=== PATIENT | female | born 2000 | race Caucasian/White ===

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

== ENCOUNTER 2020-11-05 09:18 | Day surgery (SDC) | payer OTHER ==
[2020-11-05] MEDS ORDERED: NA CHLORIDE 0.9% 1,000 ML ONE (09:57)
[2020-11-05] MEDS ORDERED: propofoL 200 MG/20 ML VIAL IV ONE ×2 (11:13→11:41)
[2020-11-05] MEDS ORDERED: FENTANYL CITR 100 MCG/2 ML ONE (11:13)
[2020-11-05] MEDS ORDERED: dexAMETHasone 10 MG/ML VIAL ONE (11:13)
[2020-11-05] MEDS ORDERED: MIDAZOLAM HCL 2 MG/2 ML INJ ONE (11:13)
[2020-11-05] MEDS ORDERED: LIDOCAINE 2% MPF 5 ML VIAL ONE (11:14)
--- NOTE | 2020-11-05 11:39 | P.OP ---
Preoperative diagnosis: End Stage Renal Disease - Peritoneal Dialysis Postoperative diagnosis: End Stage Renal Disease - Peritoneal Dialysis Primary procedure: Removal of LEFT IJ Tunnelled Hemodialysis Catheter Anesthesia: MAC + Local Estimated blood loss: <1cc Specimen: Catheter for ID Findings: well grown cuff Complications: None Transferred to: Recovery Room Condition: Good
--- NOTE | 2020-11-05 12:10 | OP ---
Date of Procedure: 11/05/2020 Surgeon: Sachin Cartwright MD, Preoperative Diagnosis: End-stage renal disease/peritoneal dialysis. Postoperative Diagnosis: End-stage renal disease/peritoneal dialysis. Procedure Performed: Removal of left internal jugular tunneled hemodialysis catheter. Anesthesia: MAC plus local with 0.25% Marcaine with epinephrine. Estimated Blood Loss: Less than 1 mL. Specimens: Catheter for ID. Findings: Left IJ catheter was well grown into the tissue. Complications: None. Disposition: The patient was transferred to the recovery room in good condition. Procedure In Detail: After informed consent was obtained, the patient was brought to the operating r oom, prepped and draped in the usual sterile fashion after adequate anesthesia was achieved. The pat ient was placed in steep Trendelenburg position. The catheter had no sutures in place as it was bein g held by its cuff. I then manipulated the cuff and anesthetized the tract with the 0.25% Marcaine w ith epinephrine. At this point, I was able to dilate up the insertion site with hemostats and expose d the cuff. The cuff was then brought out onto the field and I used a 15 blade to cut down to the ca theter itself using meticulous dissection and a combination of both sharp and blunt dissection. At t his point when the catheter was completely free from the surrounding tissues, I kept the patient in s teep Trendelenburg position and hold the pressure above the insertion site and the exit site of the c atheter, pulled it and placed on the back table. The pressure was held for 1 minute and the patient was positioned at this point in the sitting up position and pressure continued to be held at the inse rtion site and the exit site. At this point, pressure remained on the insertion site and at the exit site. I irrigated with minimal blood loss. Less than 1 mL was appreciated blood loss. I then plac ed 2 interrupted 3-0 nylon sutures and a sterile dressing was placed over top. The patient had press ure held for 5 minutes by the clock and tolerated the procedure well without evidence of complication . The patient was transferred to PACU in good condition. All counts were correct at the end of the case. TK/MODL Voice ID: [id number] Report ID: [id number]
[2020-11-05] MEDS ORDERED: LIDOCAINE 1% MPF 30 ML VIAL ONE (12:13)
[2020-11-05 12:23] VITALS: BP 123/90; TEMP 97; O2SAT 99
== END 2020-11-05 12:40 | disposition home or self-care (01) ==
LOC: OR 09:18
PROVIDERS: ATTEND Surgery
PROC: 05PY03Z Removal of Infusion Device from Upper Vein, Open Approach (ICD-10-PCS; principal; 2020-11-05 11:15)
DX: Z45.2 Encounter for adjustment and management of vascular access device (principal); N18.6 End stage renal disease; Z99.2 Dependence on renal dialysis
CPT/HCPCS: 81025; 88300; 36590; U0003; J2704 ×2; J2250; J7030; J1100; J3010

== ENCOUNTER 2021-01-29 03:18 | Inpatient (IN) | payer OTHER ==
[2021-01-29] MEDS ORDERED: ONDANSETRON 4 MG/2 ML VIAL ONE (04:11)
[2021-01-29] MEDS ORDERED: FENTANYL CITR 100 MCG/2 ML ONE (04:11)
[2021-01-29 04:25] LABS: Absolute Lymphocytes (CBC) 2.4 K/uL (0.7-4.9); Basophils % 0.2 % (0-1.3); Hematocrit 28.1 % (36.0-45.0); Lymphocytes % 26.1 % (15.3-44.8); MPV 8.7 fL (7.6-11.3); RBC Red Blood Cell Count 3.11 M/uL (3.86-4.86)
[2021-01-29 04:29] LABS: Protime INR 0.97
[2021-01-29] MEDS ORDERED: CEFTRIAXONE/SWI 1gm 1 GM/10 ML SYR ONE (04:42)
[2021-01-29 04:48] LABS: ALT/SGPT 14 U/L (12-78); AST/SGOT 7 U/L (15-37); Albumin 2.8 g/dL (3.4-5.0); Alkaline Phosphatase 147 U/L (45-117); BUN Blood Urea Nitrogen 54 mg/dL (7-18); Bicarbonate 23 mmol/L (21-32); Bilirubin Direct < 0.1 mg/dL (0-0.2); Bilirubin Total 0.3 mg/dL (0.2-1.0); Creatine Phosphokinase 99 U/L (26-192); Glucose Level 179 mg/dL (74-106); Lipase 225 U/L (73-393); Potassium 4.1 mmol/L (3.5-5.1); Protein, Total 7.1 g/dL (6.4-8.2); Sodium Level 140 mmol/L (136-145)
--- NOTE | 2021-01-29 05:37 | EDPHYS ---
Physician Documentation [facility] Name: Sully Renner Age: 20 yrs Sex: Female : 2000 Arrival Date: 01/29/2021 Time: 03:24 Bed 6 Private MD: ED Physician Aaron Perez HPI: 01/29 06:14 This 20 yrs old Female presents to ER via Wheelchair with complaints of tw4 Fever, Abdominal Pain. 06:14 The patient reports fever, not measured (subjective). Onset: The symptoms/episode tw4 began/occurred today. Modifying factors: there are no obvious modifying factors. Associated signs and symptoms: Pertinent positives: abdominal pain. Severity of symptoms: At their worst the symptoms were moderate in the emergency department the symptoms are unchanged. The patient has not experienced similar symptoms in the past. 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 - Social history:: Smoking status: Patient denies any tobacco usage or history of. ROS: 06:14 Eyes: Negative for injury, pain, redness, and discharge, Cardiovascular: Negative for tw4 chest pain, palpitations, and edema, Respiratory: Negative for shortness of breath, cough, wheezing, and pleuritic chest pain. 06:14 Back: Negative for injury and pain, MS/Extremity: Negative for injury and deformity, Skin: Negative for injury, rash, and discoloration, Neuro: Negative for headache, weakness, numbness, tingling, and seizure. 06:14 Constitutional: Positive for fever. 06:14 Abdomen/GI: Positive for abdominal pain, Negative for nausea and vomiting, nausea, vomiting, and diarrhea, nausea, constipation, abdominal cramps, abdominal distension, anorexia, dysphagia, hematemesis, black/tarry stool, rectal pain, bowel incontinence. Exam: 06:14 Constitutional: This is a well developed, well nourished patient who is awake, alert, tw4 and in no acute distress. Head/Face: Normocephalic, atraumatic. Eyes: Pupils equal round and reactive to light, extra-ocular motions intact. Lids and lashes normal. Conjunctiva and sclera are non-icteric and not injected. Cornea within normal limits. Periorbital areas with no swelling, redness, or edema. Chest/axilla: Normal chest wall appearance and motion. Nontender with no deformity. No lesions are appreciated. Cardiovascular: Regular rate and rhythm with a normal S1 and S2. No gallops, murmurs, or rubs. Normal PMI, no JVD. No pulse deficits. Respiratory: Lungs have equal breath sounds bilaterally, clear to auscultation and percussion. No rales, rhonchi or wheezes noted. No increased work of breathing, no retractions or nasal flaring. Abdomen/GI: Soft, non-tender, with normal bowel sounds. No distension or tympany. No guarding or rebound. No evidence of tenderness throughout. Back: No spinal tenderness. No costovertebral tenderness. Full range of motion. Skin: Warm, dry with normal turgor. Normal color with no rashes, no lesions, and no evidence of cellulitis. MS/ Extremity: Pulses equal, no cyanosis. Neurovascular intact. Full, normal range of motion. Neuro: Awake and alert, GCS 15, oriented to person, place, time, and situation. Cranial nerves II-XII grossly intact. Motor strength 5/5 in all extremities. Sensory grossly intact. Cerebellar exam normal. Normal gait. Vital Signs: 03:44 BP 119 / 81; Pulse 98; Resp 20 S; Temp 98.9(O); Pulse Ox 98% on R/A; Weight 77.11 kg bb (R); Height 5 ft. 3 in. (160.02 cm) (R); Pain 10/10; 05:04 BP 134 / 97; Pulse 122; Resp 16; Pulse Ox 98% on R/A; jm8 06:18 BP 118 / 88; Pulse 123; Resp 16; Pulse Ox 98% ; jm8 03:44 Body Mass Index 30.11 (77.11 kg, 160.02 cm) bb MDM: 05:35 Patient medically screened. tw4 06:14 Differential diagnosis: viral Infection, bacterial infection. Data reviewed: vital tw4 signs, nurses notes. Data interpreted: Pulse oximetry: Interpretation: normal. Counseling: I had a detailed discussion with the patient and/or guardian regarding: the historical points, exam findings, and any diagnostic results supporting the discharge/admit diagnosis. Physician consultation: Violeta Flowers MD regarding admission, to the medical/surgical unit. patient's condition, and will see patient in ED. 01/29 03:34 Order name: Basic Metabolic Panel; Complete Time: 06:11 01/29 06:12 Interpretation: Normal except: CRE 9.07; BUN 54; GLUC 179; CL 108; GFR 6. 01/29 03:34 Order name: CBC with Diff; Complete Time: 06:11 01/29 06:12 Interpretation: Normal except: RBC 3.11; HGB 9.6; HCT 28.1. 01/29 03:34 Order name: Hepatic Function; Complete Time: 06:11 01/29 06:12 Interpretation: Normal except: AST 7; ALK 147; ALB 2.8; GLOB 4.3; A/G 0.7. 01/29 03:34 Order name: Lipase; Complete Time: 06:11 01/29 06:12 Interpretation: Normal except: LIP 225. 01/29 03:44 Order name: Blood Culture Adult (2) 01/29 03:44 Order name: CPK 01/29 03:44 Order name: Lactate 01/29 03:44 Order name: Procalcitonin; Complete Time: 06:11 01/29 06:12 Interpretation: Abnormal: Procalcitonin 0.40. 01/29 03:44 Order name: Protime (+inr); Complete Time: 06:11 01/29 03:44 Order name: Ptt, Activated; Complete Time: 06:11 01/29 06:12 Interpretation: Abnormal: PTT 23.8. 01/29 03:44 Order name: Urine Microscopic Only; Complete Time: 06:11 01/29 06:13 Interpretation: Within normal limits. 01/29 03:45 Order name: Blood Culture EDCO 01/29 03:45 Order name: Lactate; Complete Time: 06:11 EDCO 01/29 06:13 Interpretation: Within normal limits: LAC 1.1. 01/29 04:11 Order name: Creatine Phosphokinase; Complete Time: 06:11 EDCO 01/29 06:13 Interpretation: Within normal limits: CPK 99. tw4 01/29 04:15 Order name: CT Abd/Pelvis - Without Contrast tw4 01/29 05:32 Order name: CONS Physician Consult EDCO 01/29 05:39 Order name: Urine Dipstick-Ancillary; Complete Time: 06:11 EDCO 01/29 06:12 Interpretation: Normal except: UBLD Trace-intact; UPH 8.0; UPROT 3+. tw4 01/29 06:27 Order name: Fluid Cell Count,Body tw4 01/29 06:28 Order name: Body Fluid Culture tw 01/29 06:43 Order name: SARS-COV-2 RT PCR EDCO 01/29 07:53 Order name: Body Fluid Cell Count EDCO 01/29 07:55 Order name: Body Fluid Culture EDCO 01/29 03:34 Order name: IV Saline Lock; Complete Time: 04:05 tw4 01/29 03:34 Order name: Labs collected and sent; Complete Time: 04:05 tw4 01/29 03:34 Order name: Urine Dipstick-Ancillary (obtain specimen); Complete Time: 05:49 tw4 01/29 03:34 Order name: Urine Test (obtain specimen); Complete Time: 05:49 tw4 Administered Medications: 04:04 Drug: fentaNYL (PF) 50 mcg Route: IVP; Site: left antecubital; jm8 06:17 Follow up: Response: No adverse reaction; Pain is decreased jm8 04:04 Drug: Zofran (Ondansetron) 4 mg Route: IVP; Site: left antecubital; jm8 06:17 Follow up: Response: No adverse reaction jm8 04:28 Drug: Rocephin (cefTRIAXone) 1 grams Route: IV; Rate: bolus; Site: left antecubital; jb4 04:30 Follow up: IV Status: Completed infusion jm8 06:47 Drug: vancoMYCIN 1 grams Route: IVPB; Infused Over: 2 hrs; Site: left upper arm; jm8 06:48 Drug: Cipro (ciprofloxacin) 500 mg Route: PO; jm8 06:48 Drug: NS 0.9% 250 ml Route: IV; Rate: bolus; Site: left antecubital; jm8 Disposition: 01/29/21 05:35 Hospitalization ordered by Violeta Flowers for Inpatient Admission. Preliminary diagnosis are Peritonitis, Hypertensive chronic kidney disease with stage 5 chronic kidney disease or end stage renal disease. - Bed requested for Telemetry/MedSurg (Inpatient). - Status is Inpatient Admission. ld1 - Condition is Stable. - Problem is new. - Symptoms are unchanged. Signatures: Dispatcher [employer] EDCO Korina Parrish, RN RN dw Amelia Ponce, RN RN Guilherme Smith, RN RN jb4 Aaron Perez MD MD tw4 Crys Good RN RN ld1 Clifford Blackmon RN RN jm8 Corrections: (The following items were deleted from the chart) 04:11 03:45 Creatine Phosphokinase ordered. EDCO EDMS 05:52 05:39 CORONAVIRUS+MR.LAB.BRZ ordered. [facility] EDMS 07:33 05:35 Hospitalization Ordered by Violeta Flowers MD for Inpatient Admission. Preliminary dw diagnosis is Peritonitis; Hypertensive chronic kidney disease with stage 5 chronic kidney disease or end stage renal disease. Bed requested for Telemetry/MedSurg (Inpatient). Status is Inpatient Admission. Condition is Stable. Problem is new. Symptoms are unchanged. tw4 08:48 07:33 01/29/2021 05:35 Hospitalization Ordered by Violeta Flowers MD for Inpatient ld1 Admission. Preliminary diagnosis is Peritonitis; Hypertensive chronic kidney disease with stage 5 chronic kidney disease or end stage renal disease. Bed requested for Telemetry/MedSurg (Inpatient). Status is Inpatient Admission. Condition is Stable. Problem is new. Symptoms are unchanged. dw
--- NOTE | 2021-01-29 05:37 | ER ---
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 Coronavirus screen: At this time, the client does not indicate any symptoms associated with coronavirus-19. Ebola Screen: No symptoms or risks identified at this time. Initial Sepsis Screen: Does the patient meet any 2 criteria? No. Patient's initial sepsis screen is negative. Does the patient have a suspected source of infection? Yes: Acute abdominal pain. Risk Assessment: Do you want to hurt yourself or someone else? Patient reports no desire to harm self or others. Onset of symptoms was January 29, 2021. 03:44 Method Of Arrival: Wheelchair bb 03:44 Acuity: CT 2 bb ANALOG IC DESIGN ARCHITECT: 03:47 LMP 01/10/2021 bb Historical: - Allergies: 03:47 Latex, Natural Rubber; bb - PMHx: 03:47 dialysis; bb - PSHx: 03:47 bladder augmentation; spina bifida repair; kidney transplant; bb - Immunization history:: Adult Immunizations up to date, Client reports receiving the 2nd dose of the Covid vaccine. - Social history:: Smoking status: Patient denies any tobacco usage or history of. Screenin:06 Abuse screen: Denies threats or abuse. Denies injuries from another. Nutritional jm8 screening: No deficits noted. Tuberculosis screening: No symptoms or risk factors identified. Fall Risk None identified. Assessment: 04:06 General: Appears in no apparent distress. uncomfortable, Behavior is calm, cooperative, jm8 appropriate for age. Pain: Complains of pain in abdomen Pain currently is 10 out of 10 on a pain scale. Quality of pain is described as stabbing, Pain began 2-3 days ago. Noted to be guarding, moaning. Neuro: No deficits noted. Level of Consciousness is awake, alert, obeys commands, Oriented to person, place, time. Cardiovascular: No deficits noted. Respiratory: No deficits noted. Airway is patent Trachea midline Respiratory effort is even, unlabored, Respiratory pattern is regular, symmetrical. GI: Bowel sounds present X 4 quads. Abd is soft Abdomen is tender to palpation Guarding noted Reports lower abdominal pain, upper abdominal pain. GI: Abdomen is round distended. : No deficits noted. No signs and/or symptoms were reported regarding the genitourinary system. EENT: No deficits noted. No signs and/or symptoms were reported regarding the EENT system. Derm: No deficits noted. No signs and/or symptoms reported regarding the dermatologic system. Musculoskeletal: No deficits noted. No signs and/or symptoms reported regarding the musculoskeletal system. Vital Signs: 03:44 BP 119 / 81; Pulse 98; Resp 20 S; Temp 98.9(O); Pulse Ox 98% on R/A; Weight 77.11 kg bb (R); Height 5 ft. 3 in. (160.02 cm) (R); Pain 10/10; 05:04 BP 134 / 97; Pulse 122; Resp 16; Pulse Ox 98% on R/A; jm8 06:18 BP 118 / 88; Pulse 123; Resp 16; Pulse Ox 98% ; jm8 03:44 Body Mass Index 30.11 (77.11 kg, 160.02 cm) bb ED Course: 03:24 Patient arrived in ED. am4 03:33 Aaron Perez MD is Attending Physician. tw4 03:46 Triage completed. bb 03:47 Arm band placed on Patient placed in an exam room, on a stretcher, on panel monitor, bb on pulse oximetry. Family accompanied patient. 04:05 Inserted saline lock: 18 gauge in right upper arm, using aseptic technique. jm8 04:06 Patient has correct armband on for positive identification. Bed in low position. Call jm8 light in reach. Side rails up X2. Adult w/ patient. 04:49 Notified ED physician of a critical lab result(s). creatinine of 9.07 Dr Chris hilliard notified. 05:35 Violeta Flowers MD is Hospitalizing Provider. tw4 06:11 CT Abd/Pelvis - Without Contrast In Process Unspecified. EDMS 08:42 No provider procedures requiring assistance completed. Patient admitted, IV remains in ld1 place. intact, bleeding controlled, No redness/swelling at site. Administered Medications: 04:04 Drug: fentaNYL (PF) 50 mcg Route: IVP; Site: left antecubital; 8 06:17 Follow up: Response: No adverse reaction; Pain is decreased 8 04:04 Drug: Zofran (Ondansetron) 4 mg Route: IVP; Site: left antecubital; 8 06:17 Follow up: Response: No adverse reaction 8 04:28 Drug: Rocephin (cefTRIAXone) 1 grams Route: IV; Rate: bolus; Site: left antecubital; 4 04:30 Follow up: IV Status: Completed infusion 8 06:47 Drug: vancoMYCIN 1 grams Route: IVPB; Infused Over: 2 hrs; Site: left upper arm; 8 06:48 Drug: Cipro (ciprofloxacin) 500 mg Route: PO; 8 06:48 Drug: NS 0.9% 250 ml Route: IV; Rate: bolus; Site: left antecubital; [facility] Outcome: 05:35 Decision to Hospitalize by Provider. 4 08:42 Admitted to Med/surg accompanied by tech, via stretcher, room 217, with chart, Report ld1 called to GAGAN Potter. 08:42 Condition: stable 08:48 Patient left the ED. ld1 Signatures: Dispatcher [employer] EDAmelia Hammonds RN RN bb Bryson, James RN GAGAN jb4 Aaron Perez MD MD 4 Nellie Merino Crys Dorantes RN RN 1 Clifford Blackmon RN RN jm8 Corrections: (The following items were deleted from the chart) 05:52 05:49 CORONAVIRUS+MR.LAB.JOSE E drawn and sent. [facility] EDMS
[2021-01-29 05:39] LABS: Urine Blood Trace-intact (Negative); Urine Glucose Negative (Negative); Urine Protein 3+ (Negative); Urine Specific Gravity 1.025 (1.005-1.030)
--- NOTE | 2021-01-29 05:44 | P.HP ---
Certification for Inpatient Patient admitted to: Inpatient With expected LOS: >2 Midnights Patient will require the following post-hospital care: None Practitioner: I am a practitioner with admitting privileges, knowledge of patient current condition, hospital course, and medical plan of care. Services: Services provided to patient in accordance with Admission requirements found in Title 42 Section 412.3 of the Code of Federal Regulations <JvJhonatan Tc - Last Filed: 01/29/21 05:37> Patient History Date of Service: 01/29/21 Reason for admission: SBP History of Present Illness: Ms. Renner is a 20 yo F on peritoneal dialysis here for 2 days of 10/10 epigastric abdominal pain. The pain worsened last night around 11pm when she started her dialysis. 40 minutes in, the pain became excruciating. Pain did not improve with stopping dialysis. Now after pain medication, pain is a 3/10. She reports fever, N/V, bloating. Noted blood and cloudy appearance in peritoneal fluid. She says blood usually appears near her period. - Past Medical/Surgical History -: resolved HTN and DM and recurrent UTIs (immunosuppression induced) -: spina bifida -: bladder reflux -: on peritoneal dialysis -: spina bifida repair -: bladder augmentation -: kidney transplant, then nephrectomy -: PD placement Psychosocial/ Personal History: adopted - Family History Family History: Reviewed- Non-Contributory - Social History Smoking Status: Never smoker Alcohol use: No CD- Drugs: No Caffeine use: No Place of Residence: Home <Jhonatan Carias - Last Filed: 01/29/21 05:37> Date of Service: 01/29/21 <Violeta Flowers - Last Filed: 01/30/21 10:26> Allergies latex Allergy (Verified 11/05/20 10:08) Hives/Rash morphine Allergy (Verified 11/05/20 10:08) Itching/Hives/Rash Home Medications: NK [No Home Meds] 11/01/20 Review of Systems 10-point ROS is otherwise unremarkable General: Fever, Sweats Gastrointestinal: Nausea, Vomiting, Abdominal Pain, Distention <Jhonatan Carias - Last Filed: 01/29/21 05:37> Physical Examination - Physical Exam General: Alert, In no apparent distress HEENT: Atraumatic, PERRLA, Mucous membr. moist/pink, EOMI, Sclerae nonicteric Neck: Supple, 2+ carotid pulse no bruit, No LAD, Without JVD or thyroid abnormality Respiratory: Clear to auscultation bilaterally, Normal air movement Cardiovascular: Regular rate/rhythm, Normal S1 S2 Gastrointestinal: Hypoactive, Soft and benign, No masses, No rebound, No guarding, Ascites Musculoskeletal: No tenderness Integumentary: No rashes Neurological: Normal speech, Normal strength at 5/5 x4 extr, Normal tone, Normal affect Lymphatics: No axilla or inguinal lymphadenopathy - Studies Laboratory Data (last 24 hrs) 01/29/21 04:00: PT 11.2, INR 0.97, APTT 23.8 L 01/29/21 04:00: WBC 9.20, Hgb 9.6 L, Hct 28.1 L, Plt Count 181 01/29/21 04:00: Sodium 140, Potassium 4.1, BUN 54 H, Creatinine 9.07 H*, Glucose 179 H, Total Bilirubin 0.3, AST 7 L, ALT 14, Alkaline Phosphatase 147 H, Lipase 225 <Jhonatan Carias S - Last Filed: 01/29/21 05:37> Assessment and Plan - Problems (Diagnosis) (1) History of nephrectomy Current Visit: Yes Status: Chronic (2) Anemia Current Visit: Yes Status: Chronic Qualifiers: Anemia type: unspecified type Qualified Code(s): D64.9 - Anemia, unspecified (3) ESRD (end stage renal disease) on dialysis Current Visit: Yes Status: Chronic - Plan nephrology consulted pain management as needed ceftriaxone 1g IV q12hr anemia stable, continue to monitor will continue PD schedule Discharge Plan: Home Plan to discharge in: 48 Hours - Advance Directives Does patient have a Living Will: No Does patient have a Durable POA for Healthcare: No - Code Status/Comfort Care Code Status Assessed: Yes (full code ) Critical Care: No Time Spent Managing Pts Care (In Minutes): 70 <Jhonatan Carias - Last Filed: 01/29/21 05:37> Date of Service: 01/29/21 Agree with plan of care as mentioned above. Spoke with Nephrology and at this time they want to continue with Fortaz at discharge. Awaiting for cultures to come back. Patient will continue with peritoneal dialysis at discharge. Patient will get intraperitoneal antibiotics per Nephrology. <Violeta Flowers - Last Filed: 01/30/21 10:26>
[2021-01-29 06:00] LABS: Urine Bacteria <20 /HPF (<20); Urine RBC <5 /HPF (NONE SEEN); Urine Urothelial Cells <5 /HPF (NONE SEEN)
[2021-01-29] MEDS ORDERED: CIPROFLOXACIN HCL 500 MG TAB ONE (06:56)
[2021-01-29] MEDS ORDERED: VANCOMYCIN 1 GM/VIAL ONE (06:57)
[2021-01-29] MEDS ORDERED: NA CHLORIDE 0.9% 500 ML ONE (06:57)
[2021-01-29 07:52] LABS: Appearance SLT. TURBID (CLEAR); Body Fluid Source PLEURAL; Body Fluid WBC 2169 /mm^3; Color of fluid Pink (COLORLESS)
[2021-01-29] MEDS ORDERED: ONDANSETRON 4 MG/2 ML VIAL IV PRN (09:04)
[2021-01-29 10:21] LABS: Albumin 2.8 g/dL (3.4-5.0); Bilirubin Total 0.3 mg/dL (0.2-1.0); Potassium 4.8 mmol/L (3.5-5.1); Protein, Total 6.7 g/dL (6.4-8.2)
[2021-01-29] MEDS ORDERED: FUROSEMIDE 40 MG/4 ML VIAL IV ONE (10:34)
[2021-01-29] MEDS: FENTANYL CITR 100 MCG/2 ML IV PRN ×2 (10:44→20:12)
--- NOTE | 2021-01-29 11:21 | RAD REPORT ---
EXAM DESCRIPTION: CT - Abdomen Pelvis Wo Contrast - 01/29/2021 6:53 am CLINICAL HISTORY: The patient is 20 years old and is Female; ABD PAIN TECHNIQUE: Axial computed tomography images of the abdomen and pelvis without intravenous contrast. Sagittal and coronal reformatted images were created and reviewed. This CT exam was performed usi ng one or more of the following dose reduction techniques: automated exposure control, adjustment o f the mA and/or kV according to patient size, and/or use of iterative reconstruction technique. COMPARISON: CT abdomen and pelvis without contrast September 05, 2020. FINDINGS: Lung bases: Unremarkable. No mass. No consolidation. ABDOMEN: Liver: Unremarkable. Gallbladder and bile ducts: Unremarkable. No calcified stones. No ductal dilation. Pancreas: Unremarkable. No ductal dilation. Spleen: Unremarkable. No splenomegaly. Adrenals: Unremarkable. No mass. Kidneys and ureters: Kidneys are atrophic bilaterally. No obstructing stones. Mild bilateral pelviectasis, similar to prior. Stomach and bowel: Unremarkable. No obstruction. No mucosal thickening. PELVIS: Appendix: No findings to suggest acute appendicitis. Bladder: Thickened irregular bladder wall, similar to prior. No stones. Reproductive: Unremarkable as visualized. ABDOMEN and PELVIS: Intraperitoneal space: Free fluid in the pelvis. Scattered areas of stranding along the right pa racolic gutter. No free air. Bones/joints: No acute fracture. No dislocation. Soft tissues: Scattered areas of subcutaneous fat stranding along the right lateral abdominal wa ll. Vasculature: Unremarkable. No abdominal aortic aneurysm. Lymph nodes: 1 cm lymph node in the left periaortic region. Tubes, lines and devices: Midline catheter coiled in the pelvis which may be related to peritone al dialysis. Other findings: IMPRESSION: 1. Free fluid in the pelvis. 2. Thickened irregular bladder wall, similar to prior. Correlate with any concern for cystitis, jessica rogenic bladder, or chronic bladder outlet obstruction. 3. Scattered areas of stranding along the right paracolic gutter. 4. Scattered areas of subcutaneous fat stranding along the right lateral abdominal wall. Correlat e with any history of trauma or subcutaneous injection. Electronically signed by: Tom Gage MD 01/29/2021 6:39 AM CDT Due to temporary technical issues with the PACS/Fluency reporting system, reports are being signed by the in house radiologist without review as a courtesy to ensure prompt reporting. The interpreting r adiologist is fully responsible for the content of the report.
[2021-01-29] MEDS: CEFEPIME/SWI 1gm 10 ML IVP SCH (12:35)
[2021-01-29 12:52] VITALS: BMI 30.1
--- NOTE | 2021-01-29 14:15 | CON ---
History Of Present Illness: The patient was seen in room 217 at [facility]. She is shannon rt, awake. Her parents are in the room. Her mother and father are both there. The patient is looki ng comfortable currently, but she does complain of some pain. She does have some mild pain. On abdo sabrina exam, she does not have any guarding or rebound, but the pain is improved; however, the pain is still present and bothersome to her. She is not having any nausea. She has had imaging of the garcia y done to rule out concerns for appendicitis and other GI pathology. The patient does have a formal report from the CT scan pending still. She was evaluated with peritoneal fluid that was sent down, d oes show significant WBCs about 60 range, but the cell count is over 2000. The patient does seem to be clinically presenting as if she is having peritonitis. She has gotten a dose of vancomycin in the emergency room. They have her on Rocephin 1 g IV twice a day currently, and cultures and the Gram s tain and further evaluation of the peritoneal fluid are pending. The patient looks comfortable curre ntly on my exam. She is alert, awake, able to answer some questions. She is having some discomfort. Says that she is not able to tolerate morphine in the past, but is able to take fentanyl. She has fentanyl ordered and dose is about to be given. The patient also is hoping that she would not need p eritoneal dialysis tonight as she has been having some discomfort today with this peritonitis and wan ts to see if she can hold off tonight while the peritonitis is improving with antibiotics. Her lab w ork does not reveal any significant issues with potassium, which is at 4.1 range. Her sodium is at 1 40. Her bicarb is at 23. Her breathing is pretty comfortable. Her lungs are clear and I think sinc e she makes urine with a dose of Lasix, she could hold off dialysis tonight. On evaluation of her co st medical history; she has history of end-stage renal disease, history of spina bifida, history with difficulty with diarrhea on occasion. She states that the pain started pretty much yesterday and th en progressed over the night. The patient presented to the hospital mainly for the abdominal pain. She is feeling a little bit significantly better currently, but still having the pain and not back to her baseline. She does not have any nausea. She does not have any vomiting. Currently, she is afe brile. Her blood pressures are in good range. She does not seem to have volume overload. She denie s any breathing difficulty. Allergies: TO LATEX WHICH HAS GIVEN HER HIVES AND RASH, MORPHINE WHICH HAS GIVEN HER ITCHING AND HIV ES. THE PATIENT STATES THAT SHE HAS HAD SOME ISSUES WITH ANTIBIOTICS IN THE PAST, MAINLY BECAUSE OF DIARRHEA AND GIVEN HER SPINA BIFIDA. Past Medical History: Significant for hypertension, diabetes, spina bifida, bladder reflux. The pat holger is on peritoneal dialysis, history of failed kidney transplant, and PD catheter placement. Social History: The patient has a very involved family. Mother and father in the room. She does no t smoke or does not use any alcohol or drugs. Physical Examination: The patient is alert, awake, able to talk in full sentences and seems comfortable. She does have maida e discomfort on abdominal exam with moderate palpation. Does not seem to have guarding or rebound. Her legs do not reveal any edema. Her neck does not show any JVP. Her lungs are clear to auscultati on bilaterally. Heart sounds are regular and rate is in normal range. Laboratory Data: Reviewed. Labs show WBC count 9.2, hemoglobin 9.6, hematocrit 28.1, platelet count of 181. Chemistry shows sodium 140, potassium 4.8, chloride 111, bicarb 20, BUN 58, creatinine 9.12 , glucose is at 151, calcium 7.7. AST and ALT at 8 and 13, albumin at 2.8. Assessment And Plan: The patient looks comfortable, likely with peritonitis in the setting of perito mireya dialysis. She is clinically improving. Has a dose of vancomycin. We would broaden her antibio tics to Fortaz/cefepime, discontinue Rocephin for now. We will order a dose of 1 g Fortaz now. She has already got a dose of vancomycin last night. She is already clinically improving. Her temperatu re is afebrile. Her WBC counts are normal limits. Anticipate significant improvement if this is jus t peritonitis by tomorrow. Cultures, cell counts are still pending. May need antibiotic adjustment once those are back; however, we will continue to empirically treat and monitor her with hopefully pl an to discharge tomorrow. Once the culture results are more clarified, may need antibiotics for anot her 21 days or so, which can be done outpatient and can be done IP that is intraperitoneal. I have d iscussed that with the family and we will also advise Dr. Chapman, who will be rounding tomorrow and overseeing the antibiotic once the patient is discharged. We can get that done hopefully through the peritoneal dialysis clinic and I will discuss that with the peritoneal dialysis nurse as well. /DELFINO Voice ID: [id number] Report ID: [id number]
[2021-01-29] MEDS ORDERED: CEFTRIAXONE/SWI 1gm 1 GM/10 ML SYR IV SCH (16:30)
[2021-01-29] MEDS ORDERED: CEFTRIAXONE 1 GM/NS 50 ML 1 GM/50 ML BAG IV SCH (16:30)
[2021-01-30 04:21] LABS: Absolute Lymphocytes (CBC) 2.2 K/uL (0.7-4.9); Basophils % 0.1 % (0-1.3); Hematocrit 25.7 % (36.0-45.0); Lymphocytes % 15.8 % (15.3-44.8); MPV 8.7 fL (7.6-11.3); RBC Red Blood Cell Count 2.85 M/uL (3.86-4.86)
[2021-01-30 04:38] LABS: Magnesium 1.7 mg/dL (1.8-2.4); Phosphorus 5.1 mg/dL (2.5-4.9)
[2021-01-30] MEDS ORDERED: MAGNESIUM SULFATE 1 gm IVPB 1 GM/100 ML BAG IV ONE ×2 (07:34→09:00)
[2021-01-30] MEDS ORDERED: CEFEPIME 1 GM/10 ML SYR IV SCH (09:00)
[2021-01-30] MEDS: CEFEPIME/SWI 1gm 10 ML IVP SCH (10:16)
[2021-01-30] MEDS: FENTANYL CITR 100 MCG/2 ML IV PRN ×3 (10:17→22:53)
--- NOTE | 2021-01-30 10:31 | P.PN ---
Date of Service: 01/30/21 Vital Signs Temp Pulse Resp BP Pulse Ox 97.9 F 100 H 18 112/76 97 01/30/21 04:00 01/30/21 04:00 01/30/21 10:17 01/30/21 04:00 01/30/21 10:17 Medications Acetaminophen (Acetaminophen 500 Mg Tab) 500 mg PO Q4HP PRN PRN Reason: Pain scale 2-4 (Mild) Fentanyl Citrate (Fentanyl Citr 100 Mcg/2 Ml) 25 mcg IV Q4H PRN PRN Reason: Pain scale 8-10 (Severe) Last Admin: 01/30/21 10:17 Dose: 25 mcg Documented by: Cefepime HCl (Maxipime 1 Gm/10 Ml Ivp) 10 mls @ 200 mls/hr IVP DAILY COUNTS INCLUDE 234 BEDS AT THE [facility] Last Admin: 01/30/21 10:16 Dose: 10 mls Documented by: Ondansetron HCl (Ondansetron 4 Mg/2 Ml Vial) 4 mg IV Q6HP PRN PRN Reason: NAUSEA / VOMITING Last Admin: 01/30/21 10:17 Dose: 4 mg Documented by: Sodium Chloride (Flush Normal Saline 10 Ml) 10 ml IV BID COUNTS INCLUDE 234 BEDS AT THE [facility] Last Admin: 01/30/21 10:18 Dose: 10 ml Documented by: Microbiology Results 01/29/21 04:15 Blood - Blood Aerobic Blood Culture - Preliminary No growth in 24 hours. 01/29/21 04:15 Blood - Blood Anaerobic Blood Culture - Preliminary No growth in 24 hours. 01/29/21 04:00 Blood - Blood Aerobic Blood Culture - Preliminary No growth in 24 hours. 01/29/21 04:00 Blood - Blood Anaerobic Blood Culture - Preliminary No growth in 24 hours. Assessment/ Plan: Nephrology Worsening abdominal pain today. CPS stable without CP or SOB. No acute events overnight. Vitals, medications, blood work and imaging reviewed in the chart. NAD. Neck supple. CTA. No edema. Tender abd. AAO. Normal speech. No rash. ESRD Proteinuria -PD as discussed Peritonitis -Advised rapid exchanges today if possible -Continue abx Hypomagnesemia -Start MagOx Moderate malnutrition -Start Nepro Anemia in CKD -Give Retacrit ANGELES/ Secondary HyperPTH Hypocalcemia HyperPO4 -Start Calcitriol and Cholecalciferol Case reviewed with Dr. Flowers
[2021-01-30] MEDS ORDERED: EPOETIN ALFA-EPBX 10,000 UNIT/ML VIAL SQ ONE (21:33)
[2021-01-30] MEDS: MAGNESIUM OXIDE 400 MG TAB PO SCH ×2 (21:35)
[2021-01-30] MEDS: NEPRO SHAKE 237 ML CAN PO SCH (22:00)
[2021-01-30] MEDS: ACETAMINOPHEN 500 MG TAB PO PRN (23:53)
[2021-01-31 00:10] LABS: Potassium 5.2 mmol/L (3.5-5.1)
[2021-01-31] MEDS ORDERED: EPOETIN ALFA-EPBX 10,000 UNIT/ML VIAL ONE (00:12)
[2021-01-31] MEDS ORDERED: VANCOMYCIN 1 GM in NA CHLORIDE 0.9% 250 ML IVPB ONE (00:19)
[2021-01-31] MEDS ORDERED: ACETAMINOPHEN 500 MG TAB PO ONE (00:42)
[2021-01-31] MEDS ORDERED: Levofloxacin 250mg IV 250 MG/50 ML BAG IV ONE ×2 (01:00→10:30)
[2021-01-31] MEDS ORDERED: Levofloxacin 250mg IV 250 MG/50 ML BAG IV SCH (01:00)
[2021-01-31] MEDS ORDERED: D5W 1,000 ML with NA BICARB 8.4% 150 MEQ IV SCH ×2 (01:00)
[2021-01-31] MEDS ORDERED: SODIUM BICARB 50 MEQ/50ML VIAL ONE ×3 (01:14→01:20)
[2021-01-31] MEDS ORDERED: D5W 1,000 ML IV ONE (01:15)
[2021-01-31] MEDS ORDERED: VANCOMYCIN/NS 1 gm 1 GM/250 ML BAG IVPB ONE (02:26)
[2021-01-31 02:31] LABS: Urine Appearance CLEAR (Clear); Urine Bilirubin NEGATIVE (Negative); Urine Blood 1+ (Negative); Urine Color YELLOW (Yellow); Urine Glucose TRACE (Negative); Urine Protein 3+ (Negative); Urine Urobilinogen 0.2 mg/dL (0.2-1.0); Urine pH 7.5 (5.0-7.0)
[2021-01-31 02:40] LABS: Urine Microscopic Reflex ORDER UMIC
[2021-01-31] MEDS: FENTANYL CITR 100 MCG/2 ML IV PRN ×4 (03:14→21:32)
[2021-01-31] MEDS ORDERED: VANCOMYCIN 1 GM/VIAL ONE (03:31)
[2021-01-31] MEDS ORDERED: NA CHLORIDE 0.9% 250 ML ONE (03:32)
[2021-01-31 04:03] LABS: Urine Bacteria <20 /HPF (<20); Urine RBC <5 /HPF (NONE SEEN)
[2021-01-31 04:16] LABS: Absolute Lymphocytes (CBC) 0.8 K/uL (0.7-4.9); Basophils % 0.1 % (0-1.3); Hematocrit 27.2 % (36.0-45.0); Lymphocytes % 5.7 % (15.3-44.8); MPV 8.8 fL (7.6-11.3); RBC Red Blood Cell Count 3.03 M/uL (3.86-4.86)
[2021-01-31 04:34] LABS: Potassium 4.4 mmol/L (3.5-5.1)
[2021-01-31 04:47] LABS: Blood Morphology Comment NOT SEEN (NOT SEEN); Platelet Estimate ADEQ
[2021-01-31] MEDS: CEFEPIME/SWI 1gm 10 ML IVP SCH (10:01)
[2021-01-31] MEDS: CALCITROL 0.25 MCG CAP PO SCH (10:02)
[2021-01-31] MEDS: VITAMIN D 5,000 UNIT CAP PO SCH (10:02)
[2021-01-31] MEDS: NEPRO SHAKE 237 ML CAN PO SCH ×3 (10:02→21:00)
[2021-01-31] MEDS ORDERED: NA CHLORIDE 0.9% 50 ML ONE (11:07)
[2021-01-31] MEDS ORDERED: TRAMADOL HCL 50 MG TAB PO ONE (11:26)
--- NOTE | 2021-01-31 12:20 | RAD REPORT ---
EXAM DESCRIPTION: CT - Abdomen Pelvis Wo Contrast - 01/31/2021 4:14 am CLINICAL HISTORY: The patient is 20 years old and is Female; peritonitis TECHNIQUE: Axial computed tomography images of the abdomen and pelvis without intravenous contrast. Sagittal and coronal reformatted images were created and reviewed. This CT exam was performed usi ng one or more of the following dose reduction techniques: automated exposure control, adjustment o f the mA and/or kV according to patient size, and/or use of iterative reconstruction technique. COMPARISON: CT abdomen and pelvis January 29, 2021. FINDINGS: Lung bases: Bibasilar consolidation or atelectasis, new compared to the prior exam. ABDOMEN: Liver: Unremarkable. Gallbladder and bile ducts: Unremarkable. No calcified stones. No ductal dilation. Pancreas: Unremarkable. No ductal dilation. Spleen: Unremarkable. No splenomegaly. Adrenals: Unremarkable. No mass. Kidneys and ureters: The kidneys are atrophic bilaterally. No obstructing stones. No hydronephrosis. Stomach and bowel: Stool in the rectum. No obstruction. No mucosal thickening. PELVIS: Appendix: No findings to suggest acute appendicitis. Bladder: Thickened irregular bladder wall, similar to prior. No stones. Reproductive: Unremarkable as visualized. ABDOMEN and PELVIS: Intraperitoneal space: There is a small amount of free fluid around the liver. There is scattere d mesenteric edema which has increased compared to the prior exam. There is fluid tracking along the paracolic gutters bilaterally. There is fluid in the dependent pelvis. Bones/joints: No acute fracture. No dislocation. Soft tissues: There is subcutaneous fat stranding along the right lateral abdominal wall, unchan ged. Vasculature: Unremarkable. No abdominal aortic aneurysm. Lymph nodes: Unremarkable. No enlarged lymph nodes. Tubes, lines and devices: There is a catheter coiled in the lower pelvis. There are a couple locules of gas adjacent to the drain which may represent a small amount o f free air. IMPRESSION: 1. Bibasilar consolidation or atelectasis, new compared to the prior exam. 2. There is a small amount of free fluid around the liver. There is scattered mesenteric edema whic h has increased compared to the prior exam. There is fluid tracking along the paracolic gutters bilat erally. There is fluid in the dependent pelvis. 3. There is a catheter coiled in the lower pelvis. 4. There are a couple locules of gas adjacent to the drain which may represent a small amount of fr ee air. Electronically signed by: Tom Gage MD 01/31/2021 4:07 AM CDT Due to temporary technical issues with the PACS/Fluency reporting system, reports are being signed by the in house radiologist without review as a courtesy to ensure prompt reporting. The interpreting r adiologist is fully responsible for the content of the report.
--- NOTE | 2021-01-31 14:36 | RAD REPORT ---
EXAM DESCRIPTION: RAD - Abdomen 1 View (KUB) - 01/31/2021 2:27 pm CLINICAL HISTORY: Abd pain. PD Cath placement. Pain COMPARISON: No comparisons FINDINGS: Nonspecific dilatation of large and small bowel loops are seen with moderate stool retaine d in the colon. The findings may indicate adynamic ileus. Dialysis catheter coils in the left lower q uadrant of the pelvis. Consider followup plain radiograph in 24-48 hours.
[2021-01-31] MEDS: MAGNESIUM OXIDE 400 MG TAB PO SCH (21:00)
--- NOTE | 2021-01-31 21:32 | P.PN ---
Date of Service: 01/31/21 Vital Signs Temp Pulse Resp BP Pulse Ox 98.5 F 128 H 17 111/73 94 01/31/21 20:00 01/31/21 20:00 01/31/21 20:00 01/31/21 20:00 01/31/21 20:00 Medications Acetaminophen (Acetaminophen 500 Mg Tab) 500 mg PO Q4HP PRN PRN Reason: Pain scale 2-4 (Mild) Last Admin: 01/30/21 23:53 Dose: 500 mg Documented by: Calcitriol (Calcitrol 0.25 Mcg Cap) 0.5 mcg PO DAILY [facility] Last Admin: 01/31/21 10:02 Dose: 0.5 mcg Documented by: Cholecalciferol (Vitamin D 5,000 Unit Cap) 5,000 unit PO DAILY [facility] Last Admin: 01/31/21 10:02 Dose: 5,000 unit Documented by: Enteral Nutritional Formula (Nepro Shake 237 Ml Can) 237 ml PO TID [facility] Last Admin: 01/31/21 17:07 Dose: 237 ml Documented by: Fentanyl Citrate (Fentanyl Citr 100 Mcg/2 Ml) 25 mcg IV Q4H PRN PRN Reason: Pain scale 8-10 (Severe) Last Admin: 01/31/21 17:07 Dose: 25 mcg Documented by: Cefepime HCl (Maxipime 1 Gm/10 Ml Ivp) 10 mls @ 200 mls/hr IVP DAILY [facility] Last Admin: 01/31/21 10:01 Dose: 10 mls Documented by: Levofloxacin (Levofloxacin 250 Mg Tab) 250 mg PO Q48H [facility]; Protocol Magnesium Oxide (Magnesium Oxide 400 Mg Tab) 400 mg PO BEDTIME [facility] Last Admin: 01/30/21 21:35 Dose: 400 mg Documented by: Ondansetron HCl (Ondansetron 4 Mg/2 Ml Vial) 4 mg IV Q6HP PRN PRN Reason: NAUSEA / VOMITING Last Admin: 01/30/21 10:17 Dose: 4 mg Documented by: Sodium Chloride (Flush Normal Saline 10 Ml) 10 ml IV BID [facility] Last Admin: 01/31/21 10:02 Dose: 10 ml Documented by: Tramadol HCl (Tramadol Hcl 50 Mg Tab) 50 mg PO Q4H PRN PRN Reason: Pain scale 2-4 (Mild) Microbiology Results 01/29/21 04:15 Blood - Blood Aerobic Blood Culture - Preliminary No growth in 24 hours. 01/29/21 04:15 Blood - Blood Anaerobic Blood Culture - Preliminary No growth in 24 hours. 01/29/21 04:00 Blood - Blood Aerobic Blood Culture - Preliminary No growth in 24 hours. 01/29/21 04:00 Blood - Blood Anaerobic Blood Culture - Preliminary No growth in 24 hours. Assessment/ Plan: Nephrology Persistent abdominal pain. CPS stable without CP or SOB. No acute events overnight. Vitals, medications, blood work and imaging reviewed in the chart. NAD. Neck supple. CTA. No edema. Tender abd. AAO. Normal speech. No rash. ESRD Proteinuria -PD as tolerated PSA Peritonitis -Rapid exchanges as tolerated -Continue Cefepime -Start Levaquin Hypomagnesemia -Continue MagOx qhs Moderate malnutrition -Continue Nepro Anemia in CKD -Continue Retacrit ANGELES/ Secondary HyperPTH Hypocalcemia HyperPO4 -Continue Calcitriol and Cholecalciferol Case reviewed with Dr. Flowers
[2021-01-31] MEDS: TRAMADOL HCL 50 MG TAB PO PRN (23:30)
[2021-02-01] MEDS: ACETAMINOPHEN 500 MG TAB PO PRN (01:11)
--- NOTE | 2021-02-01 02:38 | P.PN ---
Subjective Date of Service: 01/29/21 Patient clinically feeling a little bit better. Awaiting for intraperitoneal antibiotics at discharge. Spoke with Nephrology and they will arrange this at the time of discharge. Anticipate discharge over the next 24-48 hr. Review of Systems 10-point ROS is otherwise unremarkable Physical Examination - Vital Signs Temperature: 99.6 F Blood Pressure: 108/66 Pulse: 134 Respirations: 18 Pulse Ox (%): 93 - Physical Exam General: Alert, In no apparent distress, Oriented x3 Respiratory: Clear to auscultation bilaterally, Normal air movement Cardiovascular: Regular rate/rhythm, Normal S1 S2 Gastrointestinal: Normal bowel sounds, Soft and benign, Non-distended, No rebound, No guarding, Tenderness (Mild) Musculoskeletal: No clubbing, No swelling, No tenderness Neurological: Sensation intact, Cranial nerves 3-12 intact - Studies Medications List Reviewed: Yes Assessment & Plan - Problems (Diagnosis) (1) Peritoneal dialysis-associated peritonitis Current Visit: Yes Status: Acute (2) SBP (spontaneous bacterial peritonitis) Current Visit: Yes Status: Acute (3) Anemia Current Visit: Yes Status: Chronic Qualifiers: Anemia type: unspecified type Qualified Code(s): D64.9 - Anemia, unspecified (4) ESRD (end stage renal disease) on dialysis Current Visit: Yes Status: Chronic (5) History of nephrectomy Current Visit: Yes Status: Chronic - Plan 1. Continue with IV hydration 2. Continue with IV antibiotics 3. Continue with pain control 4. NPO 5. Nephrology consultation; patient may need PD catheter removed; await Nephrology recommendation 6. Serial H&H, and we will monitor CBC, BMP, LFTs and lipase along with electrolytes. Await culture results 7. GI and DVT prophylaxis Discharge Plan: Home Plan to discharge in: Greater than 2 days - Advance Directives Does patient have a Living Will: No Does patient have a Durable POA for Healthcare: No - Code Status/Comfort Care Code Status Assessed: Yes Code Status: Full Code Critical Care: No Time Spent Managing PTS Care (In Minutes): 35
--- NOTE | 2021-02-01 02:46 | P.PN ---
Date of Service: 01/30/21 Subjective Spoke to Nephrology and they want await toe after peritoneal dialysis for discharge. If patient tolerates dialysis then anticipate discharge home in the morning to get intraperitoneal dialysis Review of Systems 10-point ROS is otherwise unremarkable Physical Examination - Vital Signs Reviewed - Physical Exam General: Alert, In no apparent distress, Oriented x3 Respiratory: Clear to auscultation bilaterally, Normal air movement Cardiovascular: Regular rate/rhythm, Normal S1 S2 Gastrointestinal: Normal bowel sounds, Soft and benign, Non-distended, No rebound, No guarding, Tenderness (Mild) Musculoskeletal: No clubbing, No swelling, No tenderness Neurological: Sensation intact, Cranial nerves 3-12 intact Assessment & Plan - Problems (Diagnosis) (1) Peritoneal dialysis-associated peritonitis Current Visit: Yes Status: Acute (2) SBP (spontaneous bacterial peritonitis) Current Visit: Yes Status: Acute (3) Anemia Current Visit: Yes Status: Chronic Qualifiers: Anemia type: unspecified type Qualified Code(s): D64.9 - Anemia, unspecified (4) ESRD (end stage renal disease) on dialysis Current Visit: Yes Status: Chronic (5) History of nephrectomy Current Visit: Yes Status: Chronic - Plan Continue with plan of care as mentioned below: 1. Hep-Lock IV 2. Continue with IV antibiotics 3. Continue with pain control 4. Renal diet 5. Nephrology consultation appreciated; patient may need PD catheter removed; try to dialyze today. If patient does well possible discharge with outpatient follow-up 6. Monitor labs closely 7. GI and DVT prophylaxis Discharge Plan: Home Plan to discharge in: Greater than 2 days - Advance Directives Does patient have a Living Will: No Does patient have a Durable POA for Healthcare: No - Code Status/Comfort Care Code Status Assessed: Yes Code Status: Full Code Critical Care: No Time Spent Managing PTS Care (In Minutes): 35
--- NOTE | 2021-02-01 02:48 | P.PN ---
Date of Service: 01/31/21 Subjective Patient had a rough night last night. A lot of pain when peritoneal dialysis was started. When she placed the diasylate into the intraperitoneal space she started having significant pain. Unsure as to the etiology except for the amount of diasylate which caused significant pain. Peritoneal dialysis nurse to reassess today Review of Systems 10-point ROS is otherwise unremarkable Physical Examination - Vital Signs Reviewed - Physical Exam General: Alert, In no apparent distress, Oriented x3 Respiratory: Clear to auscultation bilaterally, Normal air movement Cardiovascular: Regular rate/rhythm, Normal S1 S2 Gastrointestinal: Normal bowel sounds, Soft and benign, Non-distended, No rebound, No guarding, Tenderness (Mild) Musculoskeletal: No clubbing, No swelling, No tenderness Neurological: Sensation intact, Cranial nerves 3-12 intact Assessment & Plan - Problems (Diagnosis) (1) Peritoneal dialysis-associated peritonitis Current Visit: Yes Status: Acute (2) SBP (spontaneous bacterial peritonitis) Current Visit: Yes Status: Acute (3) Anemia Current Visit: Yes Status: Chronic Qualifiers: Anemia type: unspecified type Qualified Code(s): D64.9 - Anemia, unspecified (4) ESRD (end stage renal disease) on dialysis Current Visit: Yes Status: Chronic (5) 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 Hep-Lock IV 2. Continue with IV antibiotics; cultures grew out Pseudomonas which is sensitive to Levaquin and cefepime. Dual coverage; Nephrology once intraperitoneal antibiotics. However, if patient is not able to tolerated then we may need to consider additional mechanism. 3. Continue with pain control 4. Renal diet 5. Appreciate Nephrology consultation. Peritoneal dialysis nurse to assess peritoneal catheter and if he is still possible for intraperitoneal dialysis 6. Monitor labs closely 7. GI and DVT prophylaxis Discharge Plan: Home Plan to discharge in: Greater than 2 days - Advance Directives Does patient have a Living Will: No Does patient have a Durable POA for Healthcare: No - Code Status/Comfort Care Code Status Assessed: Yes Code Status: Full Code Critical Care: No Time Spent Managing PTS Care (In Minutes): 30
[2021-02-01 06:58] LABS: Absolute Lymphocytes (CBC) 1.8 K/uL (0.7-4.9); Basophils % 0.3 % (0-1.3); Lymphocytes % 13.5 % (15.3-44.8); MPV 8.9 fL (7.6-11.3); RBC Red Blood Cell Count 2.87 M/uL (3.86-4.86)
[2021-02-01 07:25] LABS: Albumin 1.8 g/dL (3.4-5.0); Bilirubin Direct 0.1 mg/dL (0-0.2); Bilirubin Total 0.3 mg/dL (0.2-1.0); Magnesium 1.9 mg/dL (1.8-2.4); Phosphorus 5.5 mg/dL (2.5-4.9); Potassium 4.1 mmol/L (3.5-5.1); Protein, Total 6.2 g/dL (6.4-8.2); Uric Acid 8.9 mg/dL (2.6-6.0)
[2021-02-01] MEDS: VITAMIN D 5,000 UNIT CAP PO SCH (08:26)
[2021-02-01] MEDS: CEFEPIME/SWI 1gm 10 ML IVP SCH (08:26)
[2021-02-01] MEDS: CALCITROL 0.25 MCG CAP PO SCH (08:26)
[2021-02-01] MEDS: NEPRO SHAKE 237 ML CAN PO SCH ×3 (08:27→20:03)
[2021-02-01] MEDS ORDERED: NA CHLORIDE 0.9% 1,000 ML ONE (11:17)
[2021-02-01] MEDS ORDERED: ROCURONIUM 50 MG/5 ML VIAL IV ONE (11:42)
[2021-02-01] MEDS ORDERED: LIDOCAINE 1% MPF 5 ML VIAL ONE (11:42)
[2021-02-01] MEDS ORDERED: FENTANYL CITR 100 MCG/2 ML ONE ×2 (11:42→13:21)
[2021-02-01] MEDS ORDERED: propofoL 200 MG/20 ML VIAL IV ONE (11:42)
[2021-02-01] MEDS ORDERED: BUPIVACAINE 0.25% PF 30 ML VIAL ONE (11:47)
[2021-02-01] MEDS ORDERED: dexAMETHasone 10 MG/ML VIAL ONE (12:08)
[2021-02-01] MEDS ORDERED: ONDANSETRON 4 MG/2 ML VIAL ONE ×2 (12:10→13:12)
[2021-02-01] MEDS ORDERED: ESMOLOL HCL 10 ML IV ONE (12:18)
[2021-02-01] MEDS ORDERED: NEOSTIGMINE 1 MG/ML -5 ML ONE (12:19)
[2021-02-01] MEDS ORDERED: GLYCOPYRROLATE 0.2 MG/ML SYR ONE (12:19)
--- NOTE | 2021-02-01 12:37 | P.OP ---
Preoperative diagnosis: Sponatneous Bacterial Peritonitis Postoperative diagnosis: Sponatneous Bacterial Peritonitis Primary procedure: Removal of Tunnelled Peritoneal Dialysis Catheter Secondary procedure: Laparoscopic washout Other procedure(s): Laparoscopic adhesiolysis Anesthesia: GETA + Local Estimated blood loss: <2cc Specimen: Peritoneal Fluid, catheter tip for culture Findings: purulent fluid in abdomen Complications: None Transferred to: Recovery Room Condition: Good
[2021-02-01] MEDS: HYDROMORPHONE HCL 1 MG/ML INJ ONE ×3 (12:55→13:20)
[2021-02-01] MEDS ORDERED: SUCCINYLCHOLINE 20 MG/ML (10 ML) IV ONE (13:48)
--- NOTE | 2021-02-01 13:48 | CON ---
Date of Consultation: 02/01/2021 Hpi: The patient is a 20-year-old female, on peritoneal dialysis. She had a laparoscopic, double cuffed peritoneal dialysis catheter placed several months ago. it had been working normally up until approximately on Thursday when she developed abdominal pain after peritoneal dialysis session. She had been having worsening peritonitis and as such came to the hospital with the above-stated complaints. She had a diagnosis of Pseudomonas peritonitis, SBP, spontaneous bacterial peritonitis. As such, the patient is now requesting removal of the catheter as they have been having difficulty getting the infection eradicated. She has had no other issues with the tube at this point and as such, she would like the tube removed and return to hemodialysis. As such, I am consulted for the above-stated issue. Past Medical History: Significant for urinary tract infections, hypertension, diabetes, spina bifida, bladder reflux, peritoneal dialysis. 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 Past Surgical History: Includes laparoscopic peritoneal dialysis catheter placement, spina bifida repair, bladder augmentation, kidney transplant, then a nephrectomy. Family History: Reviewed, noncontributory. Social History: She denies smoking, alcohol, recreational drug use. Review of Systems: A 10-point review of systems other than HPI, she denies. Physical Examination: Vital Signs: At the time examination, her BMI is 30.3. Her vital signs were; blood pressure 110/73, heart rate was 121, respiratory rate 18, temperature 98.8. General: She is awake, alert, oriented. Psychiatric: She is appropriate, conversive. HEENT: She is normocephalic. Sclerae anicteric. Mucous membranes moist. Oropharynx clear. Neck: Supple without JVD. Chest: Equal expansion and excursion. Cardiovascular: Regular rate and rhythm. Pulmonary: Clear to auscultation bilaterally. Abdomen: She has gross peritonitis and tenderness globally. There is no obvious discoloration of the catheter. The effluent appears clear. Extremities: No clubbing, cyanosis, edema. Skin: Warm and dry. Laboratory Data: Revealed a white blood cell count of 13.7, hemoglobin is 8.5, hematocrit 26.0, platelet count is 190, neutrophils 78%. Sodium is 137, potassium 4.1, chloride 103, carbon dioxide 26, BUN 61, creatinine 10. Glucose was 116. Her lactic acid was 0.81 yesterday on 01/31. Procalcitonin is 29.7. UA was negative essentially. She had imaging performed, which included a CT of the abdomen and pelvis, officially read as bibasilar consolidation and atelectasis, new compared to prior exam. Small amount of free fluid around the liver. Scattered mesenteric edema which has been increased compared to prior exam. There is fluid tracking along the pericolic gutters bilaterally. This fluid is in the dependent pelvis. There is a catheter coiled in the lower pelvis. There is a couple of locules of gas adjacent to the drain, which may represent a small amount of free air. She had a KUB performed as well, which was officially read as nonspecific dilatation of large and small bowel loops associated with moderate amount of stool retained in the colon. Findings may indicate an ileus. Dialysis catheter coiled in the left lower quadrant of the pelvis. Consider follow up plain radiograph in 24 to 48 hours. Assessment And Plan: This is a 20-year-old female, who comes in: 1. Spontaneous bacterial peritonitis. 2. Continue medical management. 3. Antibiotic coverage. 4. I have explained risks, benefits, and alternatives of removal of the laparoscopically placed peritoneal dialysis catheter via laparoscopic and open methods. 5. Replacement of hemodialysis catheter in the OR following a line holiday of approximately 24 hours. I have explained risks, benefits, and alternatives including, but not limited to bleeding, infection, damage to surrounding tissues, injury to vital structures including blood vessels, need for further operation and procedures, pneumothorax. The patient agrees to proceed as indicated. Thank you for this interesting consult. ABHI/DELFINO Voice ID: [id number] Report ID: [id number] MARSHAL
[2021-02-01] MEDS: EPOETIN 4,000 UNIT/ML VIAL SQ SCH (16:51)
[2021-02-01] MEDS ORDERED: MANNITOL 25% 12.5 GM/50 ML VIAL IV PRN (20:00)
[2021-02-01] MEDS ORDERED: NA CHLORIDE 0.9% 1,000 ML IV PRN (20:00)
[2021-02-01] MEDS ORDERED: ALBUMIN HUMAN 25% 50 ML IV SCH (20:00)
[2021-02-01] MEDS: MAGNESIUM OXIDE 400 MG TAB PO SCH (20:03)
[2021-02-01] MEDS: TRAMADOL HCL 50 MG TAB PO PRN (20:04)
--- NOTE | 2021-02-01 20:06 | P.PN ---
Date of Service: 02/01/21 Vital Signs Temp Pulse Resp BP Pulse Ox 97.7 F 104 H 15 129/83 94 02/01/21 16:00 02/01/21 16:00 02/01/21 16:00 02/01/21 16:00 02/01/21 16:00 Medications Acetaminophen (Acetaminophen 500 Mg Tab) 500 mg PO Q4HP PRN PRN Reason: Pain scale 2-4 (Mild) Last Admin: 02/01/21 01:11 Dose: 500 mg Documented by: Calcitriol (Calcitrol 0.25 Mcg Cap) 0.5 mcg PO DAILY [facility] Last Admin: 02/01/21 08:26 Dose: Not Given Documented by: Cholecalciferol (Vitamin D 5,000 Unit Cap) 5,000 unit PO DAILY [facility] Last Admin: 02/01/21 08:26 Dose: Not Given Documented by: Enteral Nutritional Formula (Nepro Shake 237 Ml Can) 237 ml PO TID [facility] Last Admin: 02/01/21 13:57 Dose: Not Given Documented by: Epoetin Shola (Epoetin 4,000 Unit/Ml Vial) 4,000 unit SQ M,W,F [facility] Last Admin: 02/01/21 16:51 Dose: 4,000 unit Documented by: Fentanyl Citrate (Fentanyl Citr 100 Mcg/2 Ml) 25 mcg IV Q4H PRN PRN Reason: Pain scale 8-10 (Severe) Last Admin: 01/31/21 21:32 Dose: 25 mcg Documented by: Cefepime HCl (Maxipime 1 Gm/10 Ml Ivp) 10 mls @ 200 mls/hr IVP DAILY [facility] Last Admin: 02/01/21 08:26 Dose: 10 mls Documented by: Levofloxacin (Levofloxacin 250 Mg Tab) 250 mg PO Q48H [facility]; Protocol Magnesium Oxide (Magnesium Oxide 400 Mg Tab) 400 mg PO BEDTIME [facility] Last Admin: 01/31/21 21:00 Dose: Not Given Documented by: Ondansetron HCl (Ondansetron 4 Mg/2 Ml Vial) 4 mg IV Q6HP PRN PRN Reason: NAUSEA / VOMITING Last Admin: 01/30/21 10:17 Dose: 4 mg Documented by: Sodium Chloride (Flush Normal Saline 10 Ml) 10 ml IV BID [facility] Last Admin: 02/01/21 08:26 Dose: 10 ml Documented by: Tramadol HCl (Tramadol Hcl 50 Mg Tab) 50 mg PO Q4H PRN PRN Reason: Pain scale 2-4 (Mild) Last Admin: 01/31/21 23:30 Dose: 50 mg Documented by: Microbiology Results 01/29/21 04:15 Blood - Blood Aerobic Blood Culture - Preliminary No growth in 24 hours. 01/29/21 04:15 Blood - Blood Anaerobic Blood Culture - Preliminary No growth in 24 hours. 01/29/21 04:00 Blood - Blood Aerobic Blood Culture - Preliminary No growth in 24 hours. 01/29/21 04:00 Blood - Blood Anaerobic Blood Culture - Preliminary No growth in 24 hours. Assessment/ Plan: Nephrology Persistent abdominal pain. CPS stable without CP or SOB. Family and the patient have decided to discontinue PD and restart HD. No acute events overnight. Vitals, medications, blood work and imaging reviewed in the chart. NAD. Neck supple. CTA. No edema. Tender abd. AAO. Normal speech. No rash. ESRD Proteinuria -Remove PD catheter and place HD CVC -Consult Dr. Cartwright PSA Peritonitis -Continue Cefepime -Continue Levaquin -Remove PD catheter Hypomagnesemia -Continue MagOx qhs Moderate malnutrition -Continue Nepro Anemia in CKD -Continue Retacrit ANGELES/ Secondary HyperPTH Hypocalcemia HyperPO4 -Continue Calcitriol and Cholecalciferol Case reviewed with Dr. Flowers
--- NOTE | 2021-02-01 23:11 | OP ---
Date of Procedure: 02/01/2021 Surgeon: Sachin Cartwright MD, Preoperative Diagnosis: Spontaneous bacterial peritonitis. Postoperative Diagnosis: Spontaneous bacterial peritonitis. Procedure Performed: 1.Removal of tunneled peritoneal dialysis catheter. 2.Laparoscopic washout. 3.Laparoscopic adhesiolysis less than 1 hour. Anesthesia: General endotracheal plus local with 0.25% Marcaine. Estimated Blood Loss: Less than 2 mL. Specimen: 1.Peritoneal fluid. 2.Catheter tip for culture. Findings: Apparent fluid in the abdomen, particularly in the perihepatic and perisplenic spaces as w ell as some in the pelvis with significant intraabdominal adhesions, particularly in the pelvis, not involving the peritoneal dialysis catheter. Complications: None. Disposition: The patient transferred to recovery room in good condition. Procedure In Detail: After informed was obtained, the patient was brought to the operating room, pre pped and draped in the usual sterile fashion. After adequate anesthesia was achieved, a left upper qu adrant incision was made with a 15 blade down to subcutaneous tissues. A 5 mm 0 degree optical troca r was placed in the abdomen without complication. Insufflation was obtained to 15 mmHg at this time. There was no injury to vital structures upon entry of the abdomen. Inspection at this point was pe rformed and showed that there was significant purulent fluid in the patient's abdomen particular in p erihepatic, perisplenic spaces as well as some in the pelvis. At this point, I opted to place an add itional trocar in the right upper quadrant. This was similarly anesthetized and sharply incised. A 5 mm trocar was placed under direct visualization without evidence of complication. I then performed adhesiolysis of the omentum, which was partially blocking access to the pelvis. The omentum was ne en off the anterior abdominal wall without evidence of complication using blunt dissection. After th is was performed, I placed the in-line trap and suctioned out some of this purulent-appearing effluen t from the perihepatic space. Once this was performed, I then performed a copious irrigation of the patient's entire abdomen and washout with approximately 2.5 L of saline and suctioned out the effluen t until completely clear. At this point, I turned my attention to removal of the peritoneal dialysis catheter leaving the laparoscope in place. I dissected circumferentially around the insertion site to bring the cuff into view. At this point, electrocautery was used to dissect the cuff off the surr ounding attachment soft tissue. I then made a counter incision over the insertion site for the secon d cuff over the previous incision. I dissected down to the previous cuff, grasped the tube, ligated the tube at the insertion site and placed this on the back table with the first cuff in place. At th is point, I dissected the second cuff off using electrocautery and removed this peritoneal dialysis c atheter and its completion at this point, both cuffs and sent the distal aspect of the tip for cultur e at this point. At this juncture, I then opted to irrigate the incisions copiously and suctioned th em until completely dry. I then reinforced and closed the anterior rectus sheath with a Abelardo blake suture passer with 0 Vicryl in interrupted fashion. Good approximation of tissues. There was no escape of pneumoperitoneum at this point. I then irrigated the incision once again and closed the 2 incisions at the tube insertion sites with an interrupted 2-0 nylon suture with good apposition of t he tissues. At this point, the abdomen was completely desufflated under direct visualization without incident or complication. Both remaining trocars removed. Skin incisions were copiously irrigated and closed with 4-0 Monocryl in a running fashion. Dermabond was placed over top. The patient wan ated the procedure without evidence of complication transferred to PACU in good condition. All counts were correct at the end of the case. ABHI/DELFINO Voice ID: [id number] Report ID: [id number]
[2021-02-02 05:53] LABS: Absolute Lymphocytes (CBC) 1.1 K/uL (0.7-4.9); Basophils % 0.1 % (0-1.3); Hematocrit 24.3 % (36.0-45.0); Lymphocytes % 5.8 % (15.3-44.8); MPV 9.2 fL (7.6-11.3); RBC Red Blood Cell Count 2.72 M/uL (3.86-4.86)
[2021-02-02] MEDS ORDERED: VANCOMYCIN 1 GM in NA CHLORIDE 0.9% 250 ML IVPB SCH (06:00)
[2021-02-02 06:16] LABS: Potassium 5.2 mmol/L (3.5-5.1)
[2021-02-02 06:41] LABS: Blood Morphology Comment NOT SEEN (NOT SEEN); Platelet Estimate ADEQ; White Blood Cell Scan OK (OK)
[2021-02-02] MEDS: CEFEPIME/SWI 1gm 10 ML IVP SCH (08:58)
[2021-02-02] MEDS: levoFLOXacin 250 MG TAB PO SCH (08:59)
[2021-02-02] MEDS: CALCITROL 0.25 MCG CAP PO SCH (08:59)
[2021-02-02] MEDS: NEPRO SHAKE 237 ML CAN PO SCH ×3 (08:59→21:10)
[2021-02-02] MEDS: VITAMIN D 5,000 UNIT CAP PO SCH (09:00)
[2021-02-02] MEDS ORDERED: NA CHLORIDE 0.9% 50 ML ONE (09:10)
[2021-02-02] MEDS ORDERED: NA CHLORIDE 0.9% 1,000 ML ONE (09:37)
[2021-02-02] MEDS ORDERED: propofoL 200 MG/20 ML VIAL IV ONE (09:44)
[2021-02-02] MEDS ORDERED: LIDOCAINE 1% MPF 2 ML AMPULE ONE (09:44)
[2021-02-02] MEDS ORDERED: LIDOCAINE 1% MPF 5 ML VIAL ONE (09:44)
[2021-02-02] MEDS ORDERED: FENTANYL CITR 100 MCG/2 ML ONE (09:45)
[2021-02-02] MEDS: BUPIVACAINE 0.25% PF 30 ML VIAL ONE ×2 (09:50→10:02)
[2021-02-02] MEDS: HEPARIN 5000 UNIT/ML 1 ML VIAL ONE ×2 (10:02→10:28)
[2021-02-02] MEDS ORDERED: dexAMETHasone 10 MG/ML VIAL ONE (10:12)
--- NOTE | 2021-02-02 10:25 | P.OP ---
Preoperative diagnosis: End Stage Renal Disease Postoperative diagnosis: End Stage Renal Disease Primary procedure: Placement of Tunnelled Hemodialysis Catheter Secondary procedure: Ultrasound and flouroscopy used Anesthesia: MAC + Local Estimated blood loss: <10cc Specimen: none Findings: flouroscopy and ultrasound confirmed position Complications: None Implants: Hemosplit 24cm catheter Transferred to: Recovery Room Condition: Good
[2021-02-02] MEDS: FENTANYL CITR 100 MCG/2 ML ONE ×2 (10:46→11:02)
--- NOTE | 2021-02-02 10:52 | RAD REPORT ---
EXAM DESCRIPTION: Nitish Single View02/02/2021 10:43 am CLINICAL HISTORY: Device placement/central venous catheter placement IMPRESSION: Central venous catheter has 1 tip 6 centimeters into the right atrium. No pneumothorax
--- NOTE | 2021-02-02 10:53 | RAD REPORT ---
EXAM DESCRIPTION: RAD - Fluoroscopy <1 Hour - 02/02/2021 10:42 am CLINICAL HISTORY: Device placement central venous catheter placement FINDINGS: A central venous catheter was placed into the right atrium. Seventeen fluoroscopic spot im ages are submitted. Fluoroscopy time 0.7 minutes. The examination was performed by Dr. Cartwright
[2021-02-02] MEDS ORDERED: ONDANSETRON 4 MG/2 ML VIAL ONE (11:08)
[2021-02-02] MEDS ORDERED: ALBUMIN HUMAN 25% 100 ML IV SCH (13:00)
--- NOTE | 2021-02-02 15:49 | OP ---
Date of Procedure: 02/02/2021 Surgeon: Sachin Cartwright MD, Preoperative Diagnosis: End-stage renal disease. Postoperative Diagnosis: End-stage renal disease. Procedure Performed: Placement of a tunneled hemodialysis catheter using ultrasound fluoroscopy with interpretation as well as microintroducer set. Anesthesia: MAC plus local with 0.25% Marcaine. Estimated Blood Loss: Less than 10 mL. Specimen: None. Findings: Fluoroscopy and ultrasound confirmed position. The patient has a somewhat small venous an atomy as such. The catheter tip appears to be at the atrial SVC junction and at position, but functi ons quite well. Complications: None. Implants: HemoSplit 24 cm catheter. Disposition: The patient was transferred to recovery room in good condition. Procedure In Detail: After informed consent was obtained, the patient was brought to the operating r oom, prepped and draped in the usual sterile fashion after adequate anesthesia achieved. The patient was sedated, placed in steep Trendelenburg position. Ultrasound guidance investigated the left inte rnal jugular vein where a previous catheter had been placed; however, this appeared somewhat smaller and diminutive. I interrogated the right side, which was found to be widely patent and of a much lar nate caliber. As such, I opted to place the catheter in the right internal jugular vein. At this poi nt, I anesthetized the skin overlying the right internal jugular vein and under ultrasound guidance c annulated the right internal jugular vein on first attempt with a microintroducer set. Microwire was advanced, position confirmed into the atria with the fluoroscopy. At this point, dark red nonpulsat ile blood returned throughout the procedure. At this point, introducer sheath was placed after makin dena a chika incision with 11 blade at the introduction site. The introducer sheath was placed and the m icrowire was removed and a standard wire was advanced at this point. Once again, the fluoroscopy con firmed position of the catheter at this point. At this point, I made an incision approximately 4-5 c m on the chest wall inferior from the insertion site and using a curved HemoSplit 24 cm catheter whic h is our smallest catheter, I tunneled it through the insertion site. At this point, I performed seq uential dilatation using Seldinger technique over the wire after removing the microintroducer sheath and dilated up the tract. The introducer sheath was then placed. The standard wire was removed at t his point, and I advanced the catheter into the atria. At this point, I retracted the catheter into the confluence of the SVC and atria and removed the introducer sheath. At this point, the catheter w as then tested and flushed and withdrew quite easily. Position appeared to be right at the SVC atria l confluence. At this point, the catheter was flushed once again with sterile saline and packed with heparinized super flush 2 mL per port. At this point, I placed the patient out of Trendelenburg in a slight head-down position and placed a single interrupted 2-0 nylon suture at the insertion site an d secured the catheter with the same said 2-0 nylon at the exit site. Sterile dressing was then plac ed over top. The patient tolerated the procedure well without evidence of complication and transferr ed to PACU in good condition. All counts were correct at the end of the case. A stat chest x-ray wi ll be performed in the recovery room. ABHI/DELFINO Voice ID: [id number] Report ID: [id number]
--- NOTE | 2021-02-02 16:34 | PN ---
Date of Progress Note: 02/02/2021 Subjective: The patient is seen at the bedside. The patient did have her PD catheter removed yester day and had her HD catheter placed today. She is awaiting dialysis treatment. Seen at the bedside w ith her father. She has no acute complaints at this time. Objective: Vital Signs: Blood pressure 122/81, pulse 90, temp 96.8. General: No acute distress. Heart: Regular rate and rhythm. No murmurs or gallops. Lungs: Grossly clear. Abdomen: Soft, nontender, nondistended. Surgical site appears clean. Extremities: No significant edema. Laboratory Data: WBC 18.5, hemoglobin 8.3, hematocrit 24.3, platelet count 233. Serum chemistry; so dium 136, potassium 5.2, chloride 103, CO2 20, BUN 70, creatinine 11, glucose 139, calcium 8.2. Current Medications: Reviewed. Continues on cefepime, calcitriol, Levaquin, Nepro shakes as well as tramadol. Remainder medications were noted. Impression: 1.Peritoneal dialysis peritonitis. 2.Sepsis. 3.Electrolyte imbalance. 4.Metabolic acidosis in the setting of renal insufficiency. 5.End-stage renal disease. Plan: The patient will receive next dialysis access today. Orders had been previously placed. The patient does have anemia and she will continue on Epogen 4000 units 3 times weekly with up titration as needed. The patient will continue on renal diet. Continue monitor daily labs and we will continue to follow. /MODL Voice ID: [id number] Report ID: [id number]
[2021-02-02] MEDS: TRAMADOL HCL 50 MG TAB PO PRN (20:51)
[2021-02-02] MEDS: MAGNESIUM OXIDE 400 MG TAB PO SCH (21:00)
[2021-02-03 05:41] LABS: Absolute Lymphocytes (CBC) 1.2 K/uL (0.7-4.9); Basophils % 0.1 % (0-1.3); Hematocrit 23.3 % (36.0-45.0); Lymphocytes % 8.2 % (15.3-44.8); MPV 8.8 fL (7.6-11.3)
[2021-02-03 06:41] LABS: Magnesium 2.1 mg/dL (1.8-2.4); Phosphorus 6.3 mg/dL (2.5-4.9); Potassium 4.4 mmol/L (3.5-5.1)
[2021-02-03] MEDS: NEPRO SHAKE 237 ML CAN PO SCH ×3 (09:00→20:17)
[2021-02-03] MEDS: CEFEPIME/SWI 1gm 10 ML IVP SCH (09:50)
[2021-02-03] MEDS: VITAMIN D 5,000 UNIT CAP PO SCH (09:50)
[2021-02-03] MEDS: CALCITROL 0.25 MCG CAP PO SCH (09:50)
[2021-02-03 12:35] LABS: Blood Morphology Comment NOT SEEN (NOT SEEN); Platelet Estimate ADEQ
[2021-02-03] MEDS: MAGNESIUM OXIDE 400 MG TAB PO SCH (20:16)
--- NOTE | 2021-02-04 01:43 | P.PN ---
Date of Service: 02/01/21 Subjective Patient has decided she wants to do hemodialysis. Requesting to get peritoneal dialysis catheter removed. Consulted general surgery for assistance. Nephrology is aware. Review of Systems 10-point ROS is otherwise unremarkable Physical Examination - Vital Signs Reviewed - Physical Exam General: Alert, In no apparent distress, Oriented x3 Respiratory: Clear to auscultation bilaterally, Normal air movement Cardiovascular: Regular rate/rhythm, Normal S1 S2 Gastrointestinal: Normal bowel sounds, Soft and benign, Non-distended, No rebound, No guarding, Tenderness (Mild) Musculoskeletal: No clubbing, No swelling, No tenderness Neurological: Sensation intact, Cranial nerves 3-12 intact Assessment & Plan - Problems (Diagnosis) (1) Peritoneal dialysis-associated peritonitis Current Visit: Yes Status: Acute (2) SBP (spontaneous bacterial peritonitis) Current Visit: Yes Status: Acute (3) Anemia Current Visit: Yes Status: Chronic Qualifiers: Anemia type: unspecified type Qualified Code(s): D64.9 - Anemia, unspecified (4) ESRD (end stage renal disease) on dialysis Current Visit: Yes Status: Chronic (5) 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 Hep-Lock IV 2. Continue with IV antibiotics; arrange for outpatient IV antibiotic therapy. Antibiotics will need to cover Pseudomonas which is sensitive to Levaquin and cefepime. Dual coverage; Nephrology wanted intraperitoneal antibiotics; patient is wanting to stop intraperitoneal dialysis because of the severity of pain. Requested peritoneal dialysis catheter to be removed. Consulted general surgery and notified nephrology 3. Continue with pain control 4. Renal diet 5. Appreciate Nephrology consultation. Plan is to remove peritoneal dialysis access catheter. Hemodialysis access catheter to be placed in a.m.. 6. Monitor labs closely 7. GI and DVT prophylaxis Discharge Plan: Home Plan to discharge in: Greater than 2 days - Advance Directives Does patient have a Living Will: No Does patient have a Durable POA for Healthcare: No - Code Status/Comfort Care Code Status Assessed: Yes Code Status: Full Code Critical Care: No Time Spent Managing PTS Care (In Minutes): 30
--- NOTE | 2021-02-04 01:48 | P.PN ---
Date of Service: 02/02/21 Subjective Hemodialysis access catheter has been placed. Hepatitis panel pending. Plan is to hemodialyzed and arrange for chair time. Patient will get dialyzed tomorrow and Thursday and hopefully we can work on discharge planning. Continue w/ IV antibiotic therapy Review of Systems 10-point ROS is otherwise unremarkable Physical Examination - Vital Signs Reviewed - Physical Exam General: Alert, In no apparent distress, Oriented x3 Respiratory: Clear to auscultation bilaterally, Normal air movement Cardiovascular: Regular rate/rhythm, Normal S1 S2 Gastrointestinal: Normal bowel sounds, Soft and benign, Non-distended, No rebound, No guarding, Tenderness (Mild) Musculoskeletal: No clubbing, No swelling, No tenderness Neurological: Sensation intact, Cranial nerves 3-12 intact Assessment & Plan - Problems (Diagnosis) (1) Peritoneal dialysis-associated peritonitis Current Visit: Yes Status: Acute (2) SBP (spontaneous bacterial peritonitis) Current Visit: Yes Status: Acute (3) Anemia Current Visit: Yes Status: Chronic Qualifiers: Anemia type: unspecified type Qualified Code(s): D64.9 - Anemia, unspecified (4) ESRD (end stage renal disease) on dialysis Current Visit: Yes Status: Chronic (5) 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 Hep-Lock IV 2. Peritoneal dialysis catheter has been removed. Hemodialysis access catheter has been placed. Arrange for outpatient IV antibiotic therapy. Arrange for chair time at discharge 3. Continue with pain control 4. Renal diet 5. Arrange for chair time and outpatient IV antibiotics 6. Monitor labs closely 7. GI and DVT prophylaxis Discharge Plan: Home Plan to discharge in: Greater than 2 days - Advance Directives Does patient have a Living Will: No Does patient have a Durable POA for Healthcare: No - Code Status/Comfort Care Code Status Assessed: Yes Code Status: Full Code Critical Care: No Time Spent Managing PTS Care (In Minutes): 30
--- NOTE | 2021-02-04 01:52 | P.PN ---
Date of Service: 02/03/21 Subjective Patient doing well. No complaints. Hopefully we can arrange for outpatient hemodialysis and outpatient antibiotics in a.m.. (progress note on February 02): Hemodialysis access catheter has been placed. Hepatitis panel pending. Plan is to hemodialyzed and arrange for chair time. Patient will get dialyzed tomorrow and Thursday and hopefully we can work on discharge planning. Continue w/ IV antibiotic therapy Review of Systems 10-point ROS is otherwise unremarkable Physical Examination - Vital Signs Reviewed - Physical Exam General: Alert, In no apparent distress, Oriented x3 Respiratory: Clear to auscultation bilaterally, Normal air movement Cardiovascular: Regular rate/rhythm, Normal S1 S2 Gastrointestinal: Normal bowel sounds, Soft and benign, Non-distended, No rebound, No guarding, Tenderness (Mild) Musculoskeletal: No clubbing, No swelling, No tenderness Neurological: Sensation intact, Cranial nerves 3-12 intact Assessment & Plan - Problems (Diagnosis) (1) Peritoneal dialysis-associated peritonitis Current Visit: Yes Status: Acute (2) SBP (spontaneous bacterial peritonitis) Current Visit: Yes Status: Acute (3) Anemia Current Visit: Yes Status: Chronic Qualifiers: Anemia type: unspecified type Qualified Code(s): D64.9 - Anemia, unspecified (4) ESRD (end stage renal disease) on dialysis Current Visit: Yes Status: Chronic (5) 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 Continue with IV antibiotics. 2. Peritoneal dialysis catheter has been removed on February 01. Hemodialysis access catheter has been placed on February 02 and patient got 1st dialysis. Arrange for outpatient IV antibiotic therapy. Arrange for chair time at discharge 3. Continue with pain control 4. Renal diet 5. Arrange for chair time and outpatient IV antibiotics 6. Monitor labs closely 7. GI and DVT prophylaxis Discharge Plan: Home Plan to discharge in: Greater than 2 days - Advance Directives Does patient have a Living Will: No Does patient have a Durable POA for Healthcare: No - Code Status/Comfort Care Code Status Assessed: Yes Code Status: Full Code Critical Care: No Time Spent Managing PTS Care (In Minutes): 30
[2021-02-04 03:12] LABS: HBsAG Nonreactive (Nonreactive)
[2021-02-04 05:42] LABS: Absolute Lymphocytes (CBC) 2.4 K/uL (0.7-4.9); Basophils % 0.2 % (0-1.3); Hematocrit 25.9 % (36.0-45.0); Lymphocytes % 15.5 % (15.3-44.8); MPV 8.2 fL (7.6-11.3); RBC Red Blood Cell Count 2.87 M/uL (3.86-4.86)
--- NOTE | 2021-02-04 05:55 | P.PN ---
Subjective Date of Service: 02/04/21 Primary Care Provider: Dr. Chapman Chief Complaint: SBP Subjective: Improving, Doing well Physical Examination - Vital Signs Temperature: 96.9 F Blood Pressure: 111/71 Pulse: 108 Respirations: 16 Pulse Ox (%): 92 - Studies Microbiology Data (last 24 hrs): 01/29/21 04:15 Blood - Blood Aerobic Blood Culture - Final No growth in 5 days. 01/29/21 04:15 Blood - Blood Anaerobic Blood Culture - Final No growth in 5 days. 01/29/21 04:00 Blood - Blood Aerobic Blood Culture - Final No growth in 5 days. 01/29/21 04:00 Blood - Blood Anaerobic Blood Culture - Final No growth in 5 days. Medications List Reviewed: Yes Assessment & Plan Discharge Plan: Home Plan to discharge in: 24 Hours Physician Review Additional Text: Physical exam: General: Patient alert, cooperative, oriented x3 Heart: Regular rate and rhythm Lungs: Clear to auscultation Abdomen: Soft nontender nondistended Extremities: Good range of motion to upper lower extremities. No focal defi cits. No edema noted. Impression: Peritoneal dialysis associated peritonitis, culture positive for Pseudomonas End-stage renal disease now on hemodialysis Anemia of chronic disease History of nephrectomy and renal transplant rejection 2 years ago History of spina bifida Plan: Peritoneal dialysis associated peritonitis, culture positive for Pseudomonas: Peritoneal dialysis removed February 01. Hemodialysis catheter now in place. Continue with dialysis as directed by nephrology. Arrangements for outpatient dialysis to be arranged by social economist. Antibiotic coverage adjusted. Discontinue IV cefepime. Continue oral Levaquin. Anticipate home once outpatient dialysis arranged. End-stage renal disease now on hemodialysis: Patient no longer with peritoneal dialysis. Continue hemodialysis. Social work to help arrange for outpatient dialysis. Anemia of chronic disease: We will monitor closely. History of nephrectomy and renal transplant rejection 2 years ago: Overall stable History of spina bifida: Stable DVT prophylaxis: Heparin CODE STATUS: Full code Advanced care plannin minutes Arrangements for outpatient hemodialysis to be arranged. Once this is done patient can be discharged home. Time Spent Managing Pts Care (In Minutes): 55
[2021-02-04 06:15] LABS: Albumin 1.7 g/dL (3.4-5.0); Bilirubin Total 0.2 mg/dL (0.2-1.0); Potassium 3.8 mmol/L (3.5-5.1); Protein, Total 5.4 g/dL (6.4-8.2)
[2021-02-04 07:44] LABS: Blood Morphology Comment NOT SEEN (NOT SEEN); Platelet Estimate ADEQ
[2021-02-04] MEDS: NEPRO SHAKE 237 ML CAN PO SCH ×3 (09:00→21:00)
[2021-02-04] MEDS: TRAMADOL HCL 50 MG TAB PO PRN ×2 (09:46→18:13)
[2021-02-04] MEDS: CALCITROL 0.25 MCG CAP PO SCH (09:47)
[2021-02-04] MEDS: levoFLOXacin 250 MG TAB PO SCH (09:47)
[2021-02-04] MEDS: VITAMIN D 5,000 UNIT CAP PO SCH (09:47)
[2021-02-04] MEDS: CEFEPIME/SWI 1gm 10 ML IVP SCH (09:48)
--- NOTE | 2021-02-04 12:30 | PN ---
Subjective: The patient is seen in room 217 at [facility]. The patient is alert , awake and comfortable. Says she is feeling better. Her pain is over 90% improved. Objective: Abdomen: Soft with only mild discomfort on moderate palpation. Bowel sounds are positiv e. Lungs: The patient's lungs are clear to auscultation bilaterally. Extremities: Reveal no edema. Heart: Sounds are regular. The patient is alert, awake, pretty much back with her baseline. She does not speak much, but does g marc answers to questions. Discussed with her about dialysis planning, wants to stay on hemodialysis. Says she would like to return to [facility]. Discussed with charge nurse, Quin, at [facility] at [facility]. I also discussed with the front end application developer over here at the hospital, to send referral an d information to [facility] for admission to [facility] in [place]. The patient is comfortable with getting Thursday, , Thursday shift. She will prefer the 6:30 a.m. shift which is availa ble. Discussed with [facility] and they think that they may be able to get the approval quickly. 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 Blood pressure 110/71, pulse 16, respirations are around 14, O2 sats are around 94% to 95%. She was on oxygen on my exam. She is afebrile. Laboratory Data: Her lab work is also reviewed. Labs show WBC count are stable, but still not in no rmal range at 15.7, hemoglobin 8.6, hematocrit 25.9, platelet count is 274. Chemistry shows sodium 1 38, potassium 3.8, chloride 107, bicarb is 22, BUN is 53, creatinine 7.89. Her microbiology panel ca theter-tip abdomen was cultured and showed no growth. Her Gram stain, culture and sensitivity from t he abdomen had shown Pseudomonas, which was sensitive to cefepime, also to Levaquin, also to gentamic in. Resistant to Bactrim and Augmentin as expected and also to Unasyn and to ceftriaxone. Assessment And Plan: The patient with Pseudomonas peritonitis significantly better. Pain is almost resolved. She is afebrile. WBC counts are still slightly elevated. The patient is currently gettin g Levaquin at 248 hour dosing. She has also been on cefepime, which she got a dose today earlier in the day. She is clinically looking improved. Awaiting placement for dialysis. We will dialyze her today for 2 and half hours. Post dialysis the patient should be ready for discharge if her dialysis chair is available. Once the patient discharged, we will continue antibiotics until her WBCs are nor malized. She clinically continues to look better. We will continue on Levaquin for 2 more weeks for post discharge. At this point, the plan has been discussed with Fab Harrison, also with the rohit ent's mother and the patient and awaiting discharge once dialysis chair is available. /DELFINO Voice ID: [id number] Report ID: [id number]
[2021-02-04] MEDS: EPOETIN 4,000 UNIT/ML VIAL SQ SCH (18:12)
--- NOTE | 2021-02-04 19:05 | RAD REPORT ---
EXAM DESCRIPTION: RAD - Chest Single View - 02/04/2021 6:56 pm CLINICAL HISTORY: For Outpt dialysis. Please specify no TB Chest pain. COMPARISON: Chest Single View dated 02/02/2021; Abdomen 1 View (KUB) dated 01/31/2021 FINDINGS: Portable technique limits examination quality. The lungs are grossly clear. No finding seen typical for tuberculosis. The heart is normal in size. R ight-sided venous catheter tip in right atrium, unchanged.
[2021-02-04] MEDS: MAGNESIUM OXIDE 400 MG TAB PO SCH (21:00)
[2021-02-05 05:36] LABS: Absolute Lymphocytes (CBC) 2.7 K/uL (0.7-4.9); Basophils % 0.4 % (0-1.3); Hematocrit 23.8 % (36.0-45.0); Lymphocytes % 18.6 % (15.3-44.8); MPV 7.6 fL (7.6-11.3); RBC Red Blood Cell Count 2.61 M/uL (3.86-4.86)
--- NOTE | 2021-02-05 05:49 | P.PN ---
Subjective Date of Service: 02/05/21 Primary Care Provider: Dr. Chapman Chief Complaint: SBP Subjective: Other (Patient doing well. Outpatient HD set up every ,,Sat) Physical Examination - Vital Signs Temperature: 98.6 F Blood Pressure: 113/78 Pulse: 114 Respirations: 18 Pulse Ox (%): 96 - Studies Medications List Reviewed: Yes Assessment & Plan Discharge Plan: Home Plan to discharge in: 24 Hours Physician Review Additional Text: Physical exam: General: Patient alert, cooperative, oriented x3 Heart: Regular rate and rhythm Lungs: Clear to auscultation Abdomen: Soft nontender nondistended Extremities: Good range of motion to upper lower extremities. No focal deficits. No edema noted. Impression: Peritoneal dialysis associated peritonitis, culture positive for Pseudomonas End-stage renal disease now on hemodialysis Anemia of chronic disease History of nephrectomy and renal transplant rejection 2 years ago History of spina bifida Plan: Peritoneal dialysis associated peritonitis, culture positive for Pseudomonas: Peritoneal dialysis catheter removed February 01. Hemodialysis catheter now in place. Continue with dialysis as directed by nephrology. Arrangements for outpatient dialysis have been arranged. She will continue with dialysis every Thursday, and Thursday. Patient remains on oral Levaquin. Spoke with nephrology at length concerning plan of care. Nephrology also desires IV cefepime to be given during dialysis as infection requires double coverage. Nephrology is arranging for IV cefepime at the dialysis center. Once this is arranged then will proceed with discharge. Hopefully this will be done as early as today. Await approval from nephrology. Plan of care discussed with patient. End-stage renal disease now on hemodialysis: Patient no longer with peritoneal dialysis catheter. Continue hemodialysis. Outpatient dialysis arranged. She will continue with dialysis every Thursday, and Thursday.. Anemia of chronic disease: We will monitor closely. History of nephrectomy and renal transplant rejection 2 years ago: Overall stable History of spina bifida: Stable DVT prophylaxis: Heparin CODE STATUS: Full code Advanced care plannin minutes Arrangements for outpatient dialysis have been arranged. She will continue with dialysis every Thursday, and Thursday. Currently waiting on IV cefepime to be approved at the dialysis center before discharge. Time Spent Managing Pts Care (In Minutes): 55
[2021-02-05 06:04] LABS: Magnesium 1.9 mg/dL (1.8-2.4); Phosphorus 4.6 mg/dL (2.5-4.9); Potassium 3.9 mmol/L (3.5-5.1)
[2021-02-05] MEDS ORDERED: CEFTAZIDIME 1 GM VIAL IV ONE (06:30)
[2021-02-05] MEDS ORDERED: CEFTAZIDIME 1 GM in NA CHLORIDE 0.9% 50 ML IV ONE (07:00)
[2021-02-05] MEDS: NEPRO SHAKE 237 ML CAN PO SCH (09:00)
[2021-02-05] MEDS ORDERED: CEFTAZIDIME 1 GM in NA CHLORIDE 0.9% 50 ML IV SCH (09:00)
[2021-02-05 09:22] LABS: Blood Morphology Comment NOT SEEN (NOT SEEN); Platelet Estimate ADEQ
[2021-02-05] MEDS: CALCITROL 0.25 MCG CAP PO SCH (09:34)
[2021-02-05] MEDS: VITAMIN D 5,000 UNIT CAP PO SCH (09:34)
[2021-02-05 09:43] VITALS: O2SAT 96
--- NOTE | 2021-02-05 09:47 | P.DS ---
Admission Date: 01/29/21 Discharge Date: 02/05/21 Primary Care Provider: Dr. Chapman Disposition: ROUTINE DISCHARGE Discharge Condition: GOOD Reason for Admission: SBP Consultations: Nephrology-Dr. Mendoza Surgery-Dr. Cartwright Procedures: CT scan: COMPARISON: CT abdomen and pelvis January 29, 2021. FINDINGS: Lung bases: Bibasilar consolidation or atelectasis, new compared to the prior exam. ABDOMEN: Liver: Unremarkable. Gallbladder and bile ducts: Unremarkable. No calcified stones. No ductal dilation. Pancreas: Unremarkable. No ductal dilation. Spleen: Unremarkable. No splenomegaly. Adrenals: Unremarkable. No mass. Kidneys and ureters: The kidneys are atrophic bilaterally. No obstructing stones. No hydronephrosis. Stomach and bowel: Stool in the rectum. No obstruction. No mucosal thickening. PELVIS: Appendix: No findings to suggest acute appendicitis. Bladder: Thickened irregular bladder wall, similar to prior. No stones. Reproductive: Unremarkable as visualized. ABDOMEN and PELVIS: Intraperitoneal space: There is a small amount of free fluid around the liver. There is scattered mesenteric edema which has increased compared to the prior exam. There is fluid tracking along the paracolic gutters bilaterally. There is fluid in the dependent pelvis. Bones/joints: No acute fracture. No dislocation. Soft tissues: There is subcutaneous fat stranding along the right lateral abdominal wall, unchanged. Vasculature: Unremarkable. No abdominal aortic aneurysm. Lymph nodes: Unremarkable. No enlarged lymph nodes. Tubes, lines and devices: There is a catheter coiled in the lower pelvis. There are a couple locules of gas adjacent to the drain which may represent a small amount of free air. IMPRESSION: 1. Bibasilar consolidation or atelectasis, new compared to the prior exam. 2. There is a small amount of free fluid around the liver. There is scattered mesenteric edema which has increased compared to the prior exam. There is fluid tracking along the paracolic gutters bilaterally. There is fluid in the dependent pelvis. 3. There is a catheter coiled in the lower pelvis. 4. There are a couple locules of gas adjacent to the drain which may represent a small amount of free Surgery: Date: 02/01/21 12:36 Preoperative diagnosis: Sponatneous Bacterial Peritonitis Postoperative diagnosis: Sponatneous Bacterial Peritonitis Primary procedure: Removal of Tunnelled Peritoneal Dialysis Catheter Secondary procedure: Laparoscopic washout Other procedure(s): Laparoscopic adhesiolysis Anesthesia: GETA + Local Estimated blood loss: <2cc Specimen: Peritoneal Fluid, catheter tip for culture Findings: purulent fluid in abdomen Complications: None Surgery: Date: 02/02/21 10:22 Preoperative diagnosis: End Stage Renal Disease Postoperative diagnosis: End Stage Renal Disease Primary procedure: Placement of Tunnelled Hemodialysis Catheter Secondary procedure: Ultrasound and flouroscopy used Anesthesia: MAC + Local Estimated blood loss: <10cc Specimen: none Findings: flouroscopy and ultrasound confirmed position Complications: None Implants: Hemosplit 24cm catheter Medical problem list: Peritoneal dialysis associated peritonitis, culture positive for Pseudomonas status post removal of tunneled peritoneal dialysis catheter and placement of tunneled hemodialysis catheter End-stage renal disease now on hemodialysis, previously on peritoneal dialysis Anemia of chronic disease History of nephrectomy and renal transplant rejection 2 years ago History of spina bifida Brief History of Present Illness: 20 yo female with history of end-stage renal disease on peritoneal dialysis. Patient presented with abdominal pain. Peritonitis was identified. Patient was admitted for treatment. Hospital Course: Patient presented with abdominal pain secondary to peritoneal dialysis associated peritonitis. During the course of her stay peritoneal dialysis catheter was removed. Hemodialysis catheter was placed to continue hemodialysis. Culture was positive for Pseudomonas. Patient received IV antibiotic therapy with improvement. This has been transitioned to oral Levaquin and IV cefepime. Patient will continue with treatment for 2 weeks. This includes Levaquin 250 mg every 48 hours. Hemodialysis has been arranged as an outpatient. Patient will continue with hemodialysis every Thursday, and Thursday. Arrangements for IV cefepime has not been finalized by nephrology at the dialysis center. Patient and family desire discharge. They do not want to wait on approval for IV cefepime. This was discussed in detail with nephrology and family. Nephrology recommends to discharge patient home. Patient will receive IV Fortaz prior to discharge. Nephrology will continue to arrange for IV cefepime to be given at dialysis. If IV cefepime cannot be secured by the next dialysis() then the patient will receive IV antibiotic therapy-Cefepime at [facility]. Nephrology will make arrangements for either situation. Nephrology is to keep in close contact with patient and family. At discharge patient will continue with Levaquin 250 mg every 48 hours. 7 doses provided. At discharge patient will continue with above plan of care to receive IV cefepime as an outpatient through dialysis. Patient will continue other medications including Calcitrol 0.5 mcg daily, vitamin D 5000 units daily, magnesium oxide 400 mg daily and Nepro 1 can 3 times a day. Recommend to recheck labBMP in 2 to 4 weeks to monitor her progress. Recommend follow-up with her PCP in 1 to 2 weeks to follow-up hospitalization and continue her care. Patient with anemia chronic disease. This can be further monitored and addressed as an outpatient with nephrology. Recommend to recheck labCBC in 2 to 4 weeks to monitor her progress. Vital Signs/Physical Exam: Temp Pulse Resp BP Pulse Ox 98.6 F 114 H 18 113/78 96 02/05/21 08:30 02/05/21 08:30 02/05/21 08:30 02/05/21 08:30 02/05/21 08:30 General: Alert, In no apparent distress, Oriented x3, Cooperative HEENT: Atraumatic Neck: Supple Respiratory: Clear to auscultation bilaterally, Normal air movement Cardiovascular: Normal pulses, Regular rate/rhythm Gastrointestinal: Normal bowel sounds, No tenderness, No masses, No rebound, No guarding Musculoskeletal: No tenderness Integumentary: No tenderness/swelling Neurological: Normal speech, Normal strength at 5/5 x4 extr, Normal tone, Normal affect Laboratory Data at Discharge: WBC 14.70 K/uL (4.3-10.9) H 02/05/21 05:25 Hgb 7.8 g/dL (12.0-15.0) L 02/05/21 05:25 Hct 23.8 % (36.0-45.0) L 02/05/21 05:25 Plt Count 189 K/uL (152-406) D 02/05/21 05:25 PT 11.2 SECONDS (9.5-12.5) 01/29/21 04:00 INR 0.97 01/29/21 04:00 APTT 23.8 SECONDS (24.3-36.9) L 01/29/21 04:00 Sodium 139 mmol/L (136-145) 02/05/21 05:25 Potassium 3.9 mmol/L (3.5-5.1) 02/05/21 05:25 BUN 27 mg/dL (7-18) H D 02/05/21 05:25 Creatinine 5.91 mg/dL (0.55-1.3) H* D 02/05/21 05:25 Glucose 115 mg/dL (74-106) H 02/05/21 05:25 Uric Acid 8.9 mg/dL (2.6-6.0) H 02/01/21 06:36 Phosphorus 4.6 mg/dL (2.5-4.9) 02/05/21 05:25 Magnesium 1.9 mg/dL (1.8-2.4) 02/05/21 05:25 Total Bilirubin 0.2 mg/dL (0.2-1.0) 02/04/21 05:16 AST 8 U/L (15-37) L 02/04/21 05:16 ALT 9 U/L (12-78) L 02/04/21 05:16 Alkaline Phosphatase 64 U/L (45-117) 02/04/21 05:16 Lipase 225 U/L (73-393) 01/29/21 04:00 Home Medications: Calcitrol [Rocaltrol*] 0.5 mcg PO DAILY #30 cap 02/05/21 Cholecalciferol (Vitamin D3) [Vitamin D 5,000 IU Cap*] 5,000 unit PO DAILY #30 cap 02/05/21 Magnesium Oxide 400 mg PO BEDTIME #30 tablet 02/05/21 Nepro Shake [Nepro*] 237 ml PO TID #90 can 02/05/21 levoFLOXacin [Levaquin*] 250 mg PO Q48H #7 tab 02/05/21 New Medications: levoFLOXacin [Levaquin*] 250 mg PO Q48H #7 tab Magnesium Oxide 400 mg PO BEDTIME #30 tablet Nepro Shake [Nepro*] 237 ml PO TID #90 can Calcitrol [Rocaltrol*] 0.5 mcg PO DAILY #30 cap Cholecalciferol (Vitamin D3) [Vitamin D 5,000 IU Cap*] 5,000 unit PO DAILY #30 cap Physician Discharge Instructions: Patient presented with abdominal pain secondary to peritoneal dialysis associated peritonitis. During the course of her stay peritoneal dialysis catheter was removed. Hemodialysis catheter was placed to continue hemodialysis. Culture was positive for Pseudomonas. Patient received IV antibiotic therapy with improvement. This has been transitioned to oral Levaquin and IV cefepime. Patient will continue with treatment for 2 weeks. This includes Levaquin 250 mg every 48 hours. Hemodialysis has been arranged as an outpatient. Patient will continue with hemodialysis every Thursday, and Thursday. Arrangements for IV cefepime has not been finalized by nephrology at the dialysis center. Patient and family desire discharge. They do not want to wait on approval for IV cefepime. This was discussed in detail with nephrology and family. Nephrology recommends to discharge patient home. Patient will receive IV Fortaz prior to discharge. Nephrology will continue to arrange for IV cefepime to be given at dialysis. If IV cefepime cannot be secured by the next dialysis() then the patient will receive IV antibiotic therapy-Cefepime at [facility]. Nephrology will make arrangements for either situation. Nephrology is to keep in close contact with patient and family. At discharge patient will continue with Levaquin 250 mg every 48 hours. 7 doses provided. At discharge patient will continue with above plan of care to receive IV cefepime as an outpatient through dialysis. Patient will continue other medications including Calcitrol 0.5 mcg daily, vitamin D 5000 units daily, magnesium oxide 400 mg daily and Nepro 1 can 3 times a day. Recommend to recheck labBMP in 2 to 4 weeks to monitor her progress. Recommend follow-up with her PCP in 1 to 2 weeks to follow-up hospitalization and continue her care. Patient with anemia chronic disease. This can be further monitored and addressed as an outpatient with nephrology. Recommend to recheck labCBC in 2 to 4 weeks to monitor her progress. Diet: Renal Activity: Ad vamsi Followup: NONE,NONE [Primary Care Provider] - Time spent managing pt's care (in minutes): 55
[2021-02-05 12:12] VITALS: BP 120/77; TEMP 97.9
[2021-02-06] MEDS ORDERED: CEFTAZIDIME 1 GM VIAL IV SCH (09:00)
== END 2021-02-05 12:12 | disposition home or self-care (01) | DRG 919 ==
LOC: ER 03:18 → ERHOLD 05:31 → 2ND 08:31
PROVIDERS: ADMIT Hospitalist; ATTEND Family Medicine
PROC: 0JPT0XZ Removal of Tunneled Vascular Access Device from Trunk Subcutaneous Tissue and Fascia, Open Approach (ICD-10-PCS; 2021-02-01)
PROC: 02PY33Z Removal of Infusion Device from Great Vessel, Percutaneous Approach (ICD-10-PCS; 2021-02-01)
PROC: 0JH63XZ Insertion of Tunneled Vascular Access Device into Chest Subcutaneous Tissue and Fascia, Percutaneous Approach (ICD-10-PCS; 2021-02-02)
PROC: 02HV33Z Insertion of Infusion Device into Superior Vena Cava, Percutaneous Approach (ICD-10-PCS; 2021-02-02)
PROC: B5181ZA Fluoroscopy of Superior Vena Cava using Low Osmolar Contrast, Guidance (ICD-10-PCS; 2021-02-02)
PROC: 5A1D70Z Performance of Urinary Filtration, Intermittent, Less than 6 Hours Per Day (ICD-10-PCS; principal; 2021-02-02 09:30)
DX: T85.71XA Infection and inflammatory reaction due to peritoneal dialysis catheter, initial encounter (principal); N18.6 End stage renal disease; A41.52 Sepsis due to Pseudomonas; K65.2 Spontaneous bacterial peritonitis; Z94.0 Kidney transplant status; I12.0 Hypertensive chronic kidney disease with stage 5 chronic kidney disease or end stage renal disease; E44.0 Moderate protein-calorie malnutrition; E87.2 Acidosis; E11.22 Type 2 diabetes mellitus with diabetic chronic kidney disease; D63.1 Anemia in chronic kidney disease; E87.8 Other disorders of electrolyte and fluid balance, not elsewhere classified; N25.0 Renal osteodystrophy; E83.42 Hypomagnesemia; D63.8 Anemia in other chronic diseases classified elsewhere; E83.39 Other disorders of phosphorus metabolism; Z91.040 Latex allergy status; Z91.09 Other allergy status, other than to drugs and biological substances; Z68.30 Body mass index [BMI] 30.0-30.9, adult; Z88.5 Allergy status to narcotic agent; Z99.2 Dependence on renal dialysis; Z20.822 Contact with and (suspected) exposure to COVID-19
CPT/HCPCS: 36415; 71045; 74018; 74176; 76000; 80048; 80053; 80076; 80202; 81003; 81015; 82550; 82947; 83605; 83690; 83735; 84100; 84145; 84550; 85025; 85610; 85652; 85730; 86704; 86706; 86803; 86850; 86900; 86901; 87040; 87070; 87077; 87186; 87205; 87340; 89050; 90935; 94760; 99285; C1752; J0330; J0692; J0696; J0713; J1100; J1170; J1644; J1940; J2405; J2704; J2710; J3010; J3370; J3475; J7030; J7050; P9047; Q5105; Q5106; U0003

== ENCOUNTER 2022-03-12 17:55 | Observation (INO) | payer OTHER ==
[2022-03-12 18:21] LABS: Urine Blood Trace-lysed (Negative); Urine Glucose Negative (Negative); Urine Protein 3+ (Negative); Urine pH 8.5 (5.0-7.0)
[2022-03-12 19:21] LABS: Absolute Lymphocytes (CBC) 1.8 K/uL (0.7-4.9); Hematocrit 31.1 % (36.0-45.0); MCV 91.9 fL (80-100); MPV 8.3 fL (7.6-11.3); RBC Red Blood Cell Count 3.39 M/uL (3.86-4.86)
[2022-03-12] MEDS ORDERED: ONDANSETRON 4 MG/2 ML VIAL ONE (19:23)
[2022-03-12] MEDS ORDERED: MORPHINE 4 MG/ML SYR ONE ×2 (19:23→21:51)
[2022-03-12 19:50] LABS: Albumin 3.5 g/dL (3.4-5.0); Bilirubin Total 0.3 mg/dL (0.2-1.0); Protein, Total 7.6 g/dL (6.4-8.2)
[2022-03-12 19:53] LABS: Potassium 6.9 mmol/L (3.5-5.1)
--- NOTE | 2022-03-12 20:23 | RAD REPORT ---
EXAM DESCRIPTION: CT - Stone Protocol - 03/12/2022 8:10 pm CLINICAL HISTORY: Flank pain. PAIN AB COMPARISON: Abdomen Pelvis Wo Contrast dated 01/31/2021 TECHNIQUE: Axial images were obtained without oral or IV contrast. Lack of contrast limits solid org an and vascular assessment. The [id number] spans the entirety of the system partially obscuring uppermost abdomen and lung bases. Coronal reformatted images were obtained and reviewed. All CT scans are performed using dose optimization technique as appropriate and may include automated exposure control or mA/KV adjustment according to patient size. FINDINGS: The lower lung tse are clear. Imaged portions of the liver and spleen show no suspicious findings on non-contrast imaging. The panc reas and adrenal glands are normal. No pathologic lymphadenopathy in the abdomen or pelvis. The kidneys are significantly atrophic. No hydronephrosis. No bowel obstruction, free air, free fluid or abscess. Normal appendix noted. 4.5 cm left ovarian hemorrhagic cyst is suspected. No significant bony abnormality. IMPRESSION: Suspected 4.5 cm left ovarian hemorrhagic cyst. Significant atrophic kidneys.
[2022-03-12] MEDS ORDERED: ALBUTEROL 2.5 MG/3 ML NEB SOL ONE (21:26)
[2022-03-12] MEDS ORDERED: FUROSEMIDE 40 MG/4 ML VIAL ONE (21:26)
[2022-03-12] MEDS ORDERED: SOD POLYSTYREN SUL 15 GM/60 ML UCUP ONE (21:27)
[2022-03-12] MEDS ORDERED: CALCIUM GLUCONATE 1 GM IVPB 1 GM/50 ML BAG IV ONE (21:52)
[2022-03-12] MEDS ORDERED: SODIUM BICARB 50 MEQ/50ML VIAL ONE (21:52)
[2022-03-12] MEDS ORDERED: INSULIN -REGULAR HUMAN 50 UNIT/0.5 ML ML ONE (21:52)
--- NOTE | 2022-03-12 22:35 | P.PN ---
Date of Service: 03/12/22 Brief Renal note: Consulted by ER for hyperkalemia on a ESRD TTS pt, pt did appear to dialyze yesterday but as an OP pre-HD K levels are often elevated. No reports of hemolysis, spoke with ER staff and instructed for pt to receive medical therapy for intracellular shifting and IV Ca gluconate given reported EKG changes with peaked T waves. Spoke with [employer] consultant head insulation board saw operatorKobi and communicated emergent HD orders to them and orders entered in EMR for 2h HD tonight with low K bath of 1 mmol/L. Will also have nursing staff recheck POC glucose as pt received push of IV insulin earlier.
--- NOTE | 2022-03-12 22:42 | EDPHYS ---
Physician Documentation [facility] Name: Sully Renner Age: 21 yrs Sex: Female : 2000 Arrival Date: 03/12/2022 Time: 17:56 Bed 8 Private MD: Tremaine Chapman ED Physician Dann Moralez HPI: 03/12 18:48 This 21 yrs old Female presents to ER via Ambulatory with complaints of roxanna Abdominal Pain, Flank Pain. 18:48 The patient complains of pain in the left low back and left mid back. The pain radiates roxanna to the left low back and left mid back. Onset: The symptoms/episode began/occurred 5 day(s) ago. Modifying factors: The symptoms are alleviated by nothing. the symptoms are aggravated by nothing. Associated signs and symptoms:. Severity of pain: At its worst the pain was mild moderate in the emergency department the pain is unchanged. The patient has not experienced similar symptoms in the past. HEADER UP: 18:08 LMP 02/18/2022 [facility] Historical: - Allergies: 18:08 Latex, Natural Rubber; 1 18:08 NKDA; [facility] - Home Meds: 18:08 amlodipine 2.5 mg tab 1 tab once daily [Active]; [facility] - PMHx: 18:08 Dialysis; End stage renal disease; Hypertensive disorder; SELF CATHERIZATION; [facility] - PSHx: 18:08 NEPHRECTOMY; KIDNEY TRANSPLANT; BLADDER AUGMENTATION; SPINAL BIFIDA; FISTULA LEFT FA; [facility] - Immunization history:: Adult Immunizations up to date. - Social history:: Smoking status: Patient denies any tobacco usage or history of. ROS: 18:49 Constitutional: Negative for fever, chills, and weight loss, Eyes: Negative for injury, roxanna pain, redness, and discharge, ENT: Negative for injury, pain, and discharge, Neck: Negative for injury, pain, and swelling, Cardiovascular: Negative for chest pain, palpitations, and edema, Respiratory: Negative for shortness of breath, cough, wheezing, and pleuritic chest pain, Abdomen/GI: Negative for abdominal pain, nausea, vomiting, diarrhea, and constipation, : Negative for injury, bleeding, discharge, and swelling, MS/Extremity: Negative for injury and deformity, Skin: Negative for injury, rash, and discoloration, Neuro: Negative for headache, weakness, numbness, tingling, and seizure, Psych: Negative for depression, anxiety, suicide ideation, homicidal ideation, and hallucinations, Allergy/Immunology: Negative for hives, rash, and allergies, Endocrine: Negative for neck swelling, polydipsia, polyuria, polyphagia, and marked weight changes, Hematologic/Lymphatic: Negative for swollen nodes, abnormal bleeding, and unusual bruising. 18:49 Back: Positive for pain at rest, Negative for injury or acute deformity, decreased range of motion, pain with movement, radiated pain. Exam: 18:49 Constitutional: This is a well developed, well nourished patient who is awake, alert, roxanna and in no acute distress. Head/Face: Normocephalic, atraumatic. Eyes: Pupils equal round and reactive to light, extra-ocular motions intact. Lids and lashes normal. Conjunctiva and sclera are non-icteric and not injected. Cornea within normal limits. Periorbital areas with no swelling, redness, or edema. ENT: Nares patent. No nasal discharge, no septal abnormalities noted. Tympanic membranes are normal and external auditory canals are clear. Oropharynx with no redness, swelling, or masses, exudates, or evidence of obstruction, uvula midline. Mucous membranes moist. Neck: Trachea midline, no thyromegaly or masses palpated, and no cervical lymphadenopathy. Supple, full range of motion without nuchal rigidity, or vertebral point tenderness. No Meningismus. Chest/axilla: Normal chest wall appearance and motion. Nontender with no deformity. No lesions are appreciated. Cardiovascular: Regular rate and rhythm with a normal S1 and S2. No gallops, murmurs, or rubs. Normal PMI, no JVD. No pulse deficits. Respiratory: Lungs have equal breath sounds bilaterally, clear to auscultation and percussion. No rales, rhonchi or wheezes noted. No increased work of breathing, no retractions or nasal flaring. Skin: Warm, dry with normal turgor. Normal color with no rashes, no lesions, and no evidence of cellulitis. MS/ Extremity: Pulses equal, no cyanosis. Neurovascular intact. Full, normal range of motion. Neuro: Awake and alert, GCS 15, oriented to person, place, time, and situation. Cranial nerves II-XII grossly intact. Motor strength 5/5 in all extremities. Sensory grossly intact. Cerebellar exam normal. Normal gait. Psych: Awake, alert, with orientation to person, place and time. Behavior, mood, and affect are within normal limits. 18:49 Constitutional: The patient appears alert, well developed, well hydrated, well groomed, well nourished. 18:49 Abdomen/GI: Inspection: abdomen appears normal, Bowel sounds: normal, Palpation: mild abdominal tenderness, in the left lower quadrant, Liver: no appreciated palpable abnormalities, Hernia: not appreciated. 21:37 ECG was reviewed by the Attending Physician. Vital Signs: 18:05 BP 152 / 118; Pulse 84; Resp 20; Temp 98.5; Pulse Ox 96% on R/A; Weight 77.11 kg; 1 Height 5 ft. 3 in. (160.02 cm); Pain 9/10; 23:46 BP 138 / 72; Pulse 92; Resp 19; Pulse Ox 99% ; kd3 18:05 Body Mass Index 30.11 (77.11 kg, 160.02 cm) [facility] MDM: 18:36 Patient medically screened. [facility] 19:06 Differential diagnosis: nephrolithiasis, pyelonephritis, Hydronephrosis. Data reviewed: [facility] vital signs, nurses notes, lab test result(s), radiologic studies, CT scan. 21:34 Physician consultation: was contacted at 21:34, regarding consult, patient's condition, spoke with DR Gaviria, construction sales representative. Will admit to hospitalist. 03/12 18:21 Order name: Urine Dipstick-Ancillary; Complete Time: 18:44 EDIL 03/12 18:22 Order name: Urine --Ancillary (enter results); Complete Time: 21:04 03/12 18:47 Order name: CBC with Diff; Complete Time: 19:34 [facility] 03/12 18:47 Order name: CMP; Complete Time: 21:04 [facility] 03/12 21:05 Interpretation: Normal except: NA 135; K 6.9; BUN 40; CRE 10.40; GFR 5; AST 8; ALK 250; cp GLOB 4.1; A/G 0.9. 03/12 18:47 Order name: Lipase; Complete Time: 21:04 [facility] 03/12 22:19 Order name: Potassium; Complete Time: 19:42 03/13 19:42 Interpretation: Al 5.2; Reviewed. 03/12 19:22 Order name: CT Stone Protocol [facility] 03/12 19:26 Order name: Stone Protocol; Complete Time: 21:04 [facility] 03/12 21:37 Order name: US Transvaginal Study (Probe); Complete Time: 19:42 03/12 22:23 Order name: Potassium EDIL 03/12 23:35 Order name: SARS RAPID kd3 03/12 18:14 Order name: Urine Dipstick-Ancillary (obtain specimen); Complete Time: 18:21 [facility] 03/12 18:14 Order name: Urine Test (obtain specimen); Complete Time: 18:21 [facility] 03/12 18:47 Order name: IV Saline Lock; Complete Time: 22:43 [facility] 03/12 18:47 Order name: Labs collected and sent; Complete Time: 21:14 [facility] 03/12 21:06 Order name: EKG; Complete Time: 21:08 03/12 21:06 Order name: EKG - Nurse/Tech; Complete Time: 22:16 cp EC:37 Rate is 98 beats/min. Rhythm is regular. [place] interval is normal. QRS interval is normal. cp QT interval is prolonged at 422 msec. T waves are Peaked. T waves are Inverted in lead aVR. Interpreted by me. Reviewed by me. Administered Medications: 19:18 Drug: morphine 4 mg Route: IVP; Infused Over: 4 mins; Site: right antecubital; 6 23:45 Follow up: Response: No adverse reaction kd3 19:18 Drug: Zofran (Ondansetron) 4 mg Route: IVP; Site: right antecubital; 6 23:45 Follow up: Response: No adverse reaction kd3 21:30 CANCELLED (Physician Discretion): Kayexalate (polystyrene) 45 grams PO once cp 21:33 CANCELLED (Physician Discretion): Kayexalate (polystyrene) 30 grams PO once cp 22:11 Drug: Sodium Bicarbonate 1 amp Route: IVP; Site: right antecubital; kd3 23:45 Follow up: Response: No adverse reaction kd3 22:11 Drug: Calcium Gluconate 1 grams Route: IVPB; Infused Over: 60 mins; Site: right 3 antecubital; 23:45 Follow up: IV Status: Completed infusion kd3 22:11 Drug: morphine 4 mg Route: IVP; Infused Over: 4 mins; Site: right antecubital; kd3 23:44 Follow up: Response: No adverse reaction kd3 22:12 Drug: Lasix (furosemide) 40 mg Route: IVP; Site: right antecubital; kd3 23:45 Follow up: Response: No adverse reaction kd3 22:36 Drug: D50W 50 ml Route: IVP; Site: right antecubital; kd3 23:44 Follow up: Response: No adverse reaction kd3 22:42 Drug: Insulin Regular Human 5 units {Co-Signature: [id number] (Corinne Pompa RN).} Route: IVP; kd3 Site: right antecubital; 23:44 Follow up: Response: No adverse reaction kd3 23:45 Drug: Albuterol 2.5 mg Route: Inhalation; kd3 Disposition Summary: 03/12/22 22:41 Hospitalization Ordered Hospitalization Status: Observation cp Provider: Melanie Andrade cp Location: Intensive Care Unit cp Condition: Stable cp Problem: new cp Symptoms: have improved cp Bed/Room Type: Standard cp Room Assignment: cp Diagnosis - Hyperkalemia cp Discharge Instructions: - Discharge Summary Sheet roxanna - Abdominal Pain, Adult roxanna - Flank Pain, Adult roxanna - Mittelschmerz roxanna - Mittelschmerz, [id number] roxanna - Pelvic Pain, Female roxanna - Abdominal Pain, Adult, [id number] roxanna - End-Stage Kidney Disease roxanna - Flank Pain, Adult, [id number] roxanna Forms: - Medication Reconciliation Form cp - SBAR form cp Prescriptions: - Zofran 4 mg Oral Tablet - take 1 tablet by ORAL route every 12 hours As needed; 20 tablet; Refills: 0, roxanna Product Selection Permitted - Tylenol-Codeine #3 300 mg-30 mg Oral - take 2 tablet by ORAL route every 6 hours; 20 tablet; Refills: 0, Product roxanna Selection Permitted Signatures: Dispatcher [employer] Dann Arredondo MD MD cha Page, Corey, PA PA cp Lizzie Solitario RN RN kd3 Fannie Wagner RN RN [id number] Tyra Baires RN RN 1 Corinne Pompa RN [id number] Corrections: (The following items were deleted from the chart) 21:30 21:06 Arpitaxalate (polystyrene) 45 grams PO once ordered. cp cp 21:33 Kayexalate (polystyrene) 30 grams PO once ordered. cp cp
--- NOTE | 2022-03-12 22:42 | ER ---
Nurse's Notes [facility] Name: Sully Renner Age: 21 yrs Sex: Female : 2000 Arrival Date: 03/12/2022 Time: 17:56 Bed 8 Private MD: Tremaine Chapman Diagnosis: Hyperkalemia Presentation: 03/12 18:05 Chief complaint: Patient states: PATIENT REPORTS LOWER LEFT STOMACH PAIN SINCE 1PM [facility] TODAY. Coronavirus screen: Vaccine status: Patient reports receiving the 2nd dose of the covid vaccine. At this time, the client does not indicate any symptoms associated with coronavirus-19. Ebola Screen: Patient negative for fever greater than or equal to 101.5 degrees Fahrenheit, and additional compatible Ebola Virus Disease symptoms. Initial Sepsis Screen: Does the patient meet any 2 criteria? No. Patient's initial sepsis screen is negative. Does the patient have a suspected source of infection? No. Patient's initial sepsis screen is negative. Risk Assessment: Do you want to hurt yourself or someone else? Patient reports no desire to harm self or others. Onset of symptoms was March 12, 2022. 18:05 Method Of Arrival: Ambulatory [facility] 18:05 Acuity: CT 3 [facility] Triage Assessment: 18:08 General: Appears in no apparent distress. uncomfortable, Behavior is calm, cooperative, [facility] appropriate for age. Pain: Complains of pain in left lower quadrant. GI: No deficits noted. 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: 18:08 LMP 02/18/2022 [facility] Historical: - Allergies: 18:08 Latex, Natural Rubber; [facility] 18:08 NKDA; [facility] - Home Meds: 18:08 amlodipine 2.5 mg tab 1 tab once daily [Active]; [facility] - PMHx: 18:08 Dialysis; End stage renal disease; Hypertensive disorder; SELF CATHERIZATION; [facility] - PSHx: 18:08 NEPHRECTOMY; KIDNEY TRANSPLANT; BLADDER AUGMENTATION; SPINAL BIFIDA; FISTULA LEFT FA; [facility] - Immunization history:: Adult Immunizations up to date. - Social history:: Smoking status: Patient denies any tobacco usage or history of. Screenin:38 Abuse screen: Denies threats or abuse. Denies injuries from another. Nutritional kd3 screening: No deficits noted. Tuberculosis screening: No symptoms or risk factors identified. Fall Risk IV access (20 points). Assessment: 23:39 GI: Bowel sounds present X 4 quads. Abd is soft. kd3 Vital Signs: 18:05 BP 152 / 118; Pulse 84; Resp 20; Temp 98.5; Pulse Ox 96% on R/A; Weight 77.11 kg; 1 Height 5 ft. 3 in. (160.02 cm); Pain 9/10; 23:46 BP 138 / 72; Pulse 92; Resp 19; Pulse Ox 99% ; kd3 18:05 Body Mass Index 30.11 (77.11 kg, 160.02 cm) [facility] ED Course: 17:56 Patient arrived in ED. as 17:56 Tremaine Chapman DO is Private Physician. as 18:08 Triage completed. 1 18:08 Arm band placed on right wrist. 1 18:36 Dann Moralez MD is Attending Physician. [facility] 19:36 Dann Wilburn PA is PHCP. cp 19:52 Notified ED physician of a critical lab result(s). kcl 6.9 and junior designer 10.4. bh1 20:12 Stone Protocol In Process Unspecified. EDMS 21:13 Lizzie Solitario, GAGAN is Primary Nurse. kd3 22:37 US Transvaginal Study (Probe) In Process Unspecified. EDMS 22:41 Melanie Andrade PA is Hospitalizing Provider. cp 23:38 Patient has correct armband on for positive identification. kd3 23:38 No provider procedures requiring assistance completed. Patient admitted, IV remains in kd3 place. 23:44 Potassium Sent. kd3 Administered Medications: 19:18 Drug: morphine 4 mg Route: IVP; Infused Over: 4 mins; Site: right antecubital; [facility] 23:45 Follow up: Response: No adverse reaction kd3 19:18 Drug: Zofran (Ondansetron) 4 mg Route: IVP; Site: right antecubital; [facility] 23:45 Follow up: Response: No adverse reaction kd3 21:30 CANCELLED (Physician Discretion): Kayexalate (polystyrene) 45 grams PO once cp 21:33 CANCELLED (Physician Discretion): Kayexalate (polystyrene) 30 grams PO once cp 22:11 Drug: Sodium Bicarbonate 1 amp Route: IVP; Site: right antecubital; kd3 23:45 Follow up: Response: No adverse reaction kd3 22:11 Drug: Calcium Gluconate 1 grams Route: IVPB; Infused Over: 60 mins; Site: right kd3 antecubital; 23:45 Follow up: IV Status: Completed infusion kd3 22:11 Drug: morphine 4 mg Route: IVP; Infused Over: 4 mins; Site: right antecubital; kd3 23:44 Follow up: Response: No adverse reaction kd3 22:12 Drug: Lasix (furosemide) 40 mg Route: IVP; Site: right antecubital; kd3 23:45 Follow up: Response: No adverse reaction kd3 22:36 Drug: D50W 50 ml Route: IVP; Site: right antecubital; kd3 23:44 Follow up: Response: No adverse reaction kd3 22:42 Drug: Insulin Regular Human 5 units {Co-Signature: sm5 (Corinne Pompa RN).} Route: IVP; kd3 Site: right antecubital; 23:44 Follow up: Response: No adverse reaction kd3 23:45 Drug: Albuterol 2.5 mg Route: Inhalation; kd3 Medication: 23:44 VIS not applicable for this client. kd3 Outcome: 22:41 Decision to Hospitalize by Provider. cp 23:38 Admitted to Med/surg kd3 23:38 Condition: stable 23:38 Discharge instructions given to patient, family, Instructed on follow up and referral plans. the need for admit, Demonstrated understanding of instructions. 23:46 Patient left the ED. kd3 Signatures: Dispatcher [employer] EDDann Enrique MD MD cha Martinez, Amelia as Page, Corey, PA PA cp Lizzie Solitario RN RN kd3 Fannie Wagner RN RN jh6 Tyra Baires RN RN 1 Corinne Pompa RN [id number]
--- NOTE | 2022-03-12 23:07 | P.HP ---
Certification for Inpatient Patient admitted to: Observation With expected LOS: <2 Midnights Patient will require the following post-hospital care: None Practitioner: I am a practitioner with admitting privileges, knowledge of patient current condition, hospital course, and medical plan of care. Services: Services provided to patient in accordance with Admission requirements found in Title 42 Section 412.3 of the Code of Federal Regulations Patient History Date of Service: 03/12/22 Reason for admission: Hyperkalemia, ESRD History of Present Illness: Patient is a 21 y/o F with ESRD on HD ,thu who presented to the ED with complaints of left lower quadrant pain that began today at 1300. Labs were significant for K 6.9, BUN 40, Cr 10, alk 250. EKG with peaked T waves. CT abd/pelv showed atrophic kidneys and ovarian cyst but negative for acute processes. Nephrology was consulted and recommended IV calcium gluconate and emergent HD. She also received sodium bicarb and insulin. She is admitted under hospitalist for further evaluation and treatment. Regarding patient's LLQ abdominal pain, transvaginal US was done which read "indeterminate, possibly hemorrhagic 4.4 cm left ovarian cyst. Recommend pelvic US or MRI with IV contrast in 6-12 weeks if unchanged." Allergies latex Allergy (Verified 11/05/20 10:08) Hives/Rash morphine Allergy (Verified 11/05/20 10:08) Itching/Hives/Rash Home medications list reviewed: Yes Home Medications: Calcitrol [Rocaltrol*] 0.5 mcg PO DAILY #30 cap 02/05/21 Cholecalciferol (Vitamin D3) [Vitamin D 5,000 IU Cap*] 5,000 unit PO DAILY #30 cap 02/05/21 Magnesium Oxide 400 mg PO BEDTIME #30 tablet 02/05/21 Nepro Shake [Nepro*] 237 ml PO TID #90 can 02/05/21 levoFLOXacin [Levaquin*] 250 mg PO Q48H #7 tab 02/05/21 - Past Medical/Surgical History Diabetic: No -: Hypertension -: spina bifida -: bladder reflux -: ESRD on HD -: spina bifida repair -: bladder augmentation -: kidney transplant, then nephrectomy Psychosocial/ Personal History: Patient is adopted. - Family History Family History: Reviewed- Non-Contributory - Social History Smoking Status: Never smoker Alcohol use: No CD- Drugs: No Caffeine use: Yes Place of Residence: Home Review of Systems Gastrointestinal: Abdominal Pain Physical Examination - Physical Exam General: Alert, In no apparent distress HEENT: Atraumatic, PERRLA, EOMI, Sclerae nonicteric Neck: Supple, 2+ carotid pulse no bruit, No LAD, Without JVD or thyroid abnormality Respiratory: Clear to auscultation bilaterally, Normal air movement Cardiovascular: Regular rate/rhythm, Normal S1 S2 Gastrointestinal: Normal bowel sounds, Soft and benign Musculoskeletal: No tenderness Integumentary: No rashes Neurological: Sensation intact, Normal affect - Studies Laboratory Data (last 24 hrs) 03/12/22 19:08: Sodium 135 L, Potassium 6.9 H*, BUN 40 H, Creatinine 10.40 H*, Glucose 104, Total Bilirubin 0.3, AST 8 L, ALT 12, Alkaline Phosphatase 250 H, Lipase 233 03/12/22 19:08: WBC 8.1, Hgb 10.4 L, Hct 31.1 L, Plt Count 234 Assessment and Plan - Problems (Diagnosis) (1) Hyperkalemia Current Visit: Yes Status: Acute (2) Hypertension Current Visit: Yes Status: Chronic Qualifiers: Hypertension type: primary hypertension Qualified Code(s): I10 - Essential (primary) hypertension (3) ESRD (end stage renal disease) on dialysis Current Visit: Yes Status: Chronic - Plan -Recheck BMP following HD -Nephrology consulted, appreciate input -Monitor on telemetry -Monitor glucose as patient did receive insulin for hyperkalemia. Hypoglycemia protocol in place -Renal panel ordered for morning -Monitor BP and continue home amlodipine -Heparin for VTE ppx -Full code Discharge Plan: Home Plan to discharge in: 24 Hours - Advance Directives Does patient have a Living Will: No Does patient have a Durable POA for Healthcare: No - Code Status/Comfort Care Code Status Assessed: Yes (Full) Critical Care: No Time Spent Managing Pts Care (In Minutes): 50
[2022-03-13 02:10] VITALS: O2SAT 99
[2022-03-13] MEDS ORDERED: ONDANSETRON 4 MG/2 ML VIAL IV PRN (02:59)
[2022-03-13] MEDS ORDERED: ACETAMINOPHEN 500 MG TAB PO PRN (02:59)
[2022-03-13] MEDS ORDERED: DIPHENHYDRAMINE 50 MG/ML VIAL IV ONE (03:26)
[2022-03-13 03:34] VITALS: BMI 30.1
[2022-03-13] MEDS: HEPARIN 5000 UNIT/ML 1 ML VIAL SQ SCH ×2 (03:58→10:17)
[2022-03-13 06:11] LABS: Absolute Lymphocytes (CBC) 2.4 K/uL (0.7-4.9); Hematocrit 28.3 % (36.0-45.0); Lymphocytes % 31.5 % (15.3-44.8); MCV 91.2 fL (80-100); MPV 8.2 fL (7.6-11.3)
[2022-03-13 06:33] LABS: Albumin 3.3 g/dL (3.4-5.0); Magnesium 2.1 mg/dL (1.8-2.4); Phosphorus 6.1 mg/dL (2.5-4.9); Potassium 4.1 mmol/L (3.5-5.1)
[2022-03-13] MEDS ORDERED: INSULIN -REGULAR HUMAN 50 UNIT/0.5 ML ML SQ SCH (07:30)
[2022-03-13 09:38] VITALS: BP 119/83; TEMP 97.7
--- NOTE | 2022-03-13 11:23 | P.CNS ---
Date of Consult: 03/13/22 Reason for Consult: ESRD, hyperkalemia Primary Care Provider: Kirt Chief Complaint: Hyperkalemia, ESRD History of Present Illness: Pt is a young 21 yo female with a hx of ESRD with hx of spina bifida, recurrent UTIs, failed kidney transplantation, transition for peritoneal dialysis to in-center HD TTS at the [facility] via a Lt UE AVF. Pt did undergo HD on and has not recently missed any treatments but presented to the ER yesterday with acute left lower abdominal pain, sharp, intermittent but persistent until pain medications received last night. Pt was found to be hyperkalemic and admitted for that reason and dialyzed emergently last night uneventfully. She is feeling well and at baseline this morning and would like to go home. Allergies latex Allergy (Verified 11/05/20 10:08) Hives/Rash Home Medications: Calcitrol [Rocaltrol*] 0.5 mcg PO DAILY #30 cap 02/05/21 Cholecalciferol (Vitamin D3) [Vitamin D 5,000 IU Cap*] 5,000 unit PO DAILY #30 cap 02/05/21 Magnesium Oxide 400 mg PO BEDTIME #30 tablet 02/05/21 Nepro Shake [Nepro*] 237 ml PO TID #90 can 02/05/21 levoFLOXacin [Levaquin*] 250 mg PO Q48H #7 tab 02/05/21 - Past Medical/Surgical History Diabetic: No -: Hypertension -: spina bifida -: bladder reflux -: ESRD on HD -: spina bifida repair -: bladder augmentation -: kidney transplant, then nephrectomy -: PD placement Psychosocial/ Personal History: Patient is adopted. - Family History Father History Unknown: Yes Notes: adopted - Social History Alcohol use: No CD- Drugs: No Caffeine use: No Place of Residence: Home Review of Systems General: Unremarkable Eyes: Unremarkable Respiratory: Unremarkable Cardiovascular: Unremarkable Gastrointestinal: Abdominal Pain Genitourinary: Unremarkable Musculoskeletal: Unremarkable Neurological: Unremarkable Lymphatics: Unremarkable Physical Examination Temp Pulse Resp BP Pulse Ox 97.7 F 89 17 119/83 97 03/13/22 08:00 03/13/22 08:00 03/13/22 08:00 03/13/22 08:00 03/13/22 08:00 General: Alert, In no apparent distress, Oriented x3 HEENT: Atraumatic, Normocephalic, EOMI Neck: Supple Respiratory: Clear to auscultation bilaterally, Normal air movement Cardiovascular: Normal pulses, Regular rate/rhythm Gastrointestinal: Soft and benign, Non-distended, No rebound, No guarding Musculoskeletal: No swelling, No contractures, No erythema Neurological: Normal speech, Sensation intact, Normal affect Laboratory Data (last 24 hrs) 03/12/22 23:21: Potassium 5.2 H 03/12/22 22:12: Potassium Cancelled 03/12/22 19:08: Sodium 135 L, Potassium 6.9 H*, BUN 40 H, Creatinine 10.40 H*, Glucose 104, Total Bilirubin 0.3, AST 8 L, ALT 12, Alkaline Phosphatase 250 H, Lipase 233 03/12/22 19:08: WBC 8.1, Hgb 10.4 L, Hct 31.1 L, Plt Count 234 Conclusions/Impression: 1. ESRD 2. Hyperkalemia 3. Abdominal pain, unspecified 4. Anemia 2nd to CKD 5. Hyperphosphatemia -S/p HD overnight with improvement in K levels, pt can resume OP TTS schedule on discharge with next HD Sat -Recurrent hyperkalemia despite HD 3x/week, pt has been counseled on low K diet and will employ cation exchangers such as Veltassa on non HD days. Prescription written. Pt is concerned about diarrhea but explained to pt that GI AE are reported less freq with this medication compared with Kayexalate, and will monitor closely -Encouraged compliance with diet and binders and will refer as an OP for parathyroidectomy given uncontrolled secondary hyperparathyroidism due to CKD. -Cont OP DEBRA dosing to maintain Hb of 10-11. Thank you for this referral, Doug Gaviria MD, [facility]
--- NOTE | 2022-03-13 11:46 | P.DS ---
Admission Date: 03/12/22 Discharge Date: 03/13/22 Primary Care Provider: Kirt Reason for Admission: Hyperkalemia, ESRD Brief History of Present Illness: Patient is 21 years of age admitted with abdominal pain hyperkalemia she was dialyzed seen by nephrology Hospital Course: Patient had uncomplicated course seen by nephrology was dialyzed abdominal CT showed an ovarian cyst Close recommendations from nephrology S/p HD overnight with improvement in K levels, pt can resume OP TTS schedule on discharge with next HD Sat -Recurrent hyperkalemia despite HD 3x/week, pt has been counseled on low K diet and will employ cation exchangers such as Veltassa on non HD days. Prescription written. Pt is concerned about diarrhea but explained to pt that GI AE are reported less freq with this medication compared with Kayexalate, and will monitor closely -Encouraged compliance with diet and binders and will refer as an OP for parathyroidectomy given uncontrolled secondary hyperparathyroidism due to CKD. -Cont OP DEBRA dosing to maintain Hb of 10-11. Vital Signs/Physical Exam: Temp Pulse Resp BP Pulse Ox 97.7 F 89 17 119/83 97 03/13/22 08:00 03/13/22 08:00 03/13/22 08:00 03/13/22 08:00 03/13/22 08:00 Laboratory Data at Discharge: WBC 7.7 K/uL (4.3-10.9) 03/13/22 05:32 Hgb 9.7 g/dL (12.0-15.0) L 03/13/22 05:32 Hct 28.3 % (36.0-45.0) L 03/13/22 05:32 Plt Count 199 K/uL (152-406) 03/13/22 05:32 Sodium 137 mmol/L (136-145) 03/13/22 05:32 Potassium 4.1 mmol/L (3.5-5.1) 03/13/22 05:32 BUN 14 mg/dL (7-18) D 03/13/22 05:32 Creatinine 5.22 mg/dL (0.55-1.3) H* D 03/13/22 05:32 Glucose 83 mg/dL (74-106) 03/13/22 05:32 Phosphorus 6.1 mg/dL (2.5-4.9) H 03/13/22 05:32 Magnesium 2.1 mg/dL (1.8-2.4) 03/13/22 05:32 Total Bilirubin 0.3 mg/dL (0.2-1.0) 03/12/22 19:08 AST 8 U/L (15-37) L 03/12/22 19:08 ALT 12 U/L (12-78) 03/12/22 19:08 Alkaline Phosphatase 250 U/L (45-117) H 03/12/22 19:08 Lipase 233 U/L (73-393) 03/12/22 19:08 Home Medications: Calcitrol [Rocaltrol*] 0.5 mcg PO DAILY #30 cap 02/05/21 Cholecalciferol (Vitamin D3) [Vitamin D 5,000 IU Cap*] 5,000 unit PO DAILY #30 cap 02/05/21 Magnesium Oxide 400 mg PO BEDTIME #30 tablet 02/05/21 Nepro Shake [Nepro*] 237 ml PO TID #90 can 02/05/21 levoFLOXacin [Levaquin*] 250 mg PO Q48H #7 tab 02/05/21 Followup: Tremaine Chapman DO [Primary Care Provider] - (call to schedule appointment)
--- NOTE | 2022-03-13 12:15 | RAD REPORT ---
EXAM DESCRIPTION: US - Transvaginal Study Probe - 03/12/2022 11:12 pm CLINICAL HISTORY: 21 years Female, left ovarian cyst COMPARISON: None. TECHNIQUE: Limited pelvic ultrasound obtained with transabdominal imaging. FINDINGS: Uterus: The uterus measures 9.3 x 3.2 x 4.2 cm. No myometrial abnormalities. Endometrium: Endometrial thickness of 0.4 cm. Right ovary: The right ovary measures 2.9 x 2.1 x 2.3 cm. Left ovary: The left ovary measures 4.9 x 3.7 x 3.9 cm. 4.4 cm indeterminate heterogeneous left ovari an cysts possibly representing a hemorrhagic cyst. Adnexa: No additional adnexal findings. Free fluid: No free fluid. Duplex imaging: Color and spectral Doppler imaging of the ovaries demonstrates blood flow bilaterally . IMPRESSION: 1. Indeterminate, possibly hemorrhagic 4.4 cm left ovarian cyst. Recommend pelvic US fol low-up in 6-12 weeks; if unchanged, continue follow-up with US OR MRI with IV contrast. Reference: Ra di[employer] 2009;[id number](3):[id number] Electronically signed by: Misael Bhardwaj 03/12/2022 10:55 PM CDT Due to temporary technical issues with the PACS/Fluency reporting system, reports are being signed by the in house radiologists without review as a courtesy to insure prompt reporting. The interpreting radiologist is fully responsible for the content of the report.
--- NOTE | 2022-03-13 13:04 | EKG ---
Test Date: 2022-03-12 Test Time: 21:34:32 Bonding Machine Operator: TREMAYNE MEASUREMENT RESULTS: Intervals: Rate: 98 WA: 174 QRSD: 80 QT: 422 QTc: 538 [place]: P: 63 WA: 174 QRS: 76 T: 56 INTERPRETIVE STATEMENTS: Sinus rhythm with frequent premature ventricular complexes Prolonged QT Abnormal ECG No previous ECG available for comparison Electronically Signed On 03-13-22 13:03:37 CDT by Daniel Carmona
== END 2022-03-13 11:50 | disposition home or self-care (01) ==
LOC: ER 17:55 → ERHOLD 23:33 → 2ND 03-13 02:57
PROVIDERS: ADMIT Internal Medicine Nephrology; ATTEND Internal Medicine Sleep Medicine
DX: E87.5 Hyperkalemia (principal); I12.0 Hypertensive chronic kidney disease with stage 5 chronic kidney disease or end stage renal disease; N18.6 End stage renal disease; Z99.2 Dependence on renal dialysis; T86.12 Kidney transplant failure; D63.1 Anemia in chronic kidney disease; R10.32 Left lower quadrant pain; E83.39 Other disorders of phosphorus metabolism; Q05.9 Spina bifida, unspecified; E21.3 Hyperparathyroidism, unspecified; Z87.440 Personal history of urinary (tract) infections; Z90.5 Acquired absence of kidney; Z79.899 Other long term (current) drug therapy; Z91.040 Latex allergy status; Z88.5 Allergy status to narcotic agent; Z20.822 Contact with and (suspected) exposure to COVID-19
CPT/HCPCS: 36415; 74176; 76377; 76830; 80053; 80069; 81003; 81025; 82947; 83690; 83735; 84132; 85025; 90935; 93005; 96365; 96366; 96375; 99285; G0378; J0610; J1200; J1644; J1815; J1940; J2405; U0003

== ENCOUNTER 2022-05-16 12:27 | Observation (INO) | payer OTHER ==
--- OUTSIDE RECORDS SUMMARY | 2022-05-16 12:31 | XMS REPORT | Continuity of Care Document ---
:2000 Author Organization [facility] t Address [address] [place] [address] Care Team Providers Name Role Phone PCP, PATIENT DOES NOT HAVE A Primary Care Physician UnavailCAROL Servin Attending Clinician Unavailable VIRGILIO MCKEON Attending Clinician Unavailable HUGO HUGO Attending Clinician Unavailable APURVA HIGUERA Attending Clinician Unavailable Fran CAO, Everton Fletcher Attending Clinician [phone] Germaine Smith BANKING SPECIALISTMaria TeresaCShaista Attending Clinician [phone] Patricia Skinner MA Attending Clinician Unavailable Sarah Moses MA Attending Clinician Unavailable ANDREAS LU Attending Clinician Unavailable Doctor Unassigned, [place] Attending Clinician Unavailable Alfred Curry MD Attending Clinician Audra Liu Attending Clinician MD EVERTON PETERS Attending Clinician Unavailable Demarcus FARAH, Dipti Attending Clinician Unavailable Lennox Maynard MD Attending Clinician 1, [employer] [facility] Nurse Attending Clinician Unavailable Abbie Alejandro DO Attending Clinician ABBIE ALEJANDRO Attending Clinician Unavailable ROHIT BOUDREAUX Attending Clinician Unavailable CAROL ROWELL M.D. Attending Clinician Unavailable ENIO SHARP Attending Clinician Unavailable MD ENIO SHARP Attending Clinician Unavailable MALA FUNEZ Attending Clinician Unavailable ORGANTRANSPLANT, OP Attending Clinician Unavailable TRACI EVERETT Attending Clinician Unavailable DEXA, SCAN Attending Clinician Unavailable APURVA HIGUERA Admitting Clinician Unavailable EVERTON PETERS Admitting Clinician Unavailable MD BERNARDO NUNEZ Admitting Clinician UnavailLENNOX Luis Admitting Clinician Unavailable MD EVERTON PETERSNiurka Admitting Clinician Unavailable ENIO SHARP Admitting Clinician Unavailable MD ENIO SHARP Admitting Clinician Unavailable VIRGILIO MCKEON Admitting Clinician Unavailable TRACI EVERETT Admitting Clinician Unavailable Payers Payer Name Policy Type Policy Number Effective Date Expiration Date S ource MEDICARE PART A AND [id number] 2020 B 00:00:00 MEDICARE PART A \T\ [id number] 2020 B 00:00:00 [employer] [id number] 2018 OUT OF NETWORK 00:00:00 Problems Condition Condition Condition Status Onset Resolution Last Treating Co mments Source Name Details Category Date Date Treatment Clinician Date 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-20 (HCC) s/p (HCC) s/p 00:00: Hosp renea repair at repair at 00 l 2month old 2month old Obstructiv Obstructiv Disease Active 2019-08 M ethodi e uropathy e uropathy 08-20 S/p-DDRT S/p-DDRT 00:00: Hospit a 12/2017 00 l ESRD (end ESRD (end Disease Active 2019-08 Met hodi stage stage 1-04 st renal renal 00:00: Hospita disease) disease) 00 l Acute Acute Disease Active Univers renal renal 9-30 ity of failure failure 00:00: [place] [id number] Medical Branch End-stage End-stage Disease Active Uni vers renal renal 9-30 ity of disease disease 00:00: [place] [address] Medical Branch Encounter Encounter Disease Active 2018-08 Overview: [facility] for 09-10 Formattin ity of immunizati immunizati 00:00: g of this [place] on on 00 note Medical might be Branch different from the original. Last Assessmen t & Plan: Pt to wait 30 days between vaccines, may RTC for nurse visit to complete meningiti s vaccine. Normal Normal Disease Active 2018-08 Overview: [facility] s physical physical 09-10 Formattin ity of exam, exam, 00:00: g of this [place] routine routine 00 note Medical might be Branch different from the original. Last Assessmen t & Plan: Exam complete, did not order labwork as patient just had labwork, she will bring us a copy for review. Discussed anticipat ory guidance, all questions answered. Pt to RTC in one year or as needed. Spina Spina Problem Active [facility] bifida bifida Physici ans History of History of Problem Resolve UT S/P S/P d Physici myelomenin myelomenin an s gocele gocele repair repair Acute Acute Problem Active UT pyelonephr pyelonephr Ph ysici itis itis ans CKD CKD Problem Active UT (chronic (chronic Physic i kidney kidney ans disease) disease) stage 4, stage 4, GFR 15-29 GFR 15-29 ml/min ml/min Secondary Secondary Problem Active UT hyperparat hyperparat Ph ysici hyroidism, hyroidism, an s renal renal Secondary Secondary Problem Active UT hypertensi hypertensi Ph ysici on due to on due to ans renal renal disease disease Vitamin D Vitamin D Problem Active UT deficiency deficiency Ph ysici ans Metabolic Metabolic Problem Active UT acidosis acidosis Physic i ans Iron Iron Problem Active UT deficiency deficiency Ph ysici ans Neurogenic Neurogenic Problem Active U T bladder bladder Physici disorder disorder ans Recurrent Recurrent Problem Active UT urinary urinary Physici tract tract ans infection infection Clostridiu Clostridiu Problem Active U T m m Physici difficile difficile ans infection infection Kidney Kidney Problem Active UT transplant transplant Ph ysici status status ans Urinary Urinary Problem Active UT retention retention Phys ici ans CKD CKD Problem Active UT (chronic (chronic Physic i kidney kidney ans disease) disease) CKD CKD Problem Active UT (chronic (chronic Physic i kidney kidney ans disease) disease) stage 3, stage 3, GFR 30-59 GFR 30-59 ml/min ml/min ESRD (end ESRD (end Problem Active UT stage stage Physici renal renal ans disease) disease) Lung Lung Problem Active UT nodule nodule Physici seen on seen on ans imaging imaging study study Allergies, Adverse Reactions, Alerts Allergy Allergy Status Severity Reaction(s) Onset Inactive Treating Comm ents Source Name Type Date Date Clinician KIWI DRUG Active Unknown-Cmnt Univ ers INGREDI 3 ity of 00:00: [place] 00 Medical Branch Latex Propensi Active Rash Methodi ty to 08-22 adverse 00:00: Hospita reaction 00 l s to drug Morphine Propensi Active Rash 2019-08 Method i ty to 08-21 st adverse 00:00: Hospita reaction 00 l s to drug LATEX DRUG Active Unknown-Cmnt 2019-0 Univ ers INGREDI 05-16 ity of 00:00: Medical Branch Latex Drug Active Unknown - 2019-0 Univers Allergy See comments 05-16 ity of 00:00: 00 Medical Branch MORPHINE DRUG Active High Unknown-Cmnt Un nora INGREDI 2- ity of 00:00: 00 Medical Branch NITROFUR DRUG Active High Unknown-Cmnt Un nora ANTOIN INGREDI 2- ity of 00:00: [place] 00 Medical Branch Morphine Drug Active Unknown - 0 Unive rs Allergy See comments 09-24 ity of 00:00: Medical Branch Nitrofur Drug Active Unknown - 2016-0 Unive rs antoin Allergy See comments 09-24 ity of 00:00: 00 Medical Branch PINEAPPL DRUG Active Unknown-Cmnt Un nora E INGREDI 04-29 ity of 00:00: [place] 00 Medical Branch LATEX DRUG Active Low Unknown-Cmnt Univ ers INGREDI 04-29 ity of 00:00: [place] 00 Medical Branch NO KNOWN Drug Active Univers ALLERGIE Class ity of S [place] [facility] Family History Family Member Diagnosis Comments Start Date Stop Date Source Unknown Family Member Adopted Unknown [facility] Natural [facility] Social History Social Habit Start Date Stop Date Quantity Comments Source Exposure to Not sure University of SARS-CoV-2 [place] Medical (event) Branch History [facility] o f Alcohol Comment [place] Med ical Branch Alcohol intake 2021-09-02 2021-09-02 Ex-drinker [facility] 00:00:00 00:00:00 (finding) Hospital Tobacco use and 2020-06-25 2020-06-25 Smokeless tobacco Me thodist exposure 00:00:00 00:00:00 non-user Hospital History [facility] 2020-05-16 2020-05-16 1 University o f Alcohol Frequency 00:00:00 00:00:00 [place] M edical Branch History [facility] 2020-05-16 2020-05-16 99 University o f Alcohol Std 00:00:00 00:00:00 [place] Medical Drinks Branch History [facility] 2020-05-16 2020-05-16 1 University o f Alcohol Binge 00:00:00 00:00:00 [place] Medic al Branch Sex Assigned At 2000 2000 F [facility] 00:00:00 00:00:00 Hospital Smoking Status Start Date Stop Date Source Never smoked tobacco [facility] Medications Ordered Filled Start Stop Current Ordering Indication Dosage Frequency Signature Comments Components Source Medication Medication Date Date Medication? Clinician (SIG) Name Name lidocaine-p 2022- No Apply Meth timmy rilocaine 3-07 03-[address] (EMLA) 00:00: 05:59 as needed Hospi ta 2.5-2.5 % 00 :00 for mild l cream pain. Apply to area 30-45 minutes prior to dialysis treatment. traMADoL [place] [id number] 50mg Q8H Take 1 Method i (Ultram) 50 1-14 tablet (50 st mg tablet 00:00: mg total) Hos gera 00 by mouth l every 8 (eight) hours as needed for moderate pain for up to 3 days .acute pain. casirivimab 2020-08- No [id number] 1200mg 1,200 mg, Univers -imdevimab 0-15 10-15 Subcutaneo it y of (REGEN-COV 14:45: 13:07 us, ONCE, [place] (EUA)) 00 :00 1 dose, On Medical injection Fri Branch 1,200 mg 05/31/21 at 0945, Routine traMADoL 2021- No [id number] 50mg Q8H Take 1 Metho di (Ultram) 50 1-06 01-14 tablet (50 s t mg tablet 00:00: 00:00 mg total) Ho spita 00 :00 by mouth l every 8 (eight) hours as needed for moderate pain for up to 20 doses .acute pain. insulin 2020-0 Yes 100U inject 100 Univ ers detemir 9-30 Units ity of U-100 100 13:39: under the [place] as unit/mL 27 skin 2 Medical injection (two) Branch times daily. insulin 2020-0 Yes 100U inject 100 Univ ers detemir 9-30 Units ity of U-100 100 13:39: under the [place] as unit/mL 27 skin 2 Medical injection (two) Branch times daily. insulin 2020-0 Yes 100U inject 100 Univ ers detemir 9-30 Units ity of U-100 100 13:39: under the [place] as unit/mL 27 skin 2 Medical injection (two) Branch times daily. alendronate 0 Yes 1{tbl} Take 1 Un nora -cholecalci 9-30 tablet by ity of ferol 70 13:36: mouth [place] mg- 2,800 12 daily. Medical unit per Branch tablet alendronate 2019-0 Yes 1{tbl} Take 1 Un nora -cholecalci 9-30 tablet by ity of ferol 70 13:36: mouth [place] mg- 2,800 12 daily. Medical unit per Branch tablet alendronate 2019-0 Yes 1{tbl} Take 1 Un nora -cholecalci 9-30 tablet by ity of ferol 70 13:36: mouth [place] mg- 2,800 12 daily. Medical unit per Branch tablet losartan 2018-08 Yes 25mg Take 25 mg Univers mg tablet 0-16 by mouth ity of 00:00: daily. Medical Branch losartan 2018-08 Yes 25mg Take 25 mg Univers mg tablet 0-16 by mouth ity of 00:00: daily. Medical Branch losartan 2018-08 Yes 25mg Take 25 mg Univers mg tablet 0-16 by mouth ity of 00:00: daily. [address] hydrOXYzine hydrOXYzine Yes CHATO QD TAKE 1 UT HCl - 25 MG HCl - 25 MG 5-04 [facility] TABLET Physici Oral Tablet Oral Tablet 00:00: M.D. DAILY as ans 00 needed amLODIPine amLODIPine 2015-08 Yes CHATO 1 QD TAKE 1 UT Besylate 10 Besylate 10 1-17 [facility] TABLET Physici MG Oral MG Oral 00:00: M.D. DAILY. ans Tablet Tablet 00 Sodium Sodium 2015-08 Yes CHATO 1 Q12H TAKE 1 UT Bicarbonate Bicarbonate 1-17 [facility] TABLET Physici 650 MG Oral 650 MG Oral 00:00: M.D. Every ans Tablet Tablet 00 twelve hours Vitamin D Vitamin D 2015-08 Yes CHATO QD TAKE 1 UT 50 MCG 50 MCG 0-27 [facility] TABLET Phys ici (2000 UT) (2000 UT) 00:00: M.D. DAILY an s Oral Tablet Oral Tablet 00 Nitrofurant Nitrofurant 2015-08 Yes CHATO TAKE 1 UT oin oin 0-04 [facility] CAPSULE AT Phys ici Macrocrysta Macrocrysta 00:00: M.D. BEDTIME. ans l 100 MG l 100 MG 00 Oral Oral Capsule Capsule Lisinopril Lisinopril 2015-08 Yes CHATO QD TAKE 1 UT 5 MG Oral 5 MG Oral 0-04 [facility] TABLET Physici Tablet Tablet 00:00: M.D. DAILY ans 00 Calcitriol Calcitriol 2015-08 Yes CHATO 1 QD TAKE 1 UT 0.5 MCG 0.5 MCG 0-03 [facility] CAPSULE P hysici Oral Oral 00:00: M.D. DAILY ans Capsule Capsule 00 Ditropan XL Ditropan XL 2015-08 Yes CHATO QD TAKE 1 UT 5 MG Oral 5 MG Oral 0-03 [facility] TABLET Physici Tablet Tablet 00:00: M.D. DAILY ans Extended Extended 00 Release 24 Release 24 Hour Hour Ferrous Ferrous 2015-08 Yes CHATO QD TAKE 1 UT Gluconate Gluconate 0-03 [facility] TABLET Physici 325 (36 Fe) 325 (36 Fe) 00:00: M.D. DAILY ans MG TABS MG TABS 00 Immunizations Ordered Filled Immunization Date Status Comments [facility] e Immunization Name Name SARS-COV-2 COVID-19 2020-12-01 Completed Unive rsity of PFIZER VACCINE 00:00:00 [facility] SARS-COV-2 COVID-19 2020-12-01 Completed Unive rsity of PFIZER VACCINE 00:00:00 [facility] SARS-COV-2 COVID-19 2020-12-01 Completed Unive rsity of PFIZER VACCINE 00:00:00 [facility] SARS-COV-2 COVID-19 2020-11-11 Completed Unive rsity of PFIZER VACCINE 00:00:00 [facility] SARS-COV-2 COVID-19 2020-11-11 Completed Unive rsity of PFIZER VACCINE 00:00:00 [facility] SARS-COV-2 COVID-19 2020-11-11 Completed Unive rsity of PFIZER VACCINE 00:00:00 [facility] Vital Signs Vital Name Observation Time Observation Value Comments Source Systolic blood 2021-05-31 127 mm[Hg] University of pressure 14:00:00 [facility] Diastolic blood 2021-05-31 89 mm[Hg] University o f pressure 14:00:00 [facility] Heart rate 2021-05-31 104 /min [facility] 14:00:00 [facility] Body temperature 2021-05-31 37.06 Jyotsna [facility] 14:00:00 [facility] Respiratory rate 2021-05-31 20 /min [facility] 14:00:00 [facility] Oxygen saturation 2021-05-31 96 /min [facility] in Arterial blood 14:00:00 [facility] by Pulse oximetry [place] Body height 2021-05-31 160 cm [facility] 13:04:00 [facility] Body weight 2021-05-31 72.576 kg [facility] 13:04:00 [facility] BMI 2021-05-31 28.34 kg/m2 [facility] 13:04:00 [facility] Systolic blood 2021-11-27 155 mm[Hg] [facility] pressure 21:01:00 [facility] Diastolic blood 2021-11-27 106 mm[Hg] [facility] pressure 21:01:00 [facility] Heart rate 2021-11-27 90 /min [facility] 21:01:00 Hospital Body temperature 2021-11-27 36.56 Jyotsna [facility] 21:01:00 [facility] Body height 2021-11-27 160 cm [facility] 21:01:00 Hospital Body weight 2021-11-27 79.833 kg [facility] 21:01: Hospital BMI 2021-11-27 31.18 kg/m2 [facility] 21:01:00 Hospital Oxygen saturation 2021-11-27 98 /min [facility] in Arterial blood 21:01:00 Hospital by Pulse oximetry Respiratory rate 2021-08-31 17 /min [facility] 00:00:00 Hospital Systolic blood 2020-08-27 116 mm[Hg] Location: LUE; [place] [facility] pressure 11:13:00 Position: Sitting Diastolic blood 2020-08-27 85 mm[Hg] Location: LUE; [place] [facility] pressure 11:13:00 Position: Sitting Body height 2020-08-27 63 [in_us] [facility] 11:13:00 Weight 2020-08-27 160 [lb_av] [facility] 11:13:00 Body mass index 2020-08-27 28.34 kg/m2 [facility] (BMI) [Ratio] 11:13:00 Heart Rate 2020-08-27 125 /min Location: L [facility] 11:13:00 Brachial Artery; Body temperature 2020-08-27 97.4 [degF] Method: [facility] 11:13:00 Temporal Systolic blood 2020-02-20 110 mm[Hg] [facility] pressure 11:37:00 Diastolic blood 2020-02-20 79 mm[Hg] [facility] pressure 11:37:00 Body height 2020-02-20 63 [in_us] [facility] 11:37:00 Weight 2020-02-20 150 [lb_av] [facility] 11:37:00 Body mass index 2020-02-20 26.57 kg/m2 [facility] (BMI) [Ratio] 11:37:00 Body temperature 2020-02-20 98.6 [degF] [facility] 11:37:00 Heart Rate 2020-02-20 102 /min [facility] 11:37:00 Procedures Procedure Date / Time Performing Clinician Source Performed NO SHOW OR MISSED 2021-10-16 16:22:29 Doctor Unassigned, [facility] APPOINTMENT POLICY [place] [facility] ACKNOWLEDGEMENT POC GLUCOSE 2021-08-30 23:33:00 Everton Peters ashleigh Peters-[facility]si CREATION, AV FISTULA 2021-08-30 19:14:00 Everton Peters [facility]si ANESTHESIA PERIPHERAL 2021-08-30 19:00:39 Alfred Curry [facility] THO Mckenzie BASIC METABOLIC PANEL 2021-08-30 17:36:00 Fran [facility]si ESTIMATED GFR 2021-08-30 17:36:00 [facility] ESTIMATED GFR 2021-08-30 17:33:00 Everton Peters gwendolyntal Peters-Hsi POC PANEL 2021-08-30 17:33:00 Everton Peters [facility]-Hsi ECG PRE/POST OP 2021-08-28 19:21:25 Melquiades Nunez ashleigh Macias PROTHROMBIN TIME WITH INR 2021-08-28 17:38:00 Everton Peters [facility]si PARTIAL THROMBOPLASTIN 2021-08-28 17:38:00 [facility]si TYPE AND SCREEN 2021-08-28 17:38:00 Everton Peters ashleigh Peters-Hsi HC COMPLETE BLD COUNT 2021-08-28 17:38:00 Everton Peters [facility] W/AUTO DIFF [facility]-Hsi HEMOGLOBIN A1C 2021-08-28 17:38:00 Melquiades Nunze ashleigh Macias HCG QUALITATIVE, SERUM 2021-08-28 17:38[facility]00 [facility] Bernardo Macias COVID-19 QUALITATIVE 2021-08-28 17:38:00 [facility] Peters-Hsi COMPREHENSIVE METABOLIC 2021-08-03 03:16:00 Lennox Maynard [facility] PANEL HC COMPLETE BLD COUNT 2021-08-03 03:16:00 Lennox Maynard [facility] W/AUTO DIFF PROTHROMBIN TIME WITH INR 2021-08-03 03:16:00 Maura, Lennox [facility] ESTIMATED GFR 2021-08-03 03:16:00 MauraLennox [facility] HEPATITIS B SURFACE 2021-08-03 00:28:00 [facility]TIGEN HEPATITIS B SURFACE AB, 2021-08-03 00:28:00 Abbie Alejandro [facility] QUANTITATIVE HEMODIALYSIS 2021-08-02 21:51:18 RogerAbbie coronel [facility] CREATION, AV FISTULA 2021-08-02 20:00:00 Everton Peters [facility] Peters-Hsi POC PANEL 2021-08-02 18:27:00 Everton Peters spital Peters-Hsi ESTIMATED GFR 2021-08-02 18:27:00 Everton Peters spital Peters-Hsi ABO AND RH CONFIRMATION BY 2021-08-02 18:22:00 Everton Peters [facility] PROTOCOL Peters-Hsi BASIC METABOLIC PANEL 2021-08-02 18:21:00 Everton Peters [facility] Peters-Hsi ESTIMATED GFR 2021-08-02 18:21:00 Everton Peters Ho spital Peters-Hsi HEMOGLOBIN A1C 2021-08-02 08:16:00 Demarco Maynardhir [facility] ECG PRE/POST OP 2021-07-31 18:52:39 Everton Peters spital Peters-Hsi XR CHEST 2 VW 2021-07-31 18:33:44 Everton Peters spital Peters-Hsi COVID-19 QUALITATIVE 2021-07-31 17:17:00 Everton Peters [facility] RT-PCR Peters-Hsi PARTIAL THROMBOPLASTIN 2021-07-31 17:17:00 Everton Peters [facility] TIME (PTT) Peters-Hsi PROTHROMBIN TIME WITH INR 2021-07-31 17:17:00 Everton Peters [facility] Peters-Hsi HC COMPLETE BLD COUNT 2021-07-31 17:17:00 Everton Peters [facility] W/AUTO DIFF Peters-Hsi TYPE AND SCREEN 2021-07-31 17:17:00 Everton Peters-Hsi HCG QUALITATIVE, SERUM 2021-07-31 17:17:00 Leighton Nunez [facility] SCREEN Bernardo Macias HEMOGLOBIN A1C 2021-07-31 17:17:00 Melquiades Nunez PHYSICIAN ORDERS 2021-05-31 05:01:00 Doctor Unassigned, [facility] [place] [facility] CT Abdomen/Pelvis w/wo 2020-08-27 00:00:00 [place] [facility] contrast [id number] [facility] Chest wo contrast [id number] 2020-08-27 00:00:00 [facility] of Bladder Surgery [place] [facility] Plan of Care Planned Activity Planned Date Details Comments Source Future Scheduled 2022-05-16 HEPATITIS B VACCINES Met [facility] Test 12:30:08 (1 of 3 - 3-dose series) [code = HEPATITIS B VACCINES (1 of 3 - 3-dose series)] Future Scheduled 2022-05-16 Pneumococcal Vaccine: [facility] Test 12:30:08 Pediatrics (0 to 5 Years) and At-Risk Patients (6 to 64 Years) (1 - PCV) [code = Pneumococcal Vaccine: Pediatrics (0 to 5 Years) and At-Risk Patients (6 to 64 Years) (1 - PCV)] Future Scheduled 2022-05-16 Screening for [facility] Test 12:30:08 Chlamydia trachomatis (procedure) [code = 837160475] Future Scheduled 2022-05-16 Hepatitis C screening [facility] Test 12:30:08 (procedure) [code = 995513268] Future Scheduled 2022-05-16 COVID-19 VACCINE (3 - [facility] Test 12:30:08 Pfizer risk series) [code = COVID-19 VACCINE (3 - Pfizer risk series)] Future Scheduled 2022-05-16 Screening for [facility] Test 12:30:08 malignant neoplasm of cervix (procedure) [code = 174379433] Future Scheduled 2022-05-16 INFLUENZA VACCINE Method [facility] Test 12:30:08 [code = INFLUENZA VACCINE] Encounters Start End Encounter Admission Attending Care Care Encounter Source Date/Time Date/Time Type Type Clinicians Facility Department ID 2020-12-22 Outpatient CAROL ROWELL [facility] [id number] [place] 03:05:41 Health 2020-03-02 Outpatient VIRGILIO MCKEON [facility] SHAHBAZ [id number] [facility] 10:17:34 2019-11-04 Outpatient BETHEL [facility] [id number] [facility] 09:37:41 HUGO 2019-10-10 Inpatient APURVA HIGUERA [facility] MED [id number] [facility] 07:23:15 2018-12-13 Outpatient [facility] [id number] [facility] 13:42:33 2018-11-25 Inpatient [facility] [id number] [facility] H 09:16:59 2021-11-27 2021-11-28 [facility] 1.2.840.1 [id number] Methodi 16:00:00 14:01:04 Visit Anai Smithe Alekjocelyn [id number] 3.430.2.7 Hospit a .3.931424 l .8 2021-11-27 2021-11-28 Outpatient FRAN [facility] [id number] [place] 00:00:00 00:00:00 [place] [address] 2021-11-27 2021-11-27 Travel 1.2.840.1 [id number] Methodi 00:00:00 00:00:[address] 3.430.2.7 0.2.7.3.698 Ho spita .3.344666 084.8 l .8 2021-11-25 2021-11-25 Telephone Luis, 1.2.840.1 [id number] Methodi 00:00:00 00:00:[address] [place] 3.430.2.7 Hosp renea .3.528294 l .8 2021-11-25 2021-11-25 Telephone Susanne, 1.2.840.1 [id number] Methodi 00:00:00 00:00:00 Crysandria 42940.1.1 940 s t 3.430.2.7 Hospit a .3.387341 l .8 2021-11-18 2021-11-18 Travel 1.2.840.1 [id number] [id number] Methodi 00:00:00 00:00:[address] 3.430.2.7 0.2.7.3.698 Ho spita .3.685401 084.8 l .8 2021-11-15 2021-11-15 Telephone Luis, 1.2.840.1 [id number] Methodi 00:00:00 00:00:[address] [place] 3.430.2.7 Hosp renea .3.002009 l .8 2021-11-13 2021-11-13 Telephone Josué, 1.2.840.1 [id number] Methodi 00:00:00 00:00:[address] 3.430.2.7 Hospit a .3.303233 l .8 2021-10-21 2021-10-21 Office Luis, 1.2.840.1 [id number] Methodi 11:30:00 13:58:50 Visit Shaista 15609.1.[address] [place] 3.430.2.7 Hosp renea .3.522842 l .8 2021-10-21 2021-10-21 Outpatient [facility] [id number] [place] 00:00:00 00:00:[address] 2021-10-21 2021-10-21 Travel 1.2.840.1 1.2.340.311 [id number] Methodi 00:00:00 00:00:[address] 3.430.2.7 0.2.7.3.698 Ho spita .3.924260 084.8 l .8 2021-10-16 2021-10-16 Outpatient Kojo LU [facility] [id number] Univers 10:30:00 11[facility]56:[facility] 2021-10-16 Outpatient Kojo ALY, [facility] [id number] Univers 10:30:00 10:30:00 [facility] [id number] [facility] 2021-10-16 2021-10-16 Orders Doctor VIRGILIO 1.2.840.114 [id number] Univers 00:00:00 00:00:00 Only Unassigned, LINDSAY 350.1.13.10 ity [facility] 4.2.7.2.686 [place] as [id number] [address] 2021-09-18 2021-09-18 Outpatient Kojo MAURICIOALY, [facility] [id number] -20 Univers 07:30:00 07:30:00 [facility] [id number] [facility] 2021-08-30 [facility], 1.2.840.1 [id number] Methodi 10:50:00 18:10:00 Encounter [place] 95841.1.1 925 [facility]-i 3.430.2.7 Hosp renea .3.798586 l .8 2021-08-30 2021-08-30 Anesthesia Alfred Curry 1.2.840.1 [id number] Methodi 13:15:00 17:32:00 Event Audra Babin 19932.1.[address] 3.430.2.7 Hospit a .3.671872 l .8 2021-08-30 2021-08-30 Surgery [facility] 1.2.840.1 [id number] Methodi 13:14:00 16:14:[address] [address] [facility] 3.430.2.7 Hosp renea .3.767185 l .8 2021-08-30 2021-08-30 Outpatient [facility] [id number] 868 [place] 00:00:00 00:00:00 [place] [address] 2021-08-28 2021-08-28 Pre-Admiss Fran, 1.2.840.1 [id number] Methodi 11:00:00 12:00:00 rosario Toscano 04843.1.[address] [facility] Fran-Hsi 3.430.2.7 Hosp renea .3.350443 l .8 2021-08-28 2021-08-28 Outpatient [facility] [id number] 870 [place] 00:00:00 00:00:00 [place] [address] 2021-08-28 2021-08-28 Travel 1.2.840.1 1.2.215.149 [id number] Methodi 00:00:00 00:00:[address] 3.430.2.7 0.2.7.3.698 Ho spita .3.674872 084.8 l .8 2021-08-14 2021-08-14 Travel 1.2.840.1 1.2.799.385 1546 [id number] Methodi 00:00:00 00:00:[address] 3.430.2.7 0.2.7.3.698 Ho spita .3.755869 084.8 l .8 2021-08-14 2021-08-14 Prep for Demarcus, 1.2.840.1 [id number] [id number] Methodi 00:00:00 00:00:00 Surgery Dipti 60325.1.[address] 3.430.2.7 Hospit a .3.527038 l .8 2021-08-07 2021-08-07 Telephone Demarcus 1.2.840.1 [id number] Methodi 00:00:00 00:00:[address] 3.430.2.7 Hospit a .3.922668 l .8 2021-08-02 2021-08-02 [facility] 1.2.840. 1 [id number] Methodi 11:23:00 22:13:00 Encounter Lennox Maynard 44686.1.[address] 3.430.2.7 Hospit a .3.109571 l .8 2021-08-02 2021-08-02 Surgery Fran, 1.2.840.1 [id number] 6761 Methodi 14:00:00 17:35:00 [place] 13335.1.1 536 [facility] 3.430.2.7 Hosp renea .3.401908 l .8 2021-08-02 2021-08-02 Outpatient LENNOX MAYNARD [facility] 021 [id number] [place] 00:00:00 00:00:[address] 2021-07-31 2021-07-31 Hospital Fran, 1.2.840.1 [id number] Methodi 12:20:28 23:59:00 Encounter [place] 43349.1.1 655 [facility] 3.430.2.7 Hosp renea .3.826110 l .8 2021-07-31 2021-07-31 Pre-Admiss Fran, 1.2.840.1 [id number] 899 [id number] Methodi 10:30:00 11:30:00 ion [place] 78477.1.1 846 [facility] 3.430.2.7 Hosp renea .3.910846 l .8 2021-07-31 2021-07-31 Outpatient [facility] [id number] 472 [place] 00:00:00 00:00:00 [place] 846 Method i 2021-07-31 2021-07-31 Outpatient [facility] [id number] 983 [place] 00:00:00 00:00:00 [place] [address] 2021-07-31 2021-07-31 Travel 1.2.840.1 1.2.610.569 [id number] [id number] Methodi 00:00:00 00:00:[address] 3.430.2.7 0.2.7.3.698 Ho spita .3.501919 084.8 l .8 2021-07-25 2021-07-25 Prep for Demarcus, 1.2.840.1 [id number] Methodi 00:00:00 00:00:00 Surgery Dipti 22670.1.[address] 3.430.2.7 Hospit a .3.078503 l .8 2021-07-25 2021-07-25 Telephone Demarcus, 1.2.840.1 [id number] Methodi 00:00:00 00:00:[address] 3.430.2.7 Hospit a .3.645387 l .8 2021-07-24 2021-07-24 Office Fran, 1.2.840.1 [id number] 2277 Methodi 10:30:00 12:06:23 Visit [place] 16053.1.[address] [facility] 3.430.2.7 Hosp renea .3.069762 l .8 2021-07-24 2021-07-24 Outpatient [facility] [id number] 142 [place] 00:00:00 00:00:00 [place] [address] 2021-07-24 2021-07-24 Travel 1.2.840.1 1.2.471.672 8588 [id number] Methodi 00:00:00 00:00:[address] 3.430.2.7 0.2.7.3.698 Ho spita .3.781005 084.8 l .8 2021-06-19 2021-06-19 Telephone Demarcus, 1.2.840.1 [id number] Methodi 00:00:00 00:00:[address] 3.430.2.7 Hospit a .3.206053 l .8 2021-05-31 2021-05-31 Nurse 1, Adc Infusion Nurse [facility] 1.2. 840.114 [id number] [facility] 08:29:34 09:29:34 Visit Abbie Alejandro 350.1.13.10 ity [place] [facility] [id number] [place] [id number] [place] 2021-05-31 2021-05-31 Outpatient R [facility] [id number] -20 Univers 08:00:00 08:00:00 [id number] ity [facility] 2021-05-31 2021-05-31 Outpatient R JAVON, [facility] [id number] Univers 08:00:00 08:00:00 ABBIE ity [facility] 2021-05-31 2021-05-31 Orders Doctor POOLE 1.2.840.114 [id number] Univers 00:00:00 00:00:00 Only Unassigned, LINDSAY 350.1.13.10 ity [facility] 4.2.7.2.686 Chin[place] as [id number] [address] 2020-12-02 2020-12-02 Outpatient [facility] [id number] Univers 14:15:00 14:15:00 ity [facility] 2020-12-01 2020-12-01 Outpatient R JANUSZ, [facility] [id number] Univers 14:15:00 14:14:52 ROHIT ity [facility] 2020-11-11 2020-11-11 Outpatient [facility] [id number] -20 Univers 14:15:00 14:15:00 [id number] ity [facility] 2020-11-11 2020-11-11 Outpatient [facility] [id number] Univers 14:15:00 14:15:00 ity [facility] 2020-08-27 2020-08-27 Appointmen CAROL ROWELL, [facility] - 67 [id number] [place] 08:45:00 08:45:00 t; Mary ROWELL i, M.D. [facility] 2020-08-22 2020-08-22 Outpatient ENIO SHARP [facility] [id number] [place] 00:00:00 00:00:[address] 2020-08-20 2020-08-20 Outpatient ENIO SHARP [facility] [id number] [place] 00:00:00 00:00:[address] 2020-06-25 2020-06-25 Outpatient ENIO SHARP [facility] [id number] [place] 00:00:00 00:00:[address] 2020-05-15 2020-05-15 Outpatient Kojo ARMIN [facility] [id number] [facility] 15:00:00 15:00:00 MALA hastings [facility] 2020-03-05 2020-03-05 Appointmen [facility]GAN[facility]TP UTP [id number] [place] 10:30:00 10:30:00 t; LANT, OP Physi ci [facility]GANTR[facility] ans PLANT, OP 2020-02-20 2020-02-20 Appointmen CAROL ROWELL [facility] Urology - 66 [id number] [place] 08:30:00 08:30:00 t; Mary ROWELL [place] Lukas MEDINA M.D. [facility] 2020-02-09 2020-02-10 Inpatient U VIRGILIO MCKEON [facility] 7583 [facility] 12:56:00 17:50:00 2020-01-30 2020-01-30 Appointmen [facility]GANTRAN[facility]TP UTP [id number] [place] 09:00:00 09:00:00 t; LANT, OP Physi ci [facility]GANTRANS ans PLANT, OP 2020-01-30 2020-01-30 Outpatient VIRGILIO MCKEON [facility] SHAHBAZ 962 4 [facility] 08:25:00 08:25:00 2019-11-02 2019-11-05 Inpatient KARLOS [facility] [id number] [facility] 08:25:00 11:35:00 TRACI 2019-09-22 2019-09-22 Appointmen [facility]TP UTP [id number] [place] 08:00:00 08:00:00 t; LANT, OP Physi ci ORGANTRANS ans PLANT, OP 2019-09-19 2019-09-19 Appointmen [facility]GANTRAN[facility] UTP UTP [id number] [place] 08:00:00 08:00:00 t; LANT, OP Physi ci ORGANTRANS ans PLANT, OP 2019-09-08 2019-09-08 Appointmen [facility]TP UTP [id number] [place] 09:00:00 09:00:00 t; LANT, OP Physi ci ORGANTRANS ans PLANT, OP 2019-08-29 2019-08-29 Appointmen [facility] UTP UTP [id number] [place] 07:30:00 07:30:00 t; LANT, OP Physi ci ORGANTRANS ans PLANT, OP 2019-08-29 2019-08-29 Outpatient [facility] 9622 [facility] 07:07:00 07:07:00 2019-08-15 2019-08-15 Outpatient [facility] 9621 [facility] 06:46:00 06:46:00 2019-07-26 2019-07-26 Inpatient E [facility] MED [id number] [facility] 21:16:00 19:41:00 2019-06-26 2019-06-26 Inpatient E [facility] [id number] [facility] 23:55:00 16:24:00 2019-06-20 2019-06-20 Outpatient [facility] 9620 [facility] 06:33:00 06:33:00 2019-04-07 2019-04-07 Outpatient [facility] 9619 [facility] 09:43:00 09:43:00 2019-01-17 2019-01-17 Outpatient [facility] 9618 [facility] 06:41:00 06:41:00 2018-12-13 2018-12-13 Outpatient [facility] 9617 [facility] 06:41:00 06:41:00 2018-11-24 2018-11-24 Inpatient E [facility] [id number] [facility] 22:03:00 18:46:00 2018-11-01 2018-11-01 Appointmen DEXA, SCAN [facility] [id number] [place] 09:30:00 09:30:00 t; DEXA, Physi ci SCAN ans 2018-11-01 2018-11-01 Outpatient [facility] 9615 [facility] 06:38:00 06:38:00 Results Test Description Test Time Test Comments Results Result Comments Source POC glucose 2021-08-30 23:34:35 Test Item Value Reference Range Interpretation Comme nts POC glucose (test code = 70 mg/dL 65-99 Ope rator Name: Joan Adame [id number]) ID: [id number] [facility] [id number] 17:34:58 Test Item Value Reference Range Interpretation Comments POC sodium (test code = 140 mmol/L 733-819 9536-0) POC potassium (test 4.4 mmol/L 3.5-5 code = 6298-4) POC glucose (test code 94 mg/dL 65-99 = 2339-0) POC creatinine (test 8.6 mg/dl 0.5-0.9 H Operato r Name: Mervin code = 88131-6) Dm ID: [id number] POC hemoglobin (test 12.9 g/dL 12-16 code = 718-7) POC hematocrit (test 38 % 37-47 code = 4544-3) Lab Interpretation Abnormal (test code = 50472-2) [facility] [id number] 04:19:57 Test Item Value Reference Range Interpretation Comments Ventricular rate (test code = 253) Atrial rate (test code = 255) CT interval (test code = 266) QRSD interval (test code = 260) QT interval (test code = 264) QTC interval (test code = 265) P axis 1 (test code = 267) QRS axis 1 (test code = 268) T wave axis (test code = 270) EKG impression (test Sinus tachycardia-Low code = 273) voltage QRS-Septal infarct (cited on or before 31-JUL-2021)-Abnormal ECG-In automated comparison with ECG of 31-JUL-2021 12:52,-Vent. rate has increased BY 37 BPM-Questionable change in initial forces of Anterior leads-Nonspecific T wave abnormality now evident in Anterior leads- [facility] and [id number] 21:02:00 Test Item Value Reference Range Interpretation Comments ABO grouping (test code = 883-9) A Rh type (test code = 63062-2) POS Antibody screen (gel) (test code = NEG 890-4) [facility] [Presence] in Respiratory specimen by ELLEN with probe [id number] 19:28:41 Test Item Value Reference Range Interpretation Comments SARS-CoV-2 (COVID-19) RNA Not detected Not-Detected [Presence] in Respiratory specimen by ELLEN with probe detection (test code = 88163-0) Whether patient is employed in a healthcare setting (test code = 12094-9) Whether the patient has symptoms related to condition of interest (test code = 43277-0) Patient was hospitalized because of this condition (test code = 43334-4) Whether the patient was admitted to intensive care unit (ICU) for condition of interest (test code = 31920-0) Whether patient resides in a congregate care setting (test code = 41528-6) ABO and Rh [id number] 20:44:00 Test Item Value Reference Range Interpretation Comments ABO grouping (test code = 883-9) A Rh type (test code = 27101-2) POS Uatsdin PkvzkugrDTYG-CiK-7 (COVID-19) RNA [Presence] in Respiratory specimen by ELLEN with probe [id number] 20:24:24 Test Item Value Reference Range Interpretation Comments SARS-CoV-2 (COVID-19) RNA Not detected Not-Detected [Presence] in Respiratory specimen by ELLEN with probe detection (test code = 81532-1) Whether patient is employed in a healthcare setting (test code = 98931-6) Whether the patient has symptoms related to condition of interest (test code = 57279-0) Patient was hospitalized because of this condition (test code = 00102-3) Whether the patient was admitted to intensive care unit (ICU) for condition of interest (test code = 01002-9) Whether patient resides in a congregate care setting (test code = 58224-8) SARS-CoV-2 (COVID-19) RNA [Presence] in Respiratory specimen by ELLEN with probe [id number] 01:56:50 Test Item Value Reference Range Interpretation Comments SARS-CoV-2 (COVID-19) RNA Not detected Not-Detected [Presence] in Respiratory specimen by ELLEN with probe detection (test code = 94804-2)
[2022-05-16 14:00] LABS: Urine Blood 1+ (Negative); Urine Glucose 1+ (Negative); Urine Protein 3+ (Negative); Urine Specific Gravity 1.015 (1.005-1.030); Urine pH 8.5 (5.0-7.0)
[2022-05-16 14:27] LABS: Absolute Lymphocytes (CBC) 1.7 K/uL (0.7-4.9); Lymphocytes % 24.9 % (15.3-44.8); MCV 92.5 fL (80-100); MPV 8.5 fL (7.6-11.3); RBC Red Blood Cell Count 3.36 M/uL (3.86-4.86)
[2022-05-16 14:32] LABS: Albumin 3.4 g/dL (3.4-5.0); Bilirubin Total 0.5 mg/dL (0.2-1.0); Potassium 5.4 mmol/L (3.5-5.1); Protein, Total 7.9 g/dL (6.4-8.2)
--- NOTE | 2022-05-16 14:37 | RAD REPORT ---
EXAM DESCRIPTION: CTAbdomen Pelvis Wo Contrast - 05/16/2022 2:15 pm CLINICAL HISTORY: abd pain COMPARISON: Stone Protocol dated 03/12/2022; Abdomen Pelvis Wo Contrast dated 01/31/2021; Abdomen Pelvis Wo Contrast dated 01/29/2021 TECHNIQUE: CT of the abdomen and pelvis was performed. All CT scans are performed using dose optimization technique as appropriate and may include automated exposure control or mA/KV adjustment according to patient size. FINDINGS: Lower chest: No acute abnormality. Liver: No acute abnormality or suspicious lesions. Biliary: No biliary ductal dilatation. Stomach: No significant focal abnormality. Duodenum: No significant focal abnormality. Pancreas: No significant abnormality. Spleen: No significant abnormality. Adrenal: No suspicious lesions. Kidney/ureter: No hydronephrosis. No renal calculi. Atrophic kidneys bilaterally. Retroperitoneum: No retroperitoneal adenopathy. Vascular: No aneurysm. Bowel: New mild stranding around the mid and distal appendix.. Peritoneum: No ascites or free air. Bladder: Circumferential bladder wall thickening. Reproductive: No adnexal masses. Bones: No acute fracture. Spina bifida noted at the sacrum. Other: n/a IMPRESSION: 1. New, mild stranding around the mid and distal aspect of the appendix concerning for e kelly or mild acute appendicitis. Recommend clinical correlation. 2. Irregularly thickened bladder wall in this patient with history of bladder augmentation.
[2022-05-16 14:43] LABS: Urine Bacteria <20 /HPF (<20)
--- NOTE | 2022-05-16 15:55 | ER ---
Nurse's Notes [facility] Name: Sully Renner Age: 21 yrs Sex: Female : 2000 Arrival Date: 05/16/2022 Time: 12:31 Bed 19 Private MD: Diagnosis: Unspecified acute appendicitis Presentation: 05/16 13:04 Chief complaint: Patient states: Pt reports diffuse abdominal pain that began Wed kb3 night. Hx of abdominal peritonitis. Coronavirus screen: Vaccine status: Patient reports receiving the 2nd dose of the covid vaccine. Client denies travel out of the [place] in the last 14 days. Ebola Screen: Patient negative for fever greater than or equal to 101.5 degrees Fahrenheit, and additional compatible Ebola Virus Disease symptoms Patient denies exposure to infectious person. Patient denies travel to an Ebola-affected area in the 21 days before illness onset. No symptoms or risks identified at this time. Initial Sepsis Screen: Does the patient meet any 2 criteria? No. Patient's initial sepsis screen is negative. Does the patient have a suspected source of infection? No. Patient's initial sepsis screen is negative. Risk Assessment: Do you want to hurt yourself or someone else? Patient reports no desire to harm self or others. Onset of symptoms was May 14, 2022. 13:04 Method Of Arrival: Ambulatory kb3 13:04 Acuity: CT 3 kb3 Triage Assessment: 13:06 General: Appears in no apparent distress. comfortable, Behavior is calm, cooperative. kb3 Pain: Complains of pain in abdomen Pain does not radiate. Pain currently is 4 out of 10 on a pain scale. Quality of pain is described as aching. GI: Abdomen is round Bowel sounds present X 4 quads. 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 - Social history:: Smoking status: Patient denies any tobacco usage or history of. Screenin:00 Abuse screen: Denies threats or abuse. Denies injuries from another. Nutritional eh3 screening: No deficits noted. Tuberculosis screening: No symptoms or risk factors identified. Fall Risk None identified. Assessment: 14:00 General: Appears in no apparent distress. comfortable, Behavior is calm, cooperative, eh3 appropriate for age. Pain: Complains of pain in epigastric area, right upper quadrant and left upper quadrant Pain does not radiate. Pain currently is 7 out of 10 on a pain scale. Quality of pain is described as crampy, sharp, Pain began 1 day ago. Is continuous, Aggravated by eating, drinking. Neuro: Level of Consciousness is awake, alert, obeys commands, Oriented to person, place, time, situation. Cardiovascular: Capillary refill < 3 seconds Patient's skin is warm and dry. Respiratory: Airway is patent Respiratory effort is even, unlabored. GI: Abd is soft Abdomen is tender to palpation in right upper quadrant and left upper quadrant Reports upper abdominal pain, nausea. : No signs and/or symptoms were reported regarding the genitourinary system. EENT: No signs and/or symptoms were reported regarding the EENT system. Derm: No signs and/or symptoms reported regarding the dermatologic system. Musculoskeletal: No signs and/or symptoms reported regarding the musculoskeletal system. 15:00 Reassessment: Patient and/or family updated on plan of care and expected duration. Pain eh3 level reassessed. Patient is alert, oriented x 3, equal unlabored respirations, skin warm/dry/pink. 16:00 Reassessment: Patient and/or family updated on plan of care and expected duration. Pain eh3 level reassessed. Patient is alert, oriented x 3, equal unlabored respirations, skin warm/dry/pink. Vital Signs: 13:04 BP 166 / 124; Pulse 104; Resp 20; Temp 99.0; Pulse Ox 100% ; Weight 79.38 kg; Height 5 kb3 ft. 3 in. (160.02 cm); Pain 5/10; 14:00 BP 153 / 113; Pulse 92; Resp 18; Pulse Ox 99% on R/A; eh3 15:00 BP 143 / 114; Pulse 96; Resp 18; Pulse Ox 93% on R/A; eh3 16:00 BP 170 / 120; Pulse 88; Resp 18; Pulse Ox 97% on R/A; eh3 13:04 Body Mass Index 31.00 (79.38 kg, 160.02 cm) kb3 ED Course: 12:31 Patient arrived in ED. dt4 13:06 Triage completed. kb3 13:06 Smiley Espinoza FNP-C [facility] kb 13:06 Gamaliel Calix MD is Attending Physician. kb 13:06 Arm band placed on right wrist. kb3 13:28 Naz Price, RN is Primary Nurse. eh3 14:00 Patient has correct armband on for positive identification. Bed in low position. Call eh3 light in reach. Side rails up X2. Client placed on continuous cardiac and pulse oximetry monitoring. NIBP monitoring applied. Door closed. 14:00 No provider procedures requiring assistance completed. Missed attempt(s): 20 gauge in eh3 right antecubital area. Bleeding controlled, band aid applied, catheter tip intact. 14:34 CBC with Diff Sent. eh3 14:34 CMP Sent. eh3 14:34 Lipase Sent. eh3 14:34 Urine Microscopic Only Sent. eh3 15:54 Jose Francisco Vega MD is Hospitalizing Provider. kb 16:06 SARS RAPID Sent. eh3 Administered Medications: 16:14 Not Given (Leaving to surgeryy): NS 0.9% 1000 ml IV at 125 ml/hr continuous eh3 16:15 Not Given (Leaving to surgeryy): hydrALAZINE 10 mg IVP once eh3 16:17 Not Given (went to OR): Zosyn (piperacillin-tazobactam) 3.375 grams IVPB once over 60 eh3 mins; (mix in NS 100 mL) Medication: 14:00 VIS not applicable for this client. eh3 Outcome: 15:54 Decision to Hospitalize by Provider. kb 16:18 Patient left the ED. eh3 Signatures: Smiley Espinoza FNP-C FNP-Ckb Naz Price, RN RN eh3 Sierra Chery RN RN kb3 Tamika Yanes dt4 Corrections: (The following items were deleted from the chart) 13:08 13:06 Allergies: NKDA; kb3 kb3 13:08 13:06 Home Meds: amlodipine 2.5 mg tab 1 tab once daily; kb3 kb3
--- NOTE | 2022-05-16 15:55 | EDPHYS ---
Physician Documentation [facility] Name: Sully Renner Age: 21 yrs Sex: Female : 2000 Arrival Date: 05/16/2022 Time: 12:31 Bed 19 Private MD: ED Physician Gamaliel Calix HPI: 05/16 15:53 This 21 yrs old Female presents to ER via Ambulatory with complaints of Abdominal Pain. kb 15:53 The patient presents with abdominal pain that is diffuse. The patient has not kb experienced similar symptoms in the past. The patient has not recently seen a physician. 15:53 Onset: The symptoms/episode began/occurred 3 day(s) ago. The symptoms do not radiate. kb Associated signs and symptoms: Pertinent positives: fever, nausea, Pertinent negatives: diarrhea, vomiting. The symptoms are described as constant. Modifying factors: The symptoms are alleviated by nothing, the symptoms are aggravated by pressure. Severity of pain: At its worst the pain was moderate in the emergency department the pain is unchanged. 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 - Social history:: Smoking status: Patient denies any tobacco usage or history of. ROS: 15:52 Cardiovascular: Negative for chest pain, palpitations, and edema. kb 15:52 Constitutional: Positive for fever. 15:52 Abdomen/GI: Positive for abdominal pain, nausea, Negative for vomiting, diarrhea. 15:52 All other systems are negative. Exam: 15:52 Constitutional: This is a well developed, well nourished patient who is awake, alert, kb and in no acute distress. Head/Face: Normocephalic, atraumatic. ENT: Moist Mucous membranes Cardiovascular: Regular rate and rhythm with a normal S1 and S2. No gallops, murmurs, or rubs. No pulse deficits. Respiratory: Respirations even and unlabored. No increased work of breathing. Talking in full sentences Skin: Warm, dry with normal turgor. Normal color. MS/ Extremity: Pulses equal, no cyanosis. Neurovascular intact. Full, normal range of motion. Neuro: Awake and alert, GCS 15, oriented to person, place, time, and situation. Moves all extremities. Normal gait. Psych: Awake, alert, with orientation to person, place and time. Behavior, mood, and affect are within normal limits. 15:52 Abdomen/GI: Inspection: abdomen appears normal, Bowel sounds: normal, Palpation: soft, in all quadrants, moderate abdominal tenderness, in all quadrants. Vital Signs: 13:04 BP 166 / 124; Pulse 104; Resp 20; Temp 99.0; Pulse Ox 100% ; Weight 79.38 kg; Height 5 kb3 ft. 3 in. (160.02 cm); Pain 5/10; 14:00 BP 153 / 113; Pulse 92; Resp 18; Pulse Ox 99% on R/A; eh3 15:00 BP 143 / 114; Pulse 96; Resp 18; Pulse Ox 93% on R/A; eh3 16:00 BP 170 / 120; Pulse 88; Resp 18; Pulse Ox 97% on R/A; eh3 13:04 Body Mass Index 31.00 (79.38 kg, 160.02 cm) kb3 MDM: 13:10 Patient medically screened. kb 15:48 Data reviewed: vital signs, nurses notes. Data interpreted: Pulse oximetry: on room air kb is 95 %. Interpretation: normal. Counseling: I had a detailed discussion with the patient and/or guardian regarding: the historical points, exam findings, and any diagnostic results supporting the discharge/admit diagnosis, lab results, radiology results, the need for further work-up and treatment in the hospital. Physician consultation: Sachin Cartwright MD was contacted at 15:49, regarding consult, patient's condition, and will see patient shortly. 15:53 Physician consultation: Jose Francisco Vega MD was contacted at 15:53, regarding admission, to the medical/surgical unit. patient's condition, and will see patient in ED, shortly. 05/16 13:18 Order name: CBC with Diff 05/16 13:18 Order name: CMP kb 05/16 13:18 Order name: Lipase kb 05/16 13:18 Order name: Urine Microscopic Only 05/16 14:00 Order name: Urine Dipstick-Ancillary; Complete Time: 14:33 EDMS 05/16 14:34 Order name: Comprehensive Metabolic Panel; Complete Time: 14:39 EDMS 05/16 13:18 Order name: CT Abd/Pelvis - Without Contrast 05/16 14:34 Order name: Lipase; Complete Time: 14:39 EDME 05/16 14:37 Order name: CT; Complete Time: 14:39 EDME 05/16 14:43 Order name: Urine Microscopic Only; Complete Time: 14:50 EDMS 05/16 14:59 Order name: CBC with Automated Diff; Complete Time: 15:11 EDME 05/16 15:32 Order name: Urine --Ancillary (enter results) 05/16 16:01 Order name: SARS RAPID ss 05/16 13:18 Order name: Labs collected and sent; Complete Time: 14:03 kb 05/16 13:18 Order name: Urine Dipstick-Ancillary (obtain specimen); Complete Time: 14:03 kb Administered Medications: 16:14 Not Given (Leaving to surgeryy): NS 0.9% 1000 ml IV at 125 ml/hr continuous eh3 16:15 Not Given (Leaving to surgeryy): hydrALAZINE 10 mg IVP once eh3 16:17 Not Given (went to OR): Zosyn (piperacillin-tazobactam) 3.375 grams IVPB once over 60 eh3 mins; (mix in NS 100 mL) Disposition: 19:03 Co-signature as Attending Physician, Gamaliel Calix MD I agree with the assessment and kdr plan of care. Disposition Summary: 05/16/22 15:54 Hospitalization Ordered Hospitalization Status: Observation kb Provider: Jose Francisco Vega Location: Telemetry/MedSurg (observation) kb Condition: Stable kb Problem: new kb Symptoms: are unchanged kb Bed/Room Type: Standard Room Assignment: kb Diagnosis - Unspecified acute appendicitis kb Forms: - Medication Reconciliation Form kb - SBAR form kb Signatures: Dispatcher [employer] [facility] Smiley Espinoza, FLIGHT SURGEON-C ALTHEA-Gamaliel Medley MD MD kdr Bradberry, Kelly, RN RN kb3 Naz Price RN eh3 Corrections: (The following items were deleted from the chart) 13:06 Allergies: NKDA; kb3 kb3 13:06 Home Meds: amlodipine 2.5 mg tab 1 tab once daily; kb3 kb3
[2022-05-16] MEDS ORDERED: PIPERACIL/TAZO 3.375 GM VIAL IV ONE (16:08)
[2022-05-16] MEDS ORDERED: NA CHLORIDE 0.9% 0 ML ONE ×2 (16:08→16:09)
[2022-05-16 16:20] LABS: SARS-CoV-2 Antigen Rapid Res Negative (Negative)
[2022-05-16] MEDS ORDERED: NA CHLORIDE 0.9% 1,000 ML ONE (16:23)
[2022-05-16] MEDS ORDERED: NA CHLORIDE 0.9% 100 ML IV ONE (16:24)
[2022-05-16] MEDS ORDERED: ONDANSETRON 4 MG/2 ML VIAL IV PRN (16:25)
--- NOTE | 2022-05-16 16:25 | P.HP ---
Certification for Inpatient Patient admitted to: Observation With expected LOS: <2 Midnights Patient will require the following post-hospital care: None Practitioner: I am a practitioner with admitting privileges, knowledge of patient current condition, hospital course, and medical plan of care. Services: Services provided to patient in accordance with Admission requirements found in Title 42 Section 412.3 of the Code of Federal Regulations Patient History Date of Service: 05/16/22 Reason for admission: Acute Appendicitis History of Present Illness: Ms. Sully Renner is a 21 year old female who has a past medical history of spina bifida complicated by neurogenic bladder and hydronephrosis s/p failed donor renal transplant (2017) now with end-stage renal disease on MWF iHD and hypertension who presents to the [facility] Emergency Department for abdominal pain. She reports that, on 05/14/2022, she began experiencing right-lower abdominal quadrant pain. She describes the pain as sharp and non-radiating. She states that it has been associated with a fever up to 100.5 F. She denies any obvious inciting or alleviating factors. She tried taking tramadol, without any alleviation of her symptoms. She states that her pain is currently a 4-5/10 in severity. On review of systems, she denies any chills, headaches, dizziness, syncope, weakness, chest pain, palpitations, shortness of breath, wheezing, cough, nausea/vomiting, diarrhea, constipation, hematochezia, melena, dysuria, hematuria, myalgia, or any other symptoms. She presented to the Emergency Department for further evaluation. Upon presentation, her vital signs were notable for a heart rate of 104 bpm and a heart rate of 170/120. Her laboratory studies were notable for a potassium of 5.4 (although sample was slightly hemolyzed). Urine test was negative. CT abdomen/pelvis revealed, "1. New, mild stranding around the mid and distal aspect of the appendix concerning for early or mild acute appendicitis. Recommend clinical correlation. 2. Irregularly thickened bladder wall in this patient with history of bladder augmentation." General Surgery was consulted in the Emergency Department, and Dr. Cartwright is planning for a laproscopic appendectomy today. In the Emergency Department, she was given hydralazine, piperacillin-tazobactam, and started on Normal Saline at 125 mL/hr. She was admitted to the General Internal Medicine service for further evaluation. Allergies latex Allergy (Verified 11/05/20 10:08) Hives/Rash Home medications list reviewed: Yes Home Medications: Nifedipine [Procardia Xl] 60 mg PO DAILY 05/16/22 - Past Medical/Surgical History Diabetic: No -: Hypertension -: spina bifida -: bladder reflux -: ESRD on HD -: spina bifida repair -: bladder augmentation -: kidney transplant, then nephrectomy -: PD placement Psychosocial/ Personal History: Patient is adopted. - Family History Family History: Reviewed- Non-Contributory - Family History Father Notes: adopted - Social History Smoking Status: Never smoker Alcohol use: No CD- Drugs: No Caffeine use: No Review of Systems 10-point ROS is otherwise unremarkable General: Unremarkable Eyes: Unremarkable ENT: Unremarkable Respiratory: Unremarkable Cardiovascular: Unremarkable Gastrointestinal: Abdominal Pain Genitourinary: Unremarkable Musculoskeletal: Unremarkable Integumentary: Unremarkable Neurological: Unremarkable Lymphatics: Unremarkable Physical Examination - Vital Signs Temperature: 99.0 F Blood Pressure: 170/120 Pulse: 88 Respirations: 18 Pulse Ox (%): 97 - Physical Exam General: Alert, In no apparent distress, Oriented x3 HEENT: Atraumatic, PERRLA, Mucous membr. moist/pink, EOMI, Sclerae nonicteric Neck: Supple, JVD not distended Respiratory: Clear to auscultation bilaterally, Normal air movement Cardiovascular: No edema, Regular rate/rhythm, Normal S1 S2, No gallops, No rubs, No murmurs Gastrointestinal: Normal bowel sounds, Soft and benign, Non-distended, Other (multiple well-healed surgical sites), Tenderness (RLQ) Musculoskeletal: No clubbing Integumentary: No rashes Neurological: Normal speech, Cranial nerves 3-12 intact, Normal affect - Studies Laboratory Data (last 24 hrs) 05/16/22 13:50: Sodium 137, Potassium 5.4 H, BUN 24 H, Creatinine 9.35 H*, Glucose 130 H, Total Bilirubin 0.5, AST 14 L, ALT 13, Alkaline Phosphatase 260 H, Lipase 168 05/16/22 13:50: WBC 6.60, Hgb 10.4 L, Hct 31.0 L, Plt Count 205 Assessment and Plan - Plan # Acute Uncomplicated Appendicitis - Admit to Medicine - General Surgery consulted and spoke with Dr. Cartwright - recommendations appreciated - Plan for laparoscopic appendectomy today - S/P piperacillin-tazobactam 3.375 g IV x 1 in ED - Discontinue IV fluids given dialysis-dependence - Symptom management - PRN ondansetron, morphine - NPO - Pre-operative labs ordered: - PT/INR - Type & screen # Hypertensive Urgency # Mild Hyperkalemia # Spina Bifida complicated by Neurogenic Bladder and Hydronephrosis s/p Failed Donor Renal Transplant (2017) now with End-Stage Renal Disease on MWF iHD - Consulted Nephrology and spoke with Dr. Gaviria - recommendations appreciated - PRN hydralazine while NPO - Resume home nifedipine post-op Jose Francisco Vega M.D. Discharge Plan: Home Plan to discharge in: 24 Hours - Advance Directives Does patient have a Living Will: No Does patient have a Durable POA for Healthcare: No - Code Status/Comfort Care Code Status Assessed: Yes Code Status: Full Code
[2022-05-16] MEDS ORDERED: HYDROMORPHONE HCL 0.5 MG/0.5 ML INJ IV PRN (16:27)
[2022-05-16] MEDS ORDERED: BUPIVACAINE 0.25% PF 30 ML VIAL ONE (16:28)
[2022-05-16 16:56] LABS: Urine Specific Gravity/Preg 1.015 (1.005-1.030)
[2022-05-16] MEDS ORDERED: SUCCINYLCHOLINE 20 MG/ML (10 ML) IV ONE (17:10)
[2022-05-16] MEDS ORDERED: propofoL 200 MG/20 ML VIAL IV ONE (17:12)
[2022-05-16] MEDS ORDERED: ROCURONIUM 50 MG/5 ML VIAL IV ONE (17:12)
[2022-05-16] MEDS ORDERED: FENTANYL CITR 100 MCG/2 ML ONE (17:12)
[2022-05-16] MEDS ORDERED: MIDAZOLAM HCL 2 MG/2 ML INJ ONE (17:12)
[2022-05-16] MEDS ORDERED: dexAMETHasone 10 MG/ML VIAL ONE (17:50)
[2022-05-16] MEDS ORDERED: ONDANSETRON 4 MG/2 ML VIAL ONE (18:19)
[2022-05-16] MEDS ORDERED: GLYCOPYRROLATE 0.2 MG/ML SYR ONE (18:19)
[2022-05-16] MEDS ORDERED: NEOSTIGMINE 1 MG/ML -10 ML VIAL ONE (18:24)
--- NOTE | 2022-05-16 18:32 | P.OP ---
Preoperative diagnosis: Acute non-perforated appendicitis Postoperative diagnosis: Acute non-perforated appendicitis Primary procedure: Laparoscopic Appendectomy Anesthesia: GETA + Local Estimated blood loss: <10cc Specimen: vermiform appendix Findings: Acute non-perforated appendicitis Complications: None Transferred to: Recovery Room Condition: Good
[2022-05-16] MEDS ORDERED: KETOROLAC 30 MG/ML INJ ONE (18:47)
[2022-05-16] MEDS: FENTANYL CITR 100 MCG/2 ML ONE ×2 (18:51→18:57)
[2022-05-16] MEDS ORDERED: NA CHLORIDE 0.9% 1,000 ML IV SCH (19:00)
[2022-05-16] MEDS ORDERED: HYDROMORPHONE HCL 1 MG/ML INJ ONE (19:01)
[2022-05-16] MEDS ORDERED: HYDROCODONE/APAP 5/325 MG TAB PO PRN (19:05)
[2022-05-16 19:32] VITALS: O2SAT 96
--- NOTE | 2022-05-16 20:49 | CON ---
Date of Consultation: 05/16/2022 Brief History Of Present Illness: Patient is a 21-year-old female known to me from previous surgerie s with a history of end-stage renal disease, hypertension, who has had a peritoneal dialysis catheter placed with the development of spontaneous bacterial peritonitis, removal of peritoneal dialysis cat heter followed by a placement of tunneled hemodialysis catheter followed by fistula placement in the left forearm, . At which time, she came back and had her hemodialysis catheter removed. N ow, currently getting dialysis on her left upper extremity, who presents with abdominal pain beginnin g approximately 2 days ago, got progressively worse, located in the periumbilical area predominantly, some tenderness in the right lower quadrant. She has had a history of ovarian cyst with rupture bef ore in the past. Was concerned that this was perhaps an ovarian ruptured cyst. She presented with s ome nausea, low-grade fever, chills. Not had similar episodes before in the past other than rupture of an ovarian cyst, and this does not feel like her spontaneous bacterial peritonitis on the previous encounter. As such, she come to the emergency room with the above-stated issues. Past Medical History: Significant for hypertension, spina bifida, bladder reflux, ESRD on hemodialys is, spina bifida repair, bladder augmentation, kidney transplant, nephrectomy, peritoneal dialysis ca theter, peritoneal dialysis catheter removal, tunneled hemodialysis catheter placement, tunnel hemodi alysis catheter removal. AV fistula, left forearm area. Home Medications: , vitamin D, Mag-Ox, Nepro, Levaquin. Allergies: TO LATEX. Social History: She is adopted. Family History: Not available at this time. Review of Systems: A 10-point review of systems other than HPI, denies. Physical Examination: At the time of my examination: General: She is awake, alert, and oriented. Psychiatric: She is appropriately conversive. HEENT: She is normocephalic. Her sclerae are anicteric. Her mucous membranes are moist. Oropharyn x clear. Neck: Supple without JVD. Chest: Normal expansion and excursion. Cardiovascular: Regular rate and rhythm. Pulmonary: Clear to auscultation bilaterally. Abdomen: Soft with positive focal peritonitis at McBurney's point and in the periumbilical region. Positive rebound. Positive guarding. She has well-healed surgical scars evident. Extremities: No clubbing, cyanosis, or edema. Skin: Warm and dry. Laboratory Data: Reveals a white blood count of 6.6, hemoglobin 10.4, hematocrit 31.0, platelet coun t was 205, her neutrophils are 60%. PT is pending. She had laboratory including chemistry which severo wed a sodium 137, potassium 5.4, but hemolyzed, currently repeat is pending. Chloride 104, carbon di oxide 25, BUN 24, creatinine 9.3, glucose is 130. Her total bilirubin 0.5, AST 14, ALT 13, alkaline phosphatase is 260, lipase is 168. UA was drawn. COVID was negative. She had a CT scan performed o f the abdomen and pelvis which officially read as evidence for early acute appendicitis by Dr. Grossman. The official dictation is currently pending, but I have reviewed this as well. Assessment And Plan: This is a 21-year-old female with medical problems as described above, who pres ents with signs of early appendicitis. 1.Initiate IV fluid hydration. 2.Antibiotic coverage. 3.I have explained the risks, benefits, and alternatives of laparoscopic possible open appendectomy including, but not limited to, bleeding, infection, damage to surrounding tissues, need for further operation and procedures. Patient agrees to proceed as indicated. ABHI/DELFINO Voice ID: [id number] Report ID: [id number]
[2022-05-16] MEDS: NIFEDIPINE XL 60 MG TABLET PO SCH (23:32)
[2022-05-17] MEDS: PIPER TAZO 3.375 GM in NA CHLORIDE 0.9% 100 ML IV SCH ×2 (01:00→08:40)
[2022-05-17 02:13] VITALS: BMI 30.9
--- NOTE | 2022-05-17 04:06 | OP ---
Date of Procedure: 05/16/2022 Surgeon: Sachin Cartwright MD, Preoperative Diagnosis: Acute nonperforated appendicitis. Postoperative Diagnosis: Acute nonperforated appendicitis. Procedure: Laparoscopic appendectomy. Anesthesia: General endotracheal plus local. Estimated Blood Loss: 10 cc. Specimens: Vermiform appendix. Findings: Acute nonperforated appendicitis. Complications: None. Disposition: The patient was transferred to the recovery room in good condition. Additional Findings: The patient had significant intraabdominal adhesions from omentum to anterior a bdominal wall and from bowel to anterior abdominal wall and apparently had a surgical repair with int estine closely adherent to the bladder, which was not violated throughout the procedure. Procedure In Detail: After informed consent was obtained, patient was brought to the operating room, prepped and draped in the usual sterile fashion. After adequate anesthesia achieved, I anesthetized the area of the infraumbilical position with 0.25% Marcaine, sharply incised, and a 5 mm trocars adria jose maria under direct visualization without any evidence of complication. Insufflation was maintained at 15 mmHg at this time. No injury to vital structures upon entry into the abdomen. Additional trocar placed in the left lower quadrant. Similarly anesthetized, and sharply incised. A 5 mm trocar was p laced under direct vision without complication. Additional trocars were placed in the epigastrium to the right of midline. This was similarly anesthetized, sharply incised, and 5 mm trocar was placed under direct visualization without complication. The umbilical trocar was then upsized to a 12 mm un michelle direct visualization without evidence of complication. At this point, patient was positioned hea d down, right side up position. Ratcheted grasper was used to grasp the patient's appendix. However , there was significant amount of omental attachments precluding a safe dissection. As such, I took down some anterior omental attachments using the LigaSure device through 10 alveolar type tissues. N o hemostatic maneuvers were required throughout the procedure. The LigaSure got good hemostasis whil e mobilizing only small bowel off the anterior surface of the abdominal wall. At this point, the cris endix was grasped, elevated, and found to have significant inflammatory changes with suppurative buchanan ges of the tip. A mesoappendiceal window was created with a [place] retractor. Endo-JAMES 45 ahumada jacques d fired across the base of the appendix, good approximation of tissues. The LigaSure device was then used to take the mesoappendix down without evidence of complication. The appendix was then placed i n EndoCatch bag, removed through the umbilical trocar site. After final examination, the abdomen was then reinsufflated. At this point, the area was copiously irrigated and suctioned out completely dr y. There was no additional hemostatic maneuvers required. The umbilical trocar site was closed usin g a Chris-Donya suture passer with 0 Vicryl in a fashion with good approximation of tissues. The abdomen was completely desufflated under direct vision without evidence of complication. The remain ing trocar sites were then copiously irrigated and closed in a 4-0 Monocryl fashion. Dermabond was p laced over top. The patient tolerated the procedure well without evidence of complication and transf erred to PACU in good condition. All counts were correct at the end of the case. ABHI/DELFINO Voice ID: [id number] Report ID: [id number]
[2022-05-17] MEDS ORDERED: NA CHLORIDE 0.9% 100 ML ONE (08:11)
[2022-05-17] MEDS: NIFEDIPINE XL 60 MG TABLET PO SCH (08:46)
[2022-05-17 08:51] VITALS: BP 134/73; TEMP 97.9
--- NOTE | 2022-05-17 09:55 | P.DS ---
Admission Date: 05/16/22 Discharge Date: 05/17/22 Disposition: ROUTINE DISCHARGE Discharge Condition: GOOD Reason for Admission: Acute Appendicitis Consultations: 1. General Surgery Procedures: - 05/16/2022 - Laparoscopic Appendectomy Hospital Course: DIAGNOSES: # Acute Uncomplicated Appendicitis s/p Laparoscopic Appendectomy (05/16/2022) # Hypertensive Urgency # Mild Hyperkalemia # Spina Bifida complicated by Neurogenic Bladder and Hydronephrosis s/p Failed Donor Renal Transplant (2016) now with End-Stage Renal Disease on [facility] HOSPITAL COURSE: Ms. Sully Renner is a pleasant 21 year old female with a past medical history significant for spina bifida complicated by neurogenic bladder and hydronephrosis s/p failed donor renal transplant (2016) now with end- stage renal disease on [facility] and hypertension who was admitted to the [facility] on 05/16/2022 for acute appendicitis. She was admitted to the Medicine service. General Surgery was consulted and Dr. Cartwright evaluated her. She underwent an laparoscopic appendectomy and tolerated the procedure well, without any apparent complications. This morning, she was doing well and the initial plan was for discharge home today after hemodialysis. However, she and her mother state that they would prefer to be discharged now and go directly to [facility] dialysis center. I spoke with Dr. Chapman, who confirmed there is a chair time if she was discharged now. I spoke with Dr. Cartwright, who has cleared her for discharge with 5-days of amoxicillin- clavulanate and an outpatient follow-up appointment. On 05/17/2022, she was seen on morning rounds and deemed medically stable for discharge. She was discharged with instructions to schedule follow-up appointments with her PCP in 3-5 days and with General Surgery (Dr. Cartwright) in 5-7 days. She was provided prescriptions for amoxicillin-clavulanate and hydrocodone-acetaminophen. She and her mother were given the opportunity to ask questions and reported no further questions. Furthermore, all questions were answered to the best of my ability. Prior to the controlled-substance prescription, a PDMP review was conducted. Over the last 2 years, she has received two prescriptions for tramadol from 2 providers, to 1 pharmacy. Her opioid overdose risk score is 150. A copy of this discharge summary will be sent to the above providers to facilitate continuity of care. Today, I personally spent 20 minutes on her case, of which greater than 50% of the time was spent in patient education, counseling, and coordination of care as described above. - Physical Exam General: Alert, In no apparent distress, Oriented x3 HEENT: Atraumatic, PERRLA, Mucous membr. moist/pink, EOMI, Sclerae nonicteric Neck: Supple, JVD not distended Respiratory: Clear to auscultation bilaterally, Normal air movement Cardiovascular: No edema, Regular rate/rhythm, Normal S1 S2, No gallops, No rubs, No murmurs Gastrointestinal: Normal bowel sounds, Soft and benign, Non-distended, Other (multiple old well-healed surgical sites), Laparoscopic incisions are clean, dry, and intact Musculoskeletal: No clubbing. LUE dialysis fistua noted with palpable thrill Integumentary: No rashes Neurological: Normal speech, Cranial nerves 3-12 intact, Normal affect Vital Signs/Physical Exam: Temp Pulse Resp BP Pulse Ox 97.9 F 83 18 134/73 95 05/17/22 08:00 05/17/22 10:00 05/17/22 08:00 05/17/22 08:00 05/17/22 08:00 Laboratory Data at Discharge: WBC 6.60 K/uL (4.3-10.9) 05/16/22 13:50 Hgb 10.4 g/dL (12.0-15.0) L 05/16/22 13:50 Hct 31.0 % (36.0-45.0) L 05/16/22 13:50 Plt Count 205 K/uL (152-406) 05/16/22 13:50 Sodium Cancelled 05/17/22 06:00 Potassium Cancelled 05/17/22 06:00 BUN Cancelled 05/17/22 06:00 Creatinine Cancelled 05/17/22 06:00 Glucose Cancelled 05/17/22 06:00 Total Bilirubin 0.5 mg/dL (0.2-1.0) 05/16/22 13:50 AST 14 U/L (15-37) L 05/16/22 13:50 ALT 13 U/L (12-78) 05/16/22 13:50 Alkaline Phosphatase 260 U/L (45-117) H 05/16/22 13:50 Lipase 168 U/L (73-393) 05/16/22 13:50 Home Medications: Nifedipine [Procardia Xl] 60 mg PO DAILY 05/16/22 Amox/Clavulanate [Augmentin 875-125 Tab] 1 tab PO BID 5 Days #10 tab 05/17/22 Hydrocodone 5/APAP 325 [[place] 5/325*] 1 tab PO Q6H PRN 3 Days #12 tab 05/17/22 New Medications: Amox/Clavulanate [Augmentin 875-125 Tab] 1 tab PO BID 5 Days #10 tab Hydrocodone 5/APAP 325 [[place] 5/325*] 1 tab PO Q6H PRN 3 Days #12 tab PRN Reason: Pain Scale 8-10 (Severe) Physician Discharge Instructions: 1. Please schedule a follow-up appointment with your PCP in 3-5 days 2. Please schedule a follow-up appointment with General Surgery (Dr. Cartwright) in 5-7 days Diet: Regular Activity: Ad vamsi Followup: Tremaine Chapman DO [ACTIVE - CAN ADMIT] - (as scheduled appointment) Sachin Cartwright MD [ACTIVE - CAN ADMIT] - Time spent managing pt's care (in minutes): 20
== END 2022-05-17 10:09 | disposition home or self-care (01) ==
LOC: ER 12:27 → ERHOLD 16:25 → 4TH 19:14
PROVIDERS: ADMIT Internal Medicine; ATTEND Internal Medicine
PROC: 0DTJ4ZZ Resection of Appendix, Percutaneous Endoscopic Approach (ICD-10-PCS; principal; 2022-05-16 16:00)
DX: K35.80 Unspecified acute appendicitis (principal); I16.0 Hypertensive urgency; E87.5 Hyperkalemia; Q05.9 Spina bifida, unspecified; N31.9 Neuromuscular dysfunction of bladder, unspecified; N13.30 Unspecified hydronephrosis; N18.6 End stage renal disease; Z99.2 Dependence on renal dialysis; Z20.822 Contact with and (suspected) exposure to COVID-19; Z91.040 Latex allergy status
CPT/HCPCS: 85025; 36415; 81025; 88304; 83690; 80053; 74176; 99283; 87811; 44970; J2704; J2710; J0330; J2543 ×3; J2250; J3010 ×2; J1100; J1170 ×2; G0378 ×4; J7030 ×2; J2405 ×2; 81003; 81015; J7050

== ENCOUNTER 2022-08-18 11:10 | Emergency (ER) | payer OTHER ==
--- OUTSIDE RECORDS SUMMARY | 2022-08-18 11:14 | XMS REPORT | Continuity of Care Document ---
:2000 Author Organization [facility] t Address [address] [place] [address] Care Team Providers Name Role Phone PCP, PATIENT DOES NOT HAVE A Primary Care Physician UnavailCAROL Servin Attending Clinician Unavailable VIRGILIO MCKEON Attending Clinician Unavailable HUGO HUGO Attending Clinician Unavailable APURVA HIGUERA Attending Clinician Unavailable Sonia Browning RN Attending Clinician Unavailable Everton Peters MD-Arnoldi Attending Clinician [phone] Luis REALCShaista Attending Clinician [phone] Patricia Skinner MA Attending Clinician Unavailable Sarah Moses MA Attending Clinician Unavailable ANDREAS LU Attending Clinician Unavailable Doctor Unassigned, [place] Attending Clinician Unavailable Alfred Curry MD Attending Clinician Audra Liu Attending Clinician MD EVERTON PETERS Attending Clinician Unavailable Demarcus RN, Dipti Attending Clinician Unavailable Lennox Lorenzo MD Attending Clinician 1, [facility] Infusion Nurse Attending Clinician Unavailable Abbie Aleajndro DO Attending Clinician ABBIE ALEJANDRO Attending Clinician Unavailable ROHIT BOUDREAUX Attending Clinician Unavailable CAROL ROWELL M.D. Attending Clinician Unavailable ENIO SHARP Attending Clinician Unavailable MD ENIO SHARP Attending Clinician Unavailable Gramm Netta [place] Attending Clinician Maral Morales MD Attending Clinician MARAL MORALES Attending Clinician Unavailable ORGANTRANSPLANT, OP Attending Clinician Unavailable TRACI EVERETT Attending Clinician Unavailable DEXA, SCAN Attending Clinician Unavailable APURVA HIGUERA Admitting Clinician Unavailable EVERTON PETERS Admitting Clinician Unavailable MD BERNARDO NUNEZ Admitting Clinician UnavailLENNOX Luis Admitting Clinician Unavailable MD EVERTON PETERS Admitting Clinician Unavailable ENIO SHARP Admitting Clinician Unavailable MD ENIO SHARP Admitting Clinician Unavailable VIRGILIO MCKEON Admitting Clinician Unavailable TRACI EVERETT Admitting Clinician Unavailable Payers Payer Name Policy Type Policy Number Effective Date Expiration Date S kanchan MEDICARE PART A AND [id number] 2020 B 00:00:00 MEDICARE PART A \T\ [id number] 2020 B 00:00:00 [employer] [id number] 2018 OUT OF NETWORK 00:00:00 Problems Condition Condition Condition Status Onset Resolution Last Treating Co mments Source Name Details Category Date Date Treatment Clinician Date 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) s/p (HCC) s/p 00:00: Hosp renea repair at repair at 00 l 2month old 2month old Obstructiv Obstructiv Disease Active 2019-08 M ethodi e uropathy e uropathy 1-04 st S/p-DDRT S/p-DDRT 00:00: Hospit a 12/2017 00 l ESRD (end ESRD (end Disease Active 2019-08 Met hodi stage stage 1-04 st renal renal 00:00: Hospita disease) disease) 00 l Acute Acute Disease Active Univers renal renal 9-30 ity of failure failure 00:00: [place] [address] Medical Branch End-stage End-stage Disease Active Uni vers renal renal 9-30 ity of disease disease 00:00: [place] [address] Medical Branch Encounter Encounter Disease Active 2018-08 Overview: [facility] for 09-10 Formattin ity of immunizati immunizati 00:00: g of this [place] on on 00 note Medical might be Branch different from the original. Last Assessmen t & Plan: Pt to wait 30 days between vaccines, may RTC for nurse visit to complete meningiti s vaccine. Normal Normal Disease Active 2018-08 Overview: Univer s physical physical 09-10 Formattin ity of exam, exam, 00:00: g of this [place] routine routine 00 note Medical might be [...] KIWI DRUG Active Unknown-Cmnt Univ ers INGREDI 10-16 ity of 00:00: 00 Medical Branch Latex Propensi Active Rash Methodi ty to 08-22 st adverse 00:00: Hospita reaction 00 l s to drug Morphine Propensi Active Rash 2019-08 Method i ty to 08-21 st adverse 00:00: Hospita reaction 00 l s to drug LATEX DRUG Active Unknown-Cmnt 0 Univ ers INGREDI 05-16 ity of 00:00: 00 Medical Branch Latex Drug Active Unknown - 2019-0 Univers Allergy See comments 05-16 ity of 00:00: 00 Medical Branch MORPHINE DRUG Active High Unknown-Cmnt Un nora INGREDI 09-24 ity of 00:00: [place] 00 Medical Branch NITROFUR DRUG Active High Unknown-Cmnt Un nora ANTOIN INGREDI 09-24 ity of 00:00: 00 Medical Branch Morphine Drug Active Unknown - Unive rs Allergy See comments 09-24 ity of 00:00: Medical Branch Nitrofur Drug Active Unknown - Unive rs antoin Allergy See comments 09-24 ity of 00:00: 00 Medical Branch PINEAPPL DRUG Active Unknown-Cmnt Un nora E INGREDI 04-29 ity of 00:00: [place] 00 Medical Branch LATEX DRUG Active Low Unknown-Cmnt 2011-0 Univ ers INGREDI 04-29 ity of 00:00: [place] [address] Medical Branch NO KNOWN Drug Active Univers ALLERGIE Class ity of S [place] [facility] [place] Family History Family Member Diagnosis Comments Start Date Stop Date Source Unknown Family Member [facility]opted [facility] mother [facility] Social History Social Habit Start Date Stop Date Quantity Comments Source Exposure to Not sure University of SARS-CoV-2 [place] [facility] (event) Branch History [facility] o f Alcohol Comment [place] [facility] Alcohol intake 2021-09-02 2021-09-02 Ex-drinker [facility] 00:00:00 00:00:00 (finding) Hospital Tobacco use and 2020-06-25 2020-06-25 Smokeless tobacco [facility] exposure 00:00:00 00:00:00 non-user Hospital History [facility] 2020-05-16 2020-05-16 1 University o f Alcohol Frequency 00:00:00 00:00:00 [place] M edical [facility] History SDAK 2020-05-16 2020-05-16 99 University o f Alcohol Std 00:00:00 00:00:00 [place] [facility] Drinks Branch History [facility] 2020-05-16 2020-05-16 1 University o f Alcohol Binge 00:00:00 00:00:00 [place] [facility] Sex Assigned At 2000 2000 F [facility] 00:00:00 00:00:00 Hospital Smoking Status Start Date Stop Date Source Never smoked tobacco [facility] Medications Ordered Filled Start Stop Current Ordering Indication Dosage Frequency Signature Comments Components Source Medication Medication Date Date Medication? Clinician (SIG) Name Name lidocaine-p 2022- No Apply Meth timmy rilocaine 10-21-[address] (EMLA) 00:00: 05:59 as needed Hospi ta 2.5-2.5 % 00 :00 for mild l cream pain. Apply to area 30-45 minutes prior to dialysis treatment. lidocaine-p 2022- No Apply Meth timmy rilocaine 10-21-[address] (EMLA) 00:00: 05:59 as needed Hospi ta 2.5-2.5 % 00 :00 for mild l cream pain. Apply to area 30-45 minutes prior to dialysis treatment. traMADoL [place] [id number] 50mg Q8H Take 1 Method i (Ultram) 50 1-14 tablet (50 st mg tablet 00:00: mg total) Hos gera 00 by mouth l every 8 (eight) hours as needed for moderate pain for up to 3 days .acute pain. tra[place]ADoL [place] [id number] 50mg Q8H Take 1 Method i (Ultram) 50 1-14 tablet (50 st mg tablet 00:00: mg total) Hos gera 00 by mouth l every 8 (eight) hours as needed for moderate pain for up to 3 days .acute pain. casirivimab 2020-08- No [id number] 1200mg 1,200 mg, Univers -imdevimab 0-15 Subcutaneo it y of (REGEN-COV 14:45: 13:07 us, ONCE, [place] (EUA)) 00 :00 1 dose, On Medical injection Fri Branch 1,200 mg 05/31/21 at 0945, Routine traMADoL 2021- No [id number] 50mg Q8H Take 1 Metho di (Ultram) 50 08-22-14 tablet (50 s t mg tablet 00:00: 00:00 mg total) Ho spita 00 :00 by mouth l every 8 (eight) hours as needed for moderate pain for up to 20 doses .acute pain. traMADoL 2021- No [id number] 50mg Q8H Take 1 Metho di (Ultram) 50 08-22-14 tablet (50 s t mg tablet 00:00: [...] Medical injection (two) Branch times daily. alendronate Yes 1{tbl} Take 1 Un nora -cholecalci 9-30 tablet by ity of ferol 70 13:36: mouth [place] mg- 2,800 12 daily. Medical unit per Branch tablet alendronate Yes 1{tbl} Take 1 Un nora -cholecalci 9-30 tablet by ity of ferol 70 13:36: mouth [place] mg- 2,800 12 daily. Medical unit per Branch tablet alendronate 2019- Yes 1{tbl} Take 1 Un nora -cholecalci 9-30 tablet by ity of ferol 70 13:36: mouth [place] mg- 2,800 12 daily. Medical unit per Branch tablet losartan 2018-08 Yes 25mg Take 25 mg Univers mg tablet 0-16 by mouth ity of 00:00: daily. [place] [facility] losartan 2018-08 Yes 25mg Take 25 mg Univers mg tablet 0-16 by mouth ity of 00:00: daily. [place] [facility] losartan 2018-08 Yes 25mg Take 25 mg Univers mg tablet 0-16 by mouth ity of 00:00: daily. [place] [facility] hydrOXYzine hydrOXYzine Yes CHATO QD TAKE 1 [...] 50 MCG 0-27 WYATT TABLET Phys ici (1999 UT) (1999 UT) 00:00: M.D. DAILY an s Oral [...] 5 MG Oral 5 MG Oral 0-03 YWATT TABLET Physici Tablet Tablet 00:00: M.D. DAILY ans Extended Extended 00 Release 24 Release 24 Hour Hour Ferrous Ferrous 2015-08 Yes CHATO QD TAKE 1 UT Gluconate Gluconate 0-03 WYATT TABLET Physici 325 (36 Fe) 325 (36 Fe) 00:00: M.D. DAILY ans MG TABS MG TABS 00 Immunizations Ordered Filled Immunization Date Status Comments [facility] e Immunization Name Name SARS-COV-2 COVID-19 2020-12-01 Completed Unive rsity of PFIZER VACCINE 00:00:00 [facility] SARS-COV-2 COVID-19 2020-12-01 Completed Unive rsity of PFIZER VACCINE 00:00:00 [facility] SARS-COV-2 COVID-19 2020-12-01 Completed Unive rsity of PFIZER VACCINE 00:00:00 [facility] SARS-COV-2 COVID-19 2020-11-11 Completed Unive rsity of PFIZER VACCINE 00:00:00 [facility] SARS-COV-2 COVID-19 2020-11-11 Completed Unive rsity of PFIZER VACCINE 00:00:00 [facility] SARS-COV-2 COVID-19 2020-11-11 Completed Unive rsity of PFIZER VACCINE 00:00:00 [facility] Vital Signs Vital Name Observation Time Observation Value Comments Source Systolic blood 2021-05-31 127 mm[Hg] University of pressure 14:00:00 [facility] Diastolic blood 2021-05-31 89 mm[Hg] University o f pressure 14:00:00 [facility] Heart rate 2021-05-31 104 /min [facility] 14:00:00 [facility] Body temperature 2021-05-31 37.06 Jyotsna [facility] 14:00:00 [facility] Respiratory rate 2021-05-31 20 /min [facility] 14:00:00 [facility] Oxygen saturation 2021-05-31 96 /min [facility] in Arterial blood 14:00:00 [facility] by Pulse oximetry [place] Body height 2021-05-31 160 cm [facility] 13:04:00 [facility] Body weight 2021-05-31 72.576 kg [facility] 13:04:00 [facility] BMI 2021-05-31 28.34 kg/m2 [facility] 13:04:00 [facility] Systolic blood 2021-11-27 155 mm[Hg] [facility] pressure 21:01: [facility] Diastolic blood 2021-11-27 106 mm[Hg] [facility] pressure 21:01:00 [facility] Heart rate 2021-11-27 90 /min [facility] 21:01:00 [facility] Body temperature 2021-11-27 36.56 Jyotsna [facility] 21:01: [facility] Body height 2021-11-27 160 cm [facility] 21:01:00 [facility] Body weight 2021-11-27 79.833 kg [facility] 21:01: [facility] BMI 2021-11-27 31.18 kg/m2 [facility] 21:01:00 [facility] Oxygen saturation 2021-11-27 98 /min [facility] in Arterial blood 21:01:00 Hospital by Pulse oximetry Respiratory rate 2021-08-31 17 /min [facility] 00:00:00 [facility] Systolic blood 2020-08-27 116 mm[Hg] Location: [facility] Physicia ns pressure 11:13:00 Position: Sitting Diastolic blood 2020-08-27 85 mm[Hg] Location: [facility] Physici ans pressure 11:13:00 Position: Sitting Body height 2020-08-27 63 [in_us] [facility] 11:13:00 Weight 2020-08-27 160 [lb_av] [facility] 11:13:00 Body mass index 2020-08-27 28.34 kg/m2 [facility] (BMI) [Ratio] 11:13:00 Heart Rate 2020-08-27 125 /min Location: L [facility] 11:13:00 Brachial Artery; Body temperature 2020-08-27 97.4 [degF] Method: [facility] 11:13:00 Temporal Systolic blood 2020-02-20 110 mm[Hg] [facility] pressure 11:37:00 Diastolic blood 2020-02-20 79 mm[Hg] [facility] pressure 11:37:00 Body height 2020-02-20 63 [in_us] [facility] 11:37:00 Weight 2020-02-20 150 [lb_av] [facility] 11:37:00 Body mass index 2020-02-20 26.57 kg/m2 [facility] (BMI) [Ratio] 11:37:00 Body temperature 2020-02-20 98.6 [degF] [facility] 11:37:00 Heart Rate 2020-02-20 102 /min [facility] 11:37:00 Procedures Procedure Date / Time Performing Clinician Source Performed NO SHOW OR MISSED 2021-10-16 16:22:29 Doctor Unassigned, [facility] APPOINTMENT POLICY [facility] [facility] ACKNOWLEDGEMENT POC GLUCOSE 2021-08-30 23:33:00 Everton Peters ashleigh Peters-Hsi CREATION, AV FISTULA 2021-08-30 19:14:00 Everton Peters [facility]-i ANESTHESIA PERIPHERAL 2021-08-30 19:00:39 Alfred Curry [facility] THO Vinccandido BASIC METABOLIC PANEL 2021-08-30 17:36:00 Everton Peters [facility] ESTIMATED GFR 2021-08-30 17:36:00 Everton Peters spital Peters-Hsi ESTIMATED GFR 2021-08-30 17:33:00 Everton Peters spicolumba Peters-Hsi POC PANEL 2021-08-30 17:33:00 Everton Peters ashleigh Peters-Hsi ECG PRE/POST OP 2021-08-28 19:21:25 Melquiades Nunez COVID-19 QUALITATIVE 2021-08-28 17:38:00 Everton Peters [facility] 2021-08-28 17:38:00 Everton Peters [facility] Peters-Hsi PARTIAL THROMBOPLASTIN 2021-08-28 17:38:00 Everton Peters [facility] TIME (PTT) Peters-Hsi TYPE AND SCREEN 2021-08-28 17:38:00 Everton Peters Ho spital Peters-Hsi HC COMPLETE BLD COUNT 2021-08-28 17:38:00 Everton Peters [facility] W/AUTO DIFF [facility]-Hsi HEMOGLOBIN A1C 2021-08-28 17:38:00 Melquiades Nunez ashleigh Macias HCG QUALITATIVE, SERUM 2021-08-28 17:38:00 [facility] S[facility] Bernardo Macias COMPREHENSIVE METABOLIC 2021-08-03 03:16:00 Maura [facility] PANEL HC COMPLETE BLD COUNT 2021-08-03 03:16:00 Maura [facility] W/AUTO DIFF PROTHROMBIN TIME WITH INR 2021-08-03 03:16:00 Maura [facility] ESTIMATED GFR 2021-08-03 03:16:00 [facility] HEPATITIS B SURFACE 2021-08-03 00:28:00 AnelAbbie cadena [facility] ANTIGEN HEPATITIS B SURFACE AB, 2021-08-03 00:28:00 Abbie Alejandro [facility] QUANTITATIVE HEMODIALYSIS 2021-08-02 21:51:[address] [facility] CREATION, AV FISTULA 2021-08-02 20:00:00 Everton Peters [facility] Peters-Hsi ESTIMATED GFR 2021-08-02 18:27:00 Everton Peters spital Peters-Hsi POC PANEL 2021-08-02 18:27:00 [facility] CONFIRMATION BY 2021-08-02 18:22:00 Everton Peters [facility] PROTOCOL Peters-Hsi BASIC METABOLIC PANEL 2021-08-02 18:21:00 [facility] ESTIMATED GFR 2021-08-02 18:21:00 Everton Peters Ho spital Peters-Hsi HEMOGLOBIN A1C 2021-08-02 08:16:00 Lennox Lorenzo [facility] ECG PRE/POST OP 2021-07-31 18:52:39 Everton Peters ashleigh Peters-Hsi XR CHEST 2 VW 2021-07-31 18:33:44 Everton Peters spital Peters-Hsi COVID-19 QUALITATIVE 2021-07-31 17:17:00 [facility]-Hsi PARTIAL THROMBOPLASTIN 2021-07-31 17:17:00 [facility] PROTHROMBIN TIME WITH INR 2021-07-31 17:17:[address] [facility] HC COMPLETE BLD COUNT 2021-07-31 17:17:00 Everton Peters [facility] W/AUTO DIFF PetersMaria TeresaHsi TYPE AND SCREEN 2021-07-31 17:17:00 Everton Peters ashleigh Peters-Hsi HCG QUALITATIVE, SERUM 2021-07-31 17:17:00 [facility] SCREEN Bernardo Macias HEMOGLOBIN A1C 2021-07-31 17:17:00 Melquiades Nunez PHYSICIAN ORDERS 2021-05-31 05:01:00 Doctor Unassigned, [facility] [place] [facility] CT Abdomen/Pelvis w/wo 2020-08-27 00:00:00 [facility] [id number] CT Chest wo contrast [id number] 2020-08-27 00:00:00 [facility]adder [facility] Plan of Care Planned Activity Planned Date Details Comments Source Future Scheduled 2022-08-14 Pneumococcal Vaccine: [facility] Test 10:13:28 Pediatrics (0 to 5 Years) and At-Risk Patients (6 to 64 Years) (1 - PCV) [code = Pneumococcal Vaccine: Pediatrics (0 to 5 Years) and At-Risk Patients (6 to 64 Years) (1 - PCV)] Future Scheduled 2022-08-14 [facility] Test 10:13:28 Chlamydia trachomatis (procedure) [code = 355620200] Future Scheduled 2022-08-14 Hepatitis C screening [facility] Test 10:13:28 (procedure) [code = 102919824] Future Scheduled 2022-08-14 COVID-19 VACCINE (3 - [facility] Test 10:13:28 Pfizer risk series) [code = COVID-19 VACCINE (3 - Pfizer risk series)] Future Scheduled 2022-08-14 [facility] Test 10:13:28 malignant neoplasm of cervix (procedure) [code = 545616947] Future Scheduled 2022-08-14 INFLUENZA VACCINE [facility] Test 10:13:28 [code = INFLUENZA VACCINE] Future Scheduled 2022-05-16 HEPATITIS B VACCINES [facility] Test 12:30:08 (1 of 3 - 3-dose series) [code = HEPATITIS B VACCINES (1 of 3 - 3-dose series)] Future Scheduled 2022-05-16 Pneumococcal Vaccine: [facility] Test 12:30:08 Pediatrics (0 to 5 Years) and At-Risk Patients (6 to 64 Years) (1 - PCV) [code = Pneumococcal Vaccine: Pediatrics (0 to 5 Years) and At-Risk Patients (6 to 64 Years) (1 - PCV)] Future Scheduled 2022-05-[address] [facility] Test 12:30:08 Chlamydia trachomatis (procedure) [code = 521444090] Future Scheduled 2022-05-16 Hepatitis C screening [facility] Test 12:30:08 (procedure) [code = 241515084] Future Scheduled 2022-05-16 COVID-19 VACCINE (3 - [facility] Test 12:30:08 Pfizer risk series) [code = COVID-19 VACCINE (3 - Pfizer risk series)] Future Scheduled 2022-05-16 [facility] Test 12:30:08 malignant neoplasm of cervix (procedure) [code = 772068968] Future Scheduled 2022-05-16 INFLUENZA VACCINE [facility] Test 12:30:08 [code = INFLUENZA VACCINE] Encounters Start End Encounter Admission Attending Care Care Encounter Source Date/Time Date/Time Type Type Clinicians Facility Department ID 2020-12-22 Outpatient CAROL ROWELL [facility] [id number] [place] 03:05:41 Health 2020-03-02 Outpatient VIRGILIO MCKEON [facility] SHAHBAZ [id number] [facility] 10:17:34 2019-11-04 Outpatient BETHEL [facility] [id number] M HHH 09:37:41 HUGO 2019-10-10 Inpatient APURVA HIGUERA [facility] MED [id number] MH 07:23:15 2018-12-13 Outpatient [facility] [id number] MH HH 13:42:33 2018-11-25 Inpatient [facility] [id number] [facility] H 09:16:59 2022-07-18 2022-07-18 Telephone Nam 1.2.840.1 [id number] Methodi 00:00:00 00:00:[address] 3.430.2.7 Hospit a .3.420957 l .8 2021-11-27 2021-11-28 Office Everton Peters-[facility] 1.2.840.1 [id number] Methodi 16:00:00 14:01:04 Visit Shaista Smith [address]4319.1.[address] 3.430.2.7 Hospit a .3.419017 l .8 2021-11-27 2021-11-28 Office Everton Peters-[facility] 1.2.840.1 [id number] Methodi 16:00:00 14:01:04 Visit Shaista Smith [address]9993.1.[address] 3.430.2.7 Hospit a .3.441997 l .8 2021-11-27 2021-11-27 Travel 1.2.840.1 1.2.933.913 [id number] Methodi 00:00:00 00:00:[address] 3.430.2.7 0.2.7.3.698 Ho spita .3.711996 084.8 l .8 2021-11-27 2021-11-27 Travel 1.2.840.1 1.2.501.555 [id number] Methodi 00:00:00 00:00:[address] 3.430.2.7 0.2.7.3.698 Ho spita .3.990175 084.8 l .8 2021-11-25 2021-11-25 Telephone Luis, 1.2.840.1 [id number] Methodi 00:00:00 00:00:[address] [place] 3.430.2.7 Hosp renea .3.259125 l .8 2021-11-25 2021-11-25 Telephone Susanne, 1.2.840.1 [id number] Methodi 00:00:00 00:00:00 Crys[place]ria 37327.1.1 940 s t 3.430.2.7 Hospit a .3.132868 l .8 2021-11-25 2021-11-25 Telephone Luis, 1.2.840.1 [id number] Methodi 00:00:00 00:00:[address] [place] 3.430.2.7 Hosp renea .3.730343 l .8 2021-11-25 2021-11-25 Telephone Susanne, 1.2.840.1 [id number] Methodi 00:00:00 00:00:00 [place] 62571.1.1 940 s t 3.430.2.7 Hospit a .3.220560 l .8 2021-11-18 2021-11-18 Travel 1.2.840.1 1.2.520.359 [id number] Methodi 00:00:00 00:00:[address] 3.430.2.7 0.2.7.3.698 Ho spita .3.731151 084.8 l .8 2021-11-18 2021-11-18 Travel 1.2.840.1 1.2.070.258 [id number] Methodi 00:00:00 00:00:[address] 3.430.2.7 0.2.7.3.698 Ho spita .3.028947 084.8 l .8 2021-11-15 2021-11-15 Telephone Luis, 1.2.840.1 [id number] Methodi 00:00:00 00:00:[address] [place] 3.430.2.7 Hosp renea .3.238598 l .8 2021-11-15 2021-11-15 Telephone Luis, 1.2.840.1 [id number] Methodi 00:00:00 00:00:[address] [place] 3.430.2.7 Hosp renea .3.267987 l .8 2021-11-13 2021-11-13 Telephone Josué, 1.2.840.1 [id number] Methodi 00:00:00 00:00:[address] 3.430.2.7 Hospit a .3.049150 l .8 2021-11-13 2021-11-13 Telephone Josué, 1.2.840.1 [id number] Methodi 00:00:00 00:00:[address] 3.430.2.7 Hospit a .3.142598 l .8 2021-10-21 2021-10-21 Office Luis, 1.2.840.1 [id number] Methodi 11:30:00 13:58:50 Visit Shaista 10913.1.[address] [place] 3.430.2.7 Hosp renea .3.222398 l .8 2021-10-21 2021-10-21 Office Luis, 1.2.840.1 [id number] Methodi 11:30:00 13:58:50 Visit Shaista 03596.1.[address] [place] 3.430.2.7 Hosp renea .3.124219 l .8 2021-10-21 2021-10-21 Travel 1.2.840.1 1.2.567.881 [id number] Methodi 00:00:00 00:00:[address] 3.430.2.7 0.2.7.3.698 Ho spita .3.440474 084.8 l .8 2021-10-21 2021-10-21 Travel 1.2.840.1 1.2.256.429 [id number] Methodi 00:00:00 00:00:[address] 3.430.2.7 0.2.7.3.698 Ho spita .3.990792 084.8 l .8 2021-10-16 2021-10-16 Outpatient Kojo LU, [facility] [id number] Univers 10:30:00 11:56:54 ANDREAS hastings of [facility] 2021-10-16 2021-10-16 Orders Doctor VIRGILIO 1.2.840.114 [id number] Univers 00:00:00 00:00:00 Only Unassigned, LINDSAY 350.1.13.10 ity of [place] [facility] 4.2.7.2.686 Chinmay as [phone] [address] 2021-08-30 2021-08-30 [facility], 1.2.840.1 [id number] Methodi 10:50:00 18:10:00 Encounter Everton 75898.1.1 925 [facility] 3.430.2.7 Hosp renea .3.556163 l .8 2021-08-30 2021-08-30 [facility], 1.2.840.1 [id number] Methodi 10:50:00 18:10:00 Encounter Everton 56060.1.1 925 [facility] 3.430.2.7 Hosp renea .3.400514 l .8 2021-08-30 2021-08-30 Anesthesia Alfred Curry 1.2.840.1 [id number] Methodi 13:15:00 17:32:00 Event Nazario Babine 67628.1.[address] 3.430.2.7 Hospit a .3.045567 l .8 2021-08-30 2021-08-30 Anesthesia Alfred Curry 1.2.840.1 [id number] Methodi 13:15:00 17:32:00 Event Talya Audra 28699.1.[address] 3.430.2.7 Hospit a .3.222814 l .8 2021-08-30 2021-08-30 Surgery Fran, 1.2.840.1 [id number] 8547 Methodi 13:14:00 16:14:[address] [address] [facility] 3.430.2.7 Hosp renea .3.610330 l .8 2021-08-30 2021-08-30 Surgery Peters, 1.2.840.1 [id number] 5324 Methodi 13:14:00 16:14:[address] [address] [facility] 3.430.2.7 Hosp renea .3.020806 l .8 2021-08-28 2021-08-28 Pre-Admiss Peters, 1.2.840.1 [id number] 542 [id number] Methodi 11:00:00 12:00:00 ion [place] 96376.1.[address] Testing [facility] 3.430.2.7 Hosp renea .3.437574 l .8 2021-08-28 2021-08-28 Pre-Admiss Peters, 1.2.840.1 [id number] 937 [id number] Methodi 11:00:00 12:00:00 ion [place] [address]60.1.[address] Testing [facility] 3.430.2.7 Hosp renea .3.724258 l .8 2021-08-28 2021-08-28 Travel 1.2.840.1 1.2.544.696 1899 [id number] Methodi 00:00:00 00:00:[address] 3.430.2.7 0.2.7.3.698 Ho spita .3.700142 084.8 l .8 2021-08-28 2021-08-28 Travel 1.2.840.1 1.2.762.938 2079 101744 Methodi 00:00:00 00:00:[address] 3.430.2.7 0.2.7.3.698 Ho spita .3.019298 084.8 l .8 2021-08-14 2021-08-14 Travel 1.2.840.1 1.2.188.908 8061 [id number] Methodi 00:00:00 00:00:[address] 3.430.2.7 0.2.7.3.698 Ho spita .3.454482 084.8 l .8 2021-08-14 2021-08-14 Prep for Demarcus, 1.2.840.1 [id number] 900 [id number] Methodi 00:00:00 00:00:00 Surgery Dipti 00185.1.[address] 3.430.2.7 Hospit a .3.802216 l .8 2021-08-07 2021-08-07 Telephone Demarcus 1.2.840.1 [id number] 21 [id number] Methodi 00:00:00 00:00:[address] 3.430.2.7 Hospit a .3.278568 l .8 2021-08-02 2021-08-02 [facility] 1.2.840. 1 [id number] Methodi 11:23:00 22:13:00 Encounter Lennox Lorenzo 08162.1.[address] 3.430.2.7 Hospit a .3.842229 l .8 2021-08-02 2021-08-02 Surgery Peters, 1.2.840.1 [id number] 2634 Methodi 14:00:00 17:35:00 [place] 17440.1.1 536 [facility]-i 3.430.2.7 Hosp renea .3.067681 l .8 2021-07-31 2021-07-31 [facility], 1.2.840.1 [id number] 41871 Methodi 12:20:28 23:59:00 Encounter [place] 52158.1.1 655 [facility] 3.430.2.7 Hosp renea .3.934796 l .8 2021-07-31 2021-07-31 Pre-Admiss Peters, 1.2.840.1 [id number] 278 [id number] Methodi 10:30:00 11:30:00 ion [place] 90969.1.1 846 [facility] 3.430.2.7 Hosp renea .3.843721 l .8 2021-07-31 2021-07-31 Travel 1.2.840.1 1.2.881.075 9746 260519 Methodi 00:00:00 00:00:[address] 3.430.2.7 0.2.7.3.698 Ho spita .3.310762 084.8 l .8 2021-07-25 2021-07-25 Prep for Tracy, 1.2.840.1 [id number] 075 [id number] Methodi 00:00:00 00:00:00 Surgery Dipti 36455.1.[address] 3.430.2.7 Hospit a .3.642861 l .8 2021-07-25 2021-07-25 Telephone Demarcus, 1.2.840.1 [id number] 21 [id number] Methodi 00:00:00 00:00:[address] 3.430.2.7 Hospit a .3.388952 l .8 2021-07-24 2021-07-24 Office Fran, 1.2.840.1 [id number] 1534 Methodi 10:30:00 12:06:23 Visit [place] [address]261.1.[address] [facility] 3.430.2.7 Hosp renea .3.757657 l .8 2021-07-24 2021-07-24 Travel 1.2.840.1 1.2.463.809 3641 617123 Methodi 00:00:00 00:00:[address] 3.430.2.7 0.2.7.3.698 Ho spita .3.318302 084.8 l .8 2021-06-19 2021-06-19 Telephone Tracy, 1.2.840.1 [id number] 21 [id number] Methodi 00:00:00 00:00:[address] 3.430.2.7 Hospit a .3.290937 l .8 2021-05-31 2021-05-31 Nurse 1, Adc Infusion Nurse [facility] 1.2. 840.114 [id number] Univers 08:29:34 09:29:34 Visit Abbie Alejandro 350.1.13.10 ity [facility] [id number] [place] [id number] [place] 2021-05-31 2021-05-31 Outpatient Kojo ALEJANDRO [facility] [id number] Univers 08:00:00 08:00:00 ABBIE ity of [facility] 2021-05-31 2021-05-31 Orders Doctor POOLE 1.2.840.114 [id number] Univers 00:00:00 00:00:00 Only Unassigned, LINDSAY 350.1.13.10 ity of [facility] 4.2.7.2.686 [place] as [phone] [place] [address] Branch 2020-12-02 2020-12-02 Outpatient [facility] [id number] Univers 14:15:00 14:15:00 ity of [facility] 2020-12-01 2020-12-01 Outpatient R JANUSZ, [facility] [id number] Univers 14:15:00 14:14:52 ROHIT ity of [facility] 2020-11-11 2020-11-11 Outpatient [facility] [id number] Univers 14:15:00 14:15:00 ity [facility] 2020-08-27 2020-08-27 Appointmen CAROL ROWELL, [facility] - 67 [id number] [place] 08:45:00 08:45:00 t; Mary ROWELL i, M.D. [facility] 2020-08-22 2020-08-22 Outpatient ARON, [facility] 021 670 [id number] [place] 00:00:00 00:00:[address] 2020-08-20 2020-08-20 Outpatient [facility]ON[facility] [id number] [place] 00:00:00 00:00:[address] 2020-06-25 2020-06-25 Outpatient ARON, [facility] [id number] [facility] 00:00:00 00:00:[address] 2020-05-18 2020-05-18 Prep For [facility] 1.2.840.[address] [place] [address] 00:00:00 00:00:00 Surgery Netta Lopez 350.1.13.10 ity [place] [phone] Ia dical nal 204 [facility] 2020-05-17 2020-05-17 Telephone [facility] 1.2.840.114 [id number] Univers 00:00:00 00:00:00 Maral Lopez 350.1.13.10 i ty [place] [phone] Ia dical nal 188 [facility] 2020-05-15 2020-05-15 [facility] 1.2.695.132 8638 1062 Univers 14:58:46 15:52:26 Visit Maral Lopez 350.1.13.10 i ty [place] [phone] Ia dical [address] 2020-05-15 2020-05-15 Outpatient Kojo ARMIN [facility] [id number] [facility] 15:00:00 15:00:00 MARAL darling [facility] 2020-03-05 2020-03-05 Appointmen [facility]GANTRANSP UTP UTP [id number] [place] 10:30:00 10:30:00 t; LANT, OP Physi ci ORGANTRANS ans PLANT, OP 2020-02-20 2020-02-20 Appointmen CAROL ROWELL UTP Urology - 66 [id number] [place] 08:30:00 08:30:00 t; Mary ROWELL i, M.D. [facility] 2020-02-09 2020-02-10 Inpatient U VIRGILIO MCKEON [facility] 7583 [facility] 12:56:00 17:50:00 2020-01-30 2020-01-30 Appointmen [facility]GAN[facility] UTP UTP [id number] [place] 09:00:00 09:00:00 t; LANT, OP Physi ci ORGANTRANS ans PLANT, OP 2020-01-30 2020-01-30 Outpatient VIRGILIO MCKEON [facility] SHAHBAZ 962 4 [facility] 08:25:00 08:25:00 2019-11-02 2019-11-05 Inpatient KARLOS [facility] MED 0077 [facility] 08:25:00 11:35:00 TRACI 2019-09-22 2019-09-22 Appointmen [facility]TP UTP [id number] [id number] [place] 08:00:00 08:00:00 t; LANT, OP Physi ci ORGANTRANS ans PLANT, OP 2019-09-19 2019-09-19 Appointmen [facility]GANTRANSP UTP UTP [id number] [place] 08:00:00 08:00:00 t; LANT, OP Physi ci ORGANTRANS ans PLANT, OP 2019-09-08 2019-09-08 Appointmen [facility]GANTRANSP UTP UTP [id number] [place] 09:00:00 09:00:00 t; LANT, OP Physi ci ORGANTRANS ans PLANT, OP 2019-08-29 2019-08-29 Appointmen [facility]GANTRANSP UTP UTP [id number] [place] 07:30:00 07:30:00 t; LANT, OP Physi ci ORGANTRANS ans PLANT, OP 2019-08-29 2019-08-29 Outpatient [facility] 9622 [facility] 07:07:00 07:07:00 2019-08-15 2019-08-15 Outpatient [facility] 9621 [facility] 06:46:00 06:46:00 2019-07-26 2019-07-26 Inpatient E [facility] MED 7581 [facility] 21:16:00 19:41:00 2019-06-26 2019-06-26 Inpatient E [facility] MED 7579 [facility] 23:55:00 16:24:00 2019-06-20 2019-06-20 Outpatient [facility] 9620 [facility] 06:33:00 06:33:00 2019-04-07 2019-04-07 Outpatient [facility] 9619 [facility] 09:43:00 09:43:00 2019-01-17 2019-01-17 Outpatient [facility] 9618 [facility] 06:41:00 06:41:00 2018-12-13 2018-12-13 Outpatient [facility] 9617 [facility] 06:41:00 06:41:00 2018-11-24 2018-11-24 Inpatient E [facility] MED 7537 [facility] 22:03:00 18:46:00 2018-11-01 2018-11-01 Appointmen DEXA, SCAN UTP [facility] [id number] [place] 09:30:00 09:30:00 t; DEXA, Physi ci SCAN ans 2018-11-01 2018-11-01 Outpatient [facility] 9615 [facility] 06:38:00 06:38:00 Results Test Description Test Time Test Comments Results Result Comments Source POC glucose 2021-08-30 23:34:35 Test Item Value Reference Range Interpretation Comme nts POC glucose (test code = 70 mg/dL 65-99 Ope rator Name: Joan Adame 73572-3) ID: [id number] [facility] [id number] 23:34:35 Test Item Value Reference Range Interpretation Comments POC glucose (test 70 mg/dL 65-99 Wood Cabinet Finisher N clemente: Joan code = 23313-5) Deep ID: [id number] [facility] [id number] 17:34:58 Test Item Value Reference Range Interpretation Comments POC sodium (test code = 140 mmol/L 997-944 4276-0) POC potassium (test 4.4 mmol/L 3.5-5 code = 6298-4) POC glucose (test code 94 mg/dL 65-99 = 2339-0) POC creatinine (test 8.6 mg/dl 0.5-0.9 H Operato r Name: Mervin code = 38623-3) AileenDevice ID: [id number] POC hemoglobin (test 12.9 g/dL 12-16 code = 718-7) POC hematocrit (test 38 % 37-47 code = 4544-3) Lab Interpretation Abnormal (test code = 38932-6) [facility] [id number] 17:34:58 Test Item Value Reference Range Interpretation Comments POC sodium (test code = 140 mmol/L 631-417 5808-0) POC potassium (test 4.4 mmol/L 3.5-5.0 code = 6298-4) POC glucose (test code 94 mg/dL 65-99 = 2339-0) POC creatinine (test 8.6 mg/dl 0.5-0.9 H Operato r Name: [facility] code = 30530-0) AileenDevice ID: [id number] POC hemoglobin (test 12.9 g/dL 12.0-16.0 code = 718-7) POC hematocrit (test 38 % 37-47 code = 4544-3) Lab Interpretation Abnormal (test code = 86186-1) [facility] Pre/Post [id number] 04:19:57 Test Item Value Reference Range Interpretation Comments Ventricular rate (test code = 253) Atrial rate (test code = 255) IL interval (test code = 266) QRSD interval [...] wave abnormality now evident [facility] [id number] 04:19:57 Test Item Value Reference Range Interpretation Comments Ventricular rate (test code = 253) Atrial rate (test code = 255) IL interval (test code = 266) QRSD interval [...] wave abnormality [facility] [id number] 21:02:00 Test Item Value Reference Range Interpretation Comments ABO grouping (test code = 883-9) A Rh type (test code = 96734-4) POS Antibody screen (gel) (test code = NEG 890-4) [facility] [id number] 21:02:00 Test Item Value Reference Range Interpretation Comments ABO grouping (test code = 883-9) A Rh type (test code = 54295-8) POS Antibody screen (gel) (test code = NEG 890-4) [facility] [Presence] in Respiratory specimen by ELLEN with probe [id number] 19:28:41 Test Item Value Reference Range Interpretation Comments SARS-CoV-2 (COVID-19) RNA Not detected Not-Detected [Presence] in Respiratory specimen by ELLEN with probe detection (test code = 38803-0) Whether patient is employed in a healthcare setting (test code = 99376-0) Whether the patient has symptoms related to condition of interest (test code = 65635-3) Patient was hospitalized because of this condition (test code = 58929-7) Whether the patient was admitted to intensive care unit (ICU) for condition of interest (test code = 29693-5) Whether patient resides in a congregate care setting (test code = 32820-4) [facility] Rh [id number] 20:44:00 Test Item Value Reference Range Interpretation Comments ABO grouping (test code = 883-9) A Rh type (test code = 47223-9) [facility] RNA [Presence] in Respiratory specimen by ELLEN with probe [id number] 20:24:24 Test Item Value Reference Range Interpretation Comments SARS-CoV-2 (COVID-19) RNA Not detected Not-Detected [Presence] in Respiratory specimen by ELLEN with probe detection (test code = 12311-2) Whether patient is employed in a healthcare setting (test code = 73756-4) Whether the patient has symptoms related to condition of interest (test code = 22852-8) Patient was hospitalized because of this condition (test code = 73299-9) Whether the patient was admitted to intensive care unit (ICU) for condition of interest (test code = 14695-9) Whether patient resides in a congregate care setting (test code = 63531-8) [facility]-CoV-2 (COVID-19) RNA [Presence] in Respiratory specimen by ELLEN with probe [id number] 01:56:50 Test Item Value Reference Range Interpretation Comments SARS-CoV-2 (COVID-19) RNA Not detected Not-Detected [Presence] in Respiratory specimen by ELLEN with probe detection (test code = 16946-4) [facility]
[2022-08-18 12:47] LABS: Absolute Lymphocytes (CBC) 2.2 K/uL (0.7-4.9); Lymphocytes % 29.4 % (15.3-44.8); MCV 91.6 fL (80-100); MPV 7.8 fL (7.6-11.3); RBC Red Blood Cell Count 2.95 M/uL (3.86-4.86)
--- NOTE | 2022-08-18 13:06 | RAD REPORT ---
EXAM DESCRIPTION: Nitish Single View08/18/2022 12:59 pm CLINICAL HISTORY: Chest pain COMPARISON: 2020 FINDINGS: The lungs appear clear of acute infiltrate. The heart is normal size IMPRESSION: No acute abnormalities displayed
[2022-08-18 13:29] LABS: Bilirubin Direct 0.1 mg/dL (0-0.2); Bilirubin Total 0.4 mg/dL (0.2-1.0); Magnesium 2.4 mg/dL (1.6-2.4); Protein, Total 6.9 g/dL (6.4-8.2); Troponin High Sensitivity 47.1 pg/mL (<58.9)
[2022-08-18 13:34] LABS: Potassium 6.5 mmol/L (3.5-5.1)
--- NOTE | 2022-08-18 13:43 | EDPHYS ---
Physician Documentation [facility] Name: Sully Renner Age: 21 yrs Sex: Female : 2000 Arrival Date: 08/18/2022 Time: 11:10 Bed 24 Private MD: Tremaine Chapman ED Physician Rajni Smith HPI: 08/18 11:35 This 21 yrs old Female presents to ER via Ambulatory with complaints of Chest Pain, jmm Numbness Of Arm - right. 11:35 The patient or guardian reports chest pain that is located primarily in the substernal jmm area. The pain radiates to the left arm. This is a 21-year-old female with history of end-stage renal disease, hypertension the presents emerged part with complaints of substernal chest pain beginning approximately 1 week ago which radiates into the left arm. Patient also complains of leg swelling. Patient denies shortness of breath, fever. Pain has been constant. Patient denies any history of coronary artery disease.. Historical: - Allergies: 11:56 Latex, Natural Rubber; ss - Home Meds: 11:56 nifedipine 30 mg oral tr24 1 tab once daily [Active]; carvedilol 12.5 mg oral tab 1 tab ss 2 times per day [Active]; - PMHx: 11:56 Dialysis; End stage renal disease; Hypertensive disorder; SELF CATHERIZATION; ss - PSHx: 11:56 BLADDER AUGMENTATION; FISTULA LEFT FA; kidney transplant; Nephrectomy; SPINAL BIFIDA; ss - Immunization history:: Client reports receiving the 2nd dose of the Covid vaccine. - Social history:: Smoking status: Patient denies any tobacco usage or history of. ROS: 11:35 Constitutional: Negative for fever, chills, and weight loss. jmm 11:35 Cardiovascular: Positive for chest pain. 11:35 MS/extremity: Positive for pain. 11:35 All other systems are negative. Exam: 11:35 Constitutional: This is a well developed, well nourished patient who is awake, alert, jmm and in no acute distress. Head/Face: atraumatic. Eyes: EOMI, no conjunctival erythema appreciated ENT: Moist Mucus Membranes Neck: Trachea midline, Supple Chest/axilla: Normal chest wall appearance and motion. Cardiovascular: Regular rate and rhythm. No edema appreciated Respiratory: Normal respirations, no respiratory distress appreciated Abdomen/GI: Non distended Back: Normal ROM Skin: General appearance color normal MS/ Extremity: Moves all extremities, no obvious deformities appreciated, no edema noted to the lower extremities Neuro: Awake and alert Psych: Behavior is normal, Mood is normal, Patient is cooperative and pleasant Vital Signs: 11:54 BP 175 / 131; Pulse 83; Resp 16; Temp 98.2(TE); Pulse Ox 98% on R/A; Weight 74.84 kg; ss Height 5 ft. 3 in. (160.02 cm); Pain 4/10; 12:42 BP 180 / 129; Pulse 89; Resp 18; Pulse Ox 97% on R/A; Pain 0/10; ld1 13:35 BP 169 / 128; Pulse 84; Resp 18; Pulse Ox 95% on R/A; ld1 11:54 Body Mass Index 29.23 (74.84 kg, 160.02 cm) ss MDM: 11:35 Patient medically screened. [facility] 13:42 Data reviewed: vital signs, nurses notes. Counseling: I had a detailed discussion with [facility] the patient and/or guardian regarding: the historical points, exam findings, and any diagnostic results supporting the discharge/admit diagnosis, lab results, the need for outpatient follow up, to return to the emergency department if symptoms worsen or persist or if there are any questions or concerns that arise at home. 13:44 Refusal of service: The patient/guardian displays adequate decision making capability [facility] and despite a detailed discussion of alternatives, benefits, risks, and consequences refuses: Admission to the hospital for further work-up and treatment, all lab tests, US. 08/18 11:35 Order name: Basic Metabolic Panel; Complete Time: 13:35 [facility] 08/18 11:35 Order name: CBC with Diff; Complete Time: 12:59 [facility] 08/18 11:35 Order name: LFT's; Complete Time: 13:35 [facility] 08/18 11:35 Order name: Magnesium; Complete Time: 13:35 [facility] 08/18 11:35 Order name: NT PRO-BNP; Complete Time: 13:35 [facility] 08/18 11:35 Order name: PT-INR; Complete Time: 13:27 [facility] 08/18 11:35 Order name: Troponin HS; Complete Time: 13:35 [facility] 08/18 11:35 Order name: XRAY Chest (1 view); Complete Time: 13:07 [facility] 08/18 11:35 Order name: EKG; Complete Time: 11:35 [facility] 08/18 11:35 Order name: Cardiac monitoring; Complete Time: 12:41 [facility] 08/18 11:35 Order name: EKG - Nurse/Tech; Complete Time: 12:11 [facility] 08/18 11:35 Order name: IV Saline Lock; Complete Time: 12:41 [facility] 08/18 11:35 Order name: Labs collected and sent; Complete Time: 12:41 [facility] 08/18 11:35 Order name: O2 Per Protocol; Complete Time: 12:23 [facility] 08/18 11:35 Order name: O2 Sat Monitoring; Complete Time: 12:23 [facility] Administered Medications: No medications were administered Disposition Summary: 08/18/22 13:43 Discharge Ordered Location: Home [facility] Condition: Stable [facility] Diagnosis - Chest pain, unspecified [facility] - Hyperkalemia [facility] Followup: [facility] - With: Tremaine Chapman DO - When: 1 - 2 days - Reason: Recheck today's complaints, Continuance of care, Re-evaluation by your physician Discharge Instructions: - Discharge Summary Sheet jm - Nonspecific Chest Pain, Adult jm - Hyperkalemia [facility] Forms: - Medication Reconciliation Form [facility] - Thank You Letter [facility] - Antibiotic Education [facility] - Prescription Opioid Use [facility] Addendum: 08/21/2022 22:33 STAFF ATTESTATION STATEMENT: I was immediately available onsite in the emergency s d2 department for consultation in the care of this patient. I did not see or examine this patient. Rajni Smith MD. Signatures: Dispatcher [employer] EDMS Nolberto Molina PA PA jmm Smirch, Shelby, Rajni Boston RN, MD MD sd2
--- NOTE | 2022-08-18 13:43 | ER ---
Nurse's Notes [facility] Name: Sully Renner Age: 21 yrs Sex: Female : 2000 Arrival Date: 08/18/2022 Time: 11:10 Bed 24 Private MD: Trmeaine Chapman Diagnosis: Chest pain, unspecified;Hyperkalemia Presentation: 08/18 11:54 Chief complaint: Patient states: SOB, chest pressure x 1 week that has gotten worse ss over the past 3 days. Coronavirus screen: Client denies travel out of the [place] in the last 14 days. Ebola Screen: Patient denies exposure to infectious person. Patient denies travel to an Ebola-affected area in the 21 days before illness onset. Initial Sepsis Screen: Does the patient meet any 2 criteria? No. Patient's initial sepsis screen is negative. Does the patient have a suspected source of infection? No. Patient's initial sepsis screen is negative. Risk Assessment: Do you want to hurt yourself or someone else? Patient reports no desire to harm self or others. Onset of symptoms was August 11, 2022. 11:54 Method Of Arrival: Ambulatory ss 11:54 Acuity: CT 2 ss Historical: - Allergies: 11:56 Latex, Natural Rubber; ss - Home Meds: 11:56 nifedipine 30 mg oral tr24 1 tab once daily [Active]; carvedilol 12.5 mg oral tab 1 tab ss 2 times per day [Active]; - PMHx: 11:56 Dialysis; End stage renal disease; Hypertensive disorder; SELF CATHERIZATION; ss - PSHx: 11:56 BLADDER AUGMENTATION; FISTULA LEFT FA; kidney transplant; Nephrectomy; SPINAL BIFIDA; ss - Immunization history:: Client reports receiving the 2nd dose of the Covid vaccine. - Social history:: Smoking status: Patient denies any tobacco usage or history of. Screenin:35 [facility] ED Fall Risk Assessment (Adult) History of falling in the last 3 months, ld1 including since admission. [facility] ED Fall Risk Assessment (Adult) History of falling in the last 3 months, including since admission No falls in past 3 months (0 pts). Abuse screen: Denies threats or abuse. Denies injuries from another. Nutritional screening: No deficits noted. Tuberculosis screening: No symptoms or risk factors identified. Assessment: 13:35 Reassessment: Patient appears in no apparent distress at this time. Patient and/or ld1 family updated on plan of care and expected duration. Pain level reassessed. Patient is alert, oriented x 3, equal unlabored respirations, skin warm/dry/pink. General: Appears in no apparent distress. comfortable, Behavior is calm, cooperative, appropriate for age. Pain: Denies pain. Neuro: Level of Consciousness is awake, alert, obeys commands, Oriented to person, place, time, situation. Cardiovascular: Capillary refill < 3 seconds Patient's skin is warm and dry. Rhythm is sinus rhythm. Respiratory: Airway is patent Respiratory effort is even, unlabored. GI: Abdomen is flat, non-distended. : No signs and/or symptoms were reported regarding the genitourinary system. EENT: No signs and/or symptoms were reported regarding the EENT system. Derm: No signs and/or symptoms reported regarding the dermatologic system. Musculoskeletal: No signs and/or symptoms reported regarding the musculoskeletal system. 13:57 Reassessment: Patient appears in no apparent distress at this time. Patient and/or ld1 family updated on plan of care and expected duration. Pain level reassessed. Patient is alert, oriented x 3, equal unlabored respirations, skin warm/dry/pink. Vital Signs: 11:54 BP 175 / 131; Pulse 83; Resp 16; Temp 98.2(TE); Pulse Ox 98% on R/A; Weight 74.84 kg; ss Height 5 ft. 3 in. (160.02 cm); Pain 4/10; 12:42 BP 180 / 129; Pulse 89; Resp 18; Pulse Ox 97% on R/A; Pain 0/10; ld1 13:35 BP 169 / 128; Pulse 84; Resp 18; Pulse Ox 95% on R/A; ld1 11:54 Body Mass Index 29.23 (74.84 kg, 160.02 cm) ED Course: 11:10 Patient arrived in ED. am2 11:10 Tremaine Chapman DO is Private Physician. am2 11:10 [facility] 11:11 Rajni Smith MD is Attending Physician. [facility] 11:56 Triage completed. ss 11:56 Arm band placed on right wrist. ss 12:41 Crys Good, RN is Primary Nurse. ld1 12:42 Patient has correct armband on for positive identification. Placed in gown. Bed in low ld1 position. Call light in reach. Side rails up X2. chucking machine set up operator tool on. Pulse ox on. NIBP on. Door closed. Noise minimized. Warm blanket given. 12:42 No provider procedures requiring assistance completed. Inserted saline lock: 20 gauge ld1 in right antecubital area, using aseptic technique. Blood collected. Patient maintains SpO2 saturation greater than 95% on room air. 13:01 XRAY Chest (1 view) In Process Unspecified. EDMS 13:42 Tremaine Chapman DO is Referral Physician. vignesh 13:57 IV discontinued, intact, bleeding controlled, No redness/swelling at site. ld1 Administered Medications: No medications were administered Medication: 13:35 VIS not applicable for this client. ld1 Outcome: 13:43 Discharge ordered by MD. vignesh 13:57 Discharged to home ambulatory, with family. ld1 13:57 Condition: stable 13:57 Discharge instructions given to patient, family, Instructed on discharge instructions, follow up and referral plans. Demonstrated understanding of instructions, follow-up care. 13:57 Patient left the ED. ld1 Signatures: Dispatcher [employer] EDMS Nolberto Molina PA PA jmm Smirch, Shelby, RN RN Suzie Montero [facility] Crys Good, RN RN ld1
[2022-08-18 14:07] VITALS: TEMP 98.2
[2022-08-18 14:09] VITALS: BP 169/128; O2SAT 95
[2022-08-18] MEDS ORDERED: SODIUM ZIRCONIUM CYCLOSILICATE 10 GM/PKT PO ONE (16:00)
[2022-08-18] MEDS ORDERED: FUROSEMIDE 40 MG/4 ML VIAL IV ONE (16:00)
--- NOTE | 2022-08-19 14:33 | EKG ---
Test Date: 2022-08-18 Test Time: 12:09:18 Animal Husbandry Professor: MAGDALENE MEASUREMENT RESULTS: Intervals: Rate: 91 UT: 172 QRSD: 72 QT: 384 QTc: 472 [place]: P: 69 UT: 172 QRS: 93 T: 77 INTERPRETIVE STATEMENTS: Normal sinus rhythm Rightward axis Borderline ECG Compared to ECG 03/12/2022 21:34:32 Right-axis deviation now present Ventricular premature complex(es) no longer present Prolonged QT interval no longer present Electronically Signed On 08-19-22 14:31:32 EXPLOSIVE ORDNANCE TECHNICIAN by Daniel Carmona
== END 2022-08-18 13:57 | disposition home or self-care (01) ==
LOC: ER 11:10
DX: R07.89 Other chest pain (principal); E87.5 Hyperkalemia; I12.0 Hypertensive chronic kidney disease with stage 5 chronic kidney disease or end stage renal disease; N18.6 End stage renal disease; Z99.2 Dependence on renal dialysis; Z94.0 Kidney transplant status; Z91.040 Latex allergy status; Z91.048 Other nonmedicinal substance allergy status
CPT/HCPCS: 36415; 71045; 80048; 80076; 83735; 83880; 84484; 85025; 85610; 93005; 99285

== ENCOUNTER 2022-08-29 07:30 | Inpatient (IN) | payer OTHER ==
[2022-08-25 13:36] LABS: Absolute Lymphocytes (CBC) 1.9 K/uL (0.7-4.9); Hematocrit 28.1 % (36.0-45.0); MCV 91.3 fL (80-100); MPV 8.2 fL (7.6-11.3); RBC Red Blood Cell Count 3.08 M/uL (3.86-4.86)
[2022-08-25 13:56] LABS: Albumin 3.1 g/dL (3.4-5.0); Bilirubin Total 0.3 mg/dL (0.2-1.0)
[2022-08-25 14:06] LABS: Potassium 5.7 mmol/L (3.5-5.1)
[2022-08-28 20:55] LABS: Vitamin D 1,25-Dihydroxy Total 9 pg/mL (18-72); Vitamin D,1,25-OH2, D2 <8 pg/mL
[2022-08-29] MEDS ORDERED: NA CHLORIDE 0.9% 500 ML ONE (07:56)
[2022-08-29] MEDS ORDERED: SCOPOLAMINE HYDROBROMIDE PATCH TD ONE (07:56)
[2022-08-29] MEDS ORDERED: LIDOCAINE 1.5% W/EPI AMP 5 ML ONE (08:25)
[2022-08-29] MEDS ORDERED: propofoL 200 MG/20 ML VIAL IV ONE (08:28)
[2022-08-29] MEDS ORDERED: FENTANYL CITR 100 MCG/2 ML ONE ×2 (08:28→11:05)
[2022-08-29] MEDS ORDERED: dexAMETHasone 10 MG/ML VIAL ONE (08:28)
[2022-08-29] MEDS ORDERED: ROCURONIUM 50 MG/5 ML VIAL IV ONE (08:28)
[2022-08-29] MEDS ORDERED: MIDAZOLAM HCL 2 MG/2 ML INJ ONE (08:29)
[2022-08-29] MEDS ORDERED: ONDANSETRON 4 MG/2 ML VIAL ONE ×2 (08:29→14:34)
[2022-08-29] MEDS ORDERED: LIDOCAINE 2% MPF 5 ML VIAL ONE (08:29)
[2022-08-29] MEDS ORDERED: KETOROLAC 30 MG/ML INJ ONE (08:29)
[2022-08-29] MEDS ORDERED: SUCCINYLCHOLINE 20 MG/ML (10 ML) IV ONE (08:51)
[2022-08-29] MEDS ORDERED: Ringers Lactate 1,000 ML IV ONE (09:14)
[2022-08-29] MEDS ORDERED: CEFOXITIN SODIUM 2 GM/VIAL ONE (09:14)
[2022-08-29] MEDS ORDERED: NS 0.9% VIAL 10 ML ONE (09:36)
[2022-08-29] MEDS ORDERED: Phenylephrine HCl 10 MG/ML 1 ML VIAL ONE (09:36)
[2022-08-29] MEDS ORDERED: NS 0.9% VIAL 30 ML ONE (09:52)
[2022-08-29] MEDS ORDERED: Mastisol Adhesive Liq ONE (13:53)
[2022-08-29 13:55] LABS: Urine Specific Gravity/Preg 1.025 (1.005-1.030)
[2022-08-29] MEDS: HYDROMORPHONE HCL 1 MG/ML INJ ONE ×2 (14:25→14:58)
[2022-08-29 14:35] LABS: SARS-CoV-2 Antigen Rapid Res Negative (Negative)
--- OUTSIDE RECORDS SUMMARY | 2022-08-29 14:49 | XMS REPORT | Continuity of Care Document ---
:2000 Author Organization [facility] [place] t Address [address] [place] [address] Care Team Providers Name Role Phone Asked, No Pcp Primary Care Physician Unavailable CAROL ROWELL Attending Clinician Unavailable VIRGILIO MCKEON Attending Clinician Unavailable HUGO HUGO Attending Clinician Unavailable APURVA HIGUERA Attending Clinician Unavailable Nannette Negro MD Attending Clinician NANNETTE NEGRO Attending Clinician Unavailable Doctor Unassigned, [place] Attending Clinician Unavailable Sonia Browning RN Attending Clinician Unavailable Everton Peters MD Attending Clinician [phone] Luis JEAN-C, Shaista Carr Attending Clinician [phone] Patricia Skinner MA Attending Clinician Unavailable Sarah Moses MA Attending Clinician Unavailable ANDREAS LU Attending Clinician Unavailable Antoinette CAO, Alfred Mckenzie Attending Clinician Talya BACK FILLER OPERATOR, Audra Attending Clinician MD EVERTON PETERS Attending Clinician Unavailable Demarcus RN, Dipti Attending Clinician Unavailable Lennox Lorenzo MD Attending Clinician 1, Adc Infusion Nurse Attending Clinician Unavailable Rogerpraveensruinder BALL Abbie Enrike Attending Clinician ABBIE ALEJANDRO Attending Clinician Unavailable ROHIT BOUDREAUX Attending Clinician Unavailable CAROL ROWELL M.D. Attending Clinician Unavailable ENIO SHARP Attending Clinician Unavailable MD ENIO SHARP Attending Clinician Unavailable Gramm BACK FILLER OPERATOR, Netta Lara Attending Clinician Maral Morales MD Attending Clinician [...] Expiration Date S ource MEDICARE PART A [id number] 2020 AND B 00:00:00 Problems Condition Condition Condition Status Onset Resolution Last Treating Co mments Source Name Details Category Date Date Treatment Clinician Date 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 ethodi [...] renal 9-30 ity of failure failure 00:00: [place] [address] Medical Branch End-stage End-stage Disease Active Uni vers renal renal 9-30 ity of disease disease 00:00: [place] [address] Medical Branch Encounter Encounter Disease Active 2018-08 Overview: Univers for for 09-10 Formattin ity of immunizati immunizati [...] Univ ers INGREDI 3 ity of 00:00: 00 Medical Branch Kiwi Drug Active Unknown - Univers Allergy See comments 10-16 ity of 00:00: 00 Medical Branch Latex Propensi Active Rash Methodi ty to 06 st adverse 00:00: Hospita reaction 00 l s to drug Morphine Propensi Active Rash 2019-08 Method i ty to 05 st adverse 00:00: Hospita reaction 00 l s to drug LATEX DRUG Active Unknown-Cmnt 2019- Univ ers INGREDI 05-16 ity of 00:00: [place] 00 Medical Branch Latex Drug Active Unknown - Univers Allergy See comments 05-16 ity of 00:00: [place] 00 Medical Branch MORPHINE DRUG Active High Unknown-Cmnt Un nora INGREDI 2 ity of 00:00: [place] 00 Medical Branch NITROFUR DRUG Active High Unknown-Cmnt Un nora ANTOIN INGREDI 2 ity of 00:00: [place] 00 Medical Branch Morphine Drug Active Rash Univers Allergy 09-24 ity of 00:00: [place] 00 Medical Branch Nitrofur Drug Active Unknown - Unive rs antoin Allergy See comments 09-24 ity of 00:00: [place] 00 Medical Branch PINEAPPL DRUG Active Unknown-Cmnt Un nora E INGREDI 04-29 ity of 00:00: [place] 00 Medical Branch LATEX DRUG Active Low Unknown-Cmnt Univ ers INGREDI 04-29 ity of 00:00: Medical Branch Latex Drug Active Rash Univers Allergy 04-29 ity of 00:00: Medical Branch Pineappl Propensi Active Unknown - Uni vers e ty to See comments 04-29 ity of adverse 00:00: [place] reaction 00 Medical s Branch NO KNOWN Drug Active Univers ALLERGIE Class ity of S [place] [facility] [place] Family History Family Member Diagnosis Comments Start Date Stop Date Source Unknown Family Member Adopted Unknown [place] [facility] Natural father [facility] Natural mother [facility] Social History Social Habit Start Date Stop Date Quantity Comments Source History Count includes the [facility] o f Alcohol Comment [place] [facility] Exposure to 2022-08-17 2022-08-27 Not sure University SARS-CoV-2 00:00:00 14:26:00 [place] [facility] (event) [facility] Alcohol intake 2021-09-02 2021-09-02 Ex-drinker [facility] 00:00:00 00:00:00 (finding) Hospital Tobacco use and 2020-06-25 2020-06-25 Smokeless tobacco [facility] exposure 00:00:00 00:00:00 non-user Hospital History [facility] 2020-05-16 2020-05-16 1 University o f Alcohol Frequency 00:00:00 00:00:00 [place] [facility] History [facility] 2020-05-16 2020-05-16 99 University o f Alcohol Std 00:00:00 00:00:00 [place] [facility] Drinks [facility] History [facility] 2020-05-16 2020-05-16 1 University o f Alcohol Binge 00:00:00 00:00:00 [place] [facility] Sex Assigned At 2000 2000 F [facility] 00:00:00 00:00:00 Hospital Smoking Status Start Date Stop Date Source Never smoked tobacco [facility] Medications Ordered Filled Start Stop Current Ordering Indication Dosage Frequency Signature Comments Components Source Medication Medication Date Date Medication? Clinician (SIG) Name Name alendronate Yes 1{tbl} Take 1 Un nora -cholecalci 1-11 tablet by ity of ferol 70 14:42: mouth [place] mg- 2,800 39 daily. Medical unit per Branch tablet carvediloL 2023-0 Yes 25mg Take 25 mg U nivers 25 mg 1-11 by mouth ity of tablet 14:42: in the [place] [address] morning Medical and 25 mg Branch in the evening. Take with meals. alendronate 2022-0 Yes 1{tbl} Take 1 Un nora -cholecalci 1-11 tablet by ity of ferol 70 14:42: mouth [place] mg- 2,800 39 daily. Medical unit per Branch tablet carvediloL 2022-0 Yes 25mg Take 25 mg U nivers 25 mg 1-11 by mouth ity of tablet 14:42: in the [place] [address] morning Medical and 25 mg Branch in the evening. Take with meals. alendronate 2022-0 Yes 1{tbl} Take 1 Un nora -cholecalci 1-11 tablet by ity of ferol 70 14:42: mouth [place] mg- 2,800 39 daily. Medical unit per Branch tablet carvediloL 2022-0 Yes 25mg Take 25 mg U nivers 25 mg 1-11 by mouth ity of tablet 14:42: in the [place] [address] morning Medical and 25 mg Branch in the evening. Take with meals. alendronate 2022-0 Yes 1{tbl} Take 1 Un nora -cholecalci 1-11 tablet by ity of ferol 70 14:42: mouth [place] mg- 2,800 39 daily. Medical unit per Branch tablet carvediloL 2022-0 Yes 25mg Take 25 mg U nivers 25 mg 1-11 by mouth ity of tablet 14:42: in the [place] [address] morning Medical and 25 mg Branch in the evening. Take with meals. NIFEdipine 2021-08 Yes 30mg Take 30 mg U nivers ER 30 mg 0-18 by mouth. ity of tablet 00:00: Medical Branch NIFEdipine 2021- Yes 30mg Take 30 mg U nivers ER 30 mg 0-18 by mouth. ity of tablet 00:00: Medical Branch NIFEdipine 2021-08 Yes 30mg Take 30 mg U nivers ER 30 mg 0-18 by mouth. ity of tablet 00:00: [facility] Branch NIFEdipine 2021- Yes 30mg Take 30 mg U nivers ER 30 mg 0-18 by mouth. ity of tablet 00:00: [facility] Branch lidocaine-p 2022-0 2023- No Apply Meth timmy rilocaine 3 03-[address] (EMLA) 00:00: 05:59 as [...] area 30-45 minutes prior to dialysis treatment. alendronate Yes 1{tbl} Take 1 Un nora -cholecalci 3-02 tablet by ity of ferol 70 10:51: mouth [place] mg- 2,800 58 daily. Medical unit per Branch [place] tra[place] [id number] 50mg Q8H Take 1 Method i (Ultram) 50 1-14 tablet (50 st mg tablet 00:00: mg total) Hos gera 00 by mouth l every 8 (eight) hours as needed for moderate pain for up to 3 days .acute pain. traMADoL [place] [id number] 50mg Q8H Take 1 Method i (Ultram) 50 1-14 tablet (50 st mg tablet 00:00: mg total) Hos gera 00 by mouth l every 8 (eight) hours as needed for moderate pain for up to 3 days .acute pain. traMADoL Yes [id number] 50mg Q8H Take 1 Method i (Ultram) 50 1-14 tablet (50 st mg tablet 00:00: mg total) Hos gera 00 by mouth l every 8 (eight) hours as needed for moderate pain for up to 3 days .acute pain. casirivimab 2020-08- No [id number] 1200mg 1,200 mg, Univers -imdevimab 0-15 10-15 Subcutaneo it y of (REGEN-COV 14:45: 13:07 us, ONCE, [place] (EUA)) 00 :00 1 dose, On Medical injection Fri Branch 1,200 mg 05/31/21 at 0945, Routine traMADoL 2021- [place] [id number] 50mg Q8H Take 1 Metho di (Ultram) 50 08-2214 tablet (50 s t mg tablet 00:00: 00:00 mg total) Ho spita 00 :00 by mouth l every 8 (eight) hours as needed for moderate pain for up to 20 doses .acute pain. traMADoL 2021- No [id number] 50mg Q8H Take 1 Metho di (Ultram) 50 08-22 tablet (50 s t mg tablet 00:00: 00:00 mg total) Ho spita 00 :00 by mouth l every 8 (eight) hours as needed for moderate pain for up to 20 doses .acute pain. traMADoL 2021- [place] [id number] 50mg Q8H Take 1 Metho di (Ultram) 50 08-22 tablet (50 s t mg tablet 00:00: [...] Medical injection (two) Branch times daily. alendronate 2020-0 Yes 1{tbl} Take 1 Un nora -cholecalci 9-30 tablet by ity of ferol 70 13:36: mouth [place] mg- 2,800 12 daily. Medical unit per Branch tablet alendronate 2020-0 Yes 1{tbl} Take 1 Un nora -cholecalci [...] by mouth ity of 00:00: daily. [place] [facility] losartan 2018-08 Yes 25mg Take 25 mg Univers mg tablet 0-16 by mouth ity of 00:00: daily. [facility] losartan 2018-08 Yes 25mg Take 25 mg Univers mg tablet 0-16 by mouth ity of 00:00: daily. [address] hydrOXYzine hydrOXYzine Yes CHATO QD TAKE [...] Immunizations Ordered Filled Immunization Date Status Comments [facility] e Immunization Name Name SARS-COV-2 COVID-19 2020-12-01 Completed Unive rsity of PFIZER VACCINE 00:00:00 [facility] SARS-COV-2 COVID-19 2020-12-01 Completed Unive rsity of PFIZER VACCINE 00:00:00 [facility] SARS-COV-2 COVID-19 2020-12-01 Completed Unive rsity of PFIZER VACCINE 00:00:00 [facility] SARS-COV-2 COVID-19 2020-12-01 Completed Unive rsity of PFIZER VACCINE 00:00:00 [facility] SARS-COV-2 COVID-19 2020-12-01 Completed Unive rsity of PFIZER VACCINE 00:00:00 [facility] SARS-COV-2 COVID-19 2020-12-01 Completed Unive rsity of PFIZER VACCINE 00:00:00 [facility] SARS-COV-2 COVID-19 2020-12-01 Completed Unive rsity of PFIZER VACCINE 00:00:00 [facility] SARS-COV-2 COVID-19 2020-12-01 Completed Unive rsity of PFIZER VACCINE 00:00:00 [facility] SARS-COV-2 COVID-19 2020-11-11 Completed Unive rsity of PFIZER VACCINE 00:00:00 [facility] SARS-COV-2 COVID-19 2020-11-11 Completed Unive rsity of PFIZER VACCINE 00:00:00 [facility] SARS-COV-2 COVID-19 2020-11-11 Completed Unive rsity of PFIZER VACCINE 00:00:00 [facility] SARS-COV-2 COVID-19 2020-11-11 Completed Unive rsity of PFIZER VACCINE 00:00:00 [facility] SARS-COV-2 COVID-19 2020-11-11 Completed Unive rsity of PFIZER VACCINE 00:00:00 [facility] SARS-COV-2 COVID-19 2020-11-11 Completed Unive rsity of PFIZER VACCINE 00:00:00 [facility] SARS-COV-2 COVID-19 2020-11-11 Completed Unive rsity of PFIZER VACCINE 00:00:00 [facility] SARS-COV-2 COVID-19 2020-11-11 Completed Unive rsity of PFIZER VACCINE 00:00:00 [facility] Vital Signs Vital Name Observation Time Observation Value Comments Source Systolic blood 2022-08-27 115 mm[Hg] University of pressure 20:47:00 [facility] Diastolic blood 2022-08-27 77 mm[Hg] University o f pressure 20:47:00 [facility] Heart rate 2022-08-27 89 /min University of 20:47:00 [facility] Body temperature 2022-08-27 36.83 Jyotsna University of 20:47:00 [facility] Body height 2022-08-27 160 cm University of 20:47:00 [facility] Body weight 2022-08-27 76.386 kg University of 20:47:00 [facility] BMI 2022-08-27 29.83 kg/m2 University of 20:47:00 [facility] Oxygen saturation 2022-08-27 96 /min [facility] in Arterial blood 20:47:00 [facility] by Pulse oximetry [place] Systolic blood 2021-05-31 127 mm[Hg] University of pressure 14:00:00 [facility] Diastolic blood 2021-05-31 89 mm[Hg] University o f pressure 14:00:00 [facility] Heart rate 2021-05-31 104 /min University of 14:00:00 [facility] Body temperature 2021-05-31 37.06 Jyotsna University of 14:00:00 [facility] Respiratory rate 2021-05-31 20 /min University of 14:00:00 [facility] Oxygen saturation 2021-05-31 96 /min [facility] in Arterial blood 14:00:00 [facility] by Pulse oximetry [place] Body height 2021-05-31 160 cm [facility] 13:04:00 [facility] Body weight 2021-05-31 72.576 kg [facility] 13:04:00 [facility] BMI 2021-05-31 28.34 kg/m2 [facility] 13:04:00 [facility] Systolic blood 2021-11-27 155 mm[Hg] [facility] pressure 21:01:00 [facility] Diastolic blood 2021-11-27 106 mm[Hg] [facility] pressure 21:01:00 [facility] Heart rate 2021-11-27 90 /min [facility] 21:01:00 [facility] Body temperature 2021-11-27 36.56 Jyotsna [facility] 21:01: [facility] Body height 2021-11-27 160 cm [facility] 21:01: [facility] Body weight 2021-11-27 79.833 kg [facility] 21:01:00 [facility] BMI 2021-11-27 31.18 kg/m2 [facility] 21:01:00 Hospital Oxygen saturation 2021-11-27 98 /min [facility] in Arterial blood 21:01:00 Hospital by Pulse oximetry Respiratory rate 2021-08-31 17 /min [facility] 00:00:00 [facility] Systolic blood 2020-08-27 116 mm[Hg] Location: [place]; [place] [facility] pressure 11:13:00 Position: Sitting Diastolic blood 2020-08-27 85 mm[Hg] Location: [facility] Physici ans pressure 11:13:00 Position: Sitting Body height 2020-08-27 63 [in_us] [facility] 11:13:00 Weight 2020-08-27 160 [lb_av] [facility] 11:13:00 Body mass index 2020-08-27 28.34 kg/m2 [facility] (BMI) [Ratio] 11:13:00 Heart Rate 2020-08-27 125 /min Location: L [facility] 11:13:00 Brachial Artery; Body temperature 2020-08-27 97.4 [degF] Method: [facility] 11:13:00 Temporal Systolic blood 2020-02-20 110 mm[Hg] [facility] pressure 11:37:00 Diastolic blood 2020-02-20 79 mm[Hg] [facility] pressure 11:37:00 Body height 2020-02-20 63 [in_us] [facility] 11:37:00 Weight 2020-02-20 150 [lb_av] [facility] 11:37:00 Body mass index 2020-02-20 26.57 kg/m2 [place] [facility] (BMI) [Ratio] 11:37:00 Body temperature 2020-02-20 98.6 [degF] [place] [facility] 11:37:00 Heart Rate 2020-02-20 102 /min [facility] 11:37:00 Procedures Procedure Date / Time Performing Clinician Source Performed ASSIGNMENT OF BENEFITS 2022-08-27 20:30:29 Doctor Unassigned, [facility] [place] [facility] NO SHOW OR MISSED 2021-10-16 16:22:29 Doctor Unassigned, [facility] APPOINTMENT POLICY [place] [facility] ACKNOWLEDGEMENT POC GLUCOSE 2021-08-30 23:33:00 Everton Peters ash[facility] Peters-Hsi CREATION, AV FISTULA 2021-08-30 19:14:00 [facility] ANESTHESIA PERIPHERAL 2021-08-30 19:00:39 Alfred Curry [facility] THO Mckenzie BASIC METABOLIC PANEL 2021-08-30 17:36:00 Everton Peters [facility]-Hsi ESTIMATED GFR 2021-08-30 17:36:00 [facility] ESTIMATED GFR 2021-08-30 17:33:00 Everton Peters [facility] Peters-Hsi POC PANEL 2021-08-30 17:33:00 Everton Peters [facility] Peters-Hsi ECG PRE/POST OP 2021-08-28 19:21:25 Melquiades Nunez COVID-19 QUALITATIVE 2021-08-28 17:38:00 [facility] Peters-Hsi PROTHROMBIN TIME WITH INR 2021-08-28 17:38:00 Everton Peters [facility] Peters-Hsi PARTIAL THROMBOPLASTIN 2021-08-28 17:38:00 Everton Peters [facility] TIME (PTT) Fran-Alfonzo TYPE AND SCREEN 2021-08-28 17:38:00 Everton Peters Ho spital Peters-Hsi HC COMPLETE BLD COUNT 2021-08-28 17:38:00 Everton Peters [facility] W/AUTO DIFF Peters-Hsi HEMOGLOBIN A1C 2021-08-28 17:38:00 Melquiades Nunez spital Bernardo Macias HCG QUALITATIVE, SERUM 2021-08-28 17:38:00 Rani [facility] SCREEN Bernardo Macias COMPREHENSIVE METABOLIC 2021-08-03 03:16:00 Maura, [facility] PANEL HC COMPLETE BLD COUNT 2021-08-03 03:16:00 Maura, [facility] W/AUTO DIFF PROTHROMBIN TIME WITH INR 2021-08-03 03:16:00 Maura, Lennox [facility] ESTIMATED GFR 2021-08-03 03:16:00 [facility] HEPATITIS B SURFACE 2021-08-03 00:28:00 [facility] ANTIGEN HEPATITIS B SURFACE AB, 2021-08-03 00:28:00 AnelAbbie cadena [facility] QUANTITATIVE HEMODIALYSIS 2021-08-02 21:51[facility] CREATION, AV FISTULA 2021-08-02 20:00:00 [facility]FR 2021-08-02 18:27:00 Everton Peters spital Peters-Hsi POC PANEL 2021-08-02 18:27:00 [facility] ABO AND RH CONFIRMATION BY 2021-08-02 18:22:00 Caro Peterslie [facility] PROTOCOL Peters-Hsi BASIC METABOLIC PANEL 2021-08-02 18:21:00 Everton Peters [facility] Peters-Hsi ESTIMATED GFR 2021-08-02 18:21:00 Everton Peters Ho spital Peters-Hsi HEMOGLOBIN A1C 2021-08-02 08:16:[address] [facility] ECG PRE/POST OP 2021-07-31 18:52:39 Everton Peters Ho ashleigh Peters-Hsi XR CHEST 2 VW 2021-07-31 18:33:44 Everton Peters Ho ashleigh Peters-Hsi COVID-19 QUALITATIVE 2021-07-31 17:17:00 Everton Peters [facility] RT-PCR [facility]-Hsi PARTIAL THROMBOPLASTIN 2021-07-31 17:17:00 Everton Peters [facility] TIME (PTT) Peters-Hsi PROTHROMBIN TIME WITH INR 2021-07-31 17:17:00 Everton Peters [facility]-Hsi HC COMPLETE BLD COUNT 2021-07-31 17:17[facility] Peters-Hsi TYPE AND SCREEN 2021-07-31 17:17:00 Everton Peters Ho ashleigh Peters-Hsi HCG QUALITATIVE, SERUM 2021-07-31 [facility] Macias HEMOGLOBIN A1C 2021-07-31 17:17:00 Melquiades Nunez PHYSICIAN ORDERS 2021-05-31 05:01:00 Doctor Unassigned, [facility] [place] [facility] CT Abdomen/Pelvis w/wo 2020-08-27 00[place]00:00 [place] [facility] [id number] [facility] Chest wo contrast [id number] 2020-08-27 00:00:00 [facility] Bladder Surgery [place] [facility] Plan of Care Planned Activity Planned Date Details Comments Source Future Scheduled 2022-08-28 Pneumococcal Vaccine: [facility] Test 14:21:13 Pediatrics (0 to 5 Years) and At-Risk Patients (6 to 64 Years) (1 - PCV) [code = Pneumococcal Vaccine: Pediatrics (0 to 5 Years) and At-Risk Patients (6 to 64 Years) (1 - PCV)] Future Scheduled 2022-08-28 Screening for [facility] Test 14:21:13 Chlamydia trachomatis (procedure) [code = 833034124] Future Scheduled 2022-08-28 Hepatitis C screening [facility] Test 14:21:13 (procedure) [code = 908539334] Future Scheduled 2022-08-28 COVID-19 VACCINE (3 - [facility] Test 14:21:13 Pfizer risk series) [code = COVID-19 VACCINE (3 - Pfizer risk series)] Future Scheduled 2022-08-28 [facility] Test 14:21:13 malignant neoplasm of cervix (procedure) [code = 744402677] Future Scheduled 2022-08-28 INFLUENZA VACCINE [facility] Test 14:21:13 [code = INFLUENZA VACCINE] Future Scheduled 2022-08-14 Pneumococcal Vaccine: [facility] Test 10:13:28 Pediatrics (0 to 5 Years) and At-Risk Patients (6 to 64 Years) (1 - PCV) [code = Pneumococcal Vaccine: Pediatrics (0 to 5 Years) and At-Risk Patients (6 to 64 Years) (1 - PCV)] Future Scheduled 2022-08-14 Screening for [facility] Test 10:13:28 Chlamydia trachomatis (procedure) [code = 535488885] Future Scheduled 2022-08-14 Hepatitis C screening [facility] Test 10:13:28 (procedure) [code = 313699674] Future Scheduled 2022-08-14 COVID-19 VACCINE (3 - [facility] Test 10:13:28 Pfizer risk series) [code = COVID-19 VACCINE (3 - Pfizer risk series)] Future Scheduled 2022-08-14 Screening for [facility] Test 10:13:28 malignant neoplasm of cervix (procedure) [code = 654726093] Future Scheduled 2022-08-14 INFLUENZA VACCINE [facility] Test 10:13:28 [code = INFLUENZA VACCINE] Future Scheduled 2022-05-16 HEPATITIS B VACCINES Met [facility] Test 12:30:08 (1 of 3 - 3-dose series) [code = HEPATITIS B VACCINES (1 of 3 - 3-dose series)] Future Scheduled 2022-05-16 Pneumococcal Vaccine: [facility] Test 12:30:08 Pediatrics (0 to 5 Years) and At-Risk Patients (6 to 64 Years) (1 - PCV) [code = Pneumococcal Vaccine: Pediatrics (0 to 5 Years) and At-Risk Patients (6 to 64 Years) (1 - PCV)] Future Scheduled 2022-05-16 Screening for [facility] Test 12:30:08 Chlamydia trachomatis (procedure) [code = 212727078] Future Scheduled 2022-05-16 Hepatitis C screening [facility] Test 12:30:08 (procedure) [code = 558919286] Future Scheduled 2022-05-16 COVID-19 VACCINE (3 - [facility] Test 12:30:08 Pfizer risk series) [code = COVID-19 VACCINE (3 - Pfizer risk series)] Future Scheduled 2022-05-16 [facility] Test 12:30:08 malignant neoplasm of cervix (procedure) [code = 582682339] Future Scheduled 2022-05-16 INFLUENZA VACCINE [facility] Hospital Test 12:30:08 [code = INFLUENZA VACCINE] Encounters Start End Encounter Admission Attending Care Care Encounter Source Date/Time Date/Time Type Type Clinicians Facility Department ID 2020-12-[address] [facility] [id number] [place] 03:05:41 Health 2020-03-02 Outpatient VIRGILIO MCKEON [facility] [id number] [facility] 10:17:34 2019-11-04 Outpatient BETHEL [facility] 9623 [facility] 09:37:41 HUGO 2019-10-10 Inpatient APURVA HIGUERA [facility] [id number] [facility] 07:23:15 2018-12-13 Outpatient [facility] 9616 [facility] 13:42:33 2018-11-25 Inpatient [facility] 7[address] [facility] 09:16:59 2022-08-29 2022-08-29 [facility] [id number] Univers 00:00:00 00:00:00 Nannette SOLANO [id number] darling [facility] [id number] Noreen WALLSIO [id number] [place] [id number] [facility] 2022-08-28 2022-08-28 Outpatient Kojo [facility]GR[facility] [id number] Univers 14:58:15 23:59:00 NANNETTE cadena [facility] 2022-08-27 2022-08-27 Outpatient Kojo NEGRO [facility] [id number] Univers 14:40:00 15:03:43 NANNETTE scott [facility] 2022-08-27 2022-08-27 Office Harpreet [facility] [id number] Univers 14:40:00 15:03:43 Visit Nannette SOLANO [id number] [place] [id number] PROF[place] [id number] Az dical NAL 059 [facility] 2022-08-27 2022-08-27 Orders Doctor VIRGILIO 1.2.840.114 [id number] Univers 00:00:00 00:00:00 Only Unassigned, LINDSAY 350.1.13.10 it[place] of [place] [facility] 4.2.7.2.686 Chinmay as [phone] [address] 2022-07-18 2022-07-18 Telephone Nam, 1.2.840.1 [id number] Methodi 00:00:00 00:00:[address] 3.430.2.7 Hospit a .3.051869 l .8 2022-07-18 2022-07-18 Telephone Nam, 1.2.840.1 [id number] Methodi 00:00:00 00:00:[address] 3.430.2.7 Hospit a .3.518524 l .8 2021-11-27 2021-11-28 Office [facility] 1.2.840.1 [id number] Methodi 16:00:00 14:01:04 Visit Shaista Smith 82508.1.[address] 3.430.2.7 Hospit a .3.975961 l .8 2021-11-27 2021-11-28 Office [facility]ton [facility] 1.2.840.1 [id number] Methodi 16:00:00 14:01:04 Visit Shaista Smith 65894.1.[address] 3.430.2.7 Hospit a .3.402586 l .8 2021-11-27 2021-11-27 Travel 1.2.840.1 1.2.992.757 0237 285762 Methodi 00:00:00 00:00:[address] 3.430.2.7 0.2.7.3.698 Ho spita .3.327337 084.8 l .8 2021-11-27 2021-11-27 Travel 1.2.840.1 1.2.012.357 8575 674806 Methodi 00:00:00 00:00:[address] 3.430.2.7 0.2.7.3.698 Ho spita .3.804960 084.8 l .8 2021-11-25 2021-11-25 Telephone Luis, 1.2.840.1 [id number] 2099 564011 Methodi 00:00:00 00:00:[address] [place] 3.430.2.7 Hosp renea .3.423680 l .8 2021-11-25 2021-11-25 Telephone Susanne, 1.2.840.1 [id number] 978 [id number] Methodi 00:00:00 00:00:00 [place] 51555.1.1 940 s t 3.430.2.7 Hospit a .3.829289 l .8 2021-11-25 2021-11-25 Telephone Luis, 1.2.840.1 [id number] Methodi 00:00:00 00:00:[address] [place] 3.430.2.7 Hosp renea .3.917905 l .8 2021-11-25 2021-11-25 Telephone Susanne, 1.2.840.1 [id number] 567 [id number] Methodi 00:00:00 00:00:00 [place] 41363.1.1 940 s t 3.430.2.7 Hospit a .3.118568 l .8 2021-11-18 2021-11-18 Travel 1.2.840.1 1.2.428.150 2875 225777 Methodi 00:00:00 00:00:[address] 3.430.2.7 0.2.7.3.698 Ho spita .3.413226 084.8 l .8 2021-11-18 2021-11-18 Travel 1.2.840.1 1.2.787.992 0601 444530 Methodi 00:00:00 00:00:[address] 3.430.2.7 0.2.7.3.698 Ho spita .3.883612 084.8 l .8 2021-11-15 2021-11-15 Telephone Luis, 1.2.840.1 [id number] 2099 065703 Methodi 00:00:00 00:00:[address] [place] 3.430.2.7 Hosp renea .3.217415 l .8 2021-11-15 2021-11-15 Telephone Luis, 1.2.840.1 [id number] 2099 022450 Methodi 00:00:00 00:00:[address] [place] 3.430.2.7 Hosp renea .3.146314 l .8 2021-11-13 2021-11-13 Telephone Josué, 1.2.840.1 [id number] Methodi 00:00:00 00:00:[address] 3.430.2.7 Hospit a .3.865852 l .8 2021-11-13 2021-11-13 Telephone Josué, 1.2.840.1 [id number] Methodi 00:00:00 00:00:[address] 3.430.2.7 Hospit a .3.765773 l .8 2021-10-21 2021-10-21 Office Luis, 1.2.840.1 [id number] 973241 4069 Methodi 11:30:00 13:58:50 Visit Shaista 70341.1.[address] [place] 3.430.2.7 Hosp renea .3.476998 l .8 2021-10-21 2021-10-21 Office Luis, 1.2.840.1 [id number] 303237 0886 Methodi 11:30:00 13:58:50 Visit Shaista 24855.1.[address] [place] 3.430.2.7 Hosp renea .3.966800 l .8 2021-10-21 2021-10-21 Travel 1.2.840.1 1.2.845.541 5186 130388 Methodi 00:00:00 00:00:[address] 3.430.2.7 0.2.7.3.698 Ho spita .3.783991 084.8 l .8 2021-10-21 2021-10-21 Travel 1.2.840.1 1.2.568.282 5558 885351 Methodi 00:00:00 00:00:[address] 3.430.2.7 0.2.7.3.698 Ho spita .3.527265 084.8 l .8 2021-10-16 2021-10-16 Outpatient R ALY, [facility] [id number] Univers 10:30:00 11:56:54 ANDREAS hastings of [facility] 2021-10-16 2021-10-16 Orders Doctor VIRGILIO 1.2.840.114 [id number] Univers 00:00:00 00:00:00 Only Unassigned, LINDSAY 350.1.13.10 it[place] of [place] [facility] 4.2.7.2.686 Chinmay as [phone] [address] 2021-08-30 2021-08-30 [facility], 1.2.840.1 [id number] 19086 93592 Methodi 10:50:00 18:10:00 Encounter Everton [address]167.1.[address] [facility] 3.430.2.7 Hosp renea .3.973425 l .8 2021-08-30 2021-08-30 [facility], 1.2.840.1 [id number] 36044 97341 Methodi 10:50:00 18:10:00 Encounter Everton 57513.1.1 925 [facility] 3.430.2.7 Hosp renea .3.793072 l .8 2021-08-30 2021-08-30 Anesthesia Alfred Curry 1.2.840.1 [id number] Methodi 13:15:00 17:32:00 Event Tylor Babinelisse 85382.1.[address] 3.430.2.7 Hospit a .3.483652 l .8 2021-08-30 2021-08-30 Anesthesia Alfred Curry 1.2.840.1 [id number] Methodi 13:15:00 17:32:00 Event Nazario Babine 09198.1.[address] 3.430.2.7 Hospit a .3.710633 l .8 2021-08-30 2021-08-30 Surgery Peters, 1.2.840.1 [id number] 363740 5792 Methodi 13:14:00 16:14:00 Everton 37918.1.1 923 [facility] 3.430.2.7 Hosp renea .3.125105 l .8 2021-08-30 2021-08-30 Surgery Peters, 1.2.840.1 [id number] 808593 1922 Methodi 13:14:00 16:14:00 Everton 85553.1.1 923 [facility] 3.430.2.7 Hosp renea .3.703918 l .8 2021-08-28 2021-08-28 Pre-Admiss Fran, 1.2.840.1 [id number] 464 8984906 Methodi 11:00:00 12:00:00 ion Ever[facility] 88854.1.1 [facility] renea .3.410873 l .8 2021-08-28 2021-08-28 Travel 1.2.840.1 1.2.158.901 2469 981208 Methodi 00:00:00 00:00:[address] 3.430.2.7 0.2.7.3.698 Ho spita .3.070609 084.8 l .8 2021-08-14 2021-08-14 Travel 1.2.840.1 1.2.630.403 7969 433452 Methodi 00:00:00 00:00:[address] 3.430.2.7 0.2.7.3.698 Ho spita .3.481182 084.8 l .8 2021-08-14 2021-08-14 Prep for Demarcus, 1.2.840.1 [id number] 564 9731581 Methodi 00:00:00 00:00:00 Surgery Dipti 95690.1.[address] 3.430.2.7 Hospit a .3.160201 l .8 2021-08-07 2021-08-07 Telephone Tracy, 1.2.840.1 [id number] 21 [id number] Methodi 00:00:00 00:00:[address] 3.430.2.7 Hospit a .3.087643 l .8 2021-08-02 2021-08-02 [facility] 1.2.840. 1 [id number] Methodi 11:23:00 22:13:00 [facility] Lennox Lorenzo 46807.1.[address] 3.430.2.7 Hospit a .3.988943 l .8 2021-08-02 2021-08-02 Surgery Peters, 1.2.840.1 [id number] 508326 5850 Methodi 14:00:00 17:35:[address] [facility] 3.430.2.7 Hosp renea .3.006390 l .8 2021-07-31 2021-07-31 Hospital Fran, 1.2.840.1 [id number] 76599 94896 Methodi 12:20:28 23:59:00 Encounter Everton 30405.1.[address] Fran-H[facility] 3.430.2.7 Hosp renea .3.120634 l .8 2021-07-31 2021-07-31 Pre-Admiss Peters, 1.2.840.1 [id number] 085 [id number] Methodi 10:30:00 11:30:00 ion Everton 52690.1.[address] Fernando Peters-[facility] 3.430.2.7 Hosp renea .3.070736 l .8 2021-07-31 2021-07-31 Travel 1.2.840.1 1.2.836.562 7637 148769 Methodi 00:00:00 00:00:[address] 3.430.2.7 0.2.7.3.698 Ho spita .3.652728 084.8 l .8 2021-07-25 2021-07-25 Prep for Demarcus, 1.2.840.1 [id number] 262 3508577 Methodi 00:00:00 00:00:00 Surgery Dipti 66119.1.[address] 3.430.2.7 Hospit a .3.429383 l .8 2021-07-25 2021-07-25 Telephone Demarcus, 1.2.840.1 [id number] 21 [id number] Methodi 00:00:00 00:00:[address] 3.430.2.7 Hospit a .3.945244 l .8 2021-07-24 2021-07-24 Office Fran, 1.2.840.1 [id number] 040707 1455 Methodi 10:30:00 12:06:23 Visit Everton 40650.1.[address] Fran-Hsi 3.430.2.7 Hosp renea .3.782042 l .8 2021-07-24 2021-07-24 Travel 1.2.840.1 1.2.670.672 1373 521721 Methodi 00:00:00 00:00:[address] 3.430.2.7 0.2.7.3.698 Ho spita .3.998783 084.8 l .8 2021-06-19 2021-06-19 Telephone Demarcus, 1.2.840.1 [id number] 21 [id number] Methodi 00:00:00 00:00:[address] 3.430.2.7 Hospit a .3.523024 l .8 2021-05-31 2021-05-31 Nurse 1, Adc Infusion Nurse [facility] 1.2. 840.114 [id number] Univers 08:29:34 09:29:34 Visit Abbie Alejandro 350.1.13.10 [phone] 192163 [place] 2021-05-31 2021-05-31 [facility] [id number] 7636 Univers 08:00:00 08:00:00 [facility]-05-[facility] 2021-05-31 Orders Doctor VIRGILIO 1.2.840.114 [id number] Univers 00:00:00 00:00:00 Only Unassigned, LINDSAY 350.1.13.10 [place] [facility] 4.2.7.2.686 [place] [phone] [place] [address] [place] 2020-12-02 2020-12-02 Outpatient [facility] [id number] Univers 14:15:00 14:15:00 ity [facility] 2020-12-01 2020-12-01 [facility] [id number] [id number] Univers 14:15:00 14:14:52 ROHIT ity [facility] 2020-11-11 2020-11-11 Outpatient [facility] [id number] Univers 14:15:00 14:15:00 ity [facility] 2020-08-27 2020-08-27 Tawana ROWELL TUNG, [facility] - 67 [id number] [place] 08:45:00 08:45:00 t; Mary ROWELL i, M.D. [facility] 2020-08-22 2020-08-22 Outpatient [facility]IO [facility] 021 517 [id number] [place] 00:00:00 00:00:[address] 2020-08-20 2020-08-20 Outpatient ENIO [facility] 798 [id number] [place] 00:00:00 00:00:[address] 2020-06-25 2020-06-25 Outpatient ENIO [facility] 751 [id number] [place] 00:00:00 00:00:[address] 2020-05-18 2020-05-18 Prep [facility] 1.2.840.114 [id number] [id number] [facility] 00:00:00 00:00:00 Surgery Netta Solano 350.1.13.10 [place] [phone] Az dical nal 204 [facility] 2020-05-17 2020-05-17 Telephone [facility] 1.2.840.114 78 606000 Univers 00:00:00 00:00:00 Maral Solano 350.1.13.10 [place] [phone] Az dical nal 188 [facility] 2020-05-15 2020-05-15 Office [facility] 1.2.753.253 0307 1062 Univers 14:58:46 15:52:26 Visit Maral Solano 350.1.13.10 [place] 180.6742181 Az dical nal 188 [facility] 2020-05-15 2020-05-15 [facility] 70122 43444 Univers 15:00:00 15:00:00 MARAL hastings [facility] 2020-03-05 2020-03-05 Appointmen ORGANTRANSP [place] [facility]TP [id number] [id number] [place] 10:30:00 10:30:00 t; LANT, OP Physi ci ORGANTRANS ans PLANT, OP 2020-02-20 2020-02-20 Appointmen CAROL ROWELL, UTP Urology - 66 [id number] [place] 08:30:00 08:30:00 t; Mary ROWELL i, M.D. [facility] 2020-02-09 2020-02-10 Inpatient U VIRGILIO MCKEON [facility] 75[address] [facility] 12:56:00 17:50:00 2020-01-30 2020-01-30 Appointmen ORGANTRANSP UTP UTP [id number] [id number] [place] 09:00:00 09:00:00 t; LANT, OP Physi ci ORGANTRANS ans PLANT, OP 2020-01-30 2020-01-30 Outpatient VIRGILIO MCKEON [facility] SHAHBAZ 962 4 [facility] 08:25:00 08:25:00 2019-11-02 2019-11-05 Inpatient KARLOS [facility] 0077 [facility] 08:25:00 11:35:00 TRACI 2019-09-22 2019-09-22 Appointmen ORGANTRANSP UTP UTP [id number] [id number] [place] 08:00:00 08:00:00 t; LANT, OP Physi ci ORGANTRANS ans PLANT, OP 2019-09-19 2019-09-19 Appointmen ORGANTRANSP UTP UTP [id number] [place] 08:00:00 08:00:00 t; LANT, OP Physi ci ORGANTRANS ans PLANT, OP 2019-09-08 2019-09-08 Appointmen ORGANTRANSP UTP UTP [id number] [id number] [place] 09:00:00 09:00:00 t; LANT, OP Physi ci ORGANTRANS ans PLANT, OP 2019-08-29 2019-08-29 Appointmen ORGANTRANSP UTP UTP [id number] [id number] [place] 07:30:00 07:30:00 t; LANT, OP Physi ci ORGANTRANS ans PLANT, OP 2019-08-29 2019-08-29 Outpatient [facility]UL [address]22 [facility] 07:07:00 07:07:00 2019-08-15 2019-08-15 Outpatient [facility] [address] [facility] 06:46:00 06:46:00 2019-07-26 2019-07-26 Inpatient E [facility] 7581 [facility] 21:16:00 19:41:00 2019-06-26 2019-06-26 Inpatient E [facility] 7579 [facility] 23:55:00 16:24:00 2019-06-20 2019-06-20 Outpatient [facility] [address] [facility] 06:33:00 06:33:00 2019-04-07 2019-04-07 Outpatient [facility] [address] [facility] 09:43:00 09:43:00 2019-01-17 2019-01-17 Outpatient [facility] [address] [facility] 06:41:00 06:41:00 2018-12-13 2018-12-13 Outpatient [facility] [address] [facility] 06:41:00 06:41:00 2018-11-24 2018-11-24 Inpatient E [facility] 7537 [facility] 22:03:00 18:46:00 2018-11-01 2018-11-01 Appointmen DEXA, SCAN UTP UTP [id number] [place] 09:30:00 09:30:00 t; DEXA, Physi ci SCAN ans 2018-11-01 2018-11-01 Outpatient [facility] [address] [facility] 06:38:00 06:38:00 Results Test Description Test Time Test Comments Results Result Comments Source POC glucose 2021-08-30 23:34:35 Test Item Value Reference Range Interpretation Comme nts POC glucose (test code = 70 mg/dL 65-99 Ope rator Name: Joan Adame 76180-0) ID: [id number] [facility] [id number] 23:34:35 Test Item Value Reference Range Interpretation Comments POC glucose (test 70 mg/dL 65-99 College Advisor N clemente: Joan code = 52252-7) Deep ID: [id number] [facility] [id number] 23:34:35 Test Item Value Reference Range Interpretation Comments POC glucose (test 70 mg/dL 65-99 College Advisor N clemente: Joan code = 06251-0) Deep ID: [id number] [facility] [id number] 17:34:58 Test Item Value Reference Range Interpretation Comments POC sodium (test code = 140 mmol/L 647-880 0748-0) POC potassium (test 4.4 mmol/L 3.5-5 code = 6298-4) POC glucose (test code 94 mg/dL 65-99 = 2339-0) POC creatinine (test 8.6 mg/dl 0.5-0.9 H Operato r Name: Mervin code = 32316-0) AileenDevice ID: [id number] POC hemoglobin (test 12.9 g/dL 12-16 code = 718-7) POC hematocrit (test 38 % 37-47 code = 4544-3) Lab Interpretation Abnormal (test code = 59873-8) [facility]2022-01-14 17:34:58 Test Item Value Reference Range Interpretation Comments POC sodium (test code = 140 mmol/L 794-672 2474-0) POC potassium (test 4.4 mmol/L 3.5-5.0 code = 6298-4) POC glucose (test code 94 mg/dL 65-99 = 2339-0) POC creatinine (test 8.6 mg/dl 0.5-0.9 H Operato r Name: Mervin code = 65081-9) AileenDevice ID: [id number] POC hemoglobin (test 12.9 g/dL 12.0-16.0 code = 718-7) POC hematocrit (test 38 % 37-47 code = 4544-3) Lab Interpretation Abnormal (test code = 85817-0) [facility]2022-01-14 17:34:58 Test Item Value Reference Range Interpretation Comments POC sodium (test code = 140 mmol/L 269-013 0523-0) POC potassium (test 4.4 mmol/L 3.5-5.0 code = 6298-4) POC glucose (test code 94 mg/dL 65-99 = 2339-0) POC creatinine (test 8.6 mg/dl 0.5-0.9 H Operato r Name: Chloee code = 97288-6) AileenDevice ID: [id number] POC hemoglobin (test 12.9 g/dL 12.0-16.0 code = 718-7) POC hematocrit (test 38 % 37-47 code = 4544-3) Lab Interpretation Abnormal (test code = 07699-6) [facility]Post [id number] 04:19:57 Test Item Value Reference Range Interpretation Comments Ventricular rate (test code = 253) Atrial rate (test code = 255) HI interval (test code = 266) QRSD interval [...] wave abnormality now evident in Anterior leads- [facility] [id number] 04:19:57 Test Item Value Reference Range Interpretation Comments Ventricular rate (test code = 253) Atrial rate (test code = 255) HI interval (test code = 266) QRSD interval [...] wave abnormality now evident in Anterior leads- [facility] and [id number] 21:02:00 Test Item Value Reference Range Interpretation Comments ABO grouping (test code = 883-9) A Rh type (test code = 59768-6) POS Antibody screen (gel) (test code = NEG 890-4) [facility] and [id number] 21:02:00 Test Item Value Reference Range Interpretation Comments ABO grouping (test code = 883-9) A Rh type (test code = 93719-5) POS Antibody screen (gel) (test code = NEG 890-4) Melquiades He-CoV-2 (COVID-19) RNA [Presence] in Respiratory specimen by ELLEN with probe [id number] 19:28:41 Test Item Value Reference Range Interpretation Comments SARS-CoV-2 (COVID-19) RNA Not detected Not-Detected [Presence] in Respiratory specimen by ELLEN with probe detection (test code = 96502-5) Whether patient is employed in a healthcare setting (test code = 57468-8) Whether the patient has symptoms related to condition of interest (test code = 27786-1) Patient was hospitalized because of this condition (test code = 86032-1) Whether the patient was admitted to intensive care unit (ICU) for condition of interest (test code = 20554-4) Whether patient resides in a congregate care setting (test code = 92016-1) [facility] and Rh [id number] 20:44:00 Test Item Value Reference Range Interpretation Comments ABO grouping (test code = 883-9) A Rh type (test code = 98263-5) POS Melquiades He-CoV-2 (COVID-19) RNA [Presence] in Respiratory specimen by ELLEN with probe [id number] 20:24:24 Test Item Value Reference Range Interpretation Comments SARS-CoV-2 (COVID-19) RNA Not detected Not-Detected [Presence] in Respiratory specimen by ELLEN with probe detection (test code = 74103-8) Whether patient is employed in a healthcare setting (test code = 63275-7) Whether the patient has symptoms related to condition of interest (test code = 09988-9) Patient was hospitalized because of this condition (test code = 73051-3) Whether the patient was admitted to intensive care unit (ICU) for condition of interest (test code = 16790-3) Whether patient resides in a congregate care setting (test code = 03806-5) [facility]-CoV-2 (COVID-19) RNA [Presence] in Respiratory specimen by ELLEN with probe [id number] 01:56:50 Test Item Value Reference Range Interpretation Comments SARS-CoV-2 (COVID-19) RNA Not detected Not-Detected [Presence] in Respiratory specimen by ELLEN with probe detection (test code = 98640-3) [facility]
[2022-08-29 14:50] LABS: Phosphorus 7.8 mg/dL (2.5-4.9)
--- NOTE | 2022-08-29 14:51 | P.OP ---
Customer Support Executive: MJ FINN Preoperative diagnosis: Tertiary hyperparathyroidism, end-stage renal disease Postoperative diagnosis: Same Primary procedure: 4 gland parathyroid exploration with excision of 3 glands Anesthesia: General Estimated blood loss: 20 Specimen: A. L inf (LN); B. R inf (confirm); C. L sup (confirm); D. R sup (confirm) Findings: Removal of 3 glands. Decreased L RLN stimulation, aborted L inf search Operative Technique: Indication for procedure: The patient presented with significantly elevated PTH with diagnosis of tertiary hyperparathyroidism despite optimization of medical management. She was referred by her track oiler for surgical evaluation. The risks benefits and alternatives were discussed with the patient who agreed to proceed. The patient was brought to the operating room she was placed under general anesthesia via oral endotracheal tube using a glide scope to ensure proper placement of the NIMS endotracheal tube for vocal fold monitoring. The patient was then positioned, prepped and draped in a standard fashion for parathyroid surgery. The planned incision site was injected with 1.5% lidocaine with epinephrine. A low collar incision was made through the skin and subcutaneous tissues using Bovie electrocautery. The platysma was identified and subplatysmal flaps were developed. The strap muscles were identified in the midline and were retracted from the anterior surface of the thyroid gland. Throughout the case, a combination of blunt dissection using a peanut sponge, Verma dissector and tissue division using the LigaSure was used. Based on preoperative ultrasound which is suggestive of a hyperplastic parathyroid near the inferior pole on the right side, careful dissection in this area revealed wh at appeared to be an enlarged and hyperplastic parathyroid gland. It was left in situ while other glands were identified. The right superior pole of the thyroid was carefully dissected including division of the middle thyroid vein. The superior vascular pedicle was left intact but the gland was rotated medially allowing identification of what appeared to be the right superior parathyroid gland which seemed adherent to the posterior surface of the thyroid. This finding was noted and dissection and exploration ensued to the contralateral side. The left inferior pole was identified and ligated from vascular attachments. The middle thyroid vein was identified and divided and dissection was carried out along the lateral border of the left thyroid lobe leaving the vascular pedicle intact superiorly. Deep behind the upper portion of the left lobe, tissue was identified which appeared consistent with hyperplastic, enlarged parathyroid tissue. This was left in situ while additional dissection was undertaken. During elevation of the left thyroid, the left recurrent laryngeal nerve was identified and location confirmed with nerve stimulation at a level of approximately 500 mA. Careful dissection was carried out around the left inferior pole and a small area of tissue was identified. This was removed and sent to pathology for confirmation though after removal, its appearance in size and character was more consistent with a lymph node. The pathologist confirmed this specimen A, left inferior parathyroid candidate was indeed a lymph node. Additional dissection was carried out within the area around the typical location of the left inferior parathyroid gland. The trachea, recurrent laryngeal nerve, carotid artery were all identified and carefully explored but no obvious parathyroid gland was identified. Gentle exploration lateral to the carotid near the carotid bulb revealed fatty tissue with no visible or palpable masses suggestive of parathyroid gland. The esophagus was carefully elevated and judicious exploration was carried out between the esophagus and vertebral body. Exploration in this plane was somewhat limited due to desire to avoid excessive retraction on the recurrent laryngeal nerve. No tissue suggestive of parathyroid gland was identified. Attention was then turned to the inferior pole and upper portion of the mediastinum. The inferior aspect of the sternocleidomastoid muscle was retracted and divided from soft tissue attachments and the fatty tissue in the upper mediastinum was judiciously explored. There was no tissue identified that was suggestive of parathyroid tissue. At this time the left recurrent laryngeal nerve was again stimulated and was noted to have a significant decrease to approximately 100 mA. Based on this information, I elected to avoid additional dissection in order to reduce the chance of further damage to the nerve. The right inferior, right superior, and left superior glands which had been previously identified were carefully dissected from their respective location and sent to pathology who confirmed the presence of hypercellular parathyroid tissue in all 3 specimens. The decision was made to proceed with 3 gland parathyroidectomy in the interest of avoiding or limiting the risk of permanent vocal fold dysfunction. The surgical cavity was thoroughly irrigated with multiple aliquots of sterile saline and inspected in regards to any evidence of bleeding. A 10 [place] round MALINDA drain was inserted through the right lateral neck flap. A small amount of cauterization around the drain site was performed due to a small amount of bleeding in that area. The drain was secured using a 3-0 nylon suture. I initially attempted to place a suture through the strap muscles in order to approximate them over the thyroid gland, however there was a moderate sized vein and after piercing the vein with the Vicryl suture needle, I removed and applied pressure. The vein was sealed using the LigaSure to reduce bleeding and since the strap muscles were under some tension given the in situ thyroid gland, I elected not to close the strap muscles. The MALINDA drain was placed behind and around the right and left thyroid lobes. The skin was closed in a layered fashion using 4-0 Vicryl deep sutures for the platysmal and subcutaneous layers. The skin was closed in a subcuticular fashion using 5-0 Monocryl suture. To aid in postoperative pain control, 10 mL of 0.5% Marcaine local anesthetic was injected around the incision and drain site. The skin was cleaned and dried Mastisol and Steri-Strips were applied to the incision. The procedure was concluded. All sponge and needle counts were reported as correct. The patient was returned to care of anesthesia for awakening extubation in the operating room which proceeded without difficulty and she was transported to the recovery room in stable condition. Postoperative management will the requested from the patient's nephrology team in regards to her risk for hungry bone syndrome, calcium and other electrolyte abnormalities, and management of her hemodialysis. Hospitalist consult is also requested for any acute medical issues outside of her acute surgical care. Complications: None Drain(s): MALINDA drain Fluids & blood products: 250ml crystalloid Transferred to: Recovery Room Condition: Good
[2022-08-29 14:55] LABS: Potassium 7.5 mmol/L (3.5-5.1)
[2022-08-29 15:07] VITALS: O2SAT 97
[2022-08-29] MEDS: CALCIUM ACETATE 667 MG TAB PO SCH (17:00)
--- NOTE | 2022-08-29 17:06 | P.CNS ---
Date of Consult: 08/29/22 Reason for Consult: ESRD, hyperkalemia Requesting Physician: Rajni Salazar Chief Complaint: Elective admission for parathyroidectomy History of Present Illness: Pt is a young 21 yo female with a hx of hx of spina bifida, recurrent UTIs, ESRD s/p failed kidney transplantation, transitioned prev from peritoneal dialysis to in-center HD TTS at the [facility] via a Lt UE AVF. Pt did undergo HD yesterday and ran her full treatment time. Pt electively admitted for parathyroidectomy given uncontrolled secondary hyperparathyroidism with PTH levels in the several thousand range with chronic hyperphosphatemia and other in the setting of CKD. Pt seen post operatively in stable condition but labs obtained show marked hyperkalemia, lab confirms no hemolysis. Pt has some expected pain at surgical site and some nausea but no vomiting. Allergies latex Allergy (Verified 08/25/22 13:09) Hives/Rash Home Medications: Nifedipine [Procardia Xl] 60 mg PO DAILY 05/16/22 Carvedilol [Coreg] 25 mg PO BID 08/25/22 - Past Medical/Surgical History Diabetic: No -: Hypertension -: spina bifida -: bladder reflux -: ESRD on HD -: spina bifida repair -: bladder augmentation -: kidney transplant, then nephrectomy -: PD placement Psychosocial/ Personal History: Patient is adopted. - Family History Father Notes: adopted - Social History Alcohol use: No CD- Drugs: No Caffeine use: No Review of Systems General: Weakness Eyes: Unremarkable ENT: Throat Pain, As per HPI Respiratory: Unremarkable Cardiovascular: Other (Recent fluid overload, weight gain improved with UF on HD, recent echo done prior to surgery) Gastrointestinal: Unremarkable Genitourinary: As per HPI, Unremarkable Musculoskeletal: Unremarkable Integumentary: Unremarkable Neurological: Unremarkable Lymphatics: Unremarkable Physical Examination Temp Pulse Resp BP Pulse Ox 97.3 F 79 16 140/94 H 97 08/29/22 16:00 08/29/22 16:00 08/29/22 16:00 08/29/22 16:00 08/29/22 16:00 General: Alert, Cooperative Neck: Other (Midline neck incision with MALINDA drain present) Respiratory: Clear to auscultation bilaterally, Normal air movement Cardiovascular: No edema, Regular rate/rhythm, Normal S1 S2 Gastrointestinal: Soft and benign, Non-distended, No tenderness Musculoskeletal: No clubbing, No swelling Integumentary: No rashes, No breakdown Neurological: Normal speech, Normal tone, Normal affect Laboratory Data (last 24 hrs) 08/29/22 14:24: Sodium 138, Potassium 7.5 H*, BUN 31 H, Creatinine 9.14 H*, Glucose 179 H, Phosphorus 7.8 H Conclusions/Impression: A/P) 1. ESRD -last OP HD yesterday but will perform emergent HD this late afternoon for post operative hyperkalemia 2. Post operative hyperkalemia -will address with HD with low K bath of 1 meq/L, will repeat K level 2h post HD to ensure levels is appropriately lower 3. Secondary hyperparathyrodism and hyperphosphatemia due to CKD -operative report reviewed, 3 hyperplastic glands removed, PTH level lower from 5629 to ~ 1200, total Ca mildly reduced and < 8.4. Will dialyze with higher 3.0 Ca bath, will start on Ca based phos binders, will place on active and nutritional Vit D. Will repeat total Ca, phos and PTH levels in AM. Ionized Ca ordered but is a send out. Will monitor for post parathyroidectomy hypocalcemia but should not face any significant hypocalcemia as one gland was left behind. 4. Chronic HTN -resume beta elgin and CCB, holding parameters ordered. Doug Gaviria MD, HUGO
[2022-08-29 18:19] VITALS: BMI 29.2
--- NOTE | 2022-08-29 18:36 | P.HP ---
Certification for Inpatient Patient admitted to: Inpatient With expected LOS: >2 Midnights Practitioner: I am a practitioner with admitting privileges, knowledge of patient current condition, hospital course, and medical plan of care. Services: Services provided to patient in accordance with Admission requirements found in Title 42 Section 412.3 of the Code of Federal Regulations Patient History Date of Service: 08/29/22 Reason for admission: Elective admission for parathyroidectomy History of Present Illness: 21-year-old woman with a history of end-stage renal disease, spina bifida, recurrent UTI, history of failed kidney transplant heart parathyroidectomy done for tertiary hyperparathyroidism. ENT surgeon recommended hospitalization for close monitoring postsurgery. Patient currently with pain at the surgical site, vitals stable after surgery. Repeat blood work showing severe hyperkalemia. Nephrology consulted. Allergies latex Allergy (Verified 08/25/22 13:09) Hives/Rash Home Medications: Nifedipine [Procardia Xl] 60 mg PO DAILY 05/16/22 Carvedilol [Coreg] 25 mg PO BID 08/25/22 - Past Medical/Surgical History Has patient received pneumonia vaccine in the past: Yes Diabetic: No -: Hypertension -: spina bifida -: bladder reflux -: ESRD on HD -: spina bifida repair -: bladder augmentation -: kidney transplant, then nephrectomy -: PD placement Psychosocial/ Personal History: Patient is adopted. - Family History Father Notes: adopted - Social History Smoking Status: Never smoker Alcohol use: No CD- Drugs: No Caffeine use: No Place of Residence: Home Review of Systems Other: Except as documented, all other systems reviewed and negative. Physical Examination - Vital Signs Temperature: 97.3 F Blood Pressure: 140/94 Pulse: 79 Respirations: 16 Pulse Ox (%): 97 - Physical Exam General: Alert, In no apparent distress, Oriented x3 HEENT: Mucous membr. moist/pink Neck: JVD not distended Respiratory: Clear to auscultation bilaterally, Normal air movement Cardiovascular: No edema, Regular rate/rhythm, Normal S1 S2 Gastrointestinal: Normal bowel sounds, Soft and benign, Non-distended, No tenderness Musculoskeletal: No swelling Integumentary: No rashes Neurological: Normal strength at 5/5 x4 extr, Cranial nerves 3-12 intact, Other Lymphatics: No axilla or inguinal lymphadenopathy - Studies Laboratory Data (last 24 hrs) 08/29/22 14:24: Sodium 138, Potassium 7.5 H*, BUN 31 H, Creatinine 9.14 H*, Glucose 179 H, Phosphorus 7.8 H Assessment and Plan - Problems (Diagnosis) (1) Status post parathyroidectomy Current Visit: Yes Status: Acute (2) Hyperkalemia Current Visit: No Status: Acute (3) ESRD (end stage renal disease) on dialysis Current Visit: No Status: Chronic - Plan Patient admitted to the medical floor. Nephrology consulted for management of electrolytes and end-stage renal disease. Watch for hungry bone syndrome and hypocalcemia. Treatment of hypophosphatemia and hyperkalemia per nephrology. Patient is currently undergoing hemodialysis. Hold antihypertensives tonight given that patient is normotensive. We will resume antihypertensives whenever patient becomes persistently hypertensive. ENT to follow. - Advance Directives Does patient have a Living Will: No Does patient have a Durable POA for Healthcare: Yes
[2022-08-29 19:23] LABS: Hepatitis B Surface Ab - Quant 295.94 mIU/mL (<8.0); Hepatitis B surface AG Interp. Nonreactive (Nonreactive)
--- NOTE | 2022-08-29 20:40 | P.PN ---
Date of Service: 08/29/22 Post op check: resting comfortably after HD this afternoon. Nausea resolving. Pain controlled. Denies sx of hypoCa. Mother states morphine makes her itch but patient says she did ok with it in the ER last year. NAD. Voice quality stable/quiet but not breathy or weak. Neck flat. SteriStrips in place. MALINDA with mild sero-sanguineous fluid leaking from drain site with about 20ml in MALINDA bulb. Labs noted. Appreciate Renal input and management. Discussed pain management options available. Advised to let nurse/staff know if she prefers a change. Will await clearance from Renal for discharge.
[2022-08-29] MEDS: MORPHINE 4 MG/ML SYR IV PRN (20:54)
[2022-08-29] MEDS: carvediloL 25 MG TAB PO SCH (20:54)
[2022-08-30] MEDS: MORPHINE 4 MG/ML SYR IV PRN ×2 (00:47→08:59)
[2022-08-30 03:25] LABS: Albumin 2.8 g/dL (3.4-5.0); Phosphorus 5.8 mg/dL (2.5-4.9)
[2022-08-30 03:28] LABS: Potassium 6.1 mmol/L (3.5-5.1)
[2022-08-30] MEDS ORDERED: D50W 25 GM/50 ML SYRINGE IV ONE ×2 (04:14)
[2022-08-30] MEDS ORDERED: CALCIUM GLUC 10% INJ 4.65 MEQ in NA CHLORIDE 0.9% 100 ML IV ONE (04:14)
[2022-08-30] MEDS ORDERED: ALBUTEROL 2.5 MG/3 ML NEB SOL NEB ONE (04:14)
[2022-08-30] MEDS ORDERED: FUROSEMIDE 100 MG/10 ML VIAL IV ONE ×2 (04:14→04:51)
[2022-08-30] MEDS ORDERED: ALBUTEROL 2.5 MG/3 ML NEB SOL ONE (04:31)
[2022-08-30] MEDS ORDERED: D10W 125 ML IV PRN (04:36)
[2022-08-30] MEDS ORDERED: CALCIUM GLUCONATE 1 GM IVPB 1 GM/50 ML BAG IV ONE (04:51)
[2022-08-30] MEDS: CALCIUM CARBONATE 500 MG TAB PO SCH ×3 (04:58→20:46)
[2022-08-30] MEDS ORDERED: D10W 125 ML IV ONE (05:00)
[2022-08-30] MEDS ORDERED: SODIUM ZIRCONIUM CYCLOSILICATE 10 GM/PKT PO ONE ×2 (07:00→09:00)
[2022-08-30] MEDS: carvediloL 25 MG TAB PO SCH ×2 (09:03→20:46)
[2022-08-30] MEDS: NIFEDIPINE XL 30 MG TABLET PO SCH (09:04)
[2022-08-30] MEDS: CALCIUM ACETATE 667 MG TAB PO SCH ×3 (09:04→16:37)
[2022-08-30] MEDS: CALCITROL 0.25 MCG CAP PO SCH (09:04)
[2022-08-30 09:53] LABS: Potassium 4.6 mmol/L (3.5-5.1)
[2022-08-30] MEDS: ONDANSETRON 4 MG/2 ML VIAL IV PRN (10:39)
--- NOTE | 2022-08-30 11:10 | P.PN ---
Date of Service: 08/30/22 POD 1 s/p 3 gland parathyroidectomy. No acute overnight events. Pain controlled. Removed scop patch due to mouth dryness but now having some nausea. NAD. AAO. Neck flat. Incision C/D/I. MALINDA with 60ml sero-sanginous fluid overnight. Now with about 5-10 ml of fluid transitioning to serous fluid. Labs reviewed. Significant Ca drop. PTH decreased an additional 200 to about 1000 now. Care coordination with Dr. Mendoza with plan for dialysis today. Ca supplements. Met with patient and her father and other friend/family present. Discussed details of surgical findings and plan. A: teritary hyperparathyroidism, ESRD. post-op hypocalcemia requiring IV and PO replacement. post-op nausea, not controlled. P: Continue inpatient care until Ca is stablized. Appreciate HD & Ca management per Dr. Mendoza. Rx Zofran PRN nausea with 2nd option of replacement of scop patch if needed. Regarding surgical findings, as PTH is trending down, will monitor for now. Over the next several weeks, will will continue to monitor labs. If PTH continues to trend and is moderately elevated in the 100-200 range, medical management is appropriate. If remains in the 1000s with symptoms, consider future MRI for parathyroid localization and directed surgery. Discussed that embryologically, the location of the inferior parathyroid glands can be widely variable and the decision to abort search for left inferior parathyroid was driven in part by change in nerve responses and desire to avoid permanent injury to the nerve function. Patient/father express understanding.
[2022-08-30] MEDS ORDERED: SCOPOLAMINE HYDROBROMIDE PATCH TD PRN (12:00)
--- NOTE | 2022-08-30 13:39 | P.PN ---
Subjective Date of Service: 08/30/22 Chief Complaint: Elective admission for parathyroidectomy Patient had an episode of vomiting this morning. Potassium level improved, hyperkalemia resolved. Patient noted to be hypocalcemic. Physical Examination - Vital Signs Temperature: 97.7 F Blood Pressure: 116/77 Pulse: 90 Respirations: 14 Pulse Ox (%): 92 - Physical Exam General: Alert, In no apparent distress, Obese HEENT: Mucous membr. moist/pink Neck: Supple, Other (MALINDA drain-neck) Respiratory: Clear to auscultation bilaterally, Normal air movement Cardiovascular: Regular rate/rhythm, Normal S1 S2 Gastrointestinal: Normal bowel sounds, Soft and benign, Non-distended, No tenderness Musculoskeletal: No swelling Neurological: Normal strength at 5/5 x4 extr - Studies Laboratory Data (last 24 hrs) 08/30/22 08:47: Sodium 141, Potassium 4.6 D, BUN 26 H, Creatinine 7.79 H*, Glucose 88 08/30/22 02:50: Sodium 137, Potassium 6.1 H* D, BUN 22 H, Creatinine 6.93 H*, Glucose 115 H, Phosphorus 5.8 H 08/29/22 21:28: Potassium 4.6 D 08/29/22 14:24: Sodium 138, Potassium 7.5 H*, BUN 31 H, Creatinine 9.14 H*, Glucose 179 H, Phosphorus 7.8 H Assessment And Plan - Current Problems (Diagnosis) (1) Status post parathyroidectomy Current Visit: Yes Status: Acute (2) Hyperkalemia Current Visit: No Status: Acute (3) ESRD (end stage renal disease) on dialysis Current Visit: No Status: Chronic - Plan Nephrology consulted for management of electrolytes and end-stage renal disease. Patient with hypocalcemia Treatment of hyperphosphatemia, hypocalcemia(hungry bone syndrome) and hyperkalemia per nephrology. Hemodialysis per nephrology. Supportive measures-antiemetics and pain management as needed. Antihypertensives on hold given that patient has been normotensive. We will resume antihypertensives whenever patient becomes persistently hypertensive. ENT to follow.
--- NOTE | 2022-08-30 18:05 | PN ---
Subjective: The patient is seen in room 230 at [facility]. Th e patient is alert, awake and comfortable. She denies any headache and any pain currently, but has b een having some nausea since she took off the scopolamine patch. Dr. Salazar is in the room with me, also initially discussed the patient with her as well and Dr. Salazar also updated the patient and t he family regarding her post surgery status and the surgical procedure that was done. Family seems t o be satisfied and comfortable. Other questions were answered. The patient seems to be comfortable as well. Nausea is somewhat improved. The patient has gotten a dose of Zofran. Zofran 4 mg has bee n ordered p.r.n. q.6 hours if nausea were to persist. The plan is to provide scopolamine patch, whic h was recently removed as the patient was having dry mouth. Objective: Vital Signs: The patient's vitals are relatively stable. Blood pressure 122/81, before that 141/85, pulse is 87, respirations around 12, temperature of 97.4. Pain level is about 0-2. She seems to be comfortable right now with O2 of 93% on room air. Lungs: Clear to auscultation. Abdomen: Soft. Extremities: Revealed trace to no edema. Heart: Sounds are regular. The patient does have a MALINDA drain in place. Skin: Neck wound is clean and dressed. Medications: Medications and chart reviewed. The patient is on some pain medication with hydrocodon e. She is on calcitriol. She is on calcium acetate. She is on calcium carbonate which is Os-Greer, w hich I just started in the morning at 500 mg p.o. b.i.d., carvedilol. She is on morphine p.r.n. for breakthrough pain. Nifedipine for her blood pressure 30. She had a scopolamine patch, which has rec ently been removed and may need to be placed back if she resumes having nausea. She is on Zofran p.r .n. q.6 hours 4 mg. Laboratory Data: Lab data reviewed. Labs this morning bit concerning with her potassium going up to 6.1 despite it being down to 4.6 after dialysis yesterday. Sodium was 137, 104, bicarb w as 25, BUN was 22, creatinine was 6.93, calcium was 6.8. Repeat lab work after patient had treatment s done after the nurse had discussed these labs with me were improved. Sodium was 141, potassium 4.6 , chloride was 105, bicarb 25, BUN 26, creatinine 7.79, calcium level is 6.7, phosphorus at 5.8. PTH level has improved from 1200 range to 1045.7. Prior to surgery it was up to 5000 range. Assessment/plan: The patient with hyperparathyroid disease. The patient has had a parathyroidectomy with 3 glands removed. Good response initially to PTH dropping from 5000 range to about 1200. From yesterday, it has gone down to about a 1000. The patient also has had a significant drop in her greer cium. Calcium is running about 6.7 to 6.8 range. Her potassium was elevated yesterday. The patient did get her dialysis yesterday with a calcium bath in the 3 range. The patient is somewhat stable w ith her calcium, but potassium was concerning this morning. I got a call from nursing staff, nic waldrop the lab work with me that was done in the morning at 4 a.m. We ordered nebulizer treatment with a lbuterol. Ordered a Lokelma, ordered D50 half an amp and also advised the nurse to reach out to the dialysis nurse to advise them that we plan to dialyze the patient again today for about 2.5 hours. R epeat lab work after patient was given a neb treatment, glucose, and Lokelma at about 8 o'clock showe d that the potassium had improved to 4.6. The patient's exam seems to be close to euvolemic. PTH is improving. At this point, we will repeat the PTH and calcium and BMP and CBC in the morning. Preeti nue with calcium replacement. Add Os-Greer 500 b.i.d. Also, the patient's dialysis will correct the c alcium somewhat. Also, we will continue to maintain her potassium given the fact that she had a jump in potassium this morning. We will dialyze her today again for about 2.5 hours just as a precaution julio cesar measure. Do not need to take off too much fluid, but we will aim for about 500-1000 cc of fluid as tolerated. We will continue patient on Zofran p.r.n. if nausea continues to be a big issue. We w ill consider adding back the scopolamine patch. Discussed this with Dr. Salazar and we will continue to monitor patient with the ENT team. /DELFINO Voice ID: [id number] Report ID: [id number]
[2022-08-30] MEDS: HYDROCODONE/APAP 5/325 MG TAB PO PRN (18:20)
[2022-08-31 03:10] LABS: Absolute Lymphocytes (CBC) 2.2 K/uL (0.7-4.9); Hematocrit 27.9 % (36.0-45.0); Lymphocytes % 35.3 % (15.3-44.8); MCV 92.4 fL (80-100); MPV 7.9 fL (7.6-11.3); RBC Red Blood Cell Count 3.02 M/uL (3.86-4.86)
[2022-08-31 03:30] LABS: Albumin 2.9 g/dL (3.4-5.0); Phosphorus 5.4 mg/dL (2.5-4.9)
[2022-08-31] MEDS: carvediloL 25 MG TAB PO SCH ×2 (08:31→19:59)
[2022-08-31] MEDS: CALCIUM ACETATE 667 MG TAB PO SCH ×3 (08:31→17:20)
[2022-08-31] MEDS: CALCITROL 0.25 MCG CAP PO SCH (08:31)
[2022-08-31] MEDS: CALCIUM CARBONATE 500 MG TAB PO SCH ×2 (08:31→19:59)
[2022-08-31] MEDS: NIFEDIPINE XL 30 MG TABLET PO SCH (08:32)
[2022-08-31] MEDS: HYDROCODONE/APAP 5/325 MG TAB PO PRN (09:59)
[2022-08-31] MEDS: ONDANSETRON 4 MG/2 ML VIAL IV PRN ×2 (12:07→19:59)
--- NOTE | 2022-08-31 13:17 | P.PN ---
Subjective Date of Service: 08/31/22 Chief Complaint: Elective admission for parathyroidectomy Patient is complaining of nausea. Patient is still hypocalcemic. She has been afebrile. Physical Examination - Vital Signs Temperature: 97.4 F Blood Pressure: 107/63 Pulse: 86 Respirations: 14 Pulse Ox (%): 95 - Studies Laboratory Data (last 24 hrs) 08/31/22 02:49: Sodium 137, Potassium 4.0, BUN 23 H, Creatinine 6.48 H*, Glucose 121 H 08/31/22 02:49: WBC 6.10, Hgb 9.2 L, Hct 27.9 L, Plt Count 223 08/31/22 02:49: Sodium 139, Potassium 4.0 D, BUN 23 H, Creatinine 6.51 H*, Glucose 127 H, Phosphorus 5.4 H Assessment And Plan - Current Problems (Diagnosis) (1) Status post parathyroidectomy Current Visit: Yes Status: Acute (2) Hyperkalemia Current Visit: No Status: Acute (3) ESRD (end stage renal disease) on dialysis Current Visit: No Status: Chronic - Plan Physical Exam General: Alert, mild distress due to nausea. HEENT: Mucous membr. moist/pink Neck: Supple, MALINDA drain. Respiratory: Clear to auscultation bilaterally, Normal air movement Cardiovascular: Regular rate/rhythm, Normal S1 S2 Gastrointestinal: Normal bowel sounds, Soft and benign, Non-distended, No tenderness Musculoskeletal: No swelling Neurological: Normal strength at 5/5 x4 extr Nephrology consulted for management of electrolytes and end-stage renal disease. Patient with hypocalcemia Treatment of hyperphosphatemia, hypocalcemia(hungry bone syndrome) per nephrology. Hemodialysis per nephrology. Supportive measures-antiemetics and pain management as needed. Antihypertensives on hold given that patient has been normotensive. Check urinalysis with reflex culture given persistent nausea. ENT to follow.
--- NOTE | 2022-08-31 16:17 | P.PN ---
Date of Service: 08/31/22 POD 2 s/p 3 gland parathyroidectomy. Had 1 episode of vomiting and poor PO intake but improved after replacement of scop patch and dose of Zofran. Data and Labs: corrected Ca 7.2 this AM. PTH 1700s. MALINDA output 10ml overnight. A: teritary hyperparathyroidism, ESRD. post-op hypocalcemia requiring IV and PO replacement. post-op nausea, not controlled. P: Continue inpatient care until Ca is stablized. Appreciate HD & Ca management per nephrology. Plan MALINDA removal in the AM. Discussed increased PTH and plan to monitor over the next 2-3 months to see where it stabilizes. May consider MRI neck for localization of final parathyroid gland in the future if PTH not controlled enough with medical management. Discuss possibility of supernumerary glands and variability in inferior parathyroid location due to embryology.
[2022-08-31] MEDS ORDERED: CALCIUM GLUC 10% INJ 4.65 MEQ in NA CHLORIDE 0.9% 100 ML IV ONE (18:44)
[2022-08-31] MEDS ORDERED: CALCIUM GLUCONATE 1 GM IVPB 1 GM/50 ML BAG IV ONE (20:33)
[2022-08-31] MEDS ORDERED: CALCIUM GLUC 10% INJ 4.65 MEQ in NA CHLORIDE 0.9% 50 ML IV ONE (21:00)
[2022-09-01 05:51] LABS: Albumin 2.7 g/dL (3.4-5.0); Magnesium 2.4 mg/dL (1.6-2.4); Phosphorus 6.9 mg/dL (2.5-4.9); Potassium 4.3 mmol/L (3.5-5.1)
[2022-09-01] MEDS: CALCIUM ACETATE 667 MG TAB PO SCH ×3 (08:33→16:35)
[2022-09-01] MEDS: carvediloL 25 MG TAB PO SCH ×2 (08:34→20:37)
[2022-09-01] MEDS: NIFEDIPINE XL 30 MG TABLET PO SCH (08:34)
[2022-09-01] MEDS: CALCITROL 0.25 MCG CAP PO SCH (08:34)
[2022-09-01] MEDS: CALCIUM CARBONATE 500 MG TAB PO SCH ×2 (08:34→20:38)
[2022-09-01] MEDS ORDERED: EPOETIN ALFA-EPBX 10,000 UNIT/ML VIAL SQ ONE (10:27)
[2022-09-01] MEDS ORDERED: METOCLOPRAMIDE 10 MG/2mL INJ IV SCH (10:30)
[2022-09-01] MEDS ORDERED: DRISDOL (VITAMIN D=ERGOCALCIFEROL) 50000 UNIT CAP PO SCH (10:30)
[2022-09-01] MEDS ORDERED: PROMETHAZINE INJ 25 MG/ML AMP IV PRN (10:35)
[2022-09-01] MEDS: DOCUSATE NA 100 MG CAP PO SCH ×2 (11:08→20:37)
[2022-09-01 11:29] LABS: Specific Gravity 1.009 (1.005-1.030); Transitional Epithelial <5 /HPF (None Seen); Urine Bacteria 20-50 /HPF (<20); Urine Bilirubin NEGATIVE (Negative); Urine Blood Trace (Negative); Urine Clarity Turbid (Clear); Urine Color Light-Yellow (Yellow); Urine Glucose TRACE (Negative); Urine Mucus 2+ /HPF (None Seen); Urine Protein 2+ (Negative); Urine Urobilinogen Normal (Normal); Urine pH 7.5 (5.0-7.0)
[2022-09-01] MEDS ORDERED: CALCITROL 0.25 MCG CAP PO ONE (12:00)
--- NOTE | 2022-09-01 13:33 | P.PN ---
Date of Service: 09/01/22 POD 3 s/p 3 gland parathyroidectomy. Tolerated dinner better last night. c/o tingling in legs and fingers since Thursday. Exam: sleeping, rousable. Neck flat, MALINDA in place with minimal serous fluid. Incision C/D/I. Data and Labs: Ca 6.4 this AM. PTH 1600s. MALINDA output <30ml/24h. K normal. Phos and Cr elevated A: teritary hyperparathyroidism, ESRD. post-op hypocalcemia requiring IV and PO replacement. post-op nausea, controlled. P: Continue inpatient care until Ca is stablized. Appreciate HD & Ca management per nephrology. MALINDA removal now by Dr Salazar.
--- NOTE | 2022-09-01 15:33 | P.PN ---
Subjective Date of Service: 09/01/22 Chief Complaint: Elective admission for parathyroidectomy Patient has intermittent nausea which has not responded much to scopolamine patch and Zofran. Patient is still hypocalcemic but calcium level has stabilized. Physical Examination - Vital Signs Temperature: 97.6 F Blood Pressure: 116/89 Pulse: 98 Respirations: 12 Pulse Ox (%): 93 - Studies Laboratory Data (last 24 hrs) 09/01/22 05:10: Sodium 140, Potassium 4.3, BUN 41 H, Creatinine 10.20 H*, Glucose 107 H, Phosphorus 6.9 H, Magnesium 2.4 Assessment And Plan - Current Problems (Diagnosis) (1) Status post parathyroidectomy Current Visit: Yes Status: Acute (2) Hyperkalemia Current Visit: No Status: Acute (3) ESRD (end stage renal disease) on dialysis Current Visit: No Status: Chronic - Plan Physical Exam General: Alert, mild distress due to nausea. HEENT: Mucous membr. moist/pink Neck: Supple, MALINDA drain. Respiratory: Clear to auscultation bilaterally, Normal air movement Cardiovascular: Regular rate/rhythm, Normal S1 S2 Gastrointestinal: Normal bowel sounds, Soft and benign, Non-distended, No ten derness Musculoskeletal: No swelling Neurological: Normal strength at 5/5 x4 extr Nephrology following and managing electrolytes and end-stage renal disease. Treatment of hyperphosphatemia, hypocalcemia(hungry bone syndrome) per nephrology. Hemodialysis per nephrology. Supportive measures-antiemetics and pain management as needed. Antihypertensives on hold given that patient has been normotensive. UA is showing UTI. Urine culture is pending. We will start IV cefepime. Avoiding IV Rocephin in case patient may need IV calcium supplementation ENT is following.
[2022-09-01] MEDS ORDERED: CEFEPIME 1 GM in NA CHLORIDE 0.9% 100 ML IV SCH (16:00)
[2022-09-01] MEDS ORDERED: CEFEPIME 1 GM/VIAL ONE (16:21)
[2022-09-01] MEDS ORDERED: NA CHLORIDE 0.9% 100 ML ONE (16:22)
[2022-09-01] MEDS ORDERED: ACETAMINOPHEN 500 MG TAB PO PRN (16:56)
--- NOTE | 2022-09-01 21:10 | P.PN ---
Date of Service: 09/02/22 Subjective: feels better, tolerating diet slight tingling persists no spasms, no soreness asking about dc home ROS: A complete review of systems was performed and is negative except as mentioned above Physical Exam: Gen: NAD, AOx3 HEENT: normal conjunctiva, sclera anicteric CV: regular rate & rhythm, no edema Pulm: non-labored respirations, clear bilaterally Abd: soft, non-tender, non-distended Neuro: normal speech, normal affect, moves all extremities vitals reviewed Problem List s/p parathyroidectomy for tertiary hyperparathyroidism Hypocalcemia, post-op hyperkalemia ESRD on HD Spina Bifida complicated by Neurogenic Bladder and Hydronephrosis s/p Failed Donor Renal Transplant (2017) now with ESRD - on HD (TTSa) s/p parathyroidectomy hypocalcemia nephrology managing electrolyte abnormalities / HD Supportive measures-antiemetics and pain management as needed. Antihypertensives on hold given that patient has been normotensive. UA with concern for UTI. Urine culture is pending. on empiric antibiotic - cefepime; if dc hoem today, can transition to cefpodoxime unclear reason for UA Dispo: home, possibly today, per ENT
--- NOTE | 2022-09-01 21:38 | P.PN ---
Date of Service: 09/01/22 Vital Signs Temp Pulse Resp BP Pulse Ox 97.5 F 96 H 14 99/59 L 98 09/01/22 16:00 09/01/22 16:00 09/01/22 16:00 09/01/22 16:00 09/01/22 16:00 Medications Acetaminophen (Acetaminophen 500 Mg Tab) 500 mg PO Q6H PRN PRN Reason: Pain scale 2-4 (Mild) Hydrocodone Bitart/Acetaminophen (Hydrocodone/Apap 5/325 Mg Tab) 1 tab PO Q6H PRN PRN Reason: Pain scale 5-7 (Moderate) Last Admin: 08/31/22 09:59 Dose: 1 tab Calcitriol (Calcitrol 0.25 Mcg Cap) 1 mcg PO DAILY [facility] Calcium Acetate (Calcium Acetate 667 Mg Tab) 1,334 mg PO TIDWM [facility] Last Admin: 09/01/22 16:35 Dose: 1,334 mg Calcium Carbonate/Glycine (Calcium Carbonate 500 Mg Tab) 500 mg PO BID [facility] Last Admin: 09/01/22 20:38 Dose: 500 mg Carvedilol (Carvedilol 25 Mg Tab) 25 mg PO BID [facility] Last Admin: 09/01/22 20:37 Dose: 25 mg Docusate Sodium (Docusate Na 100 Mg Cap) 100 mg PO BID [facility] Last Admin: 09/01/22 20:37 Dose: 100 mg Ergocalciferol (Drisdol (Vitamin D=Ergocalciferol) 74759 Unit Cap) 50,000 unit PO Q7D [facility] Last Admin: 09/01/22 11:08 Dose: 50,000 unit Cefepime HCl 1 gm/ Sodium (Chloride) 100 mls @ 200 mls/hr IV Q48H [facility]; Protocol Last Admin: 09/01/22 16:34 Dose: 100 mls Nifedipine (Nifedipine Xl 30 Mg Tablet) 30 mg PO DAILY [facility] Last Admin: 09/01/22 08:34 Dose: 30 mg Ondansetron HCl (Ondansetron 4 Mg/2 Ml Vial) 4 mg IV Q6H PRN PRN Reason: NAUSEA / VOMITING Last Admin: 08/31/22 19:59 Dose: 4 mg Promethazine HCl (Promethazine Inj 25 Mg/Ml Amp) 12.5 mg IV Q6H PRN PRN Reason: NAUSEA / VOMITING Last Admin: 09/01/22 20:37 Dose: 12.5 mg Scopolamine HBr (Scopolamine Hydrobromide Patch) 1 pat TD 1X PRN PRN Reason: NAUSEA / VOMITING Last Admin: 08/31/22 09:55 Dose: 1 pat Sodium Chloride (Flush Normal Saline 10 Ml) 10 ml IV BID [facility] Last Admin: 09/01/22 20:38 Dose: 10 ml Lab Results (last 24 hrs) 09/01/22 09:50: Urine Color Light-yellow, Urine Clarity Turbid H, Urine pH 7.5 H, Ur Specific Pearl 1.009, Glucose (UA)(Auto) Trace H, Urine Ketones Negative, Urine Blood Trace H, Urine Nitrite Negative, Urine Bilirubin Negative, Urine Urobilinogen Normal, Ur Leukocyte Esterase 75 H, Urine RBC 11-20 H, Urine WBC 20-50 H, Ur Squamous Epith Cells 5-10, Ur Transition Epith Cell <5, Urine Bacteria 20-50 H, Urine Mucus 2+, Urine Culture Reflexed Reflexed, Urine Total Protein 2+ H 09/01/22 05:10: PTH Intact 1627.1 H 09/01/22 05:10: Sodium 140, Potassium 4.3, Chloride 103, Carbon Dioxide 28, Anion Gap 13.3, BUN 41 H, Creatinine 10.20 H*, Est GFR (CKD-EPI) 5 L, Glucose 107 H, Calcium 6.4 L*, Phosphorus 6.9 H, Magnesium 2.4, Albumin 2.7 L Assessment/ Plan: Nephrology No dyspnea No chest pain Persistent nausea No acute events overnight Vitals, medications, blood work and imaging reviewed in the chart. NAD. NCAT. MMM. Neck supple. Normal respiratory effort. RRR. Abd ND. No C/C/E. No rash. AAO. Normal speech. ESRD on HD -HD TIW Hyperkalemia -HD TIW -Renal diet HTN with CKD -Continue Nifedipine Hypoalbuminemia -Start Nepro Anemia in CKD -Retacrit X1 CKD MBD Tertiary HyperPTH sp parathyroidectomy 08-29-22 Hypocalcemia/ HyperPO4 -Increase Calcitriol -Start Ergocalciferol -Continue calcium supplementation Case reviewed with Dr. Salazar
[2022-09-02 06:10] LABS: Absolute Lymphocytes (CBC) 1.9 K/uL (0.7-4.9); Hematocrit 26.9 % (36.0-45.0); Lymphocytes % 32.5 % (15.3-44.8); MCV 91.4 fL (80-100); MPV 8.2 fL (7.6-11.3); RBC Red Blood Cell Count 2.94 M/uL (3.86-4.86)
[2022-09-02 06:49] LABS: Magnesium 2.5 mg/dL (1.6-2.4); Phosphorus 7.1 mg/dL (2.5-4.9); Potassium 4.3 mmol/L (3.5-5.1)
[2022-09-02] MEDS: CALCIUM CARBONATE 500 MG TAB PO SCH ×2 (08:23→20:14)
[2022-09-02] MEDS: carvediloL 25 MG TAB PO SCH ×2 (08:23→20:14)
[2022-09-02] MEDS: DOCUSATE NA 100 MG CAP PO SCH ×2 (08:24→20:13)
[2022-09-02] MEDS: CALCIUM ACETATE 667 MG TAB PO SCH ×3 (08:24→17:16)
[2022-09-02] MEDS: NIFEDIPINE XL 30 MG TABLET PO SCH (08:24)
[2022-09-02] MEDS ORDERED: DRISDOL (VITAMIN D=ERGOCALCIFEROL) 50000 UNIT CAP PO SCH (09:00)
[2022-09-02] MEDS ORDERED: CALCITROL 0.25 MCG CAP PO SCH (09:00)
[2022-09-02 16:41] VITALS: TEMP 98.6
[2022-09-02] MEDS ORDERED: NA CHLORIDE 0.9% 100 ML ONE (17:12)
[2022-09-02] MEDS ORDERED: CEFEPIME 1 GM/VIAL ONE (17:12)
[2022-09-02] MEDS ORDERED: CEFEPIME 1 GM in NA CHLORIDE 0.9% 100 ML IV SCH (18:00)
[2022-09-02 20:30] VITALS: BP 137/95
--- NOTE | 2022-09-02 21:53 | P.PN ---
Date of Service: 09/02/22 Vital Signs Temp Pulse Resp BP Pulse Ox 98.6 F 97 H 16 137/95 H 99 09/02/22 16:00 09/02/22 16:00 09/02/22 16:00 09/02/22 20:00 09/02/22 16:00 Lab Results (last 24 hrs) 09/02/22 06:00: Sodium 139, Potassium 4.3, Chloride 104, Carbon Dioxide 25, Anion Gap 14.3, BUN 56 H, Creatinine 13.10 H*, Est GFR (CKD-EPI) 4 L, Glucose 98, Calcium 6.5 L*, Phosphorus 7.1 H, Magnesium 2.5 H 09/02/22 06:00: WBC 6.00, RBC 2.94 L, Hgb 9.0 L, Hct 26.9 L, MCV 91.4, MCH 30.5, MCHC 33.3, RDW 12.8, Plt Count 172, MPV 8.2, Neutrophils % 56.2, Lymphocytes % 32.5, Monocytes % 8.6, Eosinophils % 2.3, Basophils % 0.4, Absolute Neutrophils 3.4, Absolute Lymphocytes 1.9, Absolute Monocytes 0.5, Absolute Eosinophils 0.1, Absolute Basophils 0.0 08/30/22 08:47: Ionized Calcium 3.7 L 08/29/22 14:24: Ionized Calcium 4.3 L Assessment/ Plan: Nephrology No dyspnea No chest pain Feeling better today No acute events overnight Vitals, medications, blood work and imaging reviewed in the chart. NAD. NCAT. MMM. Neck supple. Normal respiratory effort. RRR. Abd ND. No C/C/E. No rash. AAO. Normal speech. ESRD on HD -HD TIW Hyperkalemia -HD TIW -Renal diet HTN with CKD -Continue Nifedipine Hypoalbuminemia -Continue Nepro Anemia in CKD -Retacrit PRN CKD MBD Tertiary HyperPTH sp parathyroidectomy 08-29-22 Hypocalcemia/ HyperPO4 -Continue Calcitriol -Continue Ergocalciferol -Continue calcium supplementation Case reviewed with Dr. Salazar
--- NOTE | 2022-09-03 06:43 | P.DS ---
Admission Date: 08/29/22 Discharge Date: 09/02/22 Disposition: ROUTINE DISCHARGE Discharge Condition: FAIR Reason for Admission: Elective admission for parathyroidectomy Consultations: Hospitalist service and Nephrology Service Procedures: 3 gland Parathyroidectomy - Problems (1) Hyperparathyroidism due to ESRD on dialysis Status: Chronic (2) Hypocalcemia Status: Chronic (3) Status post parathyroidectomy Status: Acute (4) ESRD (end stage renal disease) on dialysis Status: Chronic (5) Hypertension Status: Chronic Qualifiers: Hypertension type: primary hypertension Qualified Code(s): I10 - Essential (primary) hypertension Brief History of Present Illness: Admission following parathyroid surgery for monitoring, dialysis and management of calcium Hospital Course: Received dialysis on ThursdayAug 29, ThursdayAug 30 and ThursdaySep 02. Calcium managed with IV and oral supplementation and and oral calcitriol and vitamin D. She has Urine Culture ordered by the hospitalist service with results pending and was placed empirically on Cefipime. On the evening of Thursday, the patient was cleared by her personal supervisor pipe joints for discharge with continuation of oral calcitriol 1mcg daily to be written by Dr Chapman and follow up on Sep 04 with Dialysis center. Follow up with Dr Salazar in 1 week. Vital Signs/Physical Exam: Temp Pulse Resp BP Pulse Ox 98.6 F 97 H 16 137/95 H 99 09/02/22 16:00 09/02/22 16:00 09/02/22 16:00 09/02/22 20:00 09/02/22 16:00 Laboratory Data at Discharge: WBC 6.00 K/uL (4.3-10.9) 09/02/22 06:00 Hgb 9.0 g/dL (12.0-15.0) L 09/02/22 06:00 Hct 26.9 % (36.0-45.0) L 09/02/22 06:00 Plt Count 172 K/uL (152-406) 09/02/22 06:00 Sodium 139 mmol/L (136-145) 09/02/22 06:00 Potassium 4.3 mmol/L (3.5-5.1) 09/02/22 06:00 BUN 56 mg/dL (7-18) H 09/02/22 06:00 Creatinine 13.10 mg/dL (0.55-1.02) H* 09/02/22 06:00 Glucose 98 mg/dL (74-106) 09/02/22 06:00 Phosphorus 7.1 mg/dL (2.5-4.9) H 09/02/22 06:00 Magnesium 2.5 mg/dL (1.6-2.4) H 09/02/22 06:00 Total Bilirubin 0.3 mg/dL (0.2-1.0) 08/25/22 13:22 AST 7 U/L (15-37) L 08/25/22 13:22 ALT 14 U/L (13-56) 08/25/22 13:22 Alkaline Phosphatase 318 U/L (45-117) H 08/25/22 13:22 Home Medications: Nifedipine [Procardia Xl] 60 mg PO DAILY 05/16/22 Carvedilol [Coreg] 25 mg PO BID 08/25/22 Cefpodoxime Proxetil 100 mg PO EVERY 3RD DAY 7 Days #3 tab 09/02/22 New Medications: Cefpodoxime Proxetil 100 mg PO EVERY 3RD DAY 7 Days #3 tab Followup: Tremaine Chapman DO [ACTIVE - CAN ADMIT] - (Follow up in Hemodialysis) Rajni Salazar MD [ACTIVE - CAN ADMIT] - 1 Week
== END 2022-09-02 20:20 | disposition home or self-care (01) | DRG 625 ==
LOC: OR 07:30 → 2ND 14:46
PROVIDERS: ADMIT Otolaryngology; ATTEND Otolaryngology
PROC: 0GBM0ZZ Excision of Left Superior Parathyroid Gland, Open Approach (ICD-10-PCS; 2022-08-29)
PROC: 0GBN0ZZ Excision of Right Inferior Parathyroid Gland, Open Approach (ICD-10-PCS; 2022-08-29)
PROC: 0W9600Z Drainage of Neck with Drainage Device, Open Approach (ICD-10-PCS; 2022-08-29)
PROC: 5A1D70Z Performance of Urinary Filtration, Intermittent, Less than 6 Hours Per Day (ICD-10-PCS; 2022-08-29)
PROC: 0GBL0ZZ Excision of Right Superior Parathyroid Gland, Open Approach (ICD-10-PCS; principal; 2022-08-29 09:15)
DX: E21.2 Other hyperparathyroidism (principal); N18.6 End stage renal disease; Z94.0 Kidney transplant status; I12.0 Hypertensive chronic kidney disease with stage 5 chronic kidney disease or end stage renal disease; N39.0 Urinary tract infection, site not specified; E87.5 Hyperkalemia; D63.1 Anemia in chronic kidney disease; E88.09 Other disorders of plasma-protein metabolism, not elsewhere classified; Z99.2 Dependence on renal dialysis; Z88.8 Allergy status to other drugs, medicaments and biological substances; Z91.040 Latex allergy status; Z20.822 Contact with and (suspected) exposure to COVID-19
CPT/HCPCS: 36415; 80048; 80053; 80069; 81001; 81025; 82330; 82652; 83735; 83970; 84100; 84132; 85025; 86706; 87086; 87088; 87340; 87811; 88305; 88331; 88332; 88333; 90935; 94640; A4216; J0330; J0610; J0692; J0694; J1100; J1170; J1644; J2001; J2250; J2370; J2405; J2550; J2704; J2765; J3010; J7040; J7120; J7613; Q5106

== ENCOUNTER 2022-09-30 10:42 | Inpatient (IN) | payer OTHER ==
--- OUTSIDE RECORDS SUMMARY | 2022-09-30 10:48 | XMS REPORT | Continuity of Care Document ---
:2000 Author Organization [facility] t Address [address] [place] [address] Care Team Providers Name Role Phone Pcp, Patient Does Not Have A Primary Care Physician [phone] CAROL ROWELL Attending Clinician Unavailable VIRGILIO MCKEON Attending Clinician Unavailable DIANN HUGO Attending Clinician Unavailable APURVA HIGUERA Attending Clinician Unavailable Bethel CAO, Diann Kingston Attending Clinician [phone] Nannette Negro MD Attending Clinician Doctor Unassigned, [place] Attending Clinician Unavailable NANNETTE NEGRO Attending Clinician Unavailable Sonia Browning RN Attending Clinician Unavailable Fran CAO, Everton Gamingalayna Attending Clinician [phone] Luis ELECTRIC METER TESTER HELPERMaria TeresaC, Shaista Carr Attending Clinician [phone] Patricia Skinner MA Attending Clinician Unavailable Sarah Moses MA Attending Clinician Unavailable ANDREAS LU Attending Clinician Unavailable Antoinette CAO, Alfred Mckenzie Attending Clinician Audra Liu Attending Clinician MD EVERTON PETERS Attending Clinician Unavailable Demarcus FARAH, Dipti Attending Clinician Unavailable Lennox Lorenzo MD Attending Clinician , [facility] Infusion Nurse Attending Clinician Unavailable Abbie Alejandro DO Attending Clinician ABBIE ALEJANDRO Attending Clinician Unavailable ROHIT BOUDREAUX Attending Clinician Unavailable CAROL ROWELL M.D. Attending Clinician Unavailable ENIO SHARP Attending Clinician Unavailable MD ENIO SHARP Attending Clinician Unavailable Netta Wheeler Attending Clinician Maral Morales MD Attending Clinician MARAL MORALES Attending Clinician Unavailable ORGANTRANSPLANT, OP Attending Clinician Unavailable TRACI EVERETT Attending Clinician Unavailable DEXA, SCAN Attending Clinician Unavailable APURVA HIGUERA Admitting Clinician Unavailable NANNETTE NEGRO Admitting Clinician Unavailable EVERTON PETERS Admitting Clinician Unavailable MD BERNARDO NUNEZ Admitting Clinician UnavailLENNOX Luis Admitting Clinician Unavailable MD EVERTON PETERS Admitting Clinician Unavailable ENIO SHARP Admitting Clinician Unavailable MD ENOI SHARP Admitting Clinician Unavailable VIRGILIO MCKEON Admitting Clinician Unavailable TARCI EVERETT Admitting Clinician Unavailable Payers Payer Name Policy Type Policy Number Effective Date Expiration Date S [facility] MEDICARE PART A [id number] 2020 AND B 00:00:00 Problems Condition Condition Condition Status Onset Resolution Last Treating Co mments Source Name Details Category Date Date Treatment Clinician Date 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) s/p ([facility]) s/p 00:00: Hosp renea repair at repair at 00 l 2month old 2month old Obstructiv Obstructiv Disease Active 2019-08 M ethodi e uropathy e uropathy 08-20 st S/p-DDRT S/p-DDRT 00:00: Hospit a 12/2017 00 l ESRD (end ESRD (end Disease Active 2019-08 Met hodi stage stage - st renal renal 00:00: Hospita disease) disease) 00 l Acute Acute Disease Active Univers renal renal 9-30 ity of failure failure 00:00: [place] [id number] Medical Branch End-stage End-stage Disease Active Uni vers renal renal 9-30 ity of disease disease 00:00: [place] [address] Medical Branch Encounter Encounter Disease Active 2018-08 Overview: [facility] for for 09-10 Formattin ity of immunizati immunizati 00:00: g of this [place] on on 00 note Medical might be Branch different from the original. Last Assessmen t & Plan: Pt to wait 30 days between vaccines, may RTC for nurse visit to complete meningiti s vaccine. Normal Normal Disease Active 2018-08 Overview: Univer s physical physical 09-10 Formattin ity of exam, exam, 00:00: g of this [place] routine routine 00 note Medical might be [...] Univ ers INGREDI 10-16 ity of 00:00: Medical Branch Kiwi Drug Active Unknown - Univers Allergy See comments 10-16 ity of 00:00: Medical Branch Latex Propensi Active Rash Methodi ty to 08-22 st adverse 00:00: Hospita reaction 00 l s to drug Morphine Propensi Active Rash 2019-08 Method i ty to 08-21 st adverse 00:00: Hospita reaction 00 l s to drug LATEX DRUG Active Unknown-Cmnt Univ ers INGREDI 05-16 ity of 00:00: [place] 00 Medical Branch Latex Drug Active Unknown - Univers Allergy See comments 05-16 ity of 00:00: Medical Branch MORPHINE DRUG Active High Unknown-Cmnt Un nora INGREDI 09-24 ity of 00:00: Medical Branch NITROFUR DRUG Active High Unknown-Cmnt Un nora ANTOIN INGREDI 09-24 ity of 00:00: Medical Branch Morphine Drug Active Rash Univers Allergy 09-24 ity of 00:00: Medical Branch Nitrofur Drug Active Unknown - Unive rs antoin Allergy See comments - ity of 00:00: [place] 00 Medical Branch PINEAPPL DRUG Active Unknown-Cmnt Un nora E INGREDI 04-29 ity of 00:00: [place] [facility] LATEX DRUG Active Low Unknown-Cmnt Univ ers INGREDI 04-29 ity of 00:00: [place] 00 Medical Branch Latex Drug Active Rash Univers Allergy 04-29 ity of 00:00: Medical Branch Pineappl Propensi Active Unknown - Uni vers e ty to See comments 04-29 ity of adverse 00:00: [place] reaction 00 Medical s Branch NO KNOWN Drug Active Univers ALLERGIE Class ity of S [place] [facility] Family History Family Member Diagnosis Comments Start Date Stop Date Source Unknown Family Member Adopted [facility] Natural father [facility] Natural mother [facility] Social History Social Habit Start Date Stop Date Quantity Comments Source History [facility] University o f Alcohol Comment [place] [facility] Tobacco use and 2022-09-15 2022-09-15 Smokeless tobacco [facility] exposure 00:00:00 00:00:00 non-user Hospital Alcohol intake 2022-09-15 2022-09-15 Ex-drinker [facility] 00:00:00 00:00:00 (finding) Hospital Exposure to 2022-08-17 2022-08-27 Not sure University of SARS-CoV-2 00:00:00 14:26:00 [place] [facility] (event) Branch History SDOH 2020-05-16 2020-05-16 1 University o f Alcohol Frequency 00:00:00 00:00:00 [place] M edical [facility] History SDWA 2020-05-16 2020-05-16 99 University o f Alcohol Std 00:00:00 00:00:00 [place] [facility] Drinks Branch History SDWA 2020-05-16 2020-05-16 1 University o f Alcohol Binge 00:00:00 00:00:00 [place] [facility] al Branch Sex Assigned At 2000 2000 F [facility] 00:00:00 00:00:00 Hospital Smoking Status Start Date Stop Date Source Never smoked tobacco [facility] Medications Ordered Filled Start Stop Current Ordering Indication Dosage Frequency Signature Comments Components Source Medication Medication Date Date Medication? Clinician (SIG) Name Name carvediloL Yes 25mg Q.5D Take 1 Metho di (COREG) 25 1-30 tablet (25 st MG tablet 12:59: mg total) Hos gera 56 by mouth 2 l (two) times a day. alendronate 2022-0 Yes 1{tbl} Take 1 Un nora -cholecalci 1-11 tablet by ity of ferol 70 14:42: mouth [place] mg- 2,800 39 daily. Medical unit per Branch tablet carvediloL 2022-0 Yes 25mg Take 25 mg U nivers 25 mg 1-11 by mouth ity of tablet 14:42: in the [place] [address] morning Medical and 25 mg Branch in the evening. Take with meals. alendronate 2022-0 Yes 1{tbl} Take 1 Un nora -cholecalci 1-11 tablet by ity of ferol 70 14:42: mouth [place] mg- 2,800 39 daily. Medical unit per Branch tablet carvediloL 2022-0 Yes 25mg Take 25 mg U nivers 25 mg 1-11 by mouth ity of tablet 14:42: in the [place] [address] morning Medical and 25 mg Branch in the evening. Take with meals. alendronate 2022-0 Yes 1{tbl} Take 1 Un nora -cholecalci 1-11 tablet by ity of ferol 70 14:42: mouth [place] mg- 2,800 39 daily. Medical unit per Branch tablet carvediloL 2022-0 Yes 25mg Take 25 mg U nivers 25 mg 1-11 by mouth ity of tablet 14:42: in the [place] [address] morning Medical and 25 mg Branch in the evening. Take with meals. alendronate 2022-0 Yes 1{tbl} Take 1 Un nora -cholecalci 1-11 tablet by ity of ferol 70 14:42: mouth [place] mg- 2,800 39 daily. Medical unit per Branch tablet carvediloL 3-0 Yes 25mg Take 25 mg U nivers 25 mg 1-11 by mouth ity of tablet 14:42: in the [place] [address] morning Medical and 25 mg Branch in the evening. Take with meals. alendronate 2022-0 Yes 1{tbl} Take 1 Un nora -cholecalci 1-11 tablet by ity of ferol 70 14:42: mouth [place] mg- 2,800 39 daily. Medical unit per Branch tablet carvediloL Yes 25mg Take 25 mg U nivers 25 mg 1-11 by mouth ity of tablet 14:42: in the [place] [address] morning Medical and 25 mg Branch in the evening. Take with meals. NIFEdipine 2021-08 Yes 30mg Take 30 mg U nivers ER 30 mg 0-18 by mouth. ity of tablet 00:00: [place] [facility] NIFEdipine 2021-08 Yes 30mg Take 30 mg U nivers ER 30 mg 0-18 by mouth. ity of tablet 00:00: [place] [facility] NIFEdipine 2021-08 Yes 30mg Take 30 mg U nivers ER 30 mg 0-18 by mouth. ity of tablet 00:00: [place] [facility] Branch NIFEdipine 2021-08 Yes 30mg Take 30 mg U nivers ER 30 mg 0-18 by mouth. ity of tablet 00:00: [place] [facility] Branch NIFEdipine 2021-08 Yes 30mg Take 30 mg U nivers ER 30 mg 0-18 by mouth. ity of tablet 00:00: [place] [facility] Branch NIFEdipine 2021-08 Yes 30mg QD Take 1 Metho di CC (ADALAT 0-05 tablet (30 st CC) 30 MG 00:00: mg total) Hos gera 24 hr 00 by mouth l tablet daily. lidocaine-p 2022- No Apply Meth timmy rilocaine 10-21- topically st (EMLA) 00:00: 05:59 as needed Hospi ta 2.5-2.5 % 00 :00 for mild l cream pain. Apply to area 30-45 minutes prior to dialysis treatment. lidocaine-p 2022- No Apply Meth timmy rilocaine 10-21- topically st (EMLA) 00:00: 05:59 as needed Hospi ta 2.5-2.5 % 00 :00 for mild l cream pain. Apply to area 30-45 minutes prior to dialysis treatment. lidocaine-p 2022- No Apply Meth timmy rilocaine 10-21- topically st (EMLA) 00:00: 05:59 as needed Hospi ta 2.5-2.5 % 00 :00 for mild l cream pain. Apply to area 30-45 minutes prior to dialysis treatment. lidocaine-p 2022-0 2023- No Apply Meth timmy rilocaine 3-07 03-[address] (EMLA) 00:00: 05:59 as needed Hospi ta 2.5-2.5 % 00 :00 for mild l cream pain. Apply to area 30-45 minutes prior to dialysis treatment. alendronate Yes 1{tbl} Take 1 Un nora -cholecalci 3-02 tablet by ity of ferol 70 10:51: mouth [place] mg- 2,800 58 daily. Medical unit per Branch [place] [id number] 50mg Q8H Take 1 Method i (Ultram) 50 1-14 tablet (50 st mg tablet 00:00: mg total) Hos grea 00 by mouth l every 8 (eight) hours as needed for moderate pain for up to 3 days .acute pain. traMADoL Yes [id number] 50mg Q8H Take 1 Method i (Ultram) 50 1-14 tablet (50 st mg tablet 00:00: mg total) Hos gera 00 by mouth l every 8 (eight) hours as needed for moderate pain for up to 3 days .acute pain. traMADoL Yes [id number] 50mg Q8H Take 1 Method i (Ultram) 50 1-14 tablet (50 st mg tablet 00:00: mg total) Hos gera 00 by mouth l every 8 (eight) hours as needed for moderate pain for up to 3 days .acute pain. traMADoL 2022- [place] [id number] 50mg Q8H Take 1 Metho di (Ultram) 50 1-14 01-30 tablet (50 s t mg tablet 00:00: 00:00 mg total) Ho spita 00 :00 by mouth l every 8 (eight) hours as needed for moderate pain for up to 3 days .acute pain. casirivimab 2020-08- No [id number] 1200mg 1,200 mg, Univers -imdevimab 0-15 10-15 Subcutaneo it y of (REGEN-COV 14:45: 13:07 us, ONCE, [place] (EUA)) 00 :00 1 dose, On Medical injection Fri Branch 1,200 mg 05/31/21 at 0945, Routine traMADoL 2021- [place] [id number] 50mg Q8H Take 1 Metho di (Ultram) 50 08-2214 tablet (50 s t mg tablet 00:00: 00:00 mg total) Ho spita 00 :00 by mouth l every 8 (eight) hours as needed for moderate pain for up to 20 doses .acute pain. traMADoL 2021- No [id number] 50mg Q8H Take 1 Metho di (Ultram) 50 08-2214 tablet (50 s t mg tablet 00:00: 00:00 mg total) Ho spita 00 :00 by mouth l every 8 (eight) hours as needed for moderate pain for up to 20 doses .acute pain. traMADoL 2021- No [id number] 50mg Q8H Take 1 Metho di (Ultram) [...] 0-16 by mouth ity of 00:00: daily. [place] [facility] losartan 2018-08 Yes 25mg Take 25 mg Univers mg tablet 0-16 by mouth ity of 00:00: daily. [place] [facility] losartan 2018-08 Yes 25mg Take 25 mg Univers mg tablet 0-16 by mouth ity of 00:00: daily. [place] [facility] hydrOXYzine hydrOXYzine Yes CHATO QD TAKE 1 [...] DAILY ans MG TABS MG TABS 00 calcitrioL 2015-08 Yes 1.5ug QD Take 3 Meth timmy (ROCALTROL) 0-[address] 0.5 MCG 00:00: (1.5 mcg Hospit a capsule 00 total) by l mouth daily. Immunizations Ordered Filled Immunization Date Status Comments [facility] e Immunization Name Name SARS-COV-2 COVID-19 2020-12-01 Completed Unive rsity of PFIZER VACCINE 00:00:00 [facility] SARS-COV-2 COVID-19 2020-12-01 Completed Unive rsity of PFIZER VACCINE 00:00:00 [facility] SARS-COV-2 COVID-19 2020-12-01 Completed Unive rsity of PFIZER VACCINE 00:00:00 [facility] SARS-COV-2 COVID-19 2020-12-01 Completed Unive rsity of PFIZER VACCINE 00:00:00 [facility] SARS-COV-2 COVID-19 2020-12-01 Completed Unive rsity of PFIZER VACCINE 00:00:00 [facility] SARS-COV-2 COVID-19 2020-12-01 Completed Unive rsity of PFIZER VACCINE 00:00:00 [facility] SARS-COV-2 COVID-19 2020-12-01 Completed Unive rsity of PFIZER VACCINE 00:00:00 [facility] SARS-COV-2 COVID-19 2020-12-01 Completed Unive rsity of PFIZER VACCINE 00:00:00 [facility] SARS-COV-2 COVID-19 2020-12-01 Completed Unive rsity of PFIZER VACCINE 00:00:00 [facility] SARS-COV-2 COVID-19 2020-11-11 Completed Unive rsity of PFIZER VACCINE 00:00:00 [facility] SARS-COV-2 COVID-19 2020-11-11 Completed Unive rsity of PFIZER VACCINE 00:00:00 [facility] SARS-COV-2 COVID-19 2020-11-11 Completed Unive rsity of PFIZER VACCINE 00:00:00 [facility] SARS-COV-2 COVID-19 2020-11-11 Completed Unive rsity of PFIZER VACCINE 00:00:00 [facility] SARS-COV-2 COVID-19 2020-11-11 Completed Unive rsity of PFIZER VACCINE 00:00:00 [facility] SARS-COV-2 COVID-19 2020-11-11 Completed Unive rsity of PFIZER VACCINE 00:00:00 [facility] SARS-COV-2 COVID-19 2020-11-11 Completed Unive rsity of PFIZER VACCINE 00:00:00 [facility] SARS-COV-2 COVID-19 2020-11-11 Completed Unive rsity of PFIZER VACCINE 00:00:00 [facility] SARS-COV-2 COVID-19 2020-11-11 Completed Unive rsity of PFIZER VACCINE 00:00:00 [facility] Vital Signs Vital Name Observation Time Observation Value Comments Source Systolic blood 2022-08-27 115 mm[Hg] University of pressure 20:47:00 [facility] Diastolic blood 2022-08-27 77 mm[Hg] University o f pressure 20:47:00 [facility] Heart rate 2022-08-27 89 /min [facility] 20:47:00 [facility] Body temperature 2022-08-27 36.83 [place] University of 20:47:00 [facility] Body height 2022-08-27 160 cm University of 20:47:00 [facility] Body weight 2022-08-27 76.386 kg University of 20:47:00 [facility] BMI 2022-08-27 29.83 kg/m2 University of 20:47:00 [facility] Oxygen saturation 2022-08-27 96 /min [facility] in Arterial blood 20:47:00 [facility] by Pulse oximetry [facility] Systolic blood 2021-05-31 127 mm[Hg] University of pressure 14:00:00 [facility] Diastolic blood 2021-05-31 89 mm[Hg] University o f pressure 14:00:00 [facility] Heart rate 2021-05-31 104 /min [place] of 14:00:00 [facility] Body temperature 2021-05-31 37.06 [place] University of 14:00:00 [facility] Respiratory rate 2021-05-31 20 /min [facility] 14:00:00 [facility] Oxygen saturation 2021-05-31 96 /min [facility] Arterial blood 14:00:00 [facility] by Pulse oximetry [facility] Body height 2021-05-31 160 cm [facility] 13:04:00 [facility] Body weight 2021-05-31 72.576 kg [facility] 13:04:00 [facility] BMI 2021-05-31 28.34 kg/m2 [facility] 13:04:00 [facility] Systolic blood 2022-09-15 163 mm[Hg] [facility] pressure 18:57:00 [facility] Diastolic blood 2022-09-15 131 mm[Hg] [facility] pressure 18:57:00 [facility] Heart rate 2022-09-15 97 /min [facility] 18:57:00 [facility] Respiratory rate 2022-09-15 16 /min [facility] 18:57:00 [facility] Body height 2022-09-15 160 cm [facility] 18:57:00 [facility] Body weight 2022-09-15 75.569 kg [facility] 18:57:00 [facility] BMI 2022-09-15 29.51 kg/m2 [facility] 18:57:00 Hospital Oxygen saturation 2022-09-15 100 /min [facility] in Arterial blood 18:57:00 [facility] by Pulse oximetry Systolic blood 2021-11-27 155 mm[Hg] [facility] pressure 21:01:00 [facility] Diastolic blood 2021-11-27 106 mm[Hg] [facility] pressure 21:01:00 Hospital Heart rate 2021-11-27 90 /min [facility] 21:01:00 Hospital Body height 2021-11-27 160 cm [facility] 21:01:00 Hospital Body weight 2021-11-27 79.833 kg [facility] 21:01:00 Hospital BMI 2021-11-27 31.18 kg/m2 [facility] 21:01:00 Hospital Oxygen saturation 2021-11-27 98 /min [facility] in Arterial blood 21:01:00 [facility] by Pulse oximetry Body temperature 2021-11-27 36.56 [place] [facility] 21:01:00 Hospital Respiratory rate 2021-08-31 17 /min [facility] 00:00:00 Hospital Systolic blood 2020-08-27 116 mm[Hg] [facility]: E; [facility] pressure 11:13:00 Position: Sitting Diastolic blood 2020-08-27 85 mm[Hg] [facility] LUE; [facility] 11:13:00 Position: Sitting Body [...] Date / Time Performing Clinician Source Performed MEDICAL RELEASE/CLEARANCE 2022-08-29 06:01:00 Doctor Unassigned, [facility] FORMS [place] [facility] ASSIGNMENT OF BENEFITS 2022-08-27 20:30:29 Doctor Unassigned, [facility] [place] [facility] NO SHOW OR MISSED 2021-10-16 16:22:29 Doctor Unassigned, [facility] APPOINTMENT POLICY [place] [facility] ACKNOWLEDGEMENT POC GLUCOSE 2021-08-30 23:33:00 Everton Peters Ho spital [facility] CREATION, AV FISTULA 2021-08-30 19:14:00 Everton Peters [facility] PERIPHERAL 2021-08-30 19:00:39 [facility] METABOLIC PANEL 2021-08-30 17:36:00 Everton Peters [facility] Peters-Hsi ESTIMATED GFR 2021-08-30 17:36:00 Fran [facility] Peters-Hsi ESTIMATED GFR 2021-08-30 17:33:00 Fran Everton Arnett [facility] Peters-Hsi POC PANEL 2021-08-30 17:33:00 Fran [place] Arnett [facility] Peters-Hsi ECG PRE/POST OP 2021-08-28 19:21:25 [facility] COVID-19 QUALITATIVE 2021-08-28 17:38:00 [facility] Peters-Hsi PROTHROMBIN TIME WITH INR 2021-08-28 17:38:00 Everton Peters [facility] PARTIAL THROMBOPLASTIN 2021-08-28 17:38:00 Everton Peters [facility] [place] [facility] TIME (PTT) Peters-Hsi TYPE AND SCREEN 2021-08-28 17:38:00 Everton Peters [facility] Peters-Hsi HC COMPLETE BLD COUNT 2021-08-28 17:38:00 Everton Peters [facility] W/AUTO DIFF [facility] HEMOGLOBIN A1C 2021-08-28 17:38:00 Melquiades Nune[facility] HCG QUALITATIVE, SERUM 2021-08-28 17:38:00 [facility] Bernardo [facility] COMPREHENSIVE METABOLIC 2021-08-03 03:16:00 [place] [facility] PANEL HC COMPLETE BLD COUNT 2021-08-03 03:16:00 Lennox Lorenzo [facility] W/AUTO DIFF PROTHROMBIN TIME WITH INR 2021-08-03 03:16:00 Lennox Lorenzo [facility] ESTIMATED GFR 2021-08-03 03:16:00 Maura Lennox [facility] HEPATITIS B SURFACE 2021-08-03 00:28:00 Abbie Alejandro [facility] ANTIGEN HEPATITIS B SURFACE AB, 2021-08-03 00:28:00 Abbie Alejandro [facility] QUANTITATIVE HEMODIALYSIS 2021-08-02 21:51:18 Abbie Alejandro [facility] CREATION, AV FISTULA 2021-08-02 20:00:00 Everton Peters [facility] Peters-Hsi ESTIMATED GFR 2021-08-02 18:27:00 Everton Peters [facility] POC PANEL 2021-08-02 18:27:00 Everton Peters [facility] ABO AND RH CONFIRMATION BY 2021-08-02 18:22:00 Peters [facility] PROTOCOL Peters-Hsi BASIC METABOLIC PANEL 2021-08-02 18:21:00 Everton Peters [facility] ESTIMATED GFR 2021-08-02 18:21:00 Everton Peters [facility] HEMOGLOBIN A1C 2021-08-02 08:16:00 Lennox Lorenzo [facility] ECG PRE/POST OP 2021-07-31 18:52:39 Everton Peters [facility] XR CHEST 2 VW 2021-07-31 18:33:44 Everton Peters [facility] COVID-19 QUALITATIVE 2021-07-31 17:17:00 Everton Peters [facility] RT-PCR [facility] PARTIAL THROMBOPLASTIN 2021-07-31 17:17:00 Everton Peters [facility] TIME (PTT) [facility] PROTHROMBIN TIME WITH INR 2021-07-31 17:17:00 Everton Peters [facility] HC COMPLETE BLD COUNT 2021-07-31 17:17[facility]00 [facility] Peters-Hsi TYPE AND SCREEN 2021-07-31 17:17:00 [facility] Peters [facility] Peters[facility]si HCG QUALITATIVE, SERUM 2021-07-31 17:17:00 [facility] S[facility] Bernardo Macias HEMOGLOBIN A1C 2021-07-31 17:17:00 Rani Melquiades [facility] PHYSICIAN ORDERS 2021-05-31 05:01:00 Doctor Unassigned, [facility] [place] [facility] CT Abdomen/Pelvis w/wo 2020-08-27 [id number] Chest wo contrast [id number] 2020-08-27 00:00:00 [facility] Plan of Care Planned Activity Planned Date Details Comments Source Future Scheduled 2022-09-30 Pneumococcal Vaccine: [facility] Test 09:33:01 Pediatrics (0 to 5 Years) and At-Risk Patients (6 to 64 Years) (1 - PCV) [code = Pneumococcal Vaccine: Pediatrics (0 to 5 Years) and At-Risk Patients (6 to 64 Years) (1 - PCV)] Future Scheduled 2022-09-30 [facility] Test 09:33:01 Chlamydia trachomatis (procedure) [code = 303438885] Future Scheduled 2022-09-30 Hepatitis C screening [facility] Test 09:33:01 (procedure) [code = 296053022] Future Scheduled 2022-09-30 COVID-19 VACCINE (3 - [facility] Test 09:33:01 Pfizer risk series) [code = COVID-19 VACCINE (3 - Pfizer risk series)] Future Scheduled 2022-09-30 [facility] Test 09:33:01 malignant neoplasm of cervix (procedure) [code = 829917563] Future Scheduled 2022-09-30 INFLUENZA VACCINE [facility] Test 09:33:01 [code = INFLUENZA VACCINE] Future Scheduled 2022-08-28 Pneumococcal Vaccine: [facility] Test 14:21:13 Pediatrics (0 to 5 Years) and At-Risk Patients (6 to 64 Years) (1 - PCV) [code = Pneumococcal Vaccine: Pediatrics (0 to 5 Years) and At-Risk Patients (6 to 64 Years) (1 - PCV)] Future Scheduled 2022-08-28 [facility] Test 14:21:13 Chlamydia trachomatis (procedure) [code = 956952426] Future Scheduled 2022-08-28 Hepatitis C screening [facility] Test 14:21:13 (procedure) [code = 318849557] Future Scheduled 2022-08-28 COVID-19 VACCINE (3 - [facility] Test 14:21:13 Pfizer risk series) [code = COVID-19 VACCINE (3 - Pfizer risk series)] Future Scheduled 2022-08-28 [facility] Test 14:21:13 malignant neoplasm of cervix (procedure) [code = 594536834] Future Scheduled 2022-08-28 INFLUENZA VACCINE Method [facility] Test 14:21:13 [code = INFLUENZA VACCINE] Future Scheduled 2022-08-14 Pneumococcal Vaccine: [facility] Test 10:13:28 Pediatrics (0 to 5 Years) and At-Risk Patients (6 to 64 Years) (1 - PCV) [code = Pneumococcal Vaccine: Pediatrics (0 to 5 Years) and At-Risk Patients (6 to 64 Years) (1 - PCV)] Future Scheduled 2022-08-14 Screening for [facility] Test 10:13:28 Chlamydia trachomatis (procedure) [code = 100539848] Future Scheduled 2022-08-14 Hepatitis C screening [facility] Test 10:13:28 (procedure) [code = 670327485] Future Scheduled 2022-08-14 COVID-19 VACCINE (3 - [facility] Test 10:13:28 Pfizer risk series) [code = COVID-19 VACCINE (3 - Pfizer risk series)] Future Scheduled 2022-08-14 Screening for [facility] Test 10:13:28 malignant neoplasm of cervix (procedure) [code = 806006845] Future Scheduled 2022-08-14 INFLUENZA VACCINE Method [facility] Test 10:13:28 [code = INFLUENZA VACCINE] Future Scheduled 2022-05-16 HEPATITIS B VACCINES Met [facility] Test 12:30:08 (1 of 3 - 3-dose series) [code = HEPATITIS B VACCINES (1 of 3 - 3-dose series)] Future Scheduled 2022-05-16 Pneumococcal Vaccine: [facility] Test 12:30:08 Pediatrics (0 to 5 Years) and At-Risk Patients (6 to 64 Years) (1 - PCV) [code = Pneumococcal Vaccine: Pediatrics (0 to 5 Years) and At-Risk Patients (6 to 64 Years) (1 - PCV)] Future Scheduled 2022-05-16 Screening for [facility] Test 12:30:08 Chlamydia trachomatis (procedure) [code = 465173488] Future Scheduled 2022-05-16 Hepatitis C screening [facility] Test 12:30:08 (procedure) [code = 921488145] Future Scheduled 2022-05-16 COVID-19 VACCINE ([facility] - [facility] Test 12:30:08 Pfizer risk series) [code = COVID-19 VACCINE (3 - Pfizer risk series)] Future Scheduled 2022-05-16 [facility] Test 12:30:08 malignant neoplasm of cervix (procedure) [code = 094429882] Future Scheduled 2022-05-16 INFLUENZA VACCINE Method [facility] Test 12:30:08 [code = INFLUENZA VACCINE] Encounters Start End Encounter Admission Attending Care Care Encounter Source Date/Time Date/Time Type Type Clinicians Facility Department ID 2020-12-22 Outpatient CAROL ROWELL [facility] [id number] [place] 03:05:41 Health 2020-03-02 Outpatient VIRGILIO MCKEON [facility] SHAHBAZ 7584 [facility] 10:17:34 2019-11-04 Outpatient BETHEL [facility] 9623 [facility] 09:37:41 DIANN 2019-10-10 Inpatient APURVA HIGUERA [facility] MED 0038 [facility] 07:23:15 2018-12-13 Outpatient [facility] 9616 [facility] 13:42:33 2018-11-25 Inpatient [facility] [id number] [facility] 09:16:59 2022-09-15 2022-09-15 Office Bethel 1.2.840.1 [id number] Methodi 13:00:00 13:30:00 Visit Diann 10671.1.1 319 [facility] 3.430.2.7 Hospit a .3.259525 l .8 2022-09-15 2022-09-15 Outpatient BETHEL [facility] [id number] [place] 00:00:00 00:00:[address] 2022-09-15 2022-09-15 Travel 1.2.840.1 1.2.702.689 8561 [id number] Methodi 00:00:00 00:00:[address] 3.430.2.7 0.2.7.3.698 Ho spita .3.627292 084.8 l .8 2022-09-14 2022-09-14 Extended Hugo, 1.2.840.1 [id number] 2100 [id number] Methodi 00:00:00 00:00:00 Medical Diann 65789.1.1 948 [facility] 3.430.2.7 Hospit a .3.120001 l .8 2022-08-29 2022-08-29 Telephone [facility] 1.2.989.839 4240 0766 Univers 00:00:00 00:00:00 Nannette SOLANO 350.1.13.10 [facility] [facility] [place] [phone] Tn dical NAL [address] [place] [address] 2022-08-29 2022-08-29 Orders Doctor VIRGILIO 1.2.840.114 [id number] Univers 00:00:00 00:00:00 Only Unassigned, LINDSAY 350.1.13.10 ity of [facility] 4.2.7.2.686 Chinmay as [phone] [address] 2022-08-28 2022-08-28 Outpatient R [facility] [id number] Univers 14:58:15 23:59:00 NANNETTE cadena [facility] 2022-08-27 2022-08-27 Outpatient R [facility] [id number] Univers 14:40:00 15:03:43 NANNETTE cadena [facility] 2022-08-27 2022-08-27 [facility] 1.2.840.114 [id number] Univers 14:40:00 15:03:43 Visit Nannette SOLANO 350.1.13.10 [facility] [facility] [place] [phone] Tn dical NAL 9 [facility] 2022-08-27 2022-08-27 Orders Doctor VIRGILIO 1.2.840.114 [id number] Univers 00:00:00 00:00:00 Only Unassigned, LINDSAY 350.1.13.10 ity of [facility] 4.2.7.2.686 Chinmay as [phone] [facility] 00[address] [place] 2022-07-18 2022-07-18 Telephone Nam, 1.2.840.1 [id number] Methodi 00:00:00 00:00:[address] 3.430.2.7 Hospit a .3.653093 l .8 2022-07-18 2022-07-18 Telephone Nam, 1.2.840.1 [id number] Methodi 00:00:00 00:00:[address] 3.430.2.7 Hospit a .3.602813 l .8 2021-11-27 2021-11-28 Office Everton [facility] 1.2.840.1 [id number] Methodi 16:00:00 14:01:04 Visit Janneth Smitherinevaristo Carr 84626.1.[address] 3.430.2.7 Hospit a .3.872945 l .8 2021-11-27 2021-11-28 Office Everton [facility] 1.2.840.1 [id number] Methodi 16:00:00 14:01:04 Visit Shaista Smithmaria luisa 70100.1.[address] 3.430.2.7 Hospit a .3.618493 l .8 2021-11-27 2021-11-27 Travel 1.2.840.1 1.2.282.653 9690 593677 Methodi 00:00:00 00:00:[address] 3.430.2.7 0.2.7.3.698 Ho spita .3.717330 084.8 l .8 2021-11-27 2021-11-27 Travel 1.2.840.1 1.2.357.949 2566 748335 Methodi 00:00:00 00:00:[address] 3.430.2.7 0.2.7.3.698 Ho spita .3.776827 084.8 l .8 2021-11-25 2021-11-25 Telephone Smith, 1.2.840.1 [id number] 2099 [id number] Methodi 00:00:00 00:00:[address] [place] 3.430.2.7 Hosp renea .3.642975 l .8 2021-11-25 2021-11-25 Telephone Susanne, 1.2.840.1 [id number] 226 [id number] Methodi 00:00:00 00:00:00 Crysandria 67929.1.1 940 s t 3.430.2.7 Hospit a .3.576359 l .8 2021-11-25 2021-11-25 Telephone Luis, 1.2.840.1 [id number] 2099 [id number] Methodi 00:00:00 00:00:[address] [place] 3.430.2.7 Hosp renea .3.367459 l .8 2021-11-25 2021-11-25 Telephone Susanne, 1.2.840.1 [id number] 012 [id number] Methodi 00:00:00 00:00:00 [place] 40284.1.1 940 s t 3.430.2.7 Hospit a .3.255788 l .8 2021-11-18 2021-11-18 Travel 1.2.840.1 1.2.186.535 5081 193796 Methodi 00:00:00 00:00:[address] 3.430.2.7 0.2.7.3.698 Ho spita .3.941874 084.8 l .8 2021-11-18 2021-11-18 Travel 1.2.840.1 1.2.052.319 0154 158817 Methodi 00:00:00 00:00:[address] 3.430.2.7 0.2.7.3.698 Ho spita .3.097558 084.8 l .8 2021-11-15 2021-11-15 Telephone Luis, 1.2.840.1 [id number] 2099 [id number] Methodi 00:00:00 00:00:[address] [place] 3.430.2.7 Hosp renea .3.909310 l .8 2021-11-15 2021-11-15 Telephone Luis, 1.2.840.1 [id number] 2099 110800 Methodi 00:00:00 00:00:[address] [place] 3.430.2.7 Hosp renea .3.427163 l .8 2021-11-13 2021-11-13 Telephone Josué, 1.2.840.1 [id number] Methodi 00:00:00 00:00:[address] 3.430.2.7 Hospit a .3.034491 l .8 2021-11-13 2021-11-13 Telephone Josué, 1.2.840.1 [id number] Methodi 00:00:00 00:00:[address] 3.430.2.7 Hospit a .3.723539 l .8 2021-10-21 2021-10-21 Office Smith, 1.2.840.1 [id number] 5943 Methodi 11:30:00 13:58:50 Visit Shaista 75639.1.[address] [place] 3.430.2.7 Hosp renea .3.938970 l .8 2021-10-21 2021-10-21 Office Smith, 1.2.840.1 [id number] 6457 Methodi 11:30:00 13:58:50 Visit Shaista 27753.1.[address] [place] 3.430.2.7 Hosp renea .3.788810 l .8 2021-10-21 2021-10-21 Travel 1.2.840.1 1.2.962.143 8385 646994 Methodi 00:00:00 00:00:[address] 3.430.2.7 0.2.7.3.698 Ho spita .3.599449 084.8 l .8 2021-10-21 2021-10-21 Travel 1.2.840.1 1.2.653.011 4790 722101 Methodi 00:00:00 00:00:[address] 3.430.2.7 0.2.7.3.698 Ho spita .3.716137 084.8 l .8 2021-10-16 2021-10-16 Outpatient R ALY, [facility] [id number] Univers 10:30:00 11:56:54 ANDREAS hastings [facility] 2021-10-16 2021-10-16 Orders Doctor VIRGILIO 1.2.840.114 [id number] Univers 00:00:00 00:00:00 Only Unassigned, LINDSAY 350.1.13.10 ity of [facility] 4.2.7.2.686 Chinmay as [phone] [address] 2021-08-30 2021-08-30 [facility], 1.2.840.1 [id number] 77846 Methodi 10:50:00 18:10:00 Encounter Everton 54722.1.[address] [facility] 3.430.2.7 Hosp renea .3.211560 l .8 2021-08-30 2021-08-30 Anesthesia Alfred Curry 1.2.840.1 [id number] Methodi 13:15:00 17:32:00 Event Audra Babin 91368.1.[address] 3.430.2.7 Hospit a .3.649520 l .8 2021-08-30 2021-08-30 Surgery Peters, 1.2.840.1 [id number] 5806 Methodi 13:14:00 16:14:[address] [facility] 3.430.2.7 Hosp renea .3.298212 l .8 2021-08-28 2021-08-28 Pre-Admiss Fran, 1.2.840.1 [id number] Methodi 11:00:00 12:00:00 rosario Toscano [address]31.[address] [facility]si 3.430.2.7 Hosp renea .3.635061 l .8 2021-08-28 2021-08-28 Travel 1.2.840.1 1.2.092.997 4369 816583 Methodi 00:00:00 00:00:[address] 3.430.2.7 0.2.7.3.698 Ho spita .3.572057 084.8 l .8 2021-08-14 2021-08-14 Travel 1.2.840.1 1.2.310.633 7901 060109 Methodi 00:00:00 00:00:[address] 3.430.2.7 0.2.7.3.698 Ho spita .3.625788 084.8 l .8 2021-08-14 2021-08-14 Prep for Demarcus, 1.2.840.1 [id number] 432 [id number] Methodi 00:00:00 00:00:00 Surgery Dipti 05153.1.[address] 3.430.2.7 Hospit a .3.948907 l .8 2021-08-07 2021-08-07 Telephone Demarcus, 1.2.840.1 [id number] Methodi 00:00:00 00:00:[address] 3.430.2.7 Hospit a .3.091183 l .8 2021-08-02 2021-08-02 [facility] 1.2.840. 1 [id number] Methodi 11:23:00 22:13:00 Encounter Lennox Lorenzo 32512.1.[address] 3.430.2.7 Hospit a .3.010110 l .8 2021-08-02 2021-08-02 Surgery Peters, 1.2.840.1 [id number] [id number] 5039 Methodi 14:00:00 17:35:00 Everton 28171.1.1 536 [facility] 3.430.2.7 Hosp renea .3.047160 l .8 2021-07-31 2021-07-31 [facility], 1.2.840.1 [id number] 45664 56531 Methodi 12:20:28 23:59:00 Encounter Everton [address]148.1.[address] [facility]-Hsi 3.430.2.7 Hosp renea .3.449628 l .8 2021-07-31 2021-07-31 Pre-Admiss Fran, 1.2.840.1 [id number] 572 [id number] Methodi 10:30:00 11:30:00 ion Everton 17876.1.[address] [facility]-Hsi 3.430.2.7 Hosp renea .3.166001 l .8 2021-07-31 2021-07-31 Travel 1.2.840.1 1.2.993.758 1278 404991 Methodi 00:00:00 00:00:[address] 3.430.2.7 0.2.7.3.698 Ho spita .3.764380 084.8 l .8 2021-07-25 2021-07-25 Prep for Demarcus, 1.2.840.1 [id number] 148 [id number] Methodi 00:00:00 00:00:00 Surgery Dipti 34183.1.[address] 3.430.2.7 Hospit a .3.251685 l .8 2021-07-25 2021-07-25 Telephone Demarcus, 1.2.840.1 [id number] 21 [id number] Methodi 00:00:00 00:00:[address] 3.430.2.7 Hospit a .3.346837 l .8 2021-07-24 2021-07-24 Office Fran, 1.2.840.1 [id number] 2059 Methodi 10:30:00 12:06:23 Visit Everton 09501.1.[address] Fran-Hsi 3.430.2.7 Hosp renea .3.328991 l .8 2021-07-24 2021-07-24 Travel 1.2.840.1 1.2.808.231 2618 166377 Methodi 00:00:00 00:00:[address] 3.430.2.7 0.2.7.3.698 Ho spita .3.954561 084.8 l .8 2021-06-19 2021-06-19 Telephone Demarcus, 1.2.840.1 [id number] Methodi 00:00:00 00:00:[address] 3.430.2.7 Hospit a .3.176117 l .8 2021-05-31 2021-05-31 Nurse 1, Adc Infusion Nurse [facility] 1.2. 840.114 [id number] Univers 08:29:34 09:29:34 Visit Abbie Alejandro 350.1.13.10 ity of [place] [phone] [place] [address] [place] 2021-05-31 2021-05-31 Outpatient Kojo ALEJANDRO [facility] [id number] Univers 08:00:00 08:00:00 ABBIE ity of [facility] 2021-05-31 2021-05-31 Orders Doctor POOLE 1.2.840.114 [id number] Univers 00:00:00 00:00:00 Only Unassigned, LINDSAY 350.1.13.10 ity of [facility] 4.2.7.2.686 Chinmay as [id number] [facility] 009 [address] 2020-12-02 2020-12-02 Outpatient [facility] [id number] 678 Univers 14:15:00 14:15:00 ity [facility] 2020-12-01 2020-12-01 Outpatient R JANUSZ, [facility] [id number] Univers 14:15:00 14:14:52 ROHIT ity [facility] 2020-11-11 2020-11-11 Outpatient [facility] [id number] Univers 14:15:00 14:15:00 ity [facility] 2020-08-27 2020-08-27 Appointmen CAROL ROWELL [facility] Urology - 67 [id number] [place] 08:45:00 08:45:00 t; Mary ROWELL [place] Luk[place] MEDINA M.D. [facility] 2020-08-22 2020-08-22 Outpatient ARON, ENIO [place] [address] [id number] [place] 00:00:00 00:00:00 232 Method i 2020-08-20 2020-08-20 Outpatient ARON, ENIO [facility] 715 [id number] [place] 00:00:00 00:00:[address] 2020-06-25 2020-06-25 Outpatient ARON, ENIO [facility] 263 [id number] [place] 00:00:00 00:00:00 078 Method i 2020-05-18 2020-05-18 Prep For [facility] 1.2.840.114 [id number] Univers 00:00:00 00:00:00 Surgery Netta Solano 350.1.13.10 it[place] of [place] [phone] Tn dical nal 204 [facility] 2020-05-17 2020-05-17 Telephone [facility] 1.2.840.114 [id number] Univers 00:00:00 00:00:00 Maral Solano 350.1.13.10 i ty of [place] [phone] Tn dical nal 188 [facility] 2020-05-15 2020-05-15 Office [facility] 1.2.755.731 7869 1062 Univers 14:58:46 15:52:26 Visit Maral Solano 350.1.13.10 i ty [facility] 4.2.7.2.686 Noreen Trna [phone] [address] 2020-05-15 2020-05-15 Outpatient Kojo MORALES [facility] [id number] [facility] 15:00:00 15:00:00 MARAL darling [facility] 2020-03-05 2020-03-05 Appointmen ORGANTRANSP UTP UTP 679 [address] [place] 10:30:00 10:30:00 t; LANT, OP Physi ci ORGANTRANS ans PLANT, OP 2020-02-20 2020-02-20 Appointmen CAROL ROWELL, [facility] Urology - 66 [id number] [place] 08:30:00 08:30:00 t; Mary ROWELL [place] Luk[place] MEDINA M.D. [facility] 2020-02-09 2020-02-10 Inpatient U VIRGILIO MCKEON [facility] 7583 [facility] 12:56:00 17:50:00 2020-01-30 2020-01-30 Appointmen ORGANTRANSP [facility]TP UTP 672 [address] [place] 09:00:00 09:00:00 t; LANT, OP Physi ci ORGANTRANS ans PLANT, OP 2020-01-30 2020-01-30 Outpatient VIRGILIO MCKEON [facility] SHAHBAZ 962 4 [facility] 08:25:00 08:25:00 2019-11-02 2019-11-05 Inpatient KARLOS [facility] 0077 [facility] 08:25:00 11:35:00 TRACI 2019-09-22 2019-09-22 Appointmen [facility]GANTRANSP [facility]TP UTP 626 [id number] [place] 08:00:00 08:00:00 t; LANT, OP Physi ci ORGANTRANS ans PLANT, OP 2019-09-19 2019-09-19 Appointmen ORGANTRANSP [facility]TP UTP 626 [address] [place] 08:00:00 08:00:00 t; LANT, OP Physi ci ORGANTRANS ans PLANT, OP 2019-09-08 2019-09-08 Appointmen ORGANTRANSP [facility]TP UTP 623 [address] [place] 09:00:00 09:00:00 t; LANT, OP Physi ci ORGANTRANS ans PLANT, OP 2019-08-29 2019-08-29 Appointmen [facility]GANTRANSP [facility]TP UTP 622 [id number] [place] 07:30:00 07:30:00 t; LANT, OP Physi ci ORGANTRANS ans PLANT, OP 2019-08-29 2019-08-29 Outpatient [facility] 9622 [facility] 07:07:00 07:07:00 2019-08-15 2019-08-15 Outpatient [facility] 9621 [facility] 06:46:00 06:46:00 2019-07-26 2019-07-26 Inpatient E [facility] 7581 [facility] 21:16:00 19:41:00 2019-06-26 2019-06-26 Inpatient E [facility] 7579 [facility] 23:55:00 16:24:00 2019-06-20 2019-06-20 Outpatient [facility] 9620 [facility] 06:33:00 06:33:00 2019-04-07 2019-04-07 Outpatient [facility] 9619 [facility] 09:43:00 09:43:00 2019-01-17 2019-01-17 Outpatient [facility] 9618 [facility] 06:41:00 06:41:00 2018-12-13 2018-12-13 Outpatient [facility] 9617 [facility] 06:41:00 06:41:00 2018-11-24 2018-11-24 Inpatient E [facility] 7537 [facility] 22:03:00 18:46:00 2018-11-01 2018-11-01 Appointmen DEXA, SCAN UTP UTP 5145 0959 [place] 09:30:00 09:30:00 t; DEXA, Physi ci SCAN ans 2018-11-01 2018-11-01 Outpatient [facility] 9615 [facility] 06:38:00 06:38:00 Results Test Description Test Time Test Comments Results Result Comments Source POC glucose 2021-08-30 23:34:35 Test Item Value Reference Range Interpretation Comme nts POC glucose (test code = 70 mg/dL 65-99 Ope rator Name: Joan Ellissherinjam 74941-0) ID: [id number] [facility] [id number] 23:34:35 Test Item Value Reference Range Interpretation Comments POC glucose (test 70 mg/dL 65-99 Donor Center Technician N clemente: Joan code = 88688-3) Deep ID: [id number] [facility] [id number] 23:34:35 Test Item Value Reference Range Interpretation Comments POC glucose (test 70 mg/dL 65-99 Donor Center Technician N clemente: Joan code = 27571-7) Deep ID: [id number] [facility] [id number] 17:34:58 Test Item Value Reference Range Interpretation Comments POC sodium (test code = 140 mmol/L 124-284 6206-0) POC potassium (test 4.4 mmol/L 3.5-5 code = 6298-4) POC glucose (test code 94 mg/dL 65-99 = 2339-0) POC creatinine (test 8.6 mg/dl 0.5-0.9 H Operato r Name: Mervin code = 46272-0) Dm ID: [id number] POC hemoglobin (test 12.9 g/dL 12-16 code = 718-7) POC hematocrit (test 38 % 37-47 code = 4544-3) Lab Interpretation Abnormal (test code = 75686-8) [facility] [id number] 17:34:58 Test Item Value Reference Range Interpretation Comments POC sodium (test code = 140 mmol/L 150-423 7872-0) POC potassium (test 4.4 mmol/L 3.5-5.0 code = 6298-4) POC glucose (test code 94 mg/dL 65-99 = 2339-0) POC creatinine (test 8.6 mg/dl 0.5-0.9 H Operato r Name: Mervin code = 38069-1) AileenDevice ID: [id number] POC hemoglobin (test 12.9 g/dL 12.0-16.0 code = 718-7) POC hematocrit (test 38 % 37-47 code = 4544-3) Lab Interpretation Abnormal (test code = 86363-0) [facility] [id number] 17:34:58 Test Item Value Reference Range Interpretation Comments POC sodium (test code = 140 mmol/L 539-729 3329-0) POC potassium (test 4.4 mmol/L 3.5-5.0 code = 6298-4) POC glucose (test code 94 mg/dL 65-99 = 2339-0) POC creatinine (test 8.6 mg/dl 0.5-0.9 H Operato r Name: Mervin code = 97537-5) Dm ID: [id number] POC hemoglobin (test 12.9 g/dL 12.0-16.0 code = 718-7) POC hematocrit (test 38 % 37-47 code = 4544-3) Lab Interpretation Abnormal (test code = 19617-8) [facility] Pre/Post [id number] 04:19:57 Test Item Value Reference Range Interpretation Comments Ventricular rate (test code = 253) Atrial rate (test code = 255) IN interval (test code = 266) QRSD interval [...] T wave abnormality now evident in Anterior leads-Electronically Signed By Leona [facility] ([id number][facility] on 08/28/2021 10:19:51 PM [facility] Pre/Post [id number] 04:19:57 Test Item Value Reference Range Interpretation Comments Ventricular rate (test code = 253) Atrial rate (test code = 255) IN interval (test code = 266) QRSD interval [...] wave abnormality now evident in Anterior leads- [facility] [id number] 21:02:00 Test Item Value Reference Range Interpretation Comments ABO grouping (test code = 883-9) A Rh type (test code = 69731-0) POS Antibody screen (gel) (test code = NEG 890-4) [facility] [id number] 21:02:00 Test Item Value Reference Range Interpretation Comments ABO grouping (test code = 883-9) A Rh type (test code = 05676-4) POS Antibody screen (gel) (test code = NEG 890-4) Melquiades BlankenshipARS-CoV-2 (COVID-19) RNA [Presence] in Respiratory specimen by ELLEN with probe [id number] 19:28:41 Test Item Value Reference Range Interpretation Comments SARS-CoV-2 (COVID-19) RNA Not detected Not-Detected [Presence] in Respiratory specimen by ELLEN with probe detection (test code = 88384-5) Whether patient is employed in a healthcare setting (test code = 46529-7) Whether the patient has symptoms related to condition of interest (test code = 94179-9) Patient was hospitalized because of this condition (test code = 85358-8) Whether the patient was admitted to intensive care unit (ICU) for condition of interest (test code = 01062-0) Whether patient resides in a congregate care setting (test code = 30652-5) [facility] Rh [id number] 20:44:00 Test Item Value Reference Range Interpretation Comments ABO grouping (test code = 883-9) A Rh type (test code = 59907-7) [facility] GbguxactJYXN-IaL-5 (COVID-19) RNA [Presence] in Respiratory specimen by ELLEN with probe [id number] 20:24:24 Test Item Value Reference Range Interpretation Comments SARS-CoV-2 (COVID-19) RNA Not detected Not-Detected [Presence] in Respiratory specimen by ELLEN with probe detection (test code = 02261-7) Whether patient is employed in a healthcare setting (test code = 40966-1) Whether the patient has symptoms related to condition of interest (test code = 83592-2) Patient was hospitalized because of this condition (test code = 00451-0) Whether the patient was admitted to intensive care unit (ICU) for condition of interest (test code = 20029-4) Whether patient resides in a congregate care setting (test code = 79799-0) [facility] [Presence] in Respiratory specimen by ELLEN with probe [id number] 01:56:50 Test Item Value Reference Range Interpretation Comments SARS-CoV-2 (COVID-19) RNA Not detected Not-Detected [Presence] in Respiratory specimen by ELLEN with probe detection (test code = 30719-2) [facility]
[2022-09-30 12:13] LABS: SARS-COV-2 RT PCR NEGATIVE (NEGATIVE)
[2022-09-30 12:19] LABS: Urine Blood 1+ (Negative); Urine Glucose Negative (Negative); Urine Protein 3+ (Negative); Urine pH 8.5 (5.0-7.0)
--- NOTE | 2022-09-30 12:23 | RAD REPORT ---
EXAM DESCRIPTION: RAD - Chest Single View - 09/30/2022 12:05 pm CLINICAL HISTORY: Fever COMPARISON: Chest Single View dated 08/18/2022; Chest Single View dated 02/04/2021; Chest Single View d ated 02/02/2021; Abdomen 1 View (KUB) dated 01/31/2021 FINDINGS: Lines: None. Lungs: Widespread bilateral airspace disease. Pleural: No significant pleural effusions or pneumothorax. Cardiac: Similar size and configuration. Mediastinum: Within normal limits. Bones: No acute fractures. Other: None IMPRESSION: Ill-defined bilateral airspace opacities concerning for multifocal pneumonia, including from viral etiologies.
[2022-09-30 12:51] LABS: Absolute Lymphocytes (CBC) 0.9 K/uL (0.7-4.9); Hematocrit 29.3 % (36.0-45.0); Lymphocytes % 16.6 % (15.3-44.8); MCV 90.5 fL (80-100); MPV 8.4 fL (7.6-11.3); RBC Red Blood Cell Count 3.24 M/uL (3.86-4.86)
[2022-09-30 12:55] LABS: Protime INR 1.16
[2022-09-30 13:08] LABS: Albumin 3.2 g/dL (3.4-5.0); Bilirubin Total 0.5 mg/dL (0.2-1.0); Protein, Total 7.2 g/dL (6.4-8.2)
[2022-09-30] MEDS ORDERED: AZITHROMYCIN 500 MG INJ IVPB ONE (13:40)
[2022-09-30] MEDS ORDERED: NA CHLORIDE 0.9% 100 ML ONE (13:40)
[2022-09-30] MEDS ORDERED: CEFEPIME 1 GM/VIAL ONE (13:40)
[2022-09-30] MEDS ORDERED: NA CHLORIDE 0.9% 250 ML ONE (13:40)
--- NOTE | 2022-09-30 13:49 | ER ---
Nurse's Notes [facility] Name: Sully Renner Age: 22 yrs Sex: Female : 2000 Arrival Date: 09/30/2022 Time: 10:48 Bed 28 Private MD: Diagnosis: Other pneumonia, unspecified organism;Sepsis without end organ dysfunction;Fever, unspecified;Tachycardia, unspecified Presentation: 09/30 11:09 Chief complaint: Patient states: she has been having fever since Thursday09/27/2022 as ap3 well as mild chest discomfort. patient has an extensive renal hx, and had cloudy urine when she self cathed last night. mother at the bedside reports the patient did have a recent UTI dx. Coronavirus screen: At this time, the client does not indicate any symptoms associated with coronavirus-19. Ebola Screen: No symptoms or risks identified at this time. Initial Sepsis Screen: Does the patient meet any 2 criteria? Temp <36.0*C (96.8*F)) or > 38.3*C (100.9*F). HR > 90 bpm. Yes Does the patient have a suspected source of infection? Yes:. Risk Assessment: Do you want to hurt yourself or someone else? Patient reports no desire to harm self or others. Onset of symptoms was September 27, 2022. 11:09 Method Of Arrival: Ambulatory ap3 11:09 Acuity: CT 2 ap3 Triage Assessment: 11:12 General: Appears ill, Behavior is calm, cooperative. Pain: Complains of pain in chest. ap3 Neuro: Level of Consciousness is awake, alert, obeys commands, Oriented to person, place, time, situation, Appropriate for age Speech is normal. Cardiovascular: Patient's skin is warm and dry. Cardiovascular: Dialysis shunt: in the left arm. Respiratory: Airway is patent Respiratory effort is even, unlabored, Respiratory pattern is regular, symmetrical. Historical: - Allergies: 11:11 Latex, Natural Rubber; ap3 - Home Meds: 11:30 amlodipine 2.5 mg tab 1 tab once daily [Active]; carvedilol 12.5 mg Oral tab 1 tab 2 bp times per day [Active]; nifedipine 30 mg Oral tr24 1 tab once daily [Active]; - PMHx: 11:11 Dialysis; End stage renal disease; Hypertensive disorder; SELF CATHERIZATION; ap3 - PSHx: 11:11 BLADDER AUGMENTATION; FISTULA LEFT FA; kidney transplant; Nephrectomy; SPINAL BIFIDA; ap3 - Immunization history:: Client reports receiving the 2nd dose of the Covid vaccine, Flu vaccine is up to date. - Social history:: Smoking status: Patient denies any tobacco usage or history of. Screenin:26 Abuse screen: Denies threats or abuse. Nutritional screening: No deficits noted. ap3 Tuberculosis screening: No symptoms or risk factors identified. 11:26 [facility] ED Fall Risk Assessment (Adult) History of falling in the last 3 months, ap3 including since admission. Assessment: 11:15 General: SEE TRIAGE NOTE. bp 12:30 Reassessment: DELAY IN BLOOD SPECIMEN, MD NOTIFIED, DIFFICULTY OBTAINING IV ACCESS BY MX STAFF. 13:45 Reassessment: ABX INITIATED AFTER BLOOD CX x2. bp 14:29 Reassessment: Dr. Vega at bedside discussing results and POC. 7 15:29 Reassessment: ADMIT INITIATED. bp Vital Signs: 11:09 Pulse 122; Resp 18; Temp 101.6(O); Pulse Ox 95% on R/A; Weight 72.57 kg; Height 5 ft. 3 ap3 in. (160.02 cm); Pain 4/10; 12:58 BP 127 / 88; Pulse 122; Resp 16; Pulse Ox 96% ; bp 13:45 BP 132 / 98; Pulse 117; Resp 20; Pulse Ox 92% ; bp 15:29 BP 122 / 74; Pulse 115; Resp 24; Temp 102.4; Pulse Ox 93% on 2 lpm NC; bp 11:09 Body Mass Index 28.34 (72.57 kg, 160.02 cm) ap3 ED Course: 10:48 Patient arrived in ED. am2 10:48 Yifan Almeida DO is Attending Physician. ms3 11:11 John Howard, RN is Primary Nurse. bp 11:11 Triage completed. ap3 11:26 Arm band placed on left wrist. ap3 11:26 Patient has correct armband on for positive identification. Placed in gown. Bed in low ap3 position. Call light in reach. Side rails up X2. Adult w/ patient. allied health instructor on. Pulse ox on. NIBP on. Door closed. Noise minimized. 12:34 Inserted saline lock: 22 gauge in right forearm, using aseptic technique. Blood bp collected. 13:48 Jose Francisco Vega MD is Hospitalizing Provider. ms3 18:39 No provider procedures requiring assistance completed. Patient admitted, IV remains in bp place. 19:22 Primary Nurse role handed off by John Howard RN mw2 19:33 Charissa Crowder RN is Primary Nurse. ha1 10/01 07:36 Primary Nurse role handed off by Charissa Crowder RN bp 07:36 John Howard RN is Primary Nurse. bp Administered Medications: 09/30 13:45 Drug: Cefepime 1 grams Route: IVPB; Rate: 200 ml/hr; Infused Over: 30 mins; Site: right bp forearm; 15:30 Follow up: IV Status: Completed infusion; IV Intake: 250ml bp 14:24 Drug: Tylenol 1000 mg Route: PO; jl7 15:30 Follow up: Response: No adverse reaction bp 14:28 Drug: AZITHromycin 500 mg Route: IVPB; Infused Over: 1 hrs; Site: left forearm; jl7 15:30 Follow up: IV Status: Completed infusion; IV Intake: 100ml bp Medication: 11:26 VIS not applicable for this client. ap3 Intake: 15:30 IV: 250ml; Total: 250ml. bp 15:30 IV: 100ml; Total: 350ml. bp Outcome: 13:49 Decision to Hospitalize by Provider. ms3 18:39 Admitted to ER Hold. Please see [facility] for further documentation. bp 18:39 Condition: stable 18:39 Instructed on the need for admit. 10/01 15:40 Patient left the ED. bp Signatures: Toña Card RN RN jl7 Suzie Montero amJohn Dexter, RN RN bp Suzie Castillo RN RN ap3 Dwaine Dumas mw2 Yifan Almeida DO DO ms3 Charissa Crowder RN RN 1 Corrections: (The following items were deleted from the chart) 09/30 11:26 11:09 Chief complaint: Patient states: she has been having fever since Thursday ap3 09/27/2022 as well as pain in her flank area. patient has an extensive renal hx. ap3
--- NOTE | 2022-09-30 13:49 | EDPHYS ---
Physician Documentation [facility] Name: Sully Renner Age: 22 yrs Sex: Female : 2000 Arrival Date: 09/30/2022 Time: 10:48 Bed 28 Private MD: ED Physician Yifan Almeida HPI: 09/30 11:04 This 22 yrs old Female presents to ER via Unassigned with complaints of kidney pain, ms3 Fever. 11:04 22-year-old female with past medical history of end-stage renal disease, spina bifida ms3 presents from dialysis clinic for 4 days of fever. Patient received 3 hours of dialysis today, but fluid was not removed as patient's heart rate was elevated and her blood pressure was decreased. Patient endorses cough, runny nose. Patient denies sick contacts, urinary frequency, dysuria, flank pain.. Historical: - Allergies: 11:11 Latex, Natural Rubber; ap3 - Home Meds: 11:30 amlodipine 2.5 mg tab 1 tab once daily [Active]; carvedilol 12.5 mg Oral tab 1 tab 2 bp times per day [Active]; nifedipine 30 mg Oral tr24 1 tab once daily [Active]; - PMHx: 11:11 Dialysis; End stage renal disease; Hypertensive disorder; SELF CATHERIZATION; ap3 - PSHx: 11:11 BLADDER AUGMENTATION; FISTULA LEFT FA; kidney transplant; Nephrectomy; SPINAL BIFIDA; ap3 - Immunization history:: Client reports receiving the 2nd dose of the Covid vaccine, Flu vaccine is up to date. - Social history:: Smoking status: Patient denies any tobacco usage or history of. ROS: 11:04 Neck: Negative for injury, pain, and swelling, Cardiovascular: Negative for chest pain, ms3 and palpitations. Respiratory: Negative for shortness of breath, cough, wheezing, and pleuritic chest pain, Abdomen/GI: Negative for abdominal pain, nausea, vomiting, diarrhea, and constipation, MS/Extremity: Negative for injury and deformity. 11:04 Constitutional: Positive for chills, fever. 11:04 All other systems are negative. Exam: 11:04 Constitutional: This is a well developed, well nourished patient who is awake, alert, ms3 and in no acute distress. Head/Face: Normocephalic, atraumatic. Neck: Trachea midline, no cervical lymphadenopathy. Supple, full range of motion without nuchal rigidity, or vertebral point tenderness. No Meningismus. Chest/axilla: Normal chest wall appearance and motion. Nontender with no deformity. Respiratory: Lungs have equal breath sounds bilaterally, clear to auscultation and percussion. No rales, rhonchi or wheezes noted. No increased work of breathing, no retractions or nasal flaring. Abdomen/GI: Soft, non-tender, with normal bowel sounds. No distension or tympany. No guarding or rebound. No evidence of tenderness throughout. Skin: Warm, dry with normal turgor. Normal color with no rashes, no lesions, and no evidence of cellulitis. MS/ Extremity: Pulses equal, no cyanosis. Neurovascular intact. Full, normal range of motion. 11:04 Cardiovascular: Rate: tachycardic, Rhythm: regular, Pulses: no pulse deficits are appreciated, Heart sounds: normal, normal S1and S2. 15:04 ECG was reviewed by the Attending Physician. ms3 Vital Signs: 11:09 Pulse 122; Resp 18; Temp 101.6(O); Pulse Ox 95% on R/A; Weight 72.57 kg; Height 5 ft. 3 ap3 in. (160.02 cm); Pain 4/10; 12:58 BP 127 / 88; Pulse 122; Resp 16; Pulse Ox 96% ; bp 13:45 BP 132 / 98; Pulse 117; Resp 20; Pulse Ox 92% ; bp 15:29 BP 122 / 74; Pulse 115; Resp 24; Temp 102.4; Pulse Ox 93% on 2 lpm NC; bp 11:09 Body Mass Index 28.34 (72.57 kg, 160.02 cm) ap3 MDM: 11:01 Patient medically screened. ms3 11:04 Differential diagnosis: viral Infection, bacterial infection, UTI. ms3 16:22 Data reviewed: vital signs, nurses notes, lab test result(s), EKG, radiologic studies, ms3 and as a result, I will admit patient. Consideration of Admission/Observation Patient was admitted/placed on observation. Management of patient was discussed with the following: Hospitalist: Dr Vega. I considered the following discharge prescriptions or medication management in the emergency department Medications were administered in the Emergency Department. See MAR. Independent interpretation of the following test(s) in the Emergency Department hall monitor: rate is 108 beats/min, Rhythm is sinus tachycardia. Counseling: I had a detailed discussion with the patient and/or guardian regarding: the historical points, exam findings, and any diagnostic results supporting the discharge/admit diagnosis, lab results, radiology results, the need for further work-up and treatment in the hospital. ED course: Discussed case with Dr. Vega and he accepts patient as inpatient admission. Discussed plan for admission with patient and her mother. They understand and agree with plan.. 09/30 11:03 Order name: Blood Culture Adult (2) ms3 09/30 11:03 Order name: CBC with Diff ms3 09/30 11:03 Order name: CMP ms3 09/30 11:03 Order name: Lactate w/ 2H reflex if indic. ms3 09/30 11:03 Order name: Protime (+inr) ms3 09/30 11:03 Order name: Ptt, Activated ms3 09/30 11:03 Order name: Urine Culture ms3 09/30 11:09 Order name: COVID-19/FLU A+B ms3 09/30 12:13 Order name: COVID-19/FLU A+B; Complete Time: 12:55 EDMS 09/30 12:19 Order name: Urine Dipstick-Ancillary; Complete Time: 12:55 EDMS 09/30 12:32 Order name: Urine --Ancillary (enter results) bd 09/30 12:47 Order name: Urine --Ancillary; Complete Time: 12:55 EDMS 09/30 12:53 Order name: CBC with Automated Diff; Complete Time: 12:55 EDMS 09/30 12:55 Order name: Protime (+INR); Complete Time: 13:21 EDMS 09/30 11:03 Order name: Chest Single View XRAY ms3 09/30 12:24 Order name: RAD; Complete Time: 12:55 EDMS 09/30 12:55 Order name: PTT, Activated Partial Thromb; Complete Time: 13:21 EDMS 09/30 13:04 Order name: Lactate w/ 2H reflex if indic.; Complete Time: 13:21 EDMS 09/30 13:17 Order name: Comprehensive Metabolic Panel; Complete Time: 13:21 EDMS 09/30 16:30 Order name: Phosphorus; Complete Time: 04:40 EDMS 09/30 16:30 Order name: T4 Free; Complete Time: 04:40 EDMS 09/30 16:30 Order name: Magnesium; Complete Time: 04:40 EDMS 09/30 16:30 Order name: Thyroid Stimulating Hormone; Complete Time: 04:40 EDMS 10/01 03:03 Order name: CBC with Automated Diff; Complete Time: 04:40 EDMS 10/01 03:54 Order name: Basic Metabolic Panel; Complete Time: 04:40 EDMS 10/01 06:45 Order name: Blood Culture EDMS 10/01 07:26 Order name: Respiratory Syncytial Virus Ag EDMS 10/01 07:29 Order name: Urine Culture EDMS 10/01 08:13 Order name: Respiratory Syncytial Virus Ag EDMS 10/01 11:49 Order name: Procalcitonin EDMS 09/30 11:03 Order name: EKG; Complete Time: 11:03 ms3 09/30 11:03 Order name: Accucheck; Complete Time: 12:33 ms3 09/30 11:03 Order name: Cardiac monitoring; Complete Time: 11:18 ms3 09/30 11:03 Order name: EKG - Nurse/Tech; Complete Time: 11:18 ms3 09/30 11:03 Order name: IV Saline Lock - Large Bore; Complete Time: 12:33 ms3 09/30 11:03 Order name: Labs collected and sent; Complete Time: 12:33 ms3 09/30 11:03 Order name: O2 Per Protocol; Complete Time: 12:33 ms3 09/30 11:03 Order name: O2 Sat Monitoring; Complete Time: 12:33 ms3 09/30 11:03 Order name: Urine Dipstick-Ancillary (obtain specimen); Complete Time: 12:33 ms3 09/30 11:03 Order name: Urine Test (obtain specimen); Complete Time: 12:33 ms3 09/30 11:03 Order name: Vital Signs; Complete Time: 12:33 ms3 10/01 07:50 Order name: CT EDMS EC:04 Rate is 118 beats/min. Rhythm is regular. QRS [place] is Normal. [place] interval is normal. ms3 Clinical impression: NSR w/ Non-specific ST/T Changes. Interpreted by me. Reviewed by me. Administered Medications: 13:45 Drug: Cefepime 1 grams Route: IVPB; Rate: 200 ml/hr; Infused Over: 30 mins; Site: right bp forearm; 15:30 Follow up: IV Status: Completed infusion; IV Intake: 250ml bp 14:24 Drug: Tylenol 1000 mg Route: PO; jl7 15:30 Follow up: Response: No adverse reaction bp 14:28 Drug: AZITHromycin 500 mg Route: IVPB; Infused Over: 1 hrs; Site: left forearm; jl7 15:30 Follow up: IV Status: Completed infusion; IV Intake: 100ml bp Disposition Summary: 09/30/22 13:49 Hospitalization Ordered Hospitalization Status: Inpatient Admission ms3 Provider: Jose Francisco Vega ms3 Condition: Stable ms3 Problem: new ms3 Symptoms: are unchanged ms3 Bed/Room Type: Standard ms3 Location: Telemetry/MedSurg (Inpatient)(10/01/22 14:45) bd Room Assignment: [facility](10/01/22 14:45) bd Diagnosis - Other pneumonia, unspecified organism ms3 - Sepsis without end organ dysfunction ms3 - Fever, unspecified ms3 - Tachycardia, unspecified ms3 Forms: - Medication Reconciliation Form ms3 - SBAR form ms3 Signatures: Dispatcher [employer] EDMS Tyra Macias Shelby, RN RN ss Daniel Morin, PLASTER WHITTLER-C PLASTER WHITTLER-Cla1 Toña Card RN RN jl7 John Howard RN Suzie Walton RN RN ap3 Yifan Almeida, DO ms3 Corrections: (The following items were deleted from the chart) 15:04 13:45 ECG was reviewed by the Attending Physician. ms3 ms3 15:04 13:45 Rate is 60 beats/min. Rhythm is regular. Left axis deviation noted. QRS interval ms3 is prolonged. ms3 16:04 13:49 Telemetry/MedSurg (Inpatient) ms3 ss 16:04 13:49 ms3 ss 10/01 14:45 02 16:04 [facility] ER HOLD ss bd 10/01 14:45 09/30 16:04 ERHOLD- ss bd
[2022-09-30] MEDS ORDERED: ACETAMINOPHEN 500 MG TAB ONE (14:26)
--- NOTE | 2022-09-30 15:29 | P.HP ---
Certification for Inpatient Patient admitted to: Inpatient With expected LOS: >2 Midnights Patient will require the following post-hospital care: None Practitioner: I am a practitioner with admitting privileges, knowledge of patient current condition, hospital course, and medical plan of care. Services: Services provided to patient in accordance with Admission requirements found in Title 42 Section 412.3 of the Code of Federal Regulations <FreditadLinda min Mechelle - Last Filed: 09/30/22 19:42> Patient History Date of Service: 09/30/22 Reason for admission: Fever, cough History of Present Illness: Patient is a 22-year-old female with a past medical history significant for ESRD, hypertension, spina bifida who presents with complaint of fever, cough that has been ongoing for the past 4 days. Patient was at her dialysis clinic today but fluids were not removed because of patient's elevated heart rate and diminished blood pressure. Patient reports associated signs and symptoms of chest tightness and rhinorrhea. Patient denies any other signs and symptoms. Symptoms are aggravated or relieved by nothing. Patient presented to the hospital due to worsening symptoms. - Past Medical/Surgical History Diabetic: No -: Hypertension -: spina bifida -: bladder reflux -: ESRD on HD -: spina bifida repair -: bladder augmentation -: kidney transplant, then nephrectomy -: PD placement Psychosocial/ Personal History: Patient is adopted. - Family History Father Notes: adopted - Social History Smoking Status: Never smoker Alcohol use: No CD- Drugs: No Caffeine use: No Place of Residence: Home <KwameCarlyle minmesha Min - Last Filed: 09/30/22 19:42> Date of Service: 09/30/22 <Jose Francisco Vega - Last Filed: 09/30/22 22:16> Allergies latex Allergy (Verified 08/25/22 13:09) Hives/Rash Home Medications: RX: Nifedipine [Procardia Xl] 60 mg PO DAILY 05/16/22 Carvedilol [Coreg] 25 mg PO BID 08/25/22 RX: Cefpodoxime Proxetil 100 mg PO EVERY 3RD DAY 7 Days #3 tab 09/02/22 Review of Systems General: Fever Eyes: Unremarkable ENT: Other (Rhinorrhea) Respiratory: Cough, Other (Chest tightness) Cardiovascular: Unremarkable Gastrointestinal: Unremarkable Genitourinary: Unremarkable Musculoskeletal: Unremarkable Integumentary: Unremarkable Neurological: Unremarkable Lymphatics: Unremarkable <Linda James - Last Filed: 09/30/22 19:42> Physical Examination - Physical Exam General: Alert, In no apparent distress, Oriented x3, Cooperative HEENT: Atraumatic, PERRLA, Mucous membr. moist/pink, EOMI, Sclerae nonicteric Neck: Supple, 2+ carotid pulse no bruit, No LAD, Without JVD or thyroid abnormality Respiratory: Diminished Cardiovascular: No edema, Regular rate/rhythm, Normal S1 S2 Capillary refill: <2 Seconds Gastrointestinal: Normal bowel sounds, No tenderness Musculoskeletal: No clubbing, No contractures, No tenderness Integumentary: No rashes Neurological: Normal speech, Normal tone, Normal affect Lymphatics: No axilla or inguinal lymphadenopathy - Studies Laboratory Data (last 24 hrs) 09/30/22 12:35: PT 12.8 H, INR 1.16, APTT 33.8 09/30/22 12:35: Sodium 134 L, Potassium 4.0, BUN 18, Creatinine 6.58 H*, Glucose 95, Total Bilirubin 0.5, AST 14 L, ALT 12 L, Alkaline Phosphatase 368 H 09/30/22 12:35: WBC 5.50, Hgb 9.8 L, Hct 29.3 L, Plt Count 155 <Linda James Mechelle - Last Filed: 09/30/22 19:42> - Studies Laboratory Data (last 24 hrs) 09/30/22 12:35: Phosphorus 3.3, Magnesium 2.1 09/30/22 12:35: PT 12.8 H, INR 1.16, APTT 33.8 09/30/22 12:35: Sodium 134 L, Potassium 4.0, BUN 18, Creatinine 6.58 H*, Glucose 95, Total Bilirubin 0.5, AST 14 L, ALT 12 L, Alkaline Phosphatase 368 H 09/30/22 12:35: WBC 5.50, Hgb 9.8 L, Hct 29.3 L, Plt Count 155 <Jose Francisco Vega - Last Filed: 09/30/22 22:16> Assessment and Plan - Plan --Multifocal pneumonia. Noted on imaging. Blood cultures pending. Continue antibiotics, neb treatment with Atrovent\albuterol and O2 therapy as needed. --Cough. Patient placed on antitussives. --History of spina bifida. Continue supportive care. --Sepsis POA. Likely secondary to pneumonia. Blood cultures pending. Continue antibiotics. --ESRD. Nephrology consulted. Further management per ribbon weaver. --Hypertension. Stable. Continue home medications. --Anemia of chronic disease. H&H stable. We will continue to monitor hemoglobin and transfuse if less than 7.0. --DVT prophylaxis with heparin subQ. Discharge Plan: Home Plan to discharge in: Greater than 2 days - Advance Directives Does patient have a Living Will: No Does patient have a Durable POA for Healthcare: Yes - Code Status/Comfort Care Code Status Assessed: Yes Physician Review: Patient Assessed, Agree with Above Assessment and Plan Critical Care: No <Linda James - Last Filed: 09/30/22 19:42> Physician Review: Patient Assessed, Agree with Above Assessment and Plan <Jose Francisco Vega - Last Filed: 09/30/22 22:16>
[2022-09-30 16:30] LABS: Magnesium 2.1 mg/dL (1.6-2.4); Phosphorus 3.3 mg/dL (2.5-4.9); Thyroid Stimulating Hormone 1.59 uIU/mL (0.358-3.740)
[2022-09-30] MEDS ORDERED: GUAIFENESIN/CODEINE 5ML UCUP PO PRN (16:40)
[2022-09-30] MEDS: ACETAMINOPHEN 325 MG TABLET PO PRN (19:48)
[2022-09-30] MEDS ORDERED: ACETAMINOPHEN 325 MG TABLET ONE (19:49)
[2022-09-30] MEDS: IPRATROPIUM BROM 0.5MG/2.5ML NEB SCH (20:00)
[2022-09-30] MEDS: ALBUTEROL 2.5 MG/3 ML NEB SOL NEB SCH (20:00)
--- NOTE | 2022-09-30 20:01 | P.CNS ---
Date of Consult: 09/30/22 Reason for Consult: ESRD Requesting Physician: Jose Francisco Vega Chief Complaint: Fever, cough History of Present Illness: Patient is a 22-year-old female with a past medical history significant for ESRD, hypertension, spina bifida who presents with complaint of fever, cough that has been ongoing for the past 4 days. Patient was at her dialysis clinic today but fluids were not removed because of patient's elevated heart rate and diminished blood pressure. Patient reports associated signs and symptoms of chest tightness and rhinorrhea. Patient denies any other signs and symptoms. Symptoms are aggravated or relieved by nothing. Patient presented to the hospital due to worsening symptoms. [facility] 11:04 This 22 yrs old Female presents to ER via Unassigned with complaints of kidney pain, ms3 Fever. 11:04 22-year-old female with past medical history of end-stage renal disease, spina bifida ms3 presents from dialysis clinic for 4 days of fever. Patient received 3 hours of dialysis today, but fluid was not removed as patient's heart rate was elevated and her blood pressure was decreased. Patient endorses cough, runny nose. Patient denies sick contacts, urinary frequency, dysuria, flank pain.. Allergies latex Allergy (Verified 08/25/22 13:09) Hives/Rash Home medications list reviewed: Yes Home Medications: Nifedipine [Procardia Xl] 60 mg PO DAILY 05/16/22 Carvedilol [Coreg] 25 mg PO BID 08/25/22 Cefpodoxime Proxetil 100 mg PO EVERY 3RD DAY 7 Days #3 tab 09/02/22 - Past Medical/Surgical History Diabetic: No -: Hypertension -: spina bifida -: bladder reflux -: ESRD on HD (Dr. Chapman) -: spina bifida repair -: bladder augmentation -: kidney transplant, then nephrectomy -: PD placement Psychosocial/ Personal History: Patient is adopted. - Family History Father Notes: adopted - Social History Alcohol use: No CD- Drugs: No Caffeine use: No Place of Residence: Home Review of Systems 10-point ROS is otherwise unremarkable General: Weakness, Malaise Respiratory: SOB with Excertion Physical Examination Temp Pulse Resp BP Pulse Ox 100.4 F 115 H 22 H 117/76 95 09/30/22 19:48 09/30/22 16:00 09/30/22 16:00 09/30/22 16:00 09/30/22 16:00 General: Oriented x3, Cooperative HEENT: Atraumatic Neck: Supple Respiratory: Clear to auscultation bilaterally Cardiovascular: No edema, Regular rate/rhythm Gastrointestinal: Soft and benign, Non-distended Musculoskeletal: No clubbing, No contractures Integumentary: No rashes, No cyanosis Neurological: Normal speech Laboratory Data (last 24 hrs) 09/30/22 12:35: Phosphorus 3.3, Magnesium 2.1 09/30/22 12:35: PT 12.8 H, INR 1.16, APTT 33.8 09/30/22 12:35: Sodium 134 L, Potassium 4.0, BUN 18, Creatinine 6.58 H*, Glucose 95, Total Bilirubin 0.5, AST 14 L, ALT 12 L, Alkaline Phosphatase 368 H 09/30/22 12:35: WBC 5.50, Hgb 9.8 L, Hct 29.3 L, Plt Count 155 Imagings Data: [facility] EXAM DESCRIPTION: RAD - Chest Single View - 09/30/2022 12:05 pm CLINICAL HISTORY: Fever COMPARISON: Chest Single View dated 08/18/2022; Chest Single View dated 02/04/2021; Chest Single View dated 02/02/2021; Abdomen 1 View (KUB) dated 01/31/2021 FINDINGS: Lines: None. Lungs: Widespread bilateral airspace disease. Pleural: No significant pleural effusions or pneumothorax. Cardiac: Similar size and configuration. Mediastinum: Within normal limits. Bones: No acute fractures. Other: None IMPRESSION: Ill-defined bilateral airspace opacities concerning for multifocal pneumonia, including from viral etiologies. Conclusions/Impression: ESRD on HD -HD TTS Hyponatremia -HD TTS HTN with CKD/ CHF complicated by hypotension/ tachycardia -IVF bolus as needed Diastolic CHF, chronic -Low sodium diet -HD with UF Anemia in CKD -Start Retacrit CKD MBD Hypocalcemia -Start Ergo BL PNA -Continue Abx Case reviewed with Dr. Vega and Dr. Almeida Thank you kindly for the consultation
[2022-09-30] MEDS: carvediloL 6.25 MG TAB PO SCH (21:00)
[2022-09-30] MEDS: HEPARIN 5000 UNIT/ML 1 ML VIAL SQ SCH (21:00)
[2022-09-30] MEDS ORDERED: HEPARIN 5000 UNIT/ML 1 ML VIAL ONE (21:17)
[2022-09-30] MEDS ORDERED: carvediloL 6.25 MG TAB ONE (21:17)
[2022-09-30] MEDS ORDERED: ONDANSETRON 4 MG/2 ML VIAL ONE (21:17)
[2022-09-30] MEDS: ONDANSETRON 4 MG/2 ML VIAL IV PRN (21:38)
[2022-10-01] MEDS ORDERED: guaiFENesin 100 MG/5 ML UCUP ONE (00:31)
[2022-10-01] MEDS ORDERED: ACETAMINOPHEN 325 MG TABLET ONE ×3 (00:31→12:25)
[2022-10-01] MEDS: ACETAMINOPHEN 325 MG TABLET PO PRN ×3 (00:34→18:01)
[2022-10-01] MEDS: ALBUTEROL 2.5 MG/3 ML NEB SOL NEB SCH ×4 (02:00→19:25)
[2022-10-01] MEDS: IPRATROPIUM BROM 0.5MG/2.5ML NEB SCH ×4 (02:00→19:25)
[2022-10-01 03:02] LABS: Absolute Lymphocytes (CBC) 1.1 K/uL (0.7-4.9); Hematocrit 26.4 % (36.0-45.0); Lymphocytes % 20.2 % (15.3-44.8); MCV 90.6 fL (80-100); RBC Red Blood Cell Count 2.91 M/uL (3.86-4.86)
[2022-10-01 03:45] LABS: Potassium 4.6 mmol/L (3.5-5.1)
[2022-10-01] MEDS ORDERED: CALCIUM GLUC 10% INJ 4.65 MEQ in NA CHLORIDE 0.9% 100 ML IV ONE (04:44)
[2022-10-01] MEDS ORDERED: ACETAMINOPHEN 500 MG TAB PO ONE (04:50)
[2022-10-01] MEDS ORDERED: CALCIUM GLUCONATE 1 GM IVPB 1 GM/50 ML BAG IV ONE (05:06)
[2022-10-01] MEDS ORDERED: ACETAMINOPHEN 500 MG TAB ONE (05:07)
[2022-10-01] MEDS ORDERED: ONDANSETRON 4 MG/2 ML VIAL ONE (06:41)
[2022-10-01] MEDS ORDERED: IPRATROPIUM BROM 0.5MG/2.5ML ONE ×2 (07:37→13:44)
[2022-10-01] MEDS ORDERED: ALBUTEROL 2.5 MG/3 ML NEB SOL ONE ×2 (07:37→13:44)
--- NOTE | 2022-10-01 07:50 | RAD REPORT ---
EXAM DESCRIPTION: CT - Thorax Wo Con - 10/01/2022 7:00 am CLINICAL HISTORY: Pneumonia. Sepsis. Fevers since 09/27/2022. Chest discomfort. Recent UTI diagnosis . COMPARISON: Chest radiograph 09/30/2022 TECHNIQUE: Thin cut axial CT images of the chest were obtained without IV contrast. Multiplanar refo rmats were generated and reviewed. All CT scans are performed using dose optimization technique as appropriate and may include automated exposure control or mA/KV adjustment according to patient size. FINDINGS: Multifocal consolidative and ground-glass patchy opacities most abundant within the lower lobes bilaterally, left upper lobe, and to lesser extent the right middle and right upper lobes. No c avitary lesions. No pleural thickening or pleural effusion. No pneumothorax. No suspicious axillary or hilar adenopathy allowing for limitations of noncontrast examination. Mildl y prominent mediastinal lymph nodes, the largest in the pretracheal region measuring 11 millimeter in short axis, with preserved fatty hilum, nonspecific, but could be reactive. Incidentally noted trace pericardial effusion. No significant aortic or pulmonary artery finding susp ected. Assessment is limited in the absence of IV contrast. No chest wall mass or abnormal axilliary lymphadenopathy. Limited evaluation of the included upper abdominal structures reveals atrophic changes of both kidney s. IMPRESSION: Multifocal bilateral airspace opacities, concerning for an infectious/inflammatory proce ss such as pneumonia. Mildly prominent mediastinal lymph nodes, nonspecific, probably reactive.
[2022-10-01] MEDS ORDERED: NIFEDIPINE XL 60 MG TABLET PO SCH (09:00)
[2022-10-01] MEDS: HEPARIN 5000 UNIT/ML 1 ML VIAL SQ SCH ×2 (09:00→21:45)
[2022-10-01] MEDS ORDERED: ENOXAPARIN 40 MG/0.4 ML SQ SCH (09:00)
[2022-10-01] MEDS: carvediloL 6.25 MG TAB PO SCH (09:00)
[2022-10-01] MEDS: ASPIRIN 81 MG CHEWABLE TABLET PO SCH (09:00)
[2022-10-01] MEDS: CALCIUM CARBONATE CHEW 500MG TAB PO SCH ×3 (09:30→17:57)
[2022-10-01] MEDS: CALCITROL 0.25 MCG CAP PO SCH (09:30)
--- NOTE | 2022-10-01 10:13 | P.PN ---
Nephrology note (S) Pt has remained febrile, reports cough with some hemoptysis, denies any pleuritic chest pain or shortness of breath at rest, no overt hypoxia. (O) Vitals reviewed in the EMR General: Oriented x3, Cooperative, non toxic appearing HEENT: Atraumatic, sclera anicteric, NC Neck: Supple, well healed anterior neck scar Respiratory: b/l air entry, scattered rales Cardiovascular: No edema, mildly tachy, regular Gastrointestinal: Soft and benign, Non-distended Musculoskeletal: No clubbing, No contractures, Lt UE AV access Integumentary: No rashes, No cyanosis Neurological: Normal speech, awake, alert, non focal Laboratory Data (last 24 hrs) Reviewed in the EMR Conclusions/Impression: ESRD on in center HD -Dialyzed yesterday, metab profile acceptable, cont iHD TTS Fevers unspecified. PNA, unspecified organism -Multifocal opacities, b/l PNA. Flu/COVID/RSV neg. Pt on Abx for community acquired PNA, broaden or consider atypical infections if pt remains febrile. Order full resp viral panel if avail. Obtain sputum culture. Check procalcitonin level. Cont supportive care. HTN with CKD complicated by hypotension/ tachycardia -Scale back on BP meds, hold CCB, pt typically does not require UF on dialysis Post parathyroidectomy hypocalcemia, hyperphosphatemia 2nd to CKD -Total Caa level lower this AM, asymptomatic, cont Ca carbonate, resumed daily Calcitriol, monitor closely Doug Gaviria MD, HUGO
[2022-10-01] MEDS ORDERED: carvediloL 6.25 MG TAB ONE ×2 (10:33→11:03)
[2022-10-01] MEDS ORDERED: CEFTRIAXONE 1000 MG/VIAL ONE (10:34)
[2022-10-01] MEDS ORDERED: HEPARIN 5000 UNIT/ML 1 ML VIAL ONE (10:34)
[2022-10-01] MEDS ORDERED: AZITHROMYCIN 500 MG INJ IVPB ONE (10:34)
[2022-10-01] MEDS ORDERED: NA CHLORIDE 0.9% 100 ML ONE (10:34)
[2022-10-01] MEDS ORDERED: NA CHLORIDE 0.9% 0 ML ONE (10:34)
[2022-10-01] MEDS ORDERED: ASPIRIN EC 81 MG TAB PO ONE (10:35)
[2022-10-01] MEDS ORDERED: CALCITROL 0.25 MCG CAP PO ONE (10:55)
[2022-10-01] MEDS ORDERED: CALCIUM CARBONATE CHEW 500MG TAB ONE (10:55)
--- NOTE | 2022-10-01 13:02 | EKG ---
Test Date: 2022-09-30 Test Time: 11:20:32 Hoop Punch Operator Helper: BP MEASUREMENT RESULTS: Intervals: Rate: 118 PA: 162 QRSD: 68 QT: 286 QTc: 400 [place]: P: 71 PA: 162 QRS: 58 T: 35 INTERPRETIVE STATEMENTS: Sinus tachycardia Nonspecific T wave abnormality Abnormal ECG Compared to ECG 08/18/2022 12:09:18 T-wave abnormality now present Sinus rhythm no longer present Right-axis deviation no longer present Electronically Signed On 10-01-22 12:59:08 [employer] by Daniel Carmona
--- NOTE | 2022-10-01 16:53 | P.PN ---
Subjective Date of Service: 10/01/22 Chief Complaint: Fever, cough Overnight, she continued to spike fevers. She reports that her symptoms are relatively unchanged compared to yesterday. She continues to experience shortness of breath and cough. She denies chest pain or palpitations. Review of Systems 10-point ROS is otherwise unremarkable General: Fever, Chills Respiratory: Cough, Shortness of Breath Physical Examination - Vital Signs Temperature: 98.3 F Blood Pressure: 115/72 Pulse: 93 Respirations: 16 Pulse Ox (%): 91 - Physical Exam General: Alert, Oriented x3, Mild distress HEENT: Atraumatic, EOMI, Sclerae nonicteric Neck: JVD not distended Respiratory: Diminished, Rhonchi/gurgles Cardiovascular: Normal S1 S2, No murmurs, Other (tachycardic rate), Edema (trace) Gastrointestinal: Normal bowel sounds, Soft and benign, Non-distended, No tenderness, No rebound, No guarding Musculoskeletal: No clubbing Integumentary: No rashes Neurological: Normal speech, Normal affect Urinary: Dialysis catheter - Studies Microbiology Data (last 24 hrs): 09/30/22 12:58 Blood - Blood Anaerobic Blood Culture - Final Assessment And Plan - Plan # Sepsis likely secondary to Multifocal Pneumonia +/- Gram-Negative Urinary Tract Infection She meets sepsis criteria based on temperature > 100.9 F, HR > 90 bpm, and RR > 20 breaths/min, and the suspected source is pulmonary +/- urinary. - Sepsis order set was initiated - Initial Lactate was 1.1 - Blood cultures drawn before antibiotics were given - Broad spectrum antibiotics started: Ceftriaxone + Azithromycin - In regards to fluids: - 30 mL/kg of IV fluids was not administered given SBP > 90, MAP > 65, lactic acid < 4, and concern for volume overload (ESRD on iHD) - Procalcitonin = 7.01 - Urine culture = 4+ gram-negative rods - Chest x-ray = "ill-defined bilateral airspace opacities concerning for multifocal pneumonia, including from viral etiologies." - CT chest = "multifocal bilateral airspace opacities, concerning for an infectious/inflammatory process such as pneumonia. Mildly prominent mediastinal lymph nodes, nonspecific, probably reactive." # Hypertension - Continue home carvedilol # Spina Bifida complicated by Neurogenic Bladder and Hydronephrosis s/p Failed Donor Renal Transplant (2017) now with End-Stage Renal Disease on TuThSa iHD # Anemia of Chronic Kidney Disease - Consulted Nephrology and spoke with Dr. Gaviria - recommendations appreciated # Microscopic Hematuria - Discussed with her and her mother - They state that they are aware of this finding for some time now - They believe it is secondary to her self-catheterizing Jose Francisco Veag M.D.
[2022-10-01] MEDS: carvediloL 12.5 MG TAB PO SCH (21:00)
[2022-10-01] MEDS ORDERED: carvediloL 6.25 MG TAB PO SCH (21:00)
[2022-10-01] MEDS: CEFTRIAXONE 1,000 MG in NA CHLORIDE 0.9% 50 ML IVPB SCH (21:42)
[2022-10-01] MEDS: AZITHROMYCIN IV 500 MG in NA CHLORIDE 0.9% 250 ML IVPB SCH (22:41)
[2022-10-01] MEDS: ONDANSETRON 4 MG/2 ML VIAL IV PRN (23:28)
[2022-10-01] MEDS: BENZONATATE 100 MG CAP PO PRN (23:28)
[2022-10-02] MEDS: ALBUTEROL 2.5 MG/3 ML NEB SOL NEB SCH ×4 (01:25→20:00)
[2022-10-02] MEDS: IPRATROPIUM BROM 0.5MG/2.5ML NEB SCH ×4 (01:25→20:00)
[2022-10-02] MEDS: ACETAMINOPHEN 325 MG TABLET PO PRN ×2 (02:31→20:12)
[2022-10-02 03:54] LABS: Potassium 5.4 mmol/L (3.5-5.1)
[2022-10-02] MEDS ORDERED: ALBUMIN HUMAN 25% 100 ML IV ONE ×2 (07:00→12:09)
[2022-10-02] MEDS: CALCIUM CARBONATE CHEW 500MG TAB PO SCH ×3 (08:17→17:00)
[2022-10-02] MEDS: ASPIRIN 81 MG CHEWABLE TABLET PO SCH (08:17)
[2022-10-02] MEDS: CALCITROL 0.25 MCG CAP PO SCH (08:17)
[2022-10-02] MEDS: HEPARIN 5000 UNIT/ML 1 ML VIAL SQ SCH ×2 (08:17→21:29)
[2022-10-02] MEDS: carvediloL 12.5 MG TAB PO SCH ×2 (08:18→21:28)
[2022-10-02] MEDS: CEFTRIAXONE 1,000 MG in NA CHLORIDE 0.9% 50 ML IVPB SCH (08:18)
[2022-10-02] MEDS: AZITHROMYCIN IV 500 MG in NA CHLORIDE 0.9% 250 ML IVPB SCH (09:00)
[2022-10-02] MEDS ORDERED: CETIRIZINE HCL 5 MG TABLET PO PRN (09:20)
[2022-10-02] MEDS: FLUTICASONE 50MCG NASAL SPRAY NAS SCH ×2 (10:10→21:28)
[2022-10-02] MEDS: DOXYCYCLINE 100 MG in NA CHLORIDE 0.9% 100 ML IVPB SCH ×2 (10:11→21:28)
[2022-10-02] MEDS: BENZONATATE 100 MG CAP PO PRN (12:04)
--- NOTE | 2022-10-02 17:12 | P.PN ---
Subjective Date of Service: 10/02/22 Chief Complaint: Fever, cough Overnight, she continued to spike fevers; however, the space between her fevers seems to be increasing. She reports that her symptoms are gradually improving. She states that she began having diarrhea overnight, so a C. Difficile stool toxin was ordered. She continues to experience shortness of breath and cough. She denies chest pain or palpitations. Review of Systems 10-point ROS is otherwise unremarkable General: Fever, Chills Respiratory: Cough, Shortness of Breath Gastrointestinal: Diarrhea Physical Examination - Vital Signs Temperature: 98.8 F Blood Pressure: 97/60 Pulse: 97 Respirations: 14 Pulse Ox (%): 90 - Studies Microbiology Data (last 24 hrs): 09/30/22 12:18 Catheterized Urine [place] Count - Final >100,000 CFU/ML. 09/30/22 12:18 Catheterized Urine - Final Escherichia Coli 09/30/22 12:58 Blood - Blood Anaerobic Blood Culture - Final Assessment And Plan - Plan - Physical Exam General: Alert, Oriented x3, No distress HEENT: Atraumatic, Sclerae nonicteric Neck: JVD not distended Respiratory: Diminished, Rhonchi/gurgles Cardiovascular: Normal S1 S2, No murmurs, Other (tachycardic rate), Edema (trace) Gastrointestinal: Normal bowel sounds, Soft, Non-distended, No tenderness Musculoskeletal: No clubbing Integumentary: No rashes Neurological: Normal speech, Normal affect Urinary: Dialysis catheter # Sepsis likely secondary to Multifocal Pneumonia +/- Gram-Negative Urinary Tract Infection She meets sepsis criteria based on temperature > 100.9 F, HR > 90 bpm, and RR > 20 breaths/min, and the suspected source is pulmonary +/- urinary. - Sepsis order set was initiated - Initial Lactate was 1.1 - Blood cultures drawn before antibiotics were given - Broad spectrum antibiotics started: Ceftriaxone + Azithromycin - In regards to fluids: - 30 mL/kg of IV fluids was not administered given SBP > 90, MAP > 65, lactic acid < 4, and concern for volume overload (ESRD on iHD) - Procalcitonin = 7.01 - Urine culture = 4+ gram-negative rods - Chest x-ray = "ill-defined bilateral airspace opacities concerning for multifocal pneumonia, including from viral etiologies." - CT chest = "multifocal bilateral airspace opacities, concerning for an infectious/inflammatory process such as pneumonia. Mildly prominent mediastinal lymph nodes, nonspecific, probably reactive." - C. Difficile stool toxin ordered due to frequent diarrhea and antibiotic use # Hypertension - Continue home carvedilol # Spina Bifida complicated by Neurogenic Bladder and Hydronephrosis s/p Failed Donor Renal Transplant (2017) now with End-Stage Renal Disease on TuThSa iHD # Anemia of Chronic Kidney Disease - Consulted Nephrology and spoke with Dr. Gaviria - recommendations appreciated # Microscopic Hematuria - Discussed with her and her mother - They state that they are aware of this finding for some time now - They believe it is secondary to her self-catheterizing Jose Francisco Vega M.D.
--- NOTE | 2022-10-02 22:24 | P.PN ---
Date of Service: 10/02/22 Vital Signs Temp Pulse Resp BP Pulse Ox 101.8 F H 117 H 20 134/74 91 10/02/22 20:00 10/02/22 21:28 10/02/22 20:00 10/02/22 21:28 10/02/22 20:00 Medications Acetaminophen (Acetaminophen 325 Mg Tablet) 650 mg PO Q6H PRN PRN Reason: TEMP > 100.4' F Last Admin: 10/02/22 20:12 Dose: 650 mg Albuterol Sulfate (Albuterol 2.5 Mg/3 Ml Neb [place]) 2.5 mg NEB [id number] [facility] Last Admin: 10/02/22 14:01 Dose: 2.5 mg Aspirin (Aspirin 81 Mg Chewable Tablet) 81 mg PO DAILY [facility] Last Admin: 10/02/22 08:17 Dose: 81 mg Benzonatate (Benzonatate 100 Mg Cap) 100 mg PO TID PRN PRN Reason: COUGH Last Admin: 10/02/22 12:04 Dose: 100 mg Calcitriol (Calcitrol 0.25 Mcg Cap) 1.5 mcg PO DAILY [facility] Last Admin: 10/02/22 08:17 Dose: 1.5 mcg Calcium Carbonate/Glycine (Calcium Carbonate Chew 500mg Tab) 1,000 mg PO TIDWM [facility] Last Admin: 10/02/22 17:00 Dose: Not Given Carvedilol (Carvedilol 12.5 Mg Tab) 12.5 mg PO BID [facility] Last Admin: 10/02/22 21:28 Dose: 12.5 mg Cetirizine HCl (Cetirizine Hcl 5 Mg Tablet) 10 mg PO DAILY PRN PRN Reason: ALLERGIES Last Admin: 10/02/22 10:11 Dose: 10 mg Fluticasone Propionate (Fluticasone 50mcg Nasal [place]) 1 sprays CANDACE BID [facility] Last Admin: 10/02/22 21:28 Dose: 1 spray Guaifenesin/Codeine Phosphate (Guaifenesin/Codeine 5ml Ucup) 10 ml PO QID PRN PRN Reason: COUGH Last Admin: 10/01/22 00:34 Dose: 10 ml Heparin Sodium (Porcine) (Heparin 5000 Unit/Ml 1 Ml Vial) 5,000 unit SQ Q12HR [facility] Last Admin: 10/02/22 21:29 Dose: 5,000 unit Heparin Sodium (Porcine) (Heparin 1,000 Unit/Ml Vial) 2,000 unit IV EVERY HD PRN PRN Reason: Prevent Lines Clotting Last Admin: 10/02/22 15:12 Dose: 2,000 unit Ceftriaxone Sodium 1,000 mg/ (Sodium Chloride) 50 mls @ 100 mls/hr IVPB DAILY [facility]; Protocol Last Admin: 10/02/22 08:18 Dose: 50 mls Doxycycline Hyclate 100 mg/ (Sodium Chloride) 100 mls @ 100 mls/hr IVPB Q12HR [facility]; Protocol Last Admin: 10/02/22 21:28 Dose: 100 mls Ipratropium [place] (Ipratropium Brom 0.5mg/2.5ml) 0.5 mg NEB [id number] [facility] Last Admin: 10/02/22 14:01 Dose: 0.5 mg Ondansetron HCl (Ondansetron 4 Mg/2 Ml Vial) 4 mg IV Q6HP PRN PRN Reason: NAUSEA / VOMITING Last Admin: 10/01/22 23:28 Dose: 4 mg Sodium Chloride (Flush Normal Saline 10 Ml) 10 ml IV BID [facility] Last Admin: 10/02/22 21:00 Dose: 10 ml Microbiology Results 09/30/22 12:18 Catheterized Urine [place] Count - Final >100,000 CFU/ML. 09/30/22 12:18 Catheterized Urine - Final Escherichia Coli 09/30/22 12:58 Blood - Blood Aerobic Blood Culture - Preliminary No growth in 24 hours. 09/30/22 12:58 Blood - Blood Anaerobic Blood Culture - Final 09/30/22 12:35 Blood - Blood Aerobic Blood Culture - Preliminary No growth in 24 hours. 09/30/22 12:35 Blood - Blood Anaerobic Blood Culture - Preliminary No growth in 24 hours. Assessment/ Plan: Nephrology No dyspnea No chest pain Feeling better No acute events overnight Vitals, medications, blood work and imaging reviewed in the chart. General: Oriented x3, Cooperative HEENT: Atraumatic Neck: Supple Respiratory: Clear to auscultation bilaterally Cardiovascular: No edema, Regular rate/rhythm Gastrointestinal: Soft and benign, Non-distended Musculoskeletal: No clubbing, No contractures Integumentary: No rashes, No cyanosis Neurological: Normal speech Laboratory Data (last 24 hrs) 09/30/22 12:35: Phosphorus 3.3, Magnesium 2.1 02/14/23 12:35: PT 12.8 H, INR 1.16, APTT 33.8 09/30/22 12:35: Sodium 134 L, Potassium 4.0, BUN 18, Creatinine 6.58 H*, Glucose 95, Total Bilirubin 0.5, AST 14 L, ALT 12 L, Alkaline Phosphatase 368 H 09/30/22 12:35: WBC 5.50, Hgb 9.8 L, Hct 29.3 L, Plt Count 155 Imagings Data: [facility] / [facility] EXAM DESCRIPTION: RAD - Chest Single View - 09/30/2022 12:05 pm CLINICAL HISTORY: Fever COMPARISON: Chest Single View dated 08/18/2022; Chest Single View dated 02/04/2021; Chest Single View dated 02/02/2021; Abdomen 1 View (KUB) dated 01/31/2021 FINDINGS: Lines: None. Lungs: Widespread bilateral airspace disease. Pleural: No significant pleural effusions or pneumothorax. Cardiac: Similar size and configuration. Mediastinum: Within normal limits. Bones: No acute fractures. Other: None IMPRESSION: Ill-defined bilateral airspace opacities concerning for multifocal pneumonia, including from viral etiologies. Conclusions/Impression: ESRD on HD -HD TTS -Acute HD today Hyponatremia -HD TTS HTN with CKD/ CHF -Continue Coreg Diastolic CHF, chronic -Low sodium diet -HD with UF Anemia in CKD -Retacrit X1 CKD MBD Hypocalcemia -Continue Ergo -Increase Calcitriol -Continue Tums BL PNA -Continue Abx Case reviewed with Dr. Vega.
[2022-10-03] MEDS: IPRATROPIUM BROM 0.5MG/2.5ML NEB SCH ×4 (01:45→20:05)
[2022-10-03] MEDS: ALBUTEROL 2.5 MG/3 ML NEB SOL NEB SCH ×4 (02:00→20:05)
[2022-10-03 05:13] VITALS: BMI 28.8
[2022-10-03 06:43] LABS: Potassium 3.9 mmol/L (3.5-5.1)
[2022-10-03] MEDS ORDERED: DRISDOL (VITAMIN D=ERGOCALCIFEROL) 50000 UNIT CAP PO SCH (08:00)
--- NOTE | 2022-10-03 08:52 | P.CNS ---
Date of Consult: 10/03/22 Chief Complaint: Fever, cough History of Present Illness: Patient is a 22-year-old female with a past medical history significant for ESRD, hypertension, spina bifida who presents with complaint of fever, cough that has been ongoing for the past 4 days. Patient was at her dialysis clinic today but fluids were not removed because of patient's elevated heart rate and diminished blood pressure. Patient reports associated signs and symptoms of chest tightness and rhinorrhea. Patient denies any other signs and symptoms. Symptoms are aggravated or relieved by nothing. Patient presented to the hospital due to worsening symptoms. ID has been consulted for IV antibiotics recommendations and management for PNA and UTI Allergies latex Allergy (Verified 08/25/22 13:09) Hives/Rash Home Medications: Nifedipine [Procardia Xl] 60 mg PO DAILY 05/16/22 Carvedilol [Coreg] 25 mg PO BID 08/25/22 Cefpodoxime Proxetil 100 mg PO EVERY 3RD DAY 7 Days #3 tab 09/02/22 - Past Medical/Surgical History Diabetic: No -: Hypertension -: spina bifida -: bladder reflux -: ESRD on HD (Dr. Chapman) -: spina bifida repair -: bladder augmentation -: kidney transplant, then nephrectomy -: PD placement Psychosocial/ Personal History: Patient is adopted. - Family History Father Notes: adopted - Social History Alcohol use: No CD- Drugs: No Caffeine use: No Place of Residence: Home Review of Systems 10-point ROS is otherwise unremarkable Respiratory: Cough Physical Examination Temp Pulse Resp BP Pulse Ox 98.9 F 93 H 18 99/56 L 91 10/03/22 04:00 10/03/22 04:00 10/03/22 04:00 10/03/22 04:00 10/03/22 04:00 General: Alert, In no apparent distress, Oriented x3 Respiratory: Crackles/rales (all lung fileds), Other (3 L NC) Cardiovascular: No edema, Other (3nd heart sound heard) Gastrointestinal: Normal bowel sounds Musculoskeletal: No swelling, No tenderness, Other (spinal bifida) Integumentary: No rashes, No breakdown Neurological: Normal speech, Normal tone, Normal affect current medications Acetaminophen (Acetaminophen 325 Mg Tablet) 650 mg PO Q6H PRN PRN Reason: TEMP > 100.4' F Last Admin: 10/02/22 20:12 Dose: 650 mg Albuterol Sulfate (Albuterol 2.5 Mg/3 Ml Neb [place]) 2.5 mg NEB [id number] [facility] Last Admin: 10/03/22 02:00 Dose: Not Given Aspirin (Aspirin 81 Mg Chewable Tablet) 81 mg PO DAILY [facility] Last Admin: 10/02/22 08:17 Dose: 81 mg Benzonatate (Benzonatate 100 Mg Cap) 100 mg PO TID PRN PRN Reason: COUGH Last Admin: 10/02/22 12:04 Dose: 100 mg Calcitriol (Calcitrol 0.25 Mcg Cap) 2 mcg PO DAILY [facility] Calcium Carbonate/Glycine (Calcium Carbonate Chew 500mg Tab) 1,000 mg PO TIDWM [facility] Last Admin: 10/02/22 17:00 Dose: Not Given Carvedilol (Carvedilol 12.5 Mg Tab) 12.5 mg PO BID [facility] Last Admin: 10/02/22 21:28 Dose: 12.5 mg Cetirizine HCl (Cetirizine Hcl 5 Mg Tablet) 10 mg PO DAILY PRN PRN Reason: ALLERGIES Last Admin: 10/02/22 10:11 Dose: 10 mg Epoetin [place]ola (Epoetin [place] 10,000 Unit/Ml Vial) 10,000 unit SQ DAILY [facility] Stop: 10/03/22 09:01 Ergocalciferol (Drisdol (Vitamin D=Ergocalciferol) 64244 Unit Cap) 50,000 unit PO Q7D [facility] Fluticasone Propionate (Fluticasone 50mcg Nasal [place]) 1 sprays CANDACE BID [facility] Last Admin: 10/02/22 21:28 Dose: 1 spray Guaifenesin/Codeine Phosphate (Guaifenesin/Codeine 5ml Ucup) 10 ml PO QID PRN PRN Reason: COUGH Last Admin: 10/01/22 00:34 Dose: 10 ml Heparin Sodium (Porcine) (Heparin 5000 Unit/Ml 1 Ml Vial) 5,000 unit SQ Q12HR [facility] Last Admin: 10/02/22 21:29 Dose: 5,000 unit Heparin Sodium (Porcine) (Heparin 1,000 Unit/Ml Vial) 2,000 unit IV EVERY HD PRN PRN Reason: Prevent Lines Clotting Last Admin: 10/02/22 15:12 Dose: 2,000 unit Ceftriaxone Sodium 1,000 mg/ (Sodium Chloride) 50 mls @ 100 mls/hr IVPB DAILY [facility]; Protocol Last Admin: 10/02/22 08:18 Dose: 50 mls Doxycycline Hyclate 100 mg/ (Sodium Chloride) 100 mls @ 100 mls/hr IVPB Q12HR [facility]; Protocol Last Admin: 10/02/22 21:28 Dose: 100 mls Ipratropium [place] (Ipratropium Brom 0.5mg/2.5ml) 0.5 mg NEB [id number] [facility] Last Admin: 10/03/22 01:45 Dose: 0.5 mg Ondansetron HCl (Ondansetron 4 Mg/2 Ml Vial) 4 mg IV Q6HP PRN PRN Reason: NAUSEA / VOMITING Last Admin: 10/01/22 23:28 Dose: 4 mg Potassium Chloride (Potassium Cl Sa 10 Meq Tab) 20 meq PO 1X ONE Stop: 10/03/22 09:01 Sodium Chloride (Flush Normal Saline 10 Ml) 10 ml IV BID [facility] Last Admin: 10/02/22 21:00 Dose: 10 ml Microbiology 09/30/22 12:18 Catheterized Urine [place] Count - Final >100,000 CFU/ML. 09/30/22 12:18 Catheterized Urine - Final Escherichia Coli 09/30/22 12:58 Blood - Blood Aerobic Blood Culture - Preliminary No growth in 24 hours. 09/30/22 12:58 Blood - Blood Anaerobic Blood Culture - Final 09/30/22 12:35 Blood - Blood Aerobic Blood Culture - Preliminary No growth in 24 hours. 09/30/22 12:35 Blood - Blood Anaerobic Blood Culture - Preliminary No growth in 24 hours. Imagings Data: RAD - Chest Single View - 09/30/2022 FINDINGS: Lines: None. Lungs: Widespread bilateral airspace disease. Pleural: No significant pleural effusions or pneumothorax. Cardiac: Similar size and configuration. Mediastinum: Within normal limits. Bones: No acute fractures. Other: None IMPRESSION: Ill-defined bilateral airspace opacities concerning for multifocal pneumonia, including from viral etiologies. CT - Thorax Wo Con - 10/01/2022 FINDINGS: Multifocal consolidative and ground-glass patchy opacities most abundant within the lower lobes bilaterally, left upper lobe, and to lesser extent the right middle and right upper lobes. No cavitary lesions. No pleural thickening or pleural effusion. No pneumothorax. No suspicious axillary or hilar adenopathy allowing for limitations of noncontrast examination. Mildly prominent mediastinal lymph nodes, the largest in the pretracheal region measuring 11 millimeter in short axis, with preserved fatty hilum, nonspecific, but could be reactive. Incidentally noted trace pericardial effusion. No significant aortic or pulmonary artery finding suspected. Assessment is limited in the absence of IV contrast. No chest wall mass or abnormal axilliary lymphadenopathy. Limited evaluation of the included upper abdominal structures reveals atrophic changes of both kidneys. IMPRESSION: Multifocal bilateral airspace opacities, concerning for an infectious/inflammatory process such as pneumonia. Mildly prominent mediastinal lymph nodes, nonspecific, probably reactive. - Problems (1) Multifocal pneumonia Plan: Cultures: - 10/01 RSV: Negative - 09/30 BC: Negative - 09/30 UC: E. Coli (MDR) Antibiotics: - Had Azithromycin on 10/01 - Current on IV Ceftriaxone (10/01- ) and Doxycycline (10/02- ) Recommendations: - Continue IV Ceftriaxone for total of 10 days - Stop Doxycycline (2) UTI (urinary tract infection) Plan: Cultures: - 09/30 UC: E. Coli (MDR) Antibiotics: - Current on IV Ceftriaxone (10/01- ) and Doxycycline (10/02- ) Recommendations: - Continue IV Ceftriaxone for total of 10 days - Stop Doxycycline Conclusions/Impression: - Multifocal pneumonia - UTI - Sepsis POA - Pancytopenia - Cough - History of spina bifida - ESRD - Hypertension - Anemia of chronic disease - Hypertension - Spina bifida - Bladder reflux - ESRD on HD - Spina bifida repair - Bladder augmentation - Kidney transplant, then nephrectomy ID will monitor the patient closely for signs of infection with fever and WBC trends Case has been discussed with Dr. Mondragon N Thank you Dr. Vega for consultation
[2022-10-03] MEDS ORDERED: POTASSIUM CL SA 10 MEQ TAB PO ONE (09:00)
[2022-10-03] MEDS ORDERED: EPOETIN ALFA 10,000 UNIT/ML VIAL SQ SCH (09:00)
[2022-10-03] MEDS: DOXYCYCLINE 100 MG in NA CHLORIDE 0.9% 100 ML IVPB SCH ×2 (09:00→21:00)
[2022-10-03 09:37] LABS: Absolute Lymphocytes (CBC) 1.8 K/uL (0.7-4.9); Hematocrit 26.5 % (36.0-45.0); MCV 90.8 fL (80-100); MPV 8.7 fL (7.6-11.3); RBC Red Blood Cell Count 2.92 M/uL (3.86-4.86)
[2022-10-03] MEDS: FLUTICASONE 50MCG NASAL SPRAY NAS SCH ×2 (09:38→21:16)
[2022-10-03] MEDS: ASPIRIN 81 MG CHEWABLE TABLET PO SCH (09:39)
[2022-10-03] MEDS: CALCITROL 0.25 MCG CAP PO SCH (09:39)
[2022-10-03] MEDS: CALCIUM CARBONATE CHEW 500MG TAB PO SCH ×3 (09:39→16:56)
[2022-10-03] MEDS: carvediloL 12.5 MG TAB PO SCH ×2 (09:40→21:17)
[2022-10-03] MEDS: CEFTRIAXONE 1,000 MG in NA CHLORIDE 0.9% 50 ML IVPB SCH (09:40)
[2022-10-03] MEDS: HEPARIN 5000 UNIT/ML 1 ML VIAL SQ SCH ×2 (10:47→21:18)
--- NOTE | 2022-10-03 10:52 | P.PN ---
Nephrology note (S) Pt still with fever spikes, last episode > 101 yesterday evening. Pt still with cough, some dyspnea, on LFNC. (O) Vitals reviewed in the EMR General: Oriented x3, Cooperative, non toxic appearing HEENT: Atraumatic, sclera anicteric, NC Neck: Supple, well healed anterior neck scar Respiratory: b/l air entry, scattered rales Cardiovascular: No edema, mildly tachy, regular Gastrointestinal: Soft and benign, Non-distended Musculoskeletal: No clubbing, No contractures, Lt UE AV access Integumentary: No rashes, No cyanosis Neurological: Normal speech, awake, alert, non focal Laboratory Data (last 24 hrs) Reviewed in the EMR Conclusions/Impression: ESRD on in center HD -Dialyzed yesterday, metab profile acceptable, cont iHD TTS Fevers unspecified. PNA, unspecified organism -Multifocal opacities, b/l PNA. Flu/COVID/RSV neg. Pt on Abx for community acquired PNA, broaden or consider atypical infections if pt remains febrile. ID following. Procalcitonin level was sig elevated suggesting bacterial infection. HTN with CKD complicated by hypotension/ tachycardia -Scaled back on BP meds, held CCB, pt typically does not require UF on dialysis Post parathyroidectomy hypocalcemia, hyperphosphatemia 2nd to CKD -Total Ca level remains low, but asymptomatic, cont Ca carbonate (will raise dose), cont daily Calcitriol, dialyze with higher Ca bath, monitor closely Doug Gaviria MD, HUGO
--- NOTE | 2022-10-03 14:30 | P.PN ---
Subjective Date of Service: 10/03/22 Chief Complaint: Fever, cough No acute events overnight. Her fever trend continues to improve. She reports shortness of breath and cough; although, these symptoms are gradually improving. She denies chest pain or palpitations. Review of Systems 10-point ROS is otherwise unremarkable Respiratory: Cough, Shortness of Breath Physical Examination - Vital Signs Temperature: 99.7 F Blood Pressure: 110/67 Pulse: 101 Respirations: 14 Pulse Ox (%): 92 Assessment And Plan - Plan - Physical Exam General: Alert, Oriented x3, No distress HEENT: Atraumatic, Sclerae nonicteric Neck: JVD not distended Respiratory: Diminished, faint rhonchi/gurgles Cardiovascular: Normal S1 S2, Regular rate/rhythm, No murmurs, Edema (trace) Gastrointestinal: Normal bowel sounds, Soft, Non-distended, No tenderness Musculoskeletal: No clubbing Integumentary: No rashes Neurological: Normal speech, Normal affect Urinary: Dialysis catheter # Sepsis likely secondary to Multifocal Pneumonia +/- Escherichia Coli Urinary Tract Infection She meets sepsis criteria based on temperature > 100.9 F, HR > 90 bpm, and RR > 20 breaths/min, and the suspected source is pulmonary +/- urinary. - Consulted Infectious Diseases - recommendations appreciated - Sepsis order set was initiated - Initial Lactate was 1.1 - Blood cultures drawn before antibiotics were given - Broad spectrum antibiotics started: Ceftriaxone + Doxycycline - In regards to fluids: - 30 mL/kg of IV fluids was not administered given SBP > 90, MAP > 65, lactic acid < 4, and concern for volume overload (ESRD on iHD) - Procalcitonin = 7.01 - Urine culture = 4+ gram-negative rods - Chest x-ray = "ill-defined bilateral airspace opacities concerning for multifocal pneumonia, including from viral etiologies." - CT chest = "multifocal bilateral airspace opacities, concerning for an infectious/inflammatory process such as pneumonia. Mildly prominent mediastinal lymph nodes, nonspecific, probably reactive." - C. Difficile stool toxin ordered due to frequent diarrhea and antibiotic use # Hypertension - Continue home carvedilol # Spina Bifida complicated by Neurogenic Bladder and Hydronephrosis s/p Failed Donor Renal Transplant (2017) now with End-Stage Renal Disease on [facility] # Anemia of Chronic Kidney Disease - Consulted Nephrology and spoke with Dr. Gaviria - recommendations appreciated # Microscopic Hematuria - Discussed with her and her mother - They state that they are aware of this finding for some time now - They believe it is secondary to her self-catheterizing Jose Francisco Vega M.D.
[2022-10-03] MEDS ORDERED: CALCIUM GLUCONATE 1 GM IVPB 1 GM/50 ML BAG IV ONE (14:45)
[2022-10-04] MEDS: ALBUTEROL 2.5 MG/3 ML NEB SOL NEB SCH ×3 (01:45→14:24)
[2022-10-04] MEDS: IPRATROPIUM BROM 0.5MG/2.5ML NEB SCH ×3 (01:45→14:24)
[2022-10-04 06:55] LABS: Potassium 4.2 mmol/L (3.5-5.1)
--- NOTE | 2022-10-04 07:25 | RAD REPORT ---
EXAM DESCRIPTION: RAD - Chest Single View - 10/04/2022 6:55 am CLINICAL HISTORY: follow-up PNA COMPARISON: Chest Single View dated 09/30/2022; Chest Single View dated 08/18/2022; Chest Single View d ated 02/04/2021; Chest Single View dated 02/02/2021; Thorax Wo Con dated 10/01/2022 FINDINGS: Lines: None. Lungs: Opacities at the lung bases slightly more confluent compared with prior. . Decreased lung volu mes. Pleural: No significant pleural effusions or pneumothorax. Cardiac: Similar size and configuration Mediastinum: Within normal limits. Bones: No acute fractures. Other: None IMPRESSION: Multifocal airspace disease. Aeration at the lung bases has modestly worsened. It could also be accentuated by lower lung volumes. Sign up
[2022-10-04] MEDS: CALCIUM CARBONATE CHEW 500MG TAB PO SCH ×3 (07:29→17:00)
[2022-10-04] MEDS ORDERED: CALCIUM GLUCONATE 1 GM IVPB 1 GM/50 ML BAG IV ONE (07:30)
[2022-10-04] MEDS: DOXYCYCLINE 100 MG in NA CHLORIDE 0.9% 100 ML IVPB SCH (09:00)
[2022-10-04 09:39] VITALS: O2SAT 94
[2022-10-04] MEDS: ASPIRIN 81 MG CHEWABLE TABLET PO SCH (10:00)
[2022-10-04] MEDS: FLUTICASONE 50MCG NASAL SPRAY NAS SCH (10:00)
[2022-10-04] MEDS: carvediloL 12.5 MG TAB PO SCH (10:00)
[2022-10-04] MEDS: CEFTRIAXONE 1,000 MG in NA CHLORIDE 0.9% 50 ML IVPB SCH (10:00)
[2022-10-04] MEDS: HEPARIN 5000 UNIT/ML 1 ML VIAL SQ SCH (10:33)
[2022-10-04] MEDS: CALCITROL 0.25 MCG CAP PO SCH (11:08)
[2022-10-04 13:55] VITALS: BP 118/89; TEMP 98
--- NOTE | 2022-10-04 16:20 | P.DS ---
Admission Date: 09/30/22 Discharge Date: 10/04/22 Disposition: ROUTINE DISCHARGE Discharge Condition: GOOD Reason for Admission: Fever, cough Consultations: 1. Nephrology Hospital Course: DIAGNOSES: # Sepsis likely secondary to Multifocal Pneumonia +/- Escherichia Coli Urinary Tract Infection # Hypertension # Spina Bifida complicated by Neurogenic Bladder and Hydronephrosis s/p Failed Donor Renal Transplant (2017) now with End-Stage Renal Disease on [facility] i[facility] # Anemia of Chronic Kidney Disease # Microscopic Hematuria HOSPITAL COURSE: Ms. Sully Renner is a 22 year old female with a past medical history significant for spina bifida complicated by neurogenic bladder and hydronephrosis s/p failed donor renal transplant (2017) now with endstage renal disease on [facility] i[facility] who was admitted to the [facility] on 09/30/2022 for sepsis secondary to multifocal pneumonia and Escherichia Coli urinary tract infection. She was admitted to the Medicine service. Upon further evaluation, her chest x- ray revealed, "ill-defined bilateral airspace opacities concerning for multifocal pneumonia, including from viral etiologies." Her CT chest revealed, "multifocal bilateral airspace opacities, concerning for an infectious/inflammatory process such as pneumonia. Mildly prominent mediastinal lymph nodes, nonspecific, probably reactive." Her urinalysis was concerning for a urinary tract infection, and her urine culture returned positive for Esch erichia Coli. Her procalcitonin was elevated to 7.01. She was started on IV antibiotics, and over the course of her hospitalization, her symptoms improved significantly. She has been fever free for more than 24 hours and states that she feels ready to be discharged home. Clinically, she appears significantly better and she was advised to schedule a repeat chest x-ray in 3-4 weeks to en sure resolution of her pneumonia. She was also advised about her microscopic hematuria and it was recommended that she follow this up with her PCP. She verbalized understanding and agreed to make this appointment. On 10/04/2022, she was seen on rounds and deemed medically stable for discharge. She was discharged with instructions to schedule follow-up appointments with her PCP/Criminal Justice Instructor (Dr. Chapman). She was provided prescriptions for levofloxacin, doxycycline, and benzonatate. She was given the opportunity to ask questions and reported no further questions. Furthermore, all questions were answered to the best of my ability. A copy of this discharge summary will be sent to the above providers to facilitate continuity of care. Today, I personally spent 35 minutes on her case, of which greater than 50% of the time was spent in patient education, counseling, and coordination of care as described above. - Physical Exam General: Alert, Oriented x3, No distress HEENT: Atraumatic, Sclerae nonicteric Neck: JVD not distended Respiratory: Diminished, faint rhonchi/gurgles Cardiovascular: Regular rate/rhythm, No murmurs, Edema (trace) Gastrointestinal: Non-distended, No tenderness Musculoskeletal: No clubbing Integumentary: No rashes Neurological: Normal speech, Normal affect Urinary: Dialysis catheter Vital Signs/Physical Exam: Temp Pulse Resp BP Pulse Ox 98.0 F 87 20 118/89 97 10/04/22 12:00 10/04/22 12:00 10/04/22 12:00 10/04/22 12:00 10/04/22 12:00 Laboratory Data at Discharge: WBC 3.80 K/uL (4.3-10.9) L 10/03/22 09:02 Hgb 8.6 g/dL (12.0-15.0) L 10/03/22 09:02 Hct 26.5 % (36.0-45.0) L 10/03/22 09:02 Plt Count 134 K/uL (152-406) L 10/03/22 09:02 PT 12.8 SECONDS (9.5-12.5) H 09/30/22 12:35 INR 1.16 09/30/22 12:35 APTT 33.8 SECONDS (24.3-36.9) 09/30/22 12:35 Sodium 141 mmol/L (136-145) 10/04/22 06:03 Potassium 4.2 mmol/L (3.5-5.1) 10/04/22 06:03 BUN 36 mg/dL (7-18) H 10/04/22 06:03 Creatinine 10.90 mg/dL (0.55-1.02) H* 10/04/22 06:03 Glucose 87 mg/dL (74-106) 10/04/22 06:03 Phosphorus 3.3 mg/dL (2.5-4.9) 09/30/22 12:35 Magnesium 2.1 mg/dL (1.6-2.4) 09/30/22 12:35 Total Bilirubin 0.5 mg/dL (0.2-1.0) 09/30/22 12:35 AST 14 U/L (15-37) L 09/30/22 12:35 ALT 12 U/L (13-56) L 09/30/22 12:35 Alkaline Phosphatase 368 U/L (45-117) H 09/30/22 12:35 Home Medications: Nifedipine [Procardia Xl] 60 mg PO DAILY 05/16/22 Carvedilol [Coreg] 25 mg PO BID 08/25/22 Benzonatate [Tessalon Perle*] 100 mg PO TID PRN 7 Days #20 cap 10/04/22 Doxycycline Hyclate 100 mg PO BID 10 Days #20 tab 10/04/22 levoFLOXacin [Levaquin] 500 mg PO UD 10 Days #5 tab 10/04/22 New Medications: Doxycycline Hyclate 100 mg PO BID 10 Days #20 tab levoFLOXacin [Levaquin] 500 mg PO UD 10 Days #5 tab Benzonatate [Tessalon Perle*] 100 mg PO TID PRN 7 Days #20 cap PRN Reason: Cough Physician Discharge Instructions: 1. Please call and schedule a follow-up appointment with your PCP/Criminal Justice Instructor (Dr. Chapman) in 3-5 days - Please make sure you schedule a repeat chest x-ray in 3-4 weeks to make sure your pneumonia has fully healed - Please make sure you follow-up the small amount of blood in your urine as we discussed Followup: Tremaine Chapman DO [Primary Care Provider] -
--- NOTE | 2022-10-06 13:40 | PN ---
Subjective: The patient is seen in room 207 at [facility]. The patient is alert, awake, and comfortable. Her mother is in the room with her. The patient's b lood pressure seems to be good. She denies any headache, nausea, or vomiting. She clinically looks well and asymptomatic. She is waiting to go home after dialysis, she states. Objective: Vital Signs: Currently last blood pressure was 137/97, pulse is about 80 to 90 and regul ar, respirations around 14 and comfortable. The patient has been afebrile. Her O2 sats are about 96 % on room air. Lungs: Clear to auscultation. Abdomen: Soft. Extremities: Do not reveal any edema. AV fistula with good thrill and bruit. Laboratory Data: Reviewed. WBC count was 3.8 yesterday, hemoglobin 8.6, hematocrit 26.5, platelet c ount of 134. Chemistry shows sodium 141, potassium 4.2, chloride 108, bicarb is 25, BUN is 36, creat inine 10.9, calcium has been running low, but stable at about 6.4. TSH at 1.5 on September 30, phosph orus at 3.3, and magnesium at 2.1 on September 30. Assessment/plan: The patient with end-stage renal disease. Fistula on the arm with good thrill and bruit. I spoke to dialysis nurse . /DELFINO Voice ID: [id number] Report ID: [id number]
== END 2022-10-04 18:34 | disposition home or self-care (01) | DRG 871 ==
LOC: ER 10:42 → ERHOLD 15:08 → 2ND 10-01 15:14
PROVIDERS: ADMIT Internal Medicine; ATTEND Internal Medicine
PROC: 5A1D70Z Performance of Urinary Filtration, Intermittent, Less than 6 Hours Per Day (ICD-10-PCS; principal; 2022-10-02)
DX: A41.51 Sepsis due to Escherichia coli [E. coli] (principal); J18.9 Pneumonia, unspecified organism; N18.6 End stage renal disease; Z94.0 Kidney transplant status; E87.1 Hypo-osmolality and hyponatremia; I50.32 Chronic diastolic (congestive) heart failure; I13.2 Hypertensive heart and chronic kidney disease with heart failure and with stage 5 chronic kidney disease, or end stage renal disease; N13.6 Pyonephrosis; D61.818 Other pancytopenia; S37.39XA Other injury of urethra, initial encounter; R31.29 Other microscopic hematuria; D63.1 Anemia in chronic kidney disease; N31.9 Neuromuscular dysfunction of bladder, unspecified; E83.51 Hypocalcemia; E83.39 Other disorders of phosphorus metabolism; Z90.5 Acquired absence of kidney; Z99.2 Dependence on renal dialysis; Z91.09 Other allergy status, other than to drugs and biological substances; Z79.02 Long term (current) use of antithrombotics/antiplatelets; Z91.040 Latex allergy status; Z79.899 Other long term (current) drug therapy; Z20.822 Contact with and (suspected) exposure to COVID-19
CPT/HCPCS: 0240U; 36415; 71045; 71250; 80048; 80053; 81003; 81025; 83605; 83735; 84100; 84145; 84439; 84443; 85025; 85610; 85730; 87040; 87077; 87086; 87088; 87186; 87807; 90935; 93005; 94010; 94640; 99285; J0456; J0610; J0692; J1644; J2250; J2405; J7050; J7613; J7644; P9047